=== PATIENT | male | born 1950 | race Caucasian/White ===

== ENCOUNTER 2021-02-04 14:27 | Outpatient (REF) | payer MEDICARE, SELFPAY | END 2021-02-04 14:28 | disposition home or self-care (01) | LOC: HO.HMGCLDS 14:27 | PROVIDERS: PCP Internal Medicine; Visit Provider Internal Medicine | DX: Z20.822 Contact with and (suspected) exposure to COVID-19 (principal) | CPT/HCPCS: C9803; U0003; U0005 ==

== ENCOUNTER 2021-10-26 13:53 | Outpatient (REF) | payer MEDICARE, SELFPAY ==
[2021-10-26 16:53] LABS: MANUAL DIFF FLAG NO
[2021-10-26 16:56] LABS: Basophils Percent Auto 0.5 % (0-2); Eosinophils Absolute Auto 0.1 X10*3/uL (0.0-0.4); Eosinophils Percent Auto 1.5 % (0-4); Hematocrit 37.5 % (42.0-52.0); Hemoglobin 12.7 g/dl (14.0-18.0); Imm Gran Abs Auto 0.02 X10*3/uL (0.00-0.03); Imm Gran Pct Auto 0.5 % (0.0-0.4); Lymphocytes Absolute Auto 0.8 X10*3/uL (1.2-4.9); Lymphocytes Percent Auto 19.7 % (20-40); Mean Corpuscular HGB Conc 33.9 g/dl (31.0-36.0); Mean Corpuscular Hemoglobin 30.7 pg (27.0-33.0); Mean Corpuscular Volume 90.6 fL (80.0-98.0); Mean Platelet Volume 9.8 fL (9.4-12.4); Monocytes Absolute Auto 0.3 X10*3/uL (0.1-1.2); Monocytes Percent Auto 6.1 % (2-11); Neutrophils Absolute Auto 2.9 x10*3/uL (2.0-8.3); Neutrophils Percent Auto 71.7 % (45-73); Platelet Count 159 X10*3/uL (160-400); Red Blood Count 4.14 X10*6/uL (4.60-5.80); Red Cell Distribution Width 14.7 % (11.0-16.0); White Blood Count 4.1 X10*3/uL (4.8-10.8)
[2021-10-26 17:21] LABS: Estimated Average Glucose 154 mg/dL
[2021-10-26 17:31] LABS: Alanine Aminotransferase 38 U/L (0-40); Albumin Level 4.9 g/dL (3.5-5.0); Alkaline Phosphatase 107 U/L (39-117); Anion Gap 14 (12-20); Aspartate Amino Transferase 49 U/L (5-37); Bilirubin Total 0.5 mg/dL (0.0-1.0); Blood Urea Nitrogen 22 mg/dL (9-16); Calcium 9.8 mg/dL (8.4-10.2); Carbon Dioxide 29 mmol/L (22-29); Chloride 103 mmol/L (96-108); Cholesterol 194 mg/dL; Estimated Glomerular Filt Rate 50; Glucose Fasting 129 mg/dL (60-99); HDL Cholesterol 30 mg/dL; LDL Cholesterol Calculated 98 mg/dl; Microalbum/Creatinine Ratio Ur 8.5 ug/mg cr; Potassium 4.4 mmol/L (3.3-5.1); Sodium 142 mmol/L (135-145); Total Protein 7.6 g/dL (6.5-8.0); Triglycerides 330 mg/dL
[2021-10-26 17:51] LABS: TSH reflex Free T4 4.54 uIU/mL (0.32-4.0)
[2021-10-26 17:56] LABS: Vitamin B12 458 pg/mL (200-900)
[2021-10-26 18:27] LABS: Free T4 (Free Thyroxine) 0.85 ng/dL (0.71-1.85)
[2021-11-01 15:42] LABS: Vitamin D 25-OH, D2 <4 ng/mL; Vitamin D 25-OH, D3 60 ng/mL; Vitamin D 25-OH, Total 60 ng/mL (30-100)
== END 2021-10-26 13:54 | disposition home or self-care (01) ==
LOC: HO.HMGCLDS 13:53
PROVIDERS: PCP Internal Medicine; Visit Provider Internal Medicine
DX: E11.9 Type 2 diabetes mellitus without complications (principal); E78.9 Disorder of lipoprotein metabolism, unspecified; M54.2 Cervicalgia; R53.83 Other fatigue; T14.8XXA Other injury of unspecified body region, initial encounter; Z76.89 Persons encountering health services in other specified circumstances; Z79.4 Long term (current) use of insulin
CPT/HCPCS: 36415; 80053; 80061; 82043; 82306; 82607; 83036; 84439; 84443; 85025

== ENCOUNTER 2022-01-13 12:36 | Outpatient (REF) | payer MEDICARE, SELFPAY ==
--- NOTE | ~2022-01-13 | XR_ITS ---
EXAMINATION: XR HIP, RIGHT CLINICAL INFORMATION: Right hip pain COMPARISON: CT 10/18/2016 TECHNIQUE: Two views of the right hip. AP pelvis. FINDINGS: Mild bilateral hip osteoarthritis which appears symmetric. Normal alignment. No fracture. No suspicious bone lesion. XR/XR hip RT w PEL1V IMPRESSION: Mild bilateral hip osteoarthritis.
== END 2022-01-13 12:37 | disposition home or self-care (01) ==
LOC: HO.HOSX 12:36
PROVIDERS: Visit Provider Physician Assistant
DX: M70.61 Trochanteric bursitis, right hip (principal)
CPT/HCPCS: 73502; 99202

== ENCOUNTER 2022-04-01 14:20 | Outpatient (REF) | payer MEDICARE, SELFPAY ==
[2022-04-01 16:25] LABS: MANUAL DIFF FLAG NO
[2022-04-01 16:30] LABS: Basophils Percent Auto 0.5 % (0-2); Eosinophils Absolute Auto 0.1 X10*3/uL (0.0-0.4); Eosinophils Percent Auto 2.3 % (0-4); Hematocrit 37.1 % (42.0-52.0); Hemoglobin 12.8 g/dl (14.0-18.0); Imm Gran Abs Auto 0.04 X10*3/uL (0.00-0.03); Imm Gran Pct Auto 0.7 % (0.0-0.4); Lymphocytes Absolute Auto 0.9 X10*3/uL (1.2-4.9); Lymphocytes Percent Auto 15.7 % (20-40); Mean Corpuscular HGB Conc 34.5 g/dl (31.0-36.0); Mean Corpuscular Hemoglobin 30.9 pg (27.0-33.0); Mean Corpuscular Volume 89.6 fL (80.0-98.0); Mean Platelet Volume 9.9 fL (9.4-12.4); Monocytes Absolute Auto 0.4 X10*3/uL (0.1-1.2); Monocytes Percent Auto 6.7 % (2-11); Neutrophils Absolute Auto 4.5 x10*3/uL (2.0-8.3); Neutrophils Percent Auto 74.1 % (45-73); Platelet Count 179 X10*3/uL (160-400); Red Blood Count 4.14 X10*6/uL (4.60-5.80); Red Cell Distribution Width 13.7 % (11.0-16.0)
[2022-04-01 16:47] LABS: Estimated Average Glucose 131 mg/dL; Hemoglobin A1c % 6.2 %
[2022-04-01 17:15] LABS: Alanine Aminotransferase 35 U/L (0-40); Albumin Level 4.7 g/dL (3.5-5.0); Alkaline Phosphatase 70 U/L (39-117); Anion Gap 12 (12-20); Aspartate Amino Transferase 37 U/L (5-37); Blood Urea Nitrogen 27 mg/dL (9-16); Calcium 9.6 mg/dL (8.4-10.2); Carbon Dioxide 31 mmol/L (22-29); Chloride 99 mmol/L (96-108); Estimated Glomerular Filt Rate 41; Ferritin 33 ng/mL (20-250); Glucose Random 209 mg/dL (60-115); Potassium 4.6 mmol/L (3.3-5.1); Sodium 137 mmol/L (135-145); TSH reflex Free T4 3.62 uIU/mL (0.32-4.0); Total Protein 7.1 g/dL (6.5-8.0)
[2022-04-01 17:23] LABS: Vitamin B12 921 pg/mL (200-900)
[2022-04-01 17:25] LABS: Microalbum/Creatinine Ratio Ur 5.3 ug/mg cr
[2022-04-07 14:04] LABS: Vitamin D 25-OH, D2 <4 ng/mL; Vitamin D 25-OH, D3 30 ng/mL; Vitamin D 25-OH, Total 30 ng/mL (30-100)
== END 2022-04-01 14:21 | disposition home or self-care (01) ==
LOC: HO.HMGCLDS 14:20
PROVIDERS: PCP Internal Medicine; Visit Provider Internal Medicine
DX: D64.9 Anemia, unspecified (principal); E11.9 Type 2 diabetes mellitus without complications; E78.9 Disorder of lipoprotein metabolism, unspecified; I10 Essential (primary) hypertension; M70.61 Trochanteric bursitis, right hip; M54.2 Cervicalgia; Z79.4 Long term (current) use of insulin
CPT/HCPCS: 36415; 80053; 82043; 82306; 82607; 82728; 83036; 84443; 85025

== ENCOUNTER → 2022-05-11 14:07 | Outpatient (BNVA) | payer MEDICARE, SELFPAY | PROVIDERS: PCP Internal Medicine; Visit Provider Psychiatry & Neurology Neurology | DX: G43.119 Migraine with aura, intractable, without status migrainosus (principal); G44.229 Chronic tension-type headache, not intractable; G24.3 Spasmodic torticollis; M54.2 Cervicalgia | CPT/HCPCS: 99202 ==

== ENCOUNTER → 2022-07-11 15:18 | Outpatient (BNVA) | payer MEDICARE, SELFPAY | PROVIDERS: PCP Internal Medicine; Visit Provider Internal Medicine | DX: M47.812 Spondylosis without myelopathy or radiculopathy, cervical region (principal); M47.816 Spondylosis without myelopathy or radiculopathy, lumbar region | CPT/HCPCS: 99202 ==

== ENCOUNTER → 2022-07-14 15:49 | Outpatient (BNVA) | payer MEDICARE, SELFPAY | PROVIDERS: PCP Internal Medicine; Visit Provider Psychiatry & Neurology Neurology | DX: M54.2 Cervicalgia (principal); G24.3 Spasmodic torticollis; G43.119 Migraine with aura, intractable, without status migrainosus; G44.229 Chronic tension-type headache, not intractable | CPT/HCPCS: 64616; 99211; J0585 ==

== ENCOUNTER → 2022-10-20 15:24 | Outpatient (BNVA) | payer MEDICARE, SELFPAY | PROVIDERS: PCP Internal Medicine; Visit Provider Psychiatry & Neurology Neurology | DX: M54.2 Cervicalgia (principal); G25.81 Restless legs syndrome; G44.229 Chronic tension-type headache, not intractable; G47.30 Sleep apnea, unspecified | CPT/HCPCS: 99212 ==

== ENCOUNTER 2022-12-14 14:21 | Outpatient (REF) | payer MEDICARE, SELFPAY ==
[2022-12-14 16:16] LABS: Estimated Average Glucose 143 mg/dL; Hemoglobin A1c % 6.6 %
[2022-12-14 16:23] LABS: Alanine Aminotransferase 20 U/L (0-40); Albumin Level 4.4 g/dL (3.5-5.0); Alkaline Phosphatase 68 U/L (39-117); Anion Gap 12 (12-20); Aspartate Amino Transferase 24 U/L (5-37); Bilirubin Total 0.4 mg/dL (0.0-1.0); Blood Urea Nitrogen 27 mg/dL (9-16); Calcium 9.4 mg/dL (8.4-10.2); Carbon Dioxide 26 mmol/L (22-29); Chloride 106 mmol/L (96-108); Cholesterol 181 mg/dL; Estimated Glomerular Filt Rate 45; Glucose Fasting 109 mg/dL (60-99); HDL Cholesterol 26 mg/dL; LDL Cholesterol Calculated 109 mg/dl; Potassium 4.1 mmol/L (3.3-5.1); Sodium 140 mmol/L (135-145); Total Protein 7.4 g/dL (6.5-8.0); Triglycerides 230 mg/dL
[2022-12-14 16:40] LABS: TSH reflex Free T4 2.64 uIU/mL (0.32-4.0)
[2022-12-14 16:48] LABS: Vitamin B12 453 pg/mL (200-900)
== END 2022-12-14 14:22 | disposition home or self-care (01) ==
LOC: HO.HMGCLDS 14:21
PROVIDERS: PCP Internal Medicine; Visit Provider Internal Medicine
DX: E11.40 Type 2 diabetes mellitus with diabetic neuropathy, unspecified (principal); E11.21 Type 2 diabetes mellitus with diabetic nephropathy; E78.9 Disorder of lipoprotein metabolism, unspecified; I10 Essential (primary) hypertension; D64.9 Anemia, unspecified; F99 Mental disorder, not otherwise specified; Z79.4 Long term (current) use of insulin
CPT/HCPCS: 36415; 80053; 80061; 82607; 83036; 84443

== ENCOUNTER 2022-12-23 13:21 | Outpatient (AMB) | payer MEDICARE, SELFPAY ==
[2022-12-23 13:27] VITALS: BP 112/72; PULSE 94; O2SAT 97; BMI 23.8
--- NOTE | 2022-12-23 13:27 | A.OFFPC_ITS ---
Vital Signs 12/23/22 13:27 Height 5 ft 10 in Weight 166 lb 2 oz BMI 23.8 BP 112/72 Blood Pressure Location Rt brachial Position Sitting Pulse 94 Pulse Source Pulse Oximeter Pulse Oximetry (%) 97 Oxygen Delivery Method Room Air Intake Visit Reasons: 4 Month follow up Allergies hydrochlorothiazide Allergy (Intermediate, Verified 12/23/22 13:28) Unknown lamotrigine [From LAMICTAL] Allergy (Intermediate, Verified 12/23/22 13:28) RASH Penicillins [PENICILLINS] Allergy (Intermediate, Verified 12/23/22 13:28) ITCHY Tetracyclines [TETRACYCLINES] Allergy (Intermediate, Verified 12/23/22 13:28) ITCHY tramadol Allergy (Unknown, Verified 12/23/22 13:28) Unknown onabotulinumtoxinA [From Botox] Allergy (Verified 12/23/22 13:28) swallowing gabapentin [From NEURONTIN] Adverse Reaction (Intermediate, Verified 12/23/22 13:28) ACID REFLUX amitriptyline [From ELAVIL] Adverse Reaction (Mild, Verified 12/23/22 13:28) THIRST Medication List - Last Reconciled 12/23/22 by Gt Akins MD albuterol sulfate 90 mcg/actuation (ProAir HFA) 1 inh inhalation QID PRN 30 days alprazolam 0.5 mg PO DAILY PRN atorvastatin 20 mg PO DAILY dulaglutide (Trulicity) mg subcut fenofibrate nanocrystallized 145 mg PO DAILY glipizide ER 10 mg PO DAILY insulin aspart U-100 (Novolog FlexPen U-100 Insulin aspart) subcut insulin degludec (Tresiba FlexTouch U-100 insulin) units subcut levothyroxine 50 mcg PO DAILY lisinopril 2.5 mg PO DAILY pantoprazole 40 mg PO DAILY pen needle, diabetic (Easy Touch) As directed quetiapine 200 mg PO BEDTIME ropinirole 0.25 mg PO TID sertraline 100 mg PO BID suvorexant (Belsomra) 20 mg PO BEDTIME PRN trazodone 200 mg PO BEDTIME PRN Tobacco use date assessed: 12/23/22 Fall risk assessment: No Falls in past year Last assessed Fall Risk: 12/23/22 Dental Screening Dental Screen Date: 12/23/22 Did you have a dental visit in the last 12 months?: Yes Did you have a dental problem in the last 6 months where you did not have access to dental care?: No Was dental information given to patient?: No HPI 4 Month follow up HPI Details Patient is 72-year-old male came in today for his follow-up appointment. 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 Labs done recently reviewed with the patient his creatinine has slightly improved at 1.53 with GFR of 45 LDL is 109 Liver functions normal and TSH is normal Diabetes: Hemoglobin A1c is well controlled, patient is to continue diabetic medications , he is on Trulicity, glipizide 10 mg and 80 units of Tresiba. Patient have stage III diabetic nephropathy patient is seen Nephrology for that Lipid disorder: patient is on gemfibrozil 600 mg b.i.d. Thyroid medication is levothyroxine 50 mcg Chronic GERD: Continue pantoprazole 40 mg and diet-controlled cervicalgia and headache. Management through neurology Psychiatric illness is managed by psych med prescriber patient is taking number of medications including alprazolam, Seroquel, and trazodone through them Follow-up 4 months labs are needed before the visit next time [facility] Medical History (Updated 12/23/22 @ 14:08 by Gt Akins MD) Gallbladder abscess Restless legs syndrome (RLS) Sleep apnea Surgical History Hx of cholecystectomy Family History Brother Substance use disorder Sister Mental health disorder Diabetes Sister Mental health disorder Sister Mental health disorder Sister Mental health disorder Mother Mental health disorder Social History Housing: Condominium Alcohol intake: current Patient Tobacco Use Status: Never used Tobacco e-Cigarette/Vaping Use: Never Used Second Hand Smoke Exposure: No service: No Current occupational status: employed and disabled Current occupation: disabled - [employer] Cognitive needs: No Hearing needs: No Vision needs: Yes Questionnaire PHQ-9 Over the last 2 weeks, how often have you been bothered by any of the following problems? 1. Little interest or pleasure in doing things: several days 2. Feeling down, depressed, or hopeless: several days 3. Trouble falling or staying asleep, or sleeping too much: not at all 4. Feeling tired or having little energy: nearly every day 5. Poor appetite or overeating: several days 6. Feeling bad about yourself - or that you are a failure or have let yourself or your family down: not at all 7. Trouble concentrating on things, such as reading the newspaper or watching television: not at all 8. Moving or speaking so slowly that other people could have noticed. Or the opposite - being so fidgety or restless that you have been moving around a lot more than usual: nearly every day 9. Thoughts that you would be better off or of hurting yourself in some way: not at all Total score: 9 Depression Screening Interpretation: Negative [id number] - PHQ-9 Billing: Yes Source: Developed by Drs. Bakari Cnaales, Petty Quiroz, Anjel Queen and colleagues, with an educational melina from [employer]. Thrive Questionnaire Date Thrive assessed: 12/23/22 I am a: Patient What is your living situation today?: I have a steady place to live Within the past 12 months, did the food you bought not last and you didn't have the money to get more?: Never true Within the past 12 months, did you worry whether your food would run out before you got money to buy more?: Never true Do you have trouble paying for medicines?: No Do you have trouble getting transportation to medical appointments?: No Do you have trouble paying your heating and electricity bill?: No Do you have trouble taking care of your child, family member or friend?: No Do you have trouble with day-to-day activities such as bathing, preparing meals, shopping, managing finances, etc.?: No Are you currently unemployed and looking for a job?: No Are you interested in more education?: No AUDIT C Alcohol Use Questionnaire (AUDIT-C) 1. How often do you have a drink containing alcohol?: Never 3. How often do you have six or more drinks on one occasion?: Never Total Score: 0 Score Reviewed/Action Taken: Yes EVY-7 AMB Questionnaire EVY-7 Date EVY - 7 assessed: 12/23/22 Feeling nervous, anxious, or on edge: 2 = More than half the days Not being able to stop or control worryin = Not at all Worrying too much about different things: 0 = Not at all Trouble relaxin = Nearly every day Being so restless that it is hard to sit still: 1 = Several days Becoming easily annoyed or irritable: 1 = Several days Feeling afraid as if something awful might happen: 0 = Not at all Total EVY-7 score (0-4 normal; 5-9 mild; 10-14 moderate; 15-21 severe): 7 Source: Developed by Drs. Bakari Canales, Petty Quiroz, Anjel Queen and colleagues, with an educational melina from [employer]. EVY-7 Assessment Billing EVY-7 Assessment Tool: EVY-7 Assessment 77480 Review of Systems Const Denies chills and Denies fever(s) ENT Denies epistaxis and Denies nasal discharge Card Denies chest pain Resp Denies hemoptysis GI Denies diarrhea and Denies nausea Skin/Breast Denies rash Neuro Reports no additional complaints Psych Reports no additional complaints Endo Reports no additional complaints Physical exam (Primary Care) Vital Signs: Last Vital Signs Pulse 94 12/23/22 13:27 BP 112/72 12/23/22 13:27 Pulse Ox 97 12/23/22 13:27 Oxygen Delivery Method Room Air 12/23/22 13:27 BMI result Body Mass Index 23.8 Tobacco/Smoking Status: Tobacco use Status Tobacco use date assessed 12/23/22 12/23/22 13:28 Patient Tobacco Use Status Never used Tobacco 12/23/22 13:28 e-Cigarette/Vaping Use Never Used 12/23/22 13:28 PHQ-9: PHQ-9 Score PHQ-9: Total score 9 12/23/22 14:02 Depression Screening Interpretation: Negative Thrive Assessment: Date of Thrive Assessment Date Thrive assessed 12/23/22 12/23/22 14:02 Const General: cooperative, comfortable and no acute distress Orientation/consciousness: patient oriented x3 HENMT Head: Yes normocephalic Mouth/tongue images: 1. Small raised growth left side of tongue size of 1 cm by half a cm Eyes General: appearance normal, both eyes and all related structures Neck Neck: Yes supple Resp Effort & Inspection: normal respiratory effort, no cough and no stridor Cardio Rhythm: regular rhythm Heart sounds: S1 normal heart sound present and S2 normal heart sound present Skin General skin exam: turgor normal Neuro General: patient oriented x3, tone normal and moves all extremities Extrem Right lower extremity: no edema Left lower extremity: no edema Assessment and Plan Assessment & Plan (1) Respiratory tract congestion with cough: Code(s): R05.8 - Other specified cough (2) Tongue disorder: Code(s): K14.9 - Disease of tongue, unspecified (3) Diabetes mellitus type 2, insulin dependent: Code(s): E11.9 - Type 2 diabetes mellitus without complications; Z79.4 - terminal superintendent (current) use of insulin (4) Other specified hypothyroidism: Code(s): E03.8 - Other specified hypothyroidism (5) Lipid disorder: Code(s): E78.9 - Disorder of lipoprotein metabolism, unspecified (6) Shortness of breath: Code(s): R06.02 - Shortness of breath (7) Exposure to chemical inhalation: Code(s): Z77.098 - Contact with and (suspected) exposure to other hazardous, chiefly nonmedicinal, chemicals (8) Diabetic kidney disease: Code(s): E11.21 - Type 2 diabetes mellitus with diabetic nephropathy (9) Psychiatric illness: Comment: Patient have psych med prescriber Code(s): F99 - Mental disorder, not otherwise specified (10) Diabetic neuropathy: Code(s): E11.40 - Type 2 diabetes mellitus with diabetic neuropathy, unspecified (11) Anemia: Comment: Patient is taking iron through Nephrology Code(s): D64.9 - Anemia, unspecified (12) Hypertension, essential: Code(s): I10 - Essential (primary) hypertension Plan Patient is 72-year-old male came in today for his follow-up appointment. 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 Labs done recently reviewed with the patient his creatinine has slightly improved at 1.53 with GFR of 45 LDL is 109 Liver functions normal and TSH is normal Diabetes: Hemoglobin A1c is well controlled, patient is to continue diabetic medications , he is on Trulicity, glipizide 10 mg and 80 units of Tresiba. Patient have stage III diabetic nephropathy patient is seen Nephrology for that Lipid disorder: patient is on gemfibrozil 600 mg b.i.d. Thyroid medication is levothyroxine 50 mcg Chronic GERD: Continue pantoprazole 40 mg and diet-controlled cervicalgia and headache. Management through neurology Psychiatric illness is managed by psych med prescriber patient is taking number of medications including alprazolam, Seroquel, and trazodone through them Follow-up 4 months labs are needed before the visit next time Orders: Orders XR chest 2V Today R05.8 - Other specified cough PFT pulmonary function test Today R05.8 - Other specified cough, R06.02 - Shortness of breath, Z77.098 - Contact with and (suspected) exposure to other hazardous, chiefly nonmedicinal, chemicals Referrals Oral Surgery Referal K14.9 - Disease of tongue, unspecified Medications: New 2 albuterol sulfate 90 mcg/actuation (ProAir HFA) 1 inh inhalation QID 30 days PRN 18 grams 0RF shortness of breath or wheezing Coding Level of Care Code Est Pt Level 4 (34770) Diagnoses Respiratory tract congestion with cough R05.8 Tongue disorder K14.9 Diabetes mellitus type 2, insulin dependent E11.9; Z79.4 Other specified hypothyroidism E03.8 Lipid disorder E78.9 Shortness of breath R06.02 Exposure to chemical inhalation Z77.098 Diabetic kidney disease E11.21 Psychiatric illness F99 Diabetic neuropathy E11.40 Anemia D64.9 Hypertension, essential I10 Additional Codes EVY-7 Assessment Billing - EVY-7 Assessment Tool: EVY-7 Assessment 73308 ([id number])
== END 2022-12-23 14:03 | disposition home or self-care (01) ==
PROVIDERS: Visit Provider Internal Medicine
DX: R05.8 Other specified cough (principal); K14.9 Disease of tongue, unspecified; Z79.4 Long term (current) use of insulin; E03.8 Other specified hypothyroidism; E78.9 Disorder of lipoprotein metabolism, unspecified; R06.02 Shortness of breath; Z77.098 Contact with and (suspected) exposure to other hazardous, chiefly nonmedicinal, chemicals; E11.21 Type 2 diabetes mellitus with diabetic nephropathy; F99 Mental disorder, not otherwise specified; E11.40 Type 2 diabetes mellitus with diabetic neuropathy, unspecified; D64.9 Anemia, unspecified; I10 Essential (primary) hypertension
CPT/HCPCS: 99214

== ENCOUNTER 2022-12-23 14:04 | Outpatient (REF) | payer MEDICARE, SELFPAY ==
--- NOTE | ~2022-12-23 | XR_ITS ---
EXAMINATION: XR CHEST CLINICAL INFORMATION: Cough COMPARISON: None available. TECHNIQUE: 2 views of the chest were obtained. FINDINGS: No significant abnormality is noted involving the heart, lungs, mediastinum, bony thorax or soft tissues. XR/XR chest 2V IMPRESSION: Unremarkable examination.
== END 2022-12-23 14:05 | disposition home or self-care (01) ==
LOC: HO.HMGCX 14:04
PROVIDERS: PCP Internal Medicine; Visit Provider Internal Medicine
DX: R05.8 Other specified cough (principal)
CPT/HCPCS: 71046

== ENCOUNTER 2022-12-29 09:17 | Outpatient (REF) | payer MEDICARE, SELFPAY ==
--- NOTE | 2022-12-29 10:03 | PFT_ITS ---
FLOWS: 1. FEV1 89% of predicted at 2.81 L. 2. FVC 77% of predicted at 3.33 L. 3. FEV1 to FVC ratio of 0.84. 4. No bronchodilator response. LUNG VOLUMES: 1. Total lung capacity 66% of predicted at 4.69 L. 2. Residual volume 48% of predicted at 1.22 L. 3. Slow vital capacity 76% of predicted at 3.47 L. 4. Expiratory reserve volume 42% of predicted at 0.54 L. 5. Diffusion capacity is moderately decreased, diffusion capacity corrects to be mildly decreased after adjustment for alveolar ventilation. IMPRESSION: Mild restrictive ventilatory defect with no bronchodilator response. Combination of restrictive ventilatory defect with decreased diffusion capacity suggests underlying pulmonary parenchymal disease. Clinical correlation is advised. Hemal Turcios MD AP/MODL / [id number]
== END 2022-12-29 09:18 | disposition home or self-care (01) ==
LOC: HO.RESP 09:17
PROVIDERS: PCP Internal Medicine; Visit Provider Internal Medicine
DX: R05.8 Other specified cough (principal); R06.02 Shortness of breath; Z77.098 Contact with and (suspected) exposure to other hazardous, chiefly nonmedicinal, chemicals
CPT/HCPCS: 94010; 94727; 94729

== ENCOUNTER → 2022-12-29 10:03 | Outpatient (BNV) | payer MEDICARE, SELFPAY | PROVIDERS: PCP Internal Medicine; Visit Provider Internal Medicine Pulmonary Disease | DX: R06.02 Shortness of breath (principal) | CPT/HCPCS: 94060; 94727; 94729 ==

== ENCOUNTER 2023-02-13 14:37 | Outpatient (AMB) | payer MEDICARE, SELFPAY ==
[2023-02-13 14:43] VITALS: BP 106/72; PULSE 94; O2SAT 100; BMI 23.4
--- NOTE | 2023-02-13 14:43 | A.OFFVIS_ITS ---
Intake Vital Signs 02/13/23 14:43 Height 5 ft 10 in Weight 163 lb 2.273 oz BMI 23.4 BP 106/72 Blood Pressure Location Lt brachial Position Sitting Pulse 94 Pulse Source Doppler Pulse Oximetry (%) 100 Oxygen Delivery Method Room Air Intake Visit Reasons: COPD Intake Note: Patient is here for a new consult on COPD Allergies hydrochlorothiazide Allergy (Intermediate, Verified 02/13/23 15:22) Unknown lamotrigine [From LAMICTAL] Allergy (Intermediate, Verified 02/13/23 15:22) RASH Penicillins [PENICILLINS] Allergy (Intermediate, Verified 02/13/23 15:22) ITCHY Tetracyclines [TETRACYCLINES] Allergy (Intermediate, Verified 02/13/23 15:22) ITCHY tramadol Allergy (Unknown, Verified 02/13/23 15:22) Unknown onabotulinumtoxinA [From Botox] Allergy (Verified 02/13/23 15:22) swallowing gabapentin [From NEURONTIN] Adverse Reaction (Intermediate, Verified 02/13/23 15:22) ACID REFLUX amitriptyline [From ELAVIL] Adverse Reaction (Mild, Verified 02/13/23 15:22) THIRST Medication List - Last Reconciled 02/13/23 by Nikia Mills MD albuterol sulfate 90 mcg/actuation (ProAir HFA) 1 inh inhalation QID PRN 30 days alprazolam 0.5 mg PO DAILY PRN atorvastatin 20 mg PO DAILY dulaglutide (Trulicity) mg subcut fenofibrate nanocrystallized 145 mg PO DAILY glipizide ER 10 mg PO DAILY insulin aspart U-100 (Novolog FlexPen U-100 Insulin aspart) subcut insulin degludec (Tresiba FlexTouch U-100 insulin) units subcut levothyroxine 50 mcg PO DAILY lisinopril 2.5 mg PO DAILY pantoprazole 40 mg PO DAILY pen needle, diabetic (Easy Touch) As directed quetiapine 200 mg PO BEDTIME ropinirole 0.25 mg PO TID sertraline 100 mg PO BID suvorexant (Belsomra) 20 mg PO BEDTIME PRN trazodone 200 mg PO BEDTIME PRN Do you need a note to return to daycare/school/sports/work: No HPI COPD HPI Details THIS 72 YEARS OLD GENTLEMAN IS BEING SEEN FOR THE 1ST TIME FOR PULMONARY EVALUATION. HE COMPLAINS OF GETTING SHORT OF BREATH ON WALKING AROUND AND ALSO HAS INTERMITTENT COUGH FOR THE LAST FEW MONTHS. HE DENIES HAVING HAD ANY ACUTE RESPIRATORY INFECTION. 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 PRIOR TO RETIRING ON DISABILITY IN 1998, HE WAS EXPOSED TO LOT OF PLASTIC, FORMALDEHIDE AND OTHER KINDS OF CHEMICALS, WHILE HE WORKED IN A COMPANY BY NAME [employer] , BUT 10 YEARS AND THEN [employer] FOR ABOUT 80 YEARS. WHEN I QUESTIONED HIM ABOUT HIS BREATHING PROBLEMS, THAT STARTED ONLY A FEW MONTHS AGO. HE SAY IS HE GETS SHORT OF BREATH ON WALKING ON THE LEVEL GROUND AND ESPECIALLY IF HE HAS TO WALK UP HILL. OR CLIMBING STAIRS HE HAS ONLY MILD INTERMITTENT COUGH WITHOUT EXPECTORATION. HE DENIES ANY WHEEZING ATTACKS. HIS OTHER MEDICAL PROBLEMS INCLUDE DIABETES MELLITUS , DIABETIC KIDNEY DISEASE, CHRONIC ANEMIA , LIPID DISORDER, CHRONIC BACK PAIN AND ALSO CHRONIC MENTAL DISORDER. [facility] Medical History (Updated 02/13/23 @ 15:42 by Nikia Mills MD) Restrictive lung disease Dyspnea on exertion Restless legs syndrome (RLS) Sleep apnea Gallbladder abscess Surgical History Hx of cholecystectomy Family History Brother Substance use disorder Sister Mental health disorder Diabetes Sister Mental health disorder Sister Mental health disorder Sister Mental health disorder Mother Mental health disorder Social History Housing: Condominium Alcohol intake: current Patient Tobacco Use Status: Never used Tobacco e-Cigarette/Vaping Use: Never Used Second Hand Smoke Exposure: No service: No Current occupational status: employed and disabled Current occupation: disabled - [employer] hand Cognitive needs: No Hearing needs: No Vision needs: Yes Review of Systems Const All systems reviewed & are unremarkable except as noted in HPI and below Eyes Reports no additional complaints ENT Reports no additional complaints Card Denies chest pain, Denies irregular heart rhythm and Denies leg edema Resp Reports as per HPI GI Reports no additional complaints Reports no additional complaints Musc Reports back pain Skin/Breast Reports system reviewed and no additional complaints, except as documented Neuro Reports restless legs Psych Reports depression and Reports mood swings Endo Reports other (DIABETES MELLITUS) Yaron/Lymph Reports no additional complaints Aller/Immun Reports no additional complaints Physical Exam Vital Signs: Last Vital Signs Pulse 94 02/13/23 14:43 BP 106/72 02/13/23 14:43 Pulse Ox 100 02/13/23 14:43 Oxygen Delivery Method Room Air 02/13/23 14:43 BMI result Body Mass Index 23.4 Const General: comfortable, no acute distress, alert and awake Orientation/consciousness: patient oriented x3 HEENT Head: Yes normal to inspection General nose exam: No nasal polyps present and No nasal discharge present Face and sinus: Yes sinuses nontender Mouth: oropharynx normal Throat: Yes posterior oropharynx normal Eyes General: appearance normal, both eyes and all related structures Neck Neck: Yes normal visual inspection, Yes no lymphadenopathy, Yes trachea midline and Yes no JVD Thyroid: Thyroid normal Chest Chest palpation & inspection: normal inspection of the chest, normal palpation of entire chest wall and no tenderness Resp Other: PERCUSSION. NOTE IS RESONANT HE HAS GOOD BREATH SOUNDS ON BOTH SIDES. NO WHEEZES ARE HEARD. THE BREATH SOUNDS ARE SOMEWHAT HARSH OVER THE LEFT MID CHEST Cardio Palpation: normal PMI Rate: regular rate Rhythm: regular rhythm Heart sounds: no gallops and no murmurs GI Palpation (GI): not soft, nontender, No hepatosplenomegaly present, no masses and Other GI palpation findings present (THE ABDOMEN IS THE SOMEWHAT BULGING IN THE EPIGASTRIC AREA.) Auscultation: normal bowel sounds Back/Spine/Pelvis Thoracic/Lumbar Spine: thoracic and lumbar spine normal to inspection and thoraco-lumbar ROM limited Skin General skin exam: no rashes or lesions noted Neuro General: patient oriented x3 and no focal motor deficits Cranial nerves: Yes CN's II-XII intact bilaterally Extrem General: Yes normal to inspection, Yes no clubbing, cyanosis or edema and Yes no calf tenderness Psych Appearance: grossly normal and well kempt Speech and movement: Normal speech and movement present Results Reviewed Results Reviewed: CHEST X-RAY ON 12/23/2022 WAS UNREMARKABLE PULMONARY FUNCTION TEST ON 12/29/2022 FLOW VOLUMES ARE ALL NORMAL AND THERE IS NO EVIDENCE OF OBSTRUCTIVE AIRWAY DISORDER. THERE WAS MINIMAL NEGATIVE RESPONSE TO BRONCHODILATORS. TLC 66, RESIDUAL VOLUME 48, DLCO 54 THESE RESULTS ARE CONSISTENT WITH MODERATE RESTRICTIVE PULMONARY DISORDER Assessment & Plan Assessment & Plan (1) Dyspnea on exertion: Code(s): R06.09 - Other forms of dyspnea (2) Restrictive lung disease: Code(s): J98.4 - Other disorders of lung Plan: THIS GENTLEMAN'S MAIN RESPIRATORY SYMPTOM IS DYSPNEA ON EXERTION AND SOME COUGH. 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 CHEST X-RAY DOES NOT SHOW ANY SIGNIFICANT ABNORMALITY. PULMONARY FUNCTION TEST DOES SHOW RESTRICTIVE PATTERN MODERATELY SEVERE, BUT THERE IS NO OBSTRUCTIVE AIRWAY DISORDER. SO DOES HE HAVE A POSSIBLE INTO SPECIAL LUNG DISEASE WHICH IS NOT EVIDENT ON THE CHEST X-RAY, IT NEEDS TO BE RULED OUT. HE DOES HAVE SOME PROTUBERANCE OF THE ABDOMEN, MAY HAVE A VENTRAL HERNIA. THAT CAN CONTRIBUTE TO RESTRICTIVE PULMONARY DISORDER. HIS GENERAL DECONDITIONING MAY ALSO BE CONTRIBUTING TO DYSPNEA ON EXERTION. PLAN : AT THIS POINT I WILL ORDER A CT SCAN OF THE CHEST JUST TO MAKE SURE THAT HE DOES NOT HAVE INTERSTITIAL LUNG DISEASE. THERE IS NO NEED TO TREAT HIM WITH ANY BRONCHODILATOR INHALERS. HE IS ADVISED TO DO DEEP BREATHING EXERCISES. I WILL CHECK HIM AFTER THE CT SCAN IS PERFORMED. Orders: Orders CT chest wo IV con Today J98.4 - Other disorders of lung Coding Level of Care Code New Pt Level 4 (33936) Diagnoses Dyspnea on exertion R06.09 Restrictive lung disease J98.4
== END 2023-02-13 15:22 | disposition home or self-care (01) ==
PROVIDERS: PCP Internal Medicine; Referring Provider Internal Medicine; Visit Provider Internal Medicine
DX: R06.09 Other forms of dyspnea (principal); J98.4 Other disorders of lung
CPT/HCPCS: 99204

== ENCOUNTER → 2023-02-13 14:37 | Outpatient (BNVA) | payer MEDICARE, SELFPAY | PROVIDERS: PCP Internal Medicine; Visit Provider Internal Medicine ==

== ENCOUNTER 2023-02-22 06:49 | Outpatient (REF) | payer MEDICARE, SELFPAY ==
--- NOTE | ~2023-02-22 | CT_ITS ---
EXAMINATION: CT CHEST WITHOUT CONTRAST CLINICAL INFORMATION: Restrictive lung disease COMPARISON: Previous chest x-ray TECHNIQUE: Multidetector volumetric CT imaging of the chest was done. Axial MIP volume rendering provided. Sagittal and coronal reformatted images were obtained. This CT examination was performed using dose optimization techniques as appropriate, variously including the following: *Automated exposure control *Adjustment of mA and/or kV according to patient size (this includes techniques or standardized protocols for targeted exams where dose is matched to indication/reason for exam; i.e. 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 The lungs are otherwise clear. No evidence of interstitial lung disease. No evidence of emphysema or bronchiectasis. No endobronchial or endotracheal lesion. MEDIASTINUM: The mediastinum is normal. CORONARY ARTERY CALCIFICATION: Mild PLEURA: There is no pleural effusion. No pleural mass or thickening. AXILLA: No enlarged axillary lymph nodes. No chest wall mass. UPPER ABDOMEN: The gallbladder has been removed. The spleen is not completely imaged but appears prominent. OSSEOUS STRUCTURES: Degenerative changes of the spine. CT/CT chest wo IV con IMPRESSION: No evidence of interstitial lung disease. Small calcified granuloma in the right middle lobe measuring 3 mm. No imaging follow-up recommended. Spleen not completely imaged but appears prominent. Fleischner guidelines were followed.
== END 2023-02-22 06:50 | disposition home or self-care (01) ==
LOC: HO.CT 06:49
PROVIDERS: PCP Internal Medicine; Visit Provider Internal Medicine
DX: J98.4 Other disorders of lung (principal)
CPT/HCPCS: 71250

== ENCOUNTER 2023-03-29 14:28 | Outpatient (AMB) | payer MEDICARE, SELFPAY ==
--- NOTE | 2023-03-29 14:39 | A.OFFVIS_ITS ---
Intake Vital Signs 03/29/23 14:40 Height 5 ft 10 in Weight 165 lb BMI 23.7 BP 120/62 Blood Pressure Location Lt brachial Position Sitting Pulse 90 Pulse Source Pulse Oximeter Pulse Oximetry (%) 100 Oxygen Delivery Method Room Air Intake Visit Reasons: copd Intake Note: pt is here for follow up and states he is feeling alright. Balance Staff Inspector Required: No Allergies hydrochlorothiazide Allergy (Intermediate, Verified 03/29/23 15:09) Unknown lamotrigine [From LAMICTAL] Allergy (Intermediate, Verified 03/29/23 15:09) RASH Penicillins [PENICILLINS] Allergy (Intermediate, Verified 03/29/23 15:09) ITCHY Tetracyclines [TETRACYCLINES] Allergy (Intermediate, Verified 03/29/23 15:09) ITCHY tramadol Allergy (Unknown, Verified 03/29/23 15:09) Unknown onabotulinumtoxinA [From Botox] Allergy (Verified 03/29/23 15:09) swallowing gabapentin [From NEURONTIN] Adverse Reaction (Intermediate, Verified 03/29/23 15:09) ACID REFLUX amitriptyline [From ELAVIL] Adverse Reaction (Mild, Verified 03/29/23 15:09) THIRST Medication List - Last Reconciled 03/29/23 by Nikia Mills MD albuterol sulfate 90 mcg/actuation (ProAir HFA) 1 inh inhalation QID PRN 30 days alprazolam 0.5 mg PO DAILY PRN atorvastatin 20 mg PO DAILY dulaglutide (Trulicity) mg subcut fenofibrate nanocrystallized 145 mg PO DAILY glipizide ER 10 mg PO DAILY insulin aspart U-100 (Novolog FlexPen U-100 Insulin aspart) subcut insulin degludec (Tresiba FlexTouch U-100 insulin) units subcut levothyroxine 50 mcg PO DAILY levothyroxine 50 mcg PO DAILY lisinopril 2.5 mg PO DAILY pantoprazole 40 mg PO DAILY pen needle, diabetic (Easy Touch) As directed quetiapine 200 mg PO BEDTIME ropinirole 0.25 mg PO TID sertraline 100 mg PO BID suvorexant (Belsomra) 20 mg PO BEDTIME PRN trazodone 200 mg PO BEDTIME PRN Do you need a note to return to daycare/school/sports/work: No HPI copd HPI Details THIS SEVENTY THREE YEARS GENTLEMAN IS HERE FOR FOLLOW-UP. HIS MAIN COMPLAINT IS INTERMITTENT BOUTS OF COUGH. AND ALSO GETTING SHORT OF BREATH ON EXERTION LIKE WALKING UP HILL OR CLIMBING STAIRS. 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 HE HAS UNDERGONE PULMONARY FUNCTION TEST AND CT SCAN OF THE LUNGS. HE TELLS ME THAT RECENTLY FOUND TO HAVE SOME ANEMIA DUE TO IRON DEFICIENCY WHICH IS BEING TREATED AND HE FEELS BETTER. HE HAS NEVER SMOKED. [facility] Medical History Restrictive lung disease Dyspnea on exertion Restless legs syndrome (RLS) Sleep apnea Gallbladder abscess Surgical History Hx of cholecystectomy Family History Brother Substance use disorder Sister Mental health disorder Diabetes Sister Mental health disorder Sister Mental health disorder Sister Mental health disorder Mother Mental health disorder Social History Housing: Condominium Alcohol intake: current Patient Tobacco Use Status: Never used Tobacco e-Cigarette/Vaping Use: Never Used Second Hand Smoke Exposure: No service: No Current occupational status: employed and disabled Current occupation: disabled - [employer] Cognitive needs: No Hearing needs: No Vision needs: Yes Review of Systems Const All systems reviewed & are unremarkable except as noted in HPI and below Eyes Reports no additional complaints ENT Reports no additional complaints Card Denies chest pain, Denies irregular heart rhythm and Denies leg edema Resp Reports as per HPI GI Reports no additional complaints Reports no additional complaints Musc Reports back pain Skin/Breast Reports system reviewed and no additional complaints, except as documented Neuro Reports restless legs Psych Reports depression and Reports mood swings Endo Reports other (DIABETES MELLITUS) Yaron/Lymph Reports no additional complaints Aller/Immun Reports no additional complaints Physical Exam Vital Signs: Last Vital Signs Pulse 90 03/29/23 14:40 BP 120/62 03/29/23 14:40 Pulse Ox 100 03/29/23 14:40 Oxygen Delivery Method Room Air 03/29/23 14:40 BMI result Body Mass Index 23.7 Const General: comfortable, no acute distress, alert and awake Orientation/consciousness: patient oriented x3 HEENT Head: Yes normal to inspection General nose exam: No nasal polyps present and No nasal discharge present Face and sinus: Yes sinuses nontender Mouth: oropharynx normal Throat: Yes posterior oropharynx normal Eyes General: appearance normal, both eyes and all related structures Neck Neck: Yes normal visual inspection, Yes no lymphadenopathy, Yes trachea midline and Yes no JVD Thyroid: Thyroid normal Chest Chest palpation & inspection: normal inspection of the chest, normal palpation of entire chest wall and no tenderness Resp Other: PERCUSSION. NOTE IS RESONANT HE HAS GOOD BREATH SOUNDS ON BOTH SIDES. NO WHEEZES ARE HEARD. THE BREATH SOUNDS ARE SOMEWHAT HARSH OVER THE LEFT MID CHEST Cardio Palpation: normal PMI Rate: regular rate Rhythm: regular rhythm Heart sounds: no gallops and no murmurs GI Palpation (GI): not soft, nontender, No hepatosplenomegaly present, no masses and Other GI palpation findings present (THE ABDOMEN IS THE SOMEWHAT BULGING IN THE EPIGASTRIC AREA.) Auscultation: normal bowel sounds Back/Spine/Pelvis Thoracic/Lumbar Spine: thoracic and lumbar spine normal to inspection and thoraco-lumbar ROM limited Skin General skin exam: no rashes or lesions noted Neuro General: patient oriented x3 and no focal motor deficits Cranial nerves: Yes CN's II-XII intact bilaterally Extrem General: Yes normal to inspection, Yes no clubbing, cyanosis or edema and Yes no calf tenderness Psych Appearance: grossly normal and well kempt Speech and movement: Normal speech and movement present Results Reviewed Results Reviewed: CT SCAN OF THE CHEST. NO PARENCHYMAL LUNG DISEASE NOTED. 3 MM CALCIFIED GRANULOMA IN RIGHT MID LUNG, DOES NOT NEED ANY FURTHER. FOLLOW- UP PULMONARY FUNCTION TEST SHOWS NO OBSTRUCTIVE AIRWAY DISORDER AND NO POSITIVE RESPONSE TO BDs. THERE IS MILD TO MODERATE RESTRICTIVE PULMONARY DISORDER, AND MOST LIKELY THIS IS DUE TO HIS ABDOMINAL OBESITY/ VENTRAL HERNIA. Assessment & Plan Assessment & Plan (1) Dyspnea on exertion: Comment: DYSPNEA ON EXERTION IS NOT DUE TO ANY SIGNIFICANT LUNG DISEASE. HOWEVER HE DOES HAVE MILD TO MODERATE DEGREE OF RESTRICTIVE LUNG DISEASE, HE STATES THAT DYSPNEA ON EXERTION IS MUCH IMPROVED HIS ANEMIA IS CORRECTED. Code(s): R06.09 - Other forms of dyspnea Plan: ABOVE (2) Restrictive lung disease: Comment: MILD TO MODERATE RESTRICTIVE LUNG DISEASE PROBABLY DUE TO ABDOMINAL OBESITY/VENTRAL HERNIATION. ADVISED TO KEEP ON DOING DEEP BREATHING EXERCISES . 2 OR 3 TIMES A DAY Code(s): J98.4 - Other disorders of lung Plan: ABOVE Coding Level of Care Code Est Pt Level 3 (87933) Diagnoses Dyspnea on exertion R06.09 Restrictive lung disease J98.4
[2023-03-29 14:40] VITALS: BP 120/62; PULSE 90; O2SAT 100; BMI 23.7
== END 2023-03-29 15:21 | disposition home or self-care (01) ==
PROVIDERS: PCP Internal Medicine; Visit Provider Internal Medicine
DX: R06.09 Other forms of dyspnea (principal); J98.4 Other disorders of lung
CPT/HCPCS: 99213

== ENCOUNTER → 2023-03-29 14:28 | Outpatient (BNVA) | payer MEDICARE, SELFPAY | PROVIDERS: PCP Internal Medicine; Visit Provider Internal Medicine | DX: J98.4 Other disorders of lung (principal); R06.09 Other forms of dyspnea | CPT/HCPCS: 99212 ==

== ENCOUNTER 2023-03-31 14:01 | Outpatient (AMB) | payer MEDICARE, SELFPAY ==
[2023-03-31 14:02] VITALS: BP 130/66; PULSE 108; O2SAT 96; BMI 23.6
--- NOTE | 2023-03-31 14:02 | A.OFFPC_ITS ---
Vital Signs 03/31/23 14:02 Height 5 ft 10 in Weight 164 lb 6 oz BMI 23.6 BP 130/66 Blood Pressure Location Lt brachial Position Sitting Pulse 108 H Pulse Source Pulse Oximeter Pulse Oximetry (%) 96 Oxygen Delivery Method Room Air Intake Visit Reasons: 3 Month follow up Allergies hydrochlorothiazide Allergy (Intermediate, Verified 03/31/23 14:03) Unknown lamotrigine [From LAMICTAL] Allergy (Intermediate, Verified 03/31/23 14:03) RASH Penicillins [PENICILLINS] Allergy (Intermediate, Verified 03/31/23 14:03) ITCHY Tetracyclines [TETRACYCLINES] Allergy (Intermediate, Verified 03/31/23 14:03) ITCHY tramadol Allergy (Unknown, Verified 03/31/23 14:03) Unknown onabotulinumtoxinA [From Botox] Allergy (Verified 03/31/23 14:03) swallowing gabapentin [From NEURONTIN] Adverse Reaction (Intermediate, Verified 03/31/23 14:03) ACID REFLUX amitriptyline [From ELAVIL] Adverse Reaction (Mild, Verified 03/31/23 14:03) THIRST Medication List - Last Reconciled 03/31/23 by Gt Akins MD albuterol sulfate 90 mcg/actuation (ProAir HFA) 1 inh inhalation QID PRN 30 days alprazolam 0.5 mg PO DAILY PRN atorvastatin 20 mg PO DAILY dulaglutide (Trulicity) mg subcut fenofibrate nanocrystallized 145 mg PO DAILY glipizide ER 10 mg PO DAILY insulin aspart U-100 (Novolog FlexPen U-100 Insulin aspart) subcut insulin degludec (Tresiba FlexTouch U-100 insulin) units subcut levothyroxine 50 mcg PO DAILY levothyroxine 50 mcg PO DAILY lisinopril 2.5 mg PO DAILY pantoprazole 40 mg PO DAILY pen needle, diabetic (Easy Touch) As directed quetiapine 200 mg PO BEDTIME ropinirole 0.25 mg PO TID sertraline 100 mg PO BID suvorexant (Belsomra) 20 mg PO BEDTIME PRN trazodone 200 mg PO BEDTIME PRN Tobacco use date assessed: 03/31/23 Fall risk assessment: No Falls in past year Last assessed Fall Risk: 03/31/23 Dental Screening Dental Screen Date: 03/31/23 Did you have a dental visit in the last 12 months?: No Did you have a dental problem in the last 6 months where you did not have access to dental care?: No Was dental information given to patient?: Patient has dentist HPI 3 Month follow up HPI Details Patient is 72-year-old male came in today for his follow-up appointmen laine. 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 Mills his last visit was this month Diabetes: Hemoglobin A1c is well controlled, patient is to continue diabetic medications , he is on Trulicity, glipizide 10 mg and 80 units of Tresiba. Patient have stage III diabetic nephropathy patient is seen Nephrology for that Lipid disorder: patient is on gemfibrozil 600 mg b.i.d. Thyroid medication is levothyroxine 50 mcg Chronic GERD: Continue pantoprazole 40 mg and diet-controlled cervicalgia and headache. Management through neurology Major depression managed by psych med prescriber patient is taking number of medications including alprazolam, Seroquel, and trazodone through them Follow-up 4 months labs are due today Patient would like to have handicap placard filled he has difficulty walking because of herniated disc in his lumbar spine Paperwork filled [facility] Medical History Restrictive lung disease Dyspnea on exertion Restless legs syndrome (RLS) Sleep apnea Gallbladder abscess Surgical History Hx of cholecystectomy Family History Brother Substance use disorder Sister Mental health disorder Diabetes Sister Mental health disorder Sister Mental health disorder Sister Mental health disorder Mother Mental health disorder Social History [facility]: [facility] Alcohol intake: current Patient Tobacco Use Status: Never used Tobacco e-Cigarette/Vaping Use: Never Used Second Hand Smoke Exposure: No service: No Current occupational status: employed and disabled Current occupation: disabled - [employer] Cognitive needs: No Hearing needs: No Vision needs: Yes Questionnaire PHQ-9 Over the last 2 weeks, how often have you been bothered by any of the following problems? 1. Little interest or pleasure in doing things: several days 2. Feeling down, depressed, or hopeless: not at all 3. Trouble falling or staying asleep, or sleeping too much: not at all 4. Feeling tired or having little energy: more than half the days 5. Poor appetite or overeating: not at all 6. Feeling bad about yourself - or that you are a failure or have let yourself or your family down: not at all 7. Trouble concentrating on things, such as reading the newspaper or watching television: not at all 8. Moving or speaking so slowly that other people could have noticed. Or the opposite - being so fidgety or restless that you have been moving around a lot more than usual: nearly every day 9. Thoughts that you would be better off or of hurting yourself in some way: not at all Total score: 6 Depression Screening Interpretation: Negative Depression Screening Done: Yes [id number] - PHQ-9 Billing: Yes Source: Developed by Drs. Bakari Canales, Anjel Juarez and colleagues, with an educational melina from [employer]. Thrive Questionnaire Date Thrive assessed: 12/23/22 EVY-7 AMB Questionnaire EVY-7 Date EVY - 7 assessed: 12/23/22 Source: Developed by Drs. Bakari Canales, Anjel Juarez and colleagues, with an educational melina from [employer]. Review of Systems Const Denies chills and Denies fever(s) ENT Denies epistaxis and Denies nasal discharge Card Denies chest pain Resp Denies hemoptysis GI Denies diarrhea and Denies nausea Skin/Breast Denies rash Neuro Reports no additional complaints Psych Reports no additional complaints Endo Reports no additional complaints Physical exam (Primary Care) Vital Signs: Last Vital Signs Pulse 108 H 03/31/23 14:02 BP 130/66 03/31/23 14:02 Pulse Ox 96 03/31/23 14:02 Oxygen Delivery Method Room Air 03/31/23 14:02 BMI result Body Mass Index 23.6 Tobacco/Smoking Status: Tobacco use Status Tobacco use date assessed 03/31/23 03/31/23 14:05 Patient Tobacco Use Status Never used Tobacco 03/31/23 14:05 e-Cigarette/Vaping Use Never Used 03/31/23 14:05 PHQ-9: PHQ-9 Score PHQ-9: Total score 6 03/31/23 15:18 Depression Screening Interpretation: Negative Thrive Assessment: Date of Thrive Assessment Date Thrive assessed 12/23/22 03/31/23 14:05 Const General: cooperative, comfortable and no acute distress Orientation/consciousness: patient oriented x3 HENMT Head: Yes normocephalic Eyes General: appearance normal, both eyes and all related structures Neck Neck: Yes supple Resp Effort & Inspection: normal respiratory effort, no cough and no stridor Cardio Rhythm: regular rhythm Heart sounds: S1 normal heart sound present and S2 normal heart sound present Skin General skin exam: turgor normal Neuro General: patient oriented x3, tone normal and moves all extremities Extrem Right lower extremity: no edema Left lower extremity: no edema Assessment and Plan Assessment & Plan (1) Diabetes mellitus type 2, insulin dependent: Code(s): E11.9 - Type 2 diabetes mellitus without complications; Z79.4 - intermodal customer service (current) use of insulin (2) Other specified hypothyroidism: Code(s): E03.8 - Other specified hypothyroidism (3) Major depression, recurrent: Code(s): F33.9 - Major depressive disorder, recurrent, unspecified Qualifiers: Active/Remission status: in partial remission Qualified Code(s): F33.41 - Major depressive disorder, recurrent, in partial remission (4) Lipid disorder: Code(s): E78.9 - Disorder of lipoprotein metabolism, unspecified (5) Hypertension, essential: Code(s): I10 - Essential (primary) hypertension (6) Generalized headaches: Code(s): R51.9 - Headache, unspecified (7) Anemia: Comment: Patient is taking iron through Nephrology Code(s): D64.9 - Anemia, unspecified Qualifiers: Anemia type: iron deficiency Iron deficiency anemia type: chronic blood loss Qualified Code(s): D50.0 - Iron deficiency anemia secondary to blood loss (chronic) (8) Diabetic kidney disease: Code(s): E11.21 - Type 2 diabetes mellitus with diabetic nephropathy Qualifiers: Diabetes mellitus type: type 2 Qualified Code(s): E11.21 - Type 2 diabetes mellitus with diabetic nephropathy (9) Diabetic neuropathy: Code(s): E11.40 - Type 2 diabetes mellitus with diabetic neuropathy, unspecified Qualifiers: Diabetes mellitus complication detail: diabetic autonomic neuropathy Diabetes mellitus type: type 1 Qualified Code(s): E10.43 - Type 1 diabetes mellitus with diabetic autonomic (poly)neuropathy (10) Cervical spondylosis: Code(s): M47.812 - Spondylosis without myelopathy or radiculopathy, cervical region (11) COPD (chronic obstructive pulmonary disease): Code(s): J44.9 - Chronic obstructive pulmonary disease, unspecified Qualifiers: COPD type: emphysema Emphysema type: panlobular Qualified Code(s): J43.1 - Panlobular emphysema (12) Cervicalgia: Code(s): M54.2 - Cervicalgia Plan atient is 72-year-old male came in today for his follow-up appointment. 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 Mills his last visit was this month Diabetes: Hemoglobin A1c is well controlled, patient is to continue diabetic medications , he is on Trulicity, glipizide 10 mg and 80 units of Tresiba. Patient have stage III diabetic nephropathy patient is seen Nephrology for that Lipid disorder: patient is on gemfibrozil 600 mg b.i.d. Thyroid medication is levothyroxine 50 mcg Chronic GERD: Continue pantoprazole 40 mg and diet-controlled cervicalgia and headache. Management through neurology Major depression managed by psych med prescriber patient is taking number of medications including alprazolam, Seroquel, and trazodone through them Follow-up 4 months labs are due today Patient would like to have handicap placard filled he has difficulty walking because of herniated disc in his lumbar spine Paperwork filled Orders: Orders Hemoglobin A1c Today D64.9 - Anemia, unspecified, E11.21 - Type 2 diabetes mellitus with diabetic nephropathy, E11.40 - Type 2 diabetes mellitus with diabetic neuropathy, unspecified, E78.9 - Disorder of lipoprotein metabolism, unspecified, I10 - Essential (primary) hypertension, J44.9 - Chronic obstructive pulmonary disease, unspecified, M47.812 - Spondylosis without myelopathy or radiculopathy, cervical region, M54.2 - Cervicalgia, R51.9 - Headache, unspecified Complete Blood Count Auto Diff Today D64.9 - Anemia, unspecified, E11.21 - Type 2 diabetes mellitus with diabetic nephropathy, E11.40 - Type 2 diabetes mellitus with diabetic neuropathy, unspecified, E78.9 - Disorder of lipoprotein metabolism, unspecified, I10 - Essential (primary) hypertension, J44.9 - Chronic obstructive pulmonary disease, unspecified, M47.812 - Spondylosis without myelopathy or radiculopathy, cervical region, M54.2 - Cervicalgia, R51.9 - Headache, unspecified TSH reflex Free T4 Today D64.9 - Anemia, unspecified, E11.21 - Type 2 diabetes mellitus with diabetic nephropathy, E11.40 - Type 2 diabetes mellitus with diabetic neuropathy, unspecified, E78.9 - Disorder of lipoprotein metabolism, unspecified, I10 - Essential (primary) hypertension, J44.9 - Chronic obstructive pulmonary disease, unspecified, M47.812 - Spondylosis without myelopathy or radiculopathy, cervical region, M54.2 - Cervicalgia, R51.9 - Headache, unspecified Comprehensive Met. Panel Today D64.9 - Anemia, unspecified, E11.21 - Type 2 diabetes mellitus with diabetic nephropathy, E11.40 - Type 2 diabetes mellitus with diabetic neuropathy, unspecified, E78.9 - Disorder of lipoprotein metabolis m, unspecified, I10 - Essential (primary) hypertension, J44.9 - Chronic obstructive pulmonary disease, unspecified, M47.812 - Spondylosis without myelopathy or radiculopathy, cervical region, M54.2 - Cervicalgia, R51.9 - Headache, unspecified LDL Cholesterol Direct Today D64.9 - Anemia, unspecified, E11.21 - Type 2 diabetes mellitus with diabetic nephropathy, E11.40 - Type 2 diabetes mellitus with diabetic neuropathy, unspecified, E78.9 - Disorder of lipoprotein metabolism, unspecified, I10 - Essential (primary) hypertension, J44.9 - Chronic obstructive pulmonary disease, unspecified, M47.812 - Spondylosis without myelopathy or radiculopathy, cervical region, M54.2 - Cervicalgia, R51.9 - Headache, unspecified Coding Level of Care Code Est Pt Level 4 (12016) Diagnoses Diabetes mellitus type 2, insulin dependent E11.9; Z79.4 Other specified hypothyroidism E03.8 Recurrent major depressive disorder, in partial remission F33.41 Active/Remission status: in partial remission Lipid disorder E78.9 Hypertension, essential I10 Generalized headaches R51.9 Iron deficiency anemia due to chronic blood loss D50.0 Anemia type: iron deficiency Iron deficiency anemia type: chronic blood loss Diabetic nephropathy associated with type 2 diabetes mellitus E11.21 Diabetes mellitus type: type 2 Diabetic autonomic neuropathy associated with type 1 diabetes mellitus E10.43 Diabetes mellitus complication detail: diabetic autonomic neuropathy Diabetes mellitus type: type 1 Cervical spondylosis M47.812 Panlobular emphysema J43.1 COPD type: emphysema Emphysema type: panlobular Cervicalgia M54.2
== END 2023-03-31 14:27 | disposition home or self-care (01) ==
PROVIDERS: PCP Internal Medicine; Visit Provider Internal Medicine
DX: E11.21 Type 2 diabetes mellitus with diabetic nephropathy (principal); Z79.4 Long term (current) use of insulin; F33.41 Major depressive disorder, recurrent, in partial remission; J43.1 Panlobular emphysema; E03.8 Other specified hypothyroidism; E78.9 Disorder of lipoprotein metabolism, unspecified; I10 Essential (primary) hypertension; R51.9 Headache, unspecified; D50.0 Iron deficiency anemia secondary to blood loss (chronic); M47.812 Spondylosis without myelopathy or radiculopathy, cervical region; M54.2 Cervicalgia
CPT/HCPCS: 99214

== ENCOUNTER 2023-04-06 14:43 | Outpatient (REF) | payer MEDICARE, SELFPAY ==
[2023-04-06 16:16] LABS: MANUAL DIFF FLAG NO
[2023-04-06 16:24] LABS: Basophils Percent Auto 0.5 % (0-2); Eosinophils Absolute Auto 0.2 X10*3/uL (0.0-0.4); Eosinophils Percent Auto 3.4 % (0-4); Hematocrit 34.8 % (42.0-52.0); Hemoglobin 11.7 g/dl (14.0-18.0); Imm Gran Abs Auto 0.03 X10*3/uL (0.00-0.03); Imm Gran Pct Auto 0.7 % (0.0-0.4); Lymphocytes Absolute Auto 0.8 X10*3/uL (1.2-4.9); Mean Corpuscular HGB Conc 33.6 g/dl (31.0-36.0); Mean Corpuscular Volume 92.3 fL (80.0-98.0); Mean Platelet Volume 10.1 fL (9.4-12.4); Monocytes Absolute Auto 0.3 X10*3/uL (0.1-1.2); Monocytes Percent Auto 5.7 % (2-11); Neutrophils Absolute Auto 3.2 x10*3/uL (2.0-8.3); Neutrophils Percent Auto 72.7 % (45-73); Platelet Count 151 X10*3/uL (160-400); Red Blood Count 3.77 X10*6/uL (4.60-5.80); Red Cell Distribution Width 14.4 % (11.0-16.0); White Blood Count 4.4 X10*3/uL (4.8-10.8)
[2023-04-06 16:31] LABS: Estimated Average Glucose 146 mg/dL; Hemoglobin A1C 158.7235 umol/L; Hemoglobin A1c % 6.7 % (<6.0)
[2023-04-06 16:52] LABS: Alanine Aminotransferase 22 U/L (0-40); Albumin Level 4.6 g/dL (3.5-5.0); Alkaline Phosphatase 89 U/L (39-117); Anion Gap 12 (12-20); Aspartate Amino Transferase 22 U/L (5-37); Bilirubin Total 0.5 mg/dL (0.0-1.0); Blood Urea Nitrogen 28 mg/dL (9-16); Calcium 9.7 mg/dL (8.4-10.2); Carbon Dioxide 30 mmol/L (22-29); Chloride 103 mmol/L (96-108); Estimated Glomerular Filt Rate 47; Glucose Random 249 mg/dL (60-115); Potassium 4.2 mmol/L (3.3-5.1); Sodium 141 mmol/L (135-145); Total Protein 7.4 g/dL (6.5-8.0)
[2023-04-06 17:07] LABS: TSH reflex Free T4 1.33 uIU/mL (0.32-4.0)
[2023-04-08 13:04] LABS: LDL Cholesterol Direct 141 mg/dL (<100)
== END 2023-04-06 14:44 | disposition home or self-care (01) ==
LOC: HO.HMGCLDS 14:43
PROVIDERS: PCP Internal Medicine; Visit Provider Internal Medicine
DX: E78.9 Disorder of lipoprotein metabolism, unspecified (principal); I10 Essential (primary) hypertension; R51.9 Headache, unspecified; D64.9 Anemia, unspecified; E11.21 Type 2 diabetes mellitus with diabetic nephropathy; E11.40 Type 2 diabetes mellitus with diabetic neuropathy, unspecified; M47.812 Spondylosis without myelopathy or radiculopathy, cervical region; J44.9 Chronic obstructive pulmonary disease, unspecified; M54.2 Cervicalgia
CPT/HCPCS: 36415; 80053; 83036; 83721; 84443; 85025

== ENCOUNTER 2023-05-12 13:17 | Outpatient (AMB) | payer MEDICARE, SELFPAY ==
[2023-05-12 14:37] VITALS: BP 128/70; PULSE 97; TEMP 36.1; O2SAT 97; BMI 24.1
--- NOTE | 2023-05-12 14:37 | MHC.OFFWIV ---
Intake Vital Signs 05/12/23 14:37 Height 5 ft 10 in Weight 168 lb BMI 24.1 BP 128/70 Blood Pressure Location Lt brachial Position Sitting Pulse 97 Pulse Source Pulse Oximeter Temp 97.0 F Temp Source Temporal Artery Scan Pulse Oximetry (%) 97 Oxygen Delivery Method Room Air Intake Visit Reasons: EP Lower back pain in lobby Intake Note: pt is today for lower back pain started yesterday Patient Tobacco Use Status: Never used Tobacco Allergies hydrochlorothiazide Allergy (Intermediate, Verified 05/12/23 14:38) Unknown lamotrigine [From LAMICTAL] Allergy (Intermediate, Verified 05/12/23 14:38) RASH Penicillins [PENICILLINS] Allergy (Intermediate, Verified 05/12/23 14:38) ITCHY Tetracyclines [TETRACYCLINES] Allergy (Intermediate, Verified 05/12/23 14:38) ITCHY tramadol Allergy (Unknown, Verified 05/12/23 14:38) Unknown onabotulinumtoxinA [From Botox] Allergy (Verified 05/12/23 14:38) swallowing gabapentin [From NEURONTIN] Adverse Reaction (Intermediate, Verified 05/12/23 14:38) ACID REFLUX amitriptyline [From ELAVIL] Adverse Reaction (Mild, Verified 05/12/23 14:38) THIRST Do you need a note to return to daycare/school/sports/work: No HPI HPI Comments History of Present Illness Details This is a 72-year-old male who presents to the office complaining of right-sided low back/buttock pain. Patient states he was picking up the recycling bin last night but it got stuck in the snow so he had to pull up hard and he twisted his back and developed low back and buttock pain. He denies any numbness/weakness/paresthesias of his extremities. He denies any saddle anesthesias. He denies any fever/chills. He denies any bowel/bladder incontinence/retention. [facility] Medical History Restrictive lung disease Dyspnea on exertion Restless legs syndrome (RLS) Sleep apnea Gallbladder abscess Surgical History Hx of cholecystectomy Family History Brother Substance use disorder Sister Mental health disorder Diabetes Sister Mental health disorder Sister Mental health disorder Sister Mental health disorder Mother Mental health disorder Social History Housing: Condominium Alcohol intake: current Patient Tobacco Use Status: Never used Tobacco e-Cigarette/Vaping Use: Never Used Second Hand Smoke Exposure: No service: No Current occupational status: employed and disabled Current occupation: disabled - [employer] Cognitive needs: No Hearing needs: No Vision needs: Yes Review of Systems Const All systems reviewed & are unremarkable except as noted in HPI and below Reports no additional complaints Eyes Reports no additional complaints ENT Reports no additional complaints Card Reports no additional complaints Resp Reports no additional complaints GI Reports no additional complaints Reports no additional complaints Musc Reports no additional complaints Skin/Breast Reports system reviewed and no additional complaints, except as documented Neuro Reports no additional complaints Psych Reports no additional complaints Endo Reports no additional complaints Yaron/Lymph Reports no additional complaints Aller/Immun Reports no additional complaints Physical Exam Vital Signs: Last Vital Signs Temp 97.0 F 05/12/23 14:37 Pulse 97 05/12/23 14:37 BP 128/70 05/12/23 14:37 Pulse Ox 97 05/12/23 14:37 Oxygen Delivery Method Room Air 05/12/23 14:37 BMI result Body Mass Index 24.1 Const Other: Vital signs reviewed. Constitutional: Non-toxic appearing. No acute distress. Well-developed and well-nourished. HEENT: Normocephalic and atraumatic. Skin: Warm and dry. No rashes or lesions noted. Neck: Full and painless range of motion. No cervical lymphadenopathy. Cardio: Regular rate. No lower extremity edema. No JVD. Pulmonary: No respiratory distress. No accessory muscle usage. Gastrointestinal: Soft, nontender, and nondistended in all 4 quadrants. Musculoskeletal: Mild tenderness to palpation of the right low back and right buttock. Negative straight leg raise. Patient is able to ambulate without difficulty. Neuro: Alert and oriented x4. Cranial nerves 2-12 grossly intact. No focal deficits appreciated. Psych: Normal mood and affect. Assessment & Plan Assessment & Plan (1) Strain of muscle, fascia and tendon of lower back, initial encounter: Code(s): S39.012A - Strain of muscle, fascia and tendon of lower back, initial encounter Plan: This is a 72-year-old male presenting to the office complaining of right-sided low back and buttock pain following a twisting injury. On physical examination, there is mild tenderness to palpation of the right lumbar paraspinal musculature and the right buttock. There is no spinous process or midline tenderness to palpation. The patient denies any red flag symptoms. History and physical most consistent with muscle sprain/strain of the right low back/buttock. Recommended symptomatic management including rest/activity modification, heat/ice to the area, acetaminophen/ibuprofen as needed for pain as long as the patient has no medical contraindications, and PO methocarbamol 500 mg 3 times daily as needed for muscle spasms. Patient was advised to proceed directly to the emergency room if he were to develop any of the red flag symptoms as detailed above. Patient verbalizes his understanding and he is in agreement with the plan. Medications: New methocarbamol 500 mg PO TID PRN 14 tabs 0RF muscle spasm Coding Level of Care Code Est Pt Level 3 (65108) Diagnoses Strain of muscle, fascia and tendon of lower back, initial encounter S39.012A
== END 2023-05-12 15:08 | disposition home or self-care (01) ==
PROVIDERS: PCP Internal Medicine; Visit Provider Physician Assistant Medical
DX: S39.012A Strain of muscle, fascia and tendon of lower back, initial encounter (principal)
CPT/HCPCS: 99213

== ENCOUNTER 2023-08-08 14:50 | Outpatient (AMB) | payer MEDICARE, SELFPAY ==
[2023-08-08 14:52] VITALS: BP 120/76; PULSE 72; O2SAT 99; BMI 23.3
--- NOTE | 2023-08-08 14:52 | A.OFFPC_ITS ---
Vital Signs 08/08/23 14:52 Height 5 ft 10 in Weight 162 lb 2 oz BMI 23.3 BP 120/76 Blood Pressure Location Lt brachial Position Sitting Pulse 72 Pulse Source Pulse Oximeter Pulse Oximetry (%) 99 Oxygen Delivery Method Room Air Intake Visit Reasons: 4 month fu Allergies hydrochlorothiazide Allergy (Intermediate, Verified 08/08/23 14:53) Unknown lamotrigine [From LAMICTAL] Allergy (Intermediate, Verified 08/08/23 14:53) RASH Penicillins [PENICILLINS] Allergy (Intermediate, Verified 08/08/23 14:53) ITCHY Tetracyclines [TETRACYCLINES] Allergy (Intermediate, Verified 08/08/23 14:53) ITCHY penicillamine Allergy (Unknown, Verified 08/08/23 14:53) Unknown tetracycline Allergy (Unknown, Verified 08/08/23 14:53) Unknown tramadol Allergy (Unknown, Verified 08/08/23 14:53) Unknown onabotulinumtoxinA [From Botox] Allergy (Verified 08/08/23 14:53) swallowing gabapentin [From NEURONTIN] Adverse Reaction (Intermediate, Verified 08/08/23 14:53) ACID REFLUX amitriptyline [From ELAVIL] Adverse Reaction (Mild, Verified 08/08/23 14:53) THIRST Elavil Allergy (Unknown, Uncoded 08/08/23 14:53) Unknown Medication List - Last Reconciled 08/08/23 by Gt Akins MD albuterol sulfate 90 mcg/actuation (ProAir HFA) 1 inh inhalation QID PRN 30 days alprazolam 0.5 mg PO DAILY PRN atorvastatin 20 mg PO DAILY dulaglutide (Trulicity) mg subcut fenofibrate nanocrystallized 145 mg PO DAILY ferrous sulfate 325 mg PO DAILY glipizide ER 10 mg PO DAILY insulin aspart U-100 (Novolog FlexPen U-100 Insulin aspart) subcut insulin degludec (Tresiba FlexTouch U-100 insulin) units subcut levothyroxine 50 mcg PO DAILY lisinopril 2.5 mg PO DAILY methocarbamol 500 mg PO TID PRN pantoprazole 40 mg PO DAILY pen needle, diabetic (Easy Touch) As directed quetiapine 200 mg PO BEDTIME ropinirole 0.25 mg PO TID sertraline 100 mg PO BID suvorexant (Belsomra) 20 mg PO BEDTIME PRN trazodone 200 mg PO BEDTIME PRN Tobacco use date assessed: 08/08/23 Fall risk assessment: No Falls in past year Last assessed Fall Risk: 08/08/23 Dental Screening Dental Screen Date: 08/08/23 Did you have a dental visit in the last 12 months?: Yes Did you have a dental problem in the last 6 months where you did not have access to dental care?: No Was dental information given to patient?: Patient has dentist HPI 4 month fu HPI Details Patient is a 72-year-old gentleman had 6 in of colectomy done June secondary to adrenal carcinoma at [facility] He would like to be established with gastroenterology at [facility]. Referral placed Diabetes: Patient is currently on long-acting insulin, NovoLog as per insulin sliding scale and Trulicity 1.5 mg Patient says that the pharmacy can not get Trulicity 1.5 mg I have increased the dose to 3 mg, patient will hold NovoLog if need be His hemoglobin A1c 6.3 today. Patient have stage III diabetic nephropathy patient is seen Nephrology for that cervicalgia and headache. Management through neurology Major depression managed by psych med prescriber patient is taking number of medications including alprazolam, Seroquel, and trazodone through them Patient has been evaluated by Dr. Mills for COPD Continue levothyroxine 50 mcg for hypothyroidism Patient is also on pantoprazole 40 mg for chronic GERD Taking atorvastatin 20 mg and fenofibrate for lipid control Labs are needed before next visit in 4 months [facility] Medical History Restrictive lung disease Dyspnea on exertion Restless legs syndrome (RLS) Sleep apnea Gallbladder abscess Surgical History Hx of cholecystectomy Family History Brother Substance use disorder Sister Mental health disorder Diabetes Sister Mental health disorder Sister Mental health disorder Sister Mental health disorder Mother Mental health disorder Social History Housing: Condominium Alcohol intake: current Patient Tobacco Use Status: Never used Tobacco e-Cigarette/Vaping Use: Never Used Second Hand Smoke Exposure: No service: No Current occupational status: employed and disabled Current occupation: disabled - [employer] Cognitive needs: No Hearing needs: No Vision needs: Yes Questionnaire Thrive Questionnaire Date Thrive assessed: 12/23/22 AUDIT C Alcohol Use Questionnaire (AUDIT-C) 1. How often do you have a drink containing alcohol?: Never 3. How often do you have six or more drinks on one occasion?: Never Total Score: 0 Score Reviewed/Action Taken: Yes EVY-7 AMB Questionnaire EVY-7 Date EVY - 7 assessed: 12/23/22 Source: Developed by Drs. Bakari Canales, Petty Quiroz, Anjel Queen and colleagues, with an educational melina from [employer]. Review of Systems Const Denies chills and Denies fever(s) ENT Denies epistaxis and Denies nasal discharge Card Denies chest pain Resp Denies chest congestion, Denies cough and Denies hemoptysis GI Denies diarrhea and Denies nausea Skin/Breast Denies rash Neuro Reports no additional complaints Psych Reports no additional complaints Endo Reports no additional complaints Physical exam (Primary Care) Vital Signs: Last Vital Signs Pulse 72 08/08/23 14:52 BP 120/76 08/08/23 14:52 Pulse Ox 99 08/08/23 14:52 Oxygen Delivery Method Room Air 08/08/23 14:52 BMI result Body Mass Index 23.3 Tobacco/Smoking Status: Tobacco use Status Tobacco use date assessed 08/08/23 08/08/23 14:56 Patient Tobacco Use Status Never used Tobacco 08/08/23 14:56 e-Cigarette/Vaping Use Never Used 08/08/23 14:56 Thrive Assessment: Date of Thrive Assessment Date Thrive assessed 12/23/22 08/08/23 14:56 Const General: cooperative, comfortable and no acute distress Orientation/consciousness: patient oriented x3 HENMT Head: Yes normocephalic Eyes General: appearance normal, both eyes and all related structures Neck Neck: Yes supple Resp Effort & Inspection: normal respiratory effort, no cough and no stridor Cardio Rhythm: regular rhythm Heart sounds: S1 normal heart sound present and S2 normal heart sound present Skin General skin exam: turgor normal Neuro General: patient oriented x3, tone normal and moves all extremities Extrem Right lower extremity: no edema Left lower extremity: no edema Results AMB Hemoglobin A1c AMB Hemoglobin A1c 6.3 % Last Edit by Paula Valles MA on 08/08/23 15:24 Results Reviewed Results Reviewed: Laboratory Last Values Hgb A1c (Clinic) 6.3 % (4.0-6.0) H 08/08/23 15:22 Assessment and Plan Assessment & Plan (1) Diabetes mellitus type 2, insulin dependent: Code(s): E11.9 - Type 2 diabetes mellitus without complications; Z79.4 - [facility] (current) use of insulin (2) Other specified hypothyroidism: Code(s): E03.8 - Other specified hypothyroidism (3) Major depression, recurrent: Code(s): F33.9 - Major depressive disorder, recurrent, unspecified Qualifiers: Active/Remission status: in partial remission Qualified Code(s): F33.41 - Major depressive disorder, recurrent, in partial remission (4) Lipid disorder: Code(s): E78.9 - Disorder of lipoprotein metabolism, unspecified (5) History of colon cancer: Code(s): Z85.038 - Personal history of other malignant neoplasm of large intestine (6) Hypertension, essential: Code(s): I10 - Essential (primary) hypertension (7) Generalized headaches: Code(s): R51.9 - Headache, unspecified (8) Anemia: Comment: Patient is taking iron through Nephrology Code(s): D64.9 - Anemia, unspecified Qualifiers: Anemia type: iron deficiency Iron deficiency anemia type: chronic blood loss Qualified Code(s): D50.0 - Iron deficiency anemia secondary to blood loss (chronic) (9) Diabetic kidney disease: Code(s): E11.21 - Type 2 diabetes mellitus with diabetic nephropathy Qualifiers: Diabetes mellitus type: type 2 Qualified Code(s): E11.21 - Type 2 diabetes mellitus with diabetic nephropathy (10) Diabetic neuropathy: Code(s): E11.40 - Type 2 diabetes mellitus with diabetic neuropathy, unspecified Qualifiers: Diabetes mellitus type: type 1 Diabetes mellitus complication detail: diabetic autonomic neuropathy Qualified Code(s): E10.43 - Type 1 diabetes mellitus with diabetic autonomic (poly)neuropathy (11) Cervical spondylosis: Code(s): M47.812 - Spondylosis without myelopathy or radiculopathy, cervical region (12) COPD (chronic obstructive pulmonary disease): Code(s): J44.9 - Chronic obstructive pulmonary disease, unspecified Qualifiers: COPD type: emphysema Emphysema type: panlobular Qualified Code(s): J43.1 - Panlobular emphysema (13) Cervicalgia: Code(s): M54.2 - Cervicalgia Plan Patient is a 72-year-old gentleman had 6 in of colectomy done June secondary to adrenal carcinoma at [facility] He would like to be established with gastroenterology at [facility]. Referral placed Diabetes: Patient is currently on long-acting insulin, NovoLog as per insulin sliding scale and Trulicity 1.5 mg Patient says that the pharmacy can not get Trulicity 1.5 mg I have increased the dose to 3 mg, patient will hold NovoLog if need be His hemoglobin A1c 6.3 today. Patient have stage III diabetic nephropathy patient is seen Nephrology for that cervicalgia and headache. Management through neurology Major depression managed by psych med prescriber patient is taking number of medications including alprazolam, Seroquel, and trazodone through them Patient has been evaluated by Dr. Mills for COPD Continue levothyroxine 50 mcg for hypothyroidism Patient is also on pantoprazole 40 mg for chronic GERD Taking atorvastatin 20 mg and fenofibrate for lipid control Labs are needed before next visit in 4 months Orders: Referrals Gastroenterology Referral Z85.038 - Personal history of other malignant neoplasm of large intestine Medications: Changed From dulaglutide (Trulicity) subcut To dulaglutide 3 mg (0.5 mL) subcut ONCE 30 days 15 mL 0RF Refilled dulaglutide 3 mg (0.5 mL) subcut ONCE 30 days 15 mL 0RF Coding Level of Care Code Est Pt Level 4 (20093) Diagnoses Diabetes mellitus type 2, insulin dependent E11.9; Z79.4 Other specified hypothyroidism E03.8 Recurrent major depressive disorder, in partial remission F33.41 Active/Remission status: in partial remission Lipid disorder E78.9 History of colon cancer Z85.038 Hypertension, essential I10 Generalized headaches R51.9 Iron deficiency anemia due to chronic blood loss D50.0 Anemia type: iron deficiency Iron deficiency anemia type: chronic blood loss Diabetic nephropathy associated with type 2 diabetes mellitus E11.21 Diabetes mellitus type: type 2 Diabetic autonomic neuropathy associated with type 1 diabetes mellitus E10.43 Diabetes mellitus type: type 1 Diabetes mellitus complication detail: diabetic autonomic neuropathy Cervical spondylosis M47.812 Panlobular emphysema J43.1 COPD type: emphysema Emphysema type: panlobular Cervicalgia M54.2
== END 2023-08-08 15:25 | disposition home or self-care (01) ==
PROVIDERS: PCP Internal Medicine; Visit Provider Internal Medicine
DX: E11.21 Type 2 diabetes mellitus with diabetic nephropathy (principal); Z79.4 Long term (current) use of insulin; F33.41 Major depressive disorder, recurrent, in partial remission; J43.1 Panlobular emphysema; E03.8 Other specified hypothyroidism; E78.9 Disorder of lipoprotein metabolism, unspecified; Z85.038 Personal history of other malignant neoplasm of large intestine; I10 Essential (primary) hypertension; R51.9 Headache, unspecified; D50.0 Iron deficiency anemia secondary to blood loss (chronic); M47.812 Spondylosis without myelopathy or radiculopathy, cervical region; M54.2 Cervicalgia
CPT/HCPCS: 99214

== ENCOUNTER 2023-11-17 13:15 | Outpatient (AMB) | payer MEDICARE, SELFPAY ==
[2023-11-17 13:16] VITALS: BMI 22.0
--- NOTE | 2023-11-17 13:16 | MHC.OFFVIS ---
Vital Signs 11/17/23 13:16 Height 5 ft 10 in Weight 153 lb 0.013 oz BMI 22.0 Intake Visit Reasons: Colonoscopy Screening Intake Note: New patient in office today for colonoscopy screening. CC: Patient states that his last colonoscopy was done on at [facility] either 04/22 or 05/24. He states that they took part of his colon d/t cancer. He reports that he usually gets pain on his RLQ. Patient reports diarrhea on and off or soft stools. 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 Accompanied by: Self / Same As Patient Allergies hydrochlorothiazide Allergy (Intermediate, Verified 12/22/23 13:51) Unknown lamotrigine [From LAMICTAL] Allergy (Intermediate, Verified 12/22/23 13:51) RASH Penicillins [PENICILLINS] Allergy (Intermediate, Verified 12/22/23 13:51) ITCHY Tetracyclines [TETRACYCLINES] Allergy (Intermediate, Verified 12/22/23 13:51) ITCHY penicillamine Allergy (Unknown, Verified 12/22/23 13:51) Unknown tetracycline Allergy (Unknown, Verified 12/22/23 13:51) Unknown tramadol Allergy (Unknown, Verified 12/22/23 13:51) Unknown onabotulinumtoxinA [From Botox] Allergy (Verified 12/22/23 13:51) swallowing gabapentin [From NEURONTIN] Adverse Reaction (Intermediate, Verified 12/22/23 13:51) ACID REFLUX amitriptyline [From ELAVIL] Adverse Reaction (Mild, Verified 12/22/23 13:51) THIRST Elavil Allergy (Unknown, Uncoded 08/08/23 14:53) Unknown HPI HPI Colonoscopy Screening: Details: 72-year-old male here for preprocedural meeting to discuss a screening colonoscopy. He is referred by [facility] primary care PMX MAIN Diabetes Hypertension - t denies High cholesterol Chronic kidney disease stage 3 Migraines - only in childhood Lumbar spondylosis Restless legs syndrome Cervical DJD Ankolosing spodylosis * SURGICAL HISTORY Cholecystectomy Right partial colectomy Deviated septum repair * ALLERGIES Hydrochlorothiazide Lamictal Penicillin Tetracycline Tramadol Botulism toxin Gabapentin amitriptyline * Epigami LABS: labs not since 03/2023 TODAY'S VISIT [facility] Land and is due for rescope in spring per the note. He has diarrhea and wt loss. He has tried imodium w/o relief. I think will try him on Carafate and then progress to affect her side effect. His COPD is well controlled and he denies any cardiac problems. There are no prior problems with anesthesia or sedation. There are no infectious disease problems. Again he has a personal history of colorectal cancer. Return office visit in 8 weeks to evaluate his response to the Carafate. [facility] Medical History (Updated 01/05/24 @ 17:06 by NÉSTOR Alvarado) COPD (chronic obstructive pulmonary disease) Establishing care with new doctor, encounter for Respiratory tract congestion with cough Medicare annual wellness visit, subsequent Restrictive lung disease Dyspnea on exertion Restless legs syndrome (RLS) Sleep apnea Gallbladder abscess Surgical History H/O colectomy H/O colonoscopy Hx of cholecystectomy Family History Brother Substance use disorder Sister Mental health disorder Diabetes Breast cancer Sister Mental health disorder Sister Mental health disorder Sister Mental health disorder Mother Mental health disorder Social History Housing: Condominium Alcohol intake: current Patient Tobacco Use Status: Never used Tobacco e-Cigarette/Vaping Use: Never Used Second Hand Smoke Exposure: No service: No Current occupational status: employed and disabled Current occupation: disabled - [employer] Cognitive needs: No Hearing needs: No Vision needs: Yes Review of Systems Const Denies fatigue, Denies fever(s), Denies night sweats, Denies poor appetite and Reports weight loss ENT Reports Normal hearing present, Denies dysphagia, Denies odynophagia, Denies throat swelling and Denies tongue swelling Card Reports no additional complaints Resp Reports no additional complaints GI Details: Denies abdominal pain, Denies melena, Denies bloating, Denies hematochezia, Denies constipation, Denies GI cramping, Denies dysphagia, Denies excessive flatus, Denies early satiety, Denies heartburn, Reports diarrhea, Denies nausea, Denies odynophagia, Denies vomiting and Denies hematemesis Skin/Breast Denies pruritus, Denies lesions, Denies rash and Denies jaundice Neuro Reports Normal hearing present and Denies Abnormal speech present Endo Denies fatigue Aller/Immun Denies throat swelling and Denies tongue swelling Physical Exam Vital Signs: BMI result Body Mass Index 22.0 Const General: cooperative, no acute distress, well developed and well groomed Nutritional Appearance: average body habitus and well nourished Orientation/consciousness: oriented to person, oriented to place and oriented to time Limitations: No language barrier HEENT Head: Yes normocephalic and Yes atraumatic Eyes General: appearance normal, both eyes and all related structures Pupils: Equal, round and reactive pupils present Neck Neck: Yes normal visual inspection and Yes no lymphadenopathy Thyroid: Thyroid normal Resp Effort & Inspection: normal respiratory effort and able to speak in complete sentences Auscultation: clear to auscultation bilaterally Cardio Rate: regular rate Rhythm: regular rhythm Heart sounds: Normal, physiologic split S2 sound present Peripheral pulses: radial pulses present and posterior tibial pulses present GI Inspection: Yes distended and No Abdominal panniculus present Palpation (GI): Soft to palpation, nontender, no guarding, not rigid and No hepatosplenomegaly present Percussion: Yes normal to percussion Auscultation: Hyperactive bowel sounds present Rectal Exam - Male: Yes deferred Abdomen image: 1. surgcial scar Skin General skin exam: no rashes or lesions noted, turgor normal, skin not dry, no jaundice, No spider nevi and no striae Rashes: no rashes Nails: normal Neuro General: oriented to person, oriented to place and oriented to time Cranial nerves: Yes Equal, round and reactive pupils present and Yes Normal hearing present Speech: No Abnormal speech present Extrem General: Yes normal to inspection, No clubbing, No cyanosis and No edema Psych Appearance: grossly normal and well kempt Mental Status: mental status grossly normal Speech and movement: Normal speech and movement present Affect: normal affect Attitude: cooperative Thought process: Normal thought process present and not confabulating Thought content: Normal thought content present Insight: Limited insight present (Psych) Judgement: Limited judgement present (Psych) Assessment & Plan Assessment & Plan (1) Pre-op examination: Code(s): Z01.818 - Encounter for other preprocedural examination Category: Medical (2) Short bowel syndrome: Code(s): K90.829 - Short bowel syndrome, unspecified Category: Medical (3) History of colon cancer: Code(s): Z85.038 - Personal history of other malignant neoplasm of large intestine Category: Medical (4) Sleep apnea: Comment: diagnosed with CSA but does not use CPAP Code(s): G47.30 - Sleep apnea, unspecified Category: Medical (5) COPD (chronic obstructive pulmonary disease): Code(s): J44.9 - Chronic obstructive pulmonary disease, unspecified Category: Medical Qualifiers: COPD type: emphysema Emphysema type: panlobular Qualified Code(s): J43.1 - Panlobular emphysema Plan He had CRC of the right colon at [facility]/Dr. Land and is due for rescope in spring per the note. He has diarrhea and wt loss. He has tried imodium w/o relief. I think will try him on Carafate and then progress to affect her side effect. His COPD is well controlled and he denies any cardiac problems. There are no prior problems with anesthesia or sedation. There are no infectious disease problems. Again he has a personal history of colorectal cancer. Return office visit in 8 weeks to evaluate his response to the Carafate. Orders: Orders Complete Blood Count Auto Diff 11/17/23 Z.818 - Encounter for other preprocedural examination Colonoscopy - GI Use Only 11/17/23 Z818 - Encounter for other preprocedural examination Comprehensive Met. Panel 11/17/23 Z.818 - Encounter for other preprocedural examination Medications: New peg 3350-electrolytes 236-22.74-6.74 -5.86 gram (Golytely) until fecal effluent is clear; do not exceed a total volume of 2,000 mL 240 mL PO Q10M 4,000 mL 0RF 1 day Z12.11 - Encounter for screening for malignant neoplasm of colon sucralfate (Carafate) 2 grams (2 x 1 gram) PO QNOON 60 tabs 3RF K90.829 - Short bowel syndrome, unspecified bisacodyl (Dulcolax (bisacodyl)) 10 mg (2 x 5 mg) PO BEDTIME 4 tabs 0RF 2 days Coding Level of Care Code New Pt Level 3 (40885) Diagnoses Pre-op examination Z01.818 Short bowel syndrome K90.829 History of colon cancer Z85.038 Sleep apnea G47.30 Panlobular emphysema J43.1 COPD type: emphysema Emphysema type: panlobular
== END 2023-11-17 14:14 | disposition home or self-care (01) ==
PROVIDERS: PCP Internal Medicine; Visit Provider Nurse Practitioner
DX: K90.829 Short bowel syndrome, unspecified (principal); Z85.038 Personal history of other malignant neoplasm of large intestine; G47.30 Sleep apnea, unspecified
CPT/HCPCS: 99203

== ENCOUNTER → 2023-11-17 13:15 | Outpatient (BNVA) | payer MEDICARE, SELFPAY | PROVIDERS: PCP Internal Medicine; Visit Provider Nurse Practitioner | DX: Z01.818 Encounter for other preprocedural examination (principal); K90.829 Short bowel syndrome, unspecified; G47.30 Sleep apnea, unspecified; J34.1 Cyst and mucocele of nose and nasal sinus; Z85.038 Personal history of other malignant neoplasm of large intestine | CPT/HCPCS: 99202 ==

== ENCOUNTER 2023-12-06 11:59 | Outpatient (REF) | payer MEDICARE, SELFPAY ==
[2023-12-06 13:16] LABS: MANUAL DIFF FLAG NO
[2023-12-06 13:32] LABS: Basophils Percent Auto 0.5 % (0-2); Eosinophils Absolute Auto 0.2 X10*3/uL (0.0-0.4); Eosinophils Percent Auto 4.2 % (0-4); Hemoglobin 12.6 g/dl (14.0-18.0); Imm Gran Abs Auto 0.01 X10*3/uL (0.00-0.03); Imm Gran Pct Auto 0.3 % (0.0-0.4); Lymphocytes Absolute Auto 0.6 X10*3/uL (1.2-4.9); Lymphocytes Percent Auto 16.1 % (20-40); Mean Corpuscular Hemoglobin 32.8 pg (27.0-33.0); Mean Corpuscular Volume 93.8 fL (80.0-98.0); Mean Platelet Volume 10.5 fL (9.4-12.4); Monocytes Absolute Auto 0.3 X10*3/uL (0.1-1.2); Monocytes Percent Auto 7.4 % (2-11); Neutrophils Absolute Auto 2.7 x10*3/uL (2.0-8.3); Neutrophils Percent Auto 71.5 % (45-73); Platelet Count 124 X10*3/uL (160-400); Red Blood Count 3.84 X10*6/uL (4.60-5.80); Red Cell Distribution Width 12.5 % (11.0-16.0); White Blood Count 3.8 X10*3/uL (4.8-10.8)
[2023-12-06 14:03] LABS: Alanine Aminotransferase 16 U/L (0-40); Albumin Level 4.5 g/dL (3.5-5.0); Alkaline Phosphatase 133 U/L (39-117); Anion Gap 15 (12-20); Aspartate Amino Transferase 19 U/L (5-37); Bilirubin Total 0.6 mg/dL (0.0-1.0); Blood Urea Nitrogen 21 mg/dL (9-16); Calcium 9.4 mg/dL (8.4-10.2); Carbon Dioxide 24 mmol/L (22-29); Chloride 102 mmol/L (96-108); Estimated Glomerular Filt Rate 45; Potassium 4.3 mmol/L (3.3-5.1); Sodium 137 mmol/L (135-145); Total Protein 7.1 g/dL (6.5-8.0)
[2023-12-06 14:05] LABS: Glucose Random 426 mg/dL (60-115)
== END 2023-12-06 12:00 | disposition home or self-care (01) ==
LOC: HO.HMGCLDS 11:59
PROVIDERS: PCP Internal Medicine; Visit Provider Nurse Practitioner
DX: Z01.818 Encounter for other preprocedural examination (principal)
CPT/HCPCS: 36415; 80053; 85025

== ENCOUNTER 2023-12-12 14:23 | Outpatient (AMB) | payer MEDICARE, SELFPAY ==
[2023-12-12 14:24] VITALS: BP 130/80; PULSE 95; O2SAT 98; BMI 21.9
--- NOTE | 2023-12-12 14:24 | A.OFFPC_ITS ---
Vital Signs 12/12/23 14:24 Height 5 ft 10 in Intake Visit Reasons: SWV G0439 Allergies hydrochlorothiazide Allergy (Intermediate, Verified 12/12/23 14:25) Unknown lamotrigine [From LAMICTAL] Allergy (Intermediate, Verified 12/12/23 14:25) RASH Penicillins [PENICILLINS] Allergy (Intermediate, Verified 12/12/23 14:25) ITCHY Tetracyclines [TETRACYCLINES] Allergy (Intermediate, Verified 12/12/23 14:25) ITCHY penicillamine Allergy (Unknown, Verified 12/12/23 14:25) Unknown tetracycline Allergy (Unknown, Verified 12/12/23 14:25) Unknown tramadol Allergy (Unknown, Verified 12/12/23 14:25) Unknown onabotulinumtoxinA [From Botox] Allergy (Verified 12/12/23 14:25) swallowing gabapentin [From NEURONTIN] Adverse Reaction (Intermediate, Verified 12/12/23 14:25) ACID REFLUX amitriptyline [From ELAVIL] Adverse Reaction (Mild, Verified 12/12/23 14:25) THIRST Elavil Allergy (Unknown, Uncoded 08/08/23 14:53) Unknown Tobacco use date assessed: 08/08/23 Dental Screening Dental Screen Date: 08/08/23 [facility] Medical History (Updated 11/17/23 @ 14:07 by NÉSTOR Alvarado) Restrictive lung disease Dyspnea on exertion Restless legs syndrome (RLS) Sleep apnea Gallbladder abscess Surgical History (Updated 11/17/23 @ 13:43 by VINCENZO Lynn) H/O colectomy H/O colonoscopy Hx of cholecystectomy Family History (Updated 11/17/23 @ 13:44 by VINCENZO Lynn) Brother Substance use disorder Sister Mental health disorder Diabetes Breast cancer Sister Mental health disorder Sister Mental health disorder Sister Mental health disorder Mother Mental health disorder Social History Housing: Condominium Alcohol intake: current Patient Tobacco Use Status: Never used Tobacco e-Cigarette/Vaping Use: Never Used Second Hand Smoke Exposure: No service: No Current occupational status: employed and disabled Current occupation: disabled - [employer] Cognitive needs: No Hearing needs: No Vision needs: Yes Questionnaire PHQ-9 Over the last 2 weeks, how often have you been bothered by any of the following problems? 1. Little interest or pleasure in doing things: more than half the days 2. Feeling down, depressed, or hopeless: more than half the days 3. Trouble falling or staying asleep, or sleeping too much: more than half the days 4. Feeling tired or having little energy: more than half the days 5. Poor appetite or overeating: not at all 6. Feeling bad about yourself - or that you are a failure or have let yourself or your family down: not at all 7. Trouble concentrating on things, such as reading the newspaper or watching television: not at all 8. Moving or speaking so slowly that other people could have noticed. Or the opposite - being so fidgety or restless that you have been moving around a lot more than usual: not at all 9. Thoughts that you would be better off or of hurting yourself in some way: not at all Total score: 8 Source: Developed by Drs. Bakari Canales, Petty Quiroz, Anjel Queen and colleagues, with an educational melina from [employer]. Thrive Questionnaire Date Thrive assessed: 12/23/22 I am a: Patient What is your living situation today?: I have a steady place to live Within the past 12 months, did the food you bought not last and you didn't have the money to get more?: Never true Within the past 12 months, did you worry whether your food would run out before you got money to buy more?: Never true Do you have trouble paying for medicines?: No Do you have trouble getting transportation to medical appointments?: No Do you have trouble paying your heating and electricity bill?: No Do you have trouble taking care of your child, family member or friend?: No Do you have trouble with day-to-day activities such as bathing, preparing meals, shopping, managing finances, etc.?: No Are you currently unemployed and looking for a job?: No Are you interested in more education?: No Please select the resources that you would like help with: Paying for medicine and Utilities Currently or been in a relationship where the following occur: No concerns reported THRIVE Score: 0 AUDIT C Alcohol Use Questionnaire (AUDIT-C) 1. How often do you have a drink containing alcohol?: Monthly or less 2. How many drinks containing alcohol do you have on a typical day when you are drinking?: 1 or 2 3. How often do you have six or more drinks on one occasion?: Never Total Score: 1 EVY-7 AMB Questionnaire EVY-7 Date EVY - 7 assessed: 12/23/22 Feeling nervous, anxious, or on edge: 0 = Not at all Not being able to stop or control worryin = Not at all Worrying too much about different things: 0 = Not at all Trouble relaxin = Not at all Being so restless that it is hard to sit still: 0 = Not at all Becoming easily annoyed or irritable: 0 = Not at all Feeling afraid as if something awful might happen: 0 = Not at all Total EVY-7 score (0-4 normal; 5-9 mild; 10-14 moderate; 15-21 severe): 0 Source: Developed by Drs. Bakari Canales, Petty Quiroz, Anjel Queen and colleagues, with an educational melina from [employer]. Physical exam (Primary Care) Tobacco/Smoking Status: Tobacco use Status Tobacco use date assessed 08/08/23 08/08/23 14:56 Patient Tobacco Use Status Never used Tobacco 08/08/23 14:56 e-Cigarette/Vaping Use Never Used 08/08/23 14:56 Thrive Assessment: Date of Thrive Assessment Date Thrive assessed 12/23/22 08/08/23 14:56 Currently or been in a relationship where the following occur: No concerns reported Coding
--- NOTE | 2023-12-12 14:28 | AM.OFFVISMDC ---
Intake Vital Signs 12/12/23 14:24 Height 5 ft 10 in Weight 152 lb 8 oz BMI 21.9 BP 130/80 Blood Pressure Location Rt brachial Position Sitting Pulse 95 Pulse Source Pulse Oximeter Pulse Oximetry (%) 98 Oxygen Delivery Method Room Air Intake Visit Reasons: SWV [id number] Allergies hydrochlorothiazide Allergy (Intermediate, Verified 12/12/23 14:25) Unknown lamotrigine [From LAMICTAL] Allergy (Intermediate, Verified 12/12/23 14:25) RASH Penicillins [PENICILLINS] Allergy (Intermediate, Verified 12/12/23 14:25) ITCHY Tetracyclines [TETRACYCLINES] Allergy (Intermediate, Verified 12/12/23 14:25) ITCHY penicillamine Allergy (Unknown, Verified 12/12/23 14:25) Unknown tetracycline Allergy (Unknown, Verified 12/12/23 14:25) Unknown tramadol Allergy (Unknown, Verified 12/12/23 14:25) Unknown onabotulinumtoxinA [From Botox] Allergy (Verified 12/12/23 14:25) swallowing gabapentin [From NEURONTIN] Adverse Reaction (Intermediate, Verified 12/12/23 14:25) ACID REFLUX amitriptyline [From ELAVIL] Adverse Reaction (Mild, Verified 12/12/23 14:25) THIRST Elavil Allergy (Unknown, Uncoded 08/08/23 14:53) Unknown Medication List - Last Reconciled 12/12/23 by Gt Akins MD alprazolam 0.5 mg PO DAILY PRN atorvastatin 20 mg PO DAILY bisacodyl (Dulcolax (bisacodyl)) 10 mg (2 x 5 mg) PO BEDTIME 2 days fenofibrate 160 mg PO DAILY ferrous sulfate 325 mg PO DAILY glipizide ER 10 mg PO DAILY insulin aspart U-100 (Novolog FlexPen U-100 Insulin aspart) 14 units subcut insulin degludec (Tresiba FlexTouch U-100 insulin) 80 units subcut ONCE levothyroxine 50 mcg PO DAILY lisinopril 2.5 mg PO DAILY omeprazole 40 mg PO DAILY peg 3350-electrolytes 236-22.74-6.74 -5.86 gram (Golytely) 240 mL PO Q10M 1 day pen needle, diabetic (Easy Touch) As directed quetiapine 200 mg PO BEDTIME sertraline 100 mg PO BID sucralfate (Carafate) 2 grams (2 x 1 gram) PO QNOON trazodone 200 mg PO BEDTIME PRN Do you need a note to return to daycare/school/sports/work: No HPI SWV G0439 HPI Details Patient is 72-year-old male came in today for his follow-up appointment. Labs done recently reviewed Diabetes: Hemoglobin A1c is gotten worse in 8 range it used to be less than 7, I would recommend to control his diet which he has not been doing, patient is to continue diabetic medications , he is on insulin aspart 14 units t.i.d., glipizide 10 mg once a day and 80 units of Tresiba. Patient have stage III diabetic nephropathy patient is seen Nephrology for that, however I do not have any recent notes Patient was encouraged to call and book appointment [facility] Pir Huang He is also anemic due to that Lipid disorder: patient is on gemfibrozil 600 mg b.i.d. Thyroid medication is levothyroxine 50 mcg Chronic GERD: Continue PPI cervicalgia and headache. Management through neurology Follow-up 3 months HPI Comments History of Present Illness Details AWV Medical/social history reviewed Past medical history reviewed [place] of care / care team list updated Surgical/ hospitalization history reviewed Current medications including OTC and supplements reviewed Family history reviewed Tobacco controlled form updated Alcohol use form updated Illicit drug use in social history reviewed Current diagnosis of depression ?screening updated Appropriate PHQ 2/PHQ-9 completed . Vital signs reviewed Alcohol tobacco drug use reviewed and discussed . MMSE completed . ? Fall risk: ?Assessed Fall history: ?None Have you had any falls with injury in the past year?? No Have you had 2 or more falls in the past year?? No Fall risk assessment completed Home safety discussed with the patient Functional ability assessed and discussed and documented Activities of daily living reviewed and appropriate actions taken . HRA filled out by the patient and reviewed by provider and scanned . Appropriate written screening schedule established . Any health advise needed provided . Advance care planning discussed with the patient , necessary paperwork filled Examination IPPE/AWE: Balance failed Romberg failed Tandem walk failed walk-in turn failed rise from sit to stand filled . ?Hearing ?whisper test failed . Medication list reviewed, patient is stable on medications All other providers patient is seeing discussed and noted . [facility] Medical History Restrictive lung disease Dyspnea on exertion Restless legs syndrome (RLS) Sleep apnea Gallbladder abscess Surgical History H/O colectomy H/O colonoscopy Hx of cholecystectomy Family History Brother Substance use disorder Sister Mental health disorder Diabetes Breast cancer Sister Mental health disorder Sister Mental health disorder Sister Mental health disorder Mother Mental health disorder Social History Housing: Condominium Alcohol intake: current Patient Tobacco Use Status: Never used Tobacco e-Cigarette/Vaping Use: Never Used Second Hand Smoke Exposure: No service: No Current occupational status: employed and disabled Current occupation: disabled - [employer] Cognitive needs: No Hearing needs: No Vision needs: Yes Questionnaire Medicare Wellness Checkup [age] What gender do you identify with?: male During the past 4 weeks, how much have you been bothered by emotional problems such as feeling anxious, depressed, irritable, sad or downhearted, and blue?: moderately During the past 4 weeks, has your physical & emotional health limited your social activities with family, friends, neighbors, or groups?: moderately During the past 4 weeks, how much bodily pain have you generally had?: severe pain During the past 4 weeks, was someone available to help you if you needed & wanted help?: yes, as much as I wanted During the past 4 weeks, what was the hardest physical activity you could do for at least 2 minutes?: light Can you get to places out of walking distance without help? (For eg., can you travel alone on buses, taxis or drive your car?): Yes Can you go shopping for groceries or clothes without someone's help?: Yes Can you prepare your own meals?: Yes Can you do your housework without help?: Yes Because of any health problems, do you need the help of another person with your personal care needs such as eating, bathing, dressing or getting around the house?: No Can you handle your own money without help?: Yes During the past 4 weeks, how would you rate your health in general?: good During the past 4 weeks how have things been going for you?: good & bad parts about equal Are you having difficulties driving your car?: no Do you always fasten your seat belt when you are in a car?: yes, usually During past 4 weeks, have you been bothered by the following: never: Trouble eating well? and Problems using the telephone?, sometimes: Falling or dizzy when standing up and Teeth or denture problems? and always: Sexual problems? and Tiredness or fatigue? Have you fallen 2 or more times in the past year?: No Are you afraid of falling?: No Are you a smoker?: no During the past 4 weeks, how many drinks of wine, beer, or other alcoholic beverages did you have?: no alcohol at all Do you exercise for about 20 minutes 3 or more times a week?: no, I usually do not exercise this much Have you been given information to help with the following?: yes: Hazards in your house that might hurt you? and yes: Keeping track of your medications? How often do you have trouble taking medicines the way you have been told to take them?: I always take medicine as prescribed How confident are you that you can control & manage most of your health problems?: somewhat confident What is your race?: White Mini Mental State Exam (MMSE) Orientation What is the (year) (season) (date) (day) (month)?: year, season, date, day and month Where are we (state) (county) (town or city) (hospital) (floor)?: state, county, town or city, hospital/clinic and floor Score Score: 10 Activity of Daily Living Bathing - sponge bath, tub bath or shower: receives no assistance (gets in/out by self, if usual bathing means Dressing - getting clothes from closets & drawers, including inner/outer garments & fasteners.: gets clothes & gets completely dressed without help Toileting - going to the 'toilet room' for urine/bowel elimination & cleaning self/arranging clothes: goes to toilet room, cleans self, arranges clothes without help Transfer: moves in & out of bed and chair without help (may use support object) Continence: controls urination/bowel movements completely by self Feeding: feeds self without help Total Score: 0 Information obtained from: patient Using telephone: independent Traveling: independent Shopping: independent Preparing meals: dependent Housework: needs assistance Taking medicine: independent Managing money: independent PHQ-9 Over the last 2 weeks, how often have you been bothered by any of the following problems? 1. Little interest or pleasure in doing things: more than half the days 2. Feeling down, depressed, or hopeless: more than half the days 3. Trouble falling or staying asleep, or sleeping too much: more than half the days 4. Feeling tired or having little energy: more than half the days 5. Poor appetite or overeating: not at all 6. Feeling bad about yourself - or that you are a failure or have let yourself or your family down: not at all 7. Trouble concentrating on things, such as reading the newspaper or watching television: not at all 8. Moving or speaking so slowly that other people could have noticed. Or the opposite - being so fidgety or restless that you have been moving around a lot more than usual: not at all 9. Thoughts that you would be better off or of hurting yourself in some way: not at all Total score: 8 Depression Screening Interpretation: Negative Depression Screening Done: Yes 78329 - PHQ-9 Billing: Yes Source: Developed by Drs. Bakari Canales, Petty Quiroz, Anjel Queen and colleagues, with an educational melina from [employer]. Review of Systems Const Denies chills and Denies fever(s) ENT Denies epistaxis and Denies nasal discharge Card Denies chest pain Resp Denies chest congestion, Denies cough and Denies hemoptysis GI Denies diarrhea and Denies nausea Skin/Breast Denies rash Neuro Reports no additional complaints Psych Reports no additional complaints Endo Reports no additional complaints Physical Exam Vital Signs: Last Vital Signs Pulse 95 12/12/23 14:24 BP 130/80 12/12/23 14:24 Pulse Ox 98 12/12/23 14:24 Oxygen Delivery Method Room Air 12/12/23 14:24 BMI result Body Mass Index 21.9 Const General: cooperative, comfortable and no acute distress Orientation/consciousness: patient oriented x3 HEENT Head: Yes normocephalic Eyes General: appearance normal, both eyes and all related structures Neck Other: Supple Neck: Yes supple Resp Effort & Inspection: normal respiratory effort, no cough and no stridor Cardio Rhythm: regular rhythm Heart sounds: S1 normal heart sound present and S2 normal heart sound present Skin General skin exam: turgor normal Neuro General: patient oriented x3 and moves all extremities Extrem Other: No lower extremity swelling. Right lower extremity: no edema Left lower extremity: no edema Psych Other: Normal effect, speech clear Results AMB Hemoglobin A1c AMB Hemoglobin A1c 8.4 % Last Edit by Shyam Osei CMA on 12/12/23 15:40 Results Reviewed Results Reviewed: Laboratory Last Values Hgb A1c (Clinic) 8.4 % (4.0-6.0) H 12/12/23 15:40 Assessment & Plan Assessment & Plan (1) Medicare annual wellness visit, subsequent: Code(s): Z00.00 - Encounter for general adult medical examination without abnormal findings (2) Diabetes mellitus type 2, insulin dependent: Code(s): E11.9 - Type 2 diabetes mellitus without complications; 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 (3) Major depression, recurrent: Code(s): F33.9 - Major depressive disorder, recurrent, unspecified Qualifiers: Active/Remission status: in partial remission Qualified Code(s): F33.41 - Major depressive disorder, recurrent, in partial remission (4) Other specified hypothyroidism: Code(s): E03.8 - Other specified hypothyroidism (5) Diabetic neuropathy: Code(s): E11.40 - Type 2 diabetes mellitus with diabetic neuropathy, unspecified Qualifiers: Diabetes mellitus complication detail: diabetic autonomic neuropathy Diabetes mellitus type: type 1 Qualified Code(s): E10.43 - Type 1 diabetes mellitus with diabetic autonomic (poly)neuropathy (6) Cervical spondylosis: Code(s): M47.812 - Spondylosis without myelopathy or radiculopathy, cervical region (7) Cervicalgia: Code(s): M54.2 - Cervicalgia (8) Migraine with aura, intractable, without status migrainosus: Code(s): G43.119 - Migraine with aura, intractable, without status migrainosus (9) Diabetic kidney disease: Code(s): E11.21 - Type 2 diabetes mellitus with diabetic nephropathy Qualifiers: Diabetes mellitus type: type 2 Qualified Code(s): E11.21 - Type 2 diabetes mellitus with diabetic nephropathy (10) Hypertension, essential: Code(s): I10 - Essential (primary) hypertension (11) Lipid disorder: Code(s): E78.9 - Disorder of lipoprotein metabolism, unspecified Plan Patient is 72-year-old male came in today for his follow-up appointment. Labs done recently reviewed Diabetes: Hemoglobin A1c is gotten worse in 8 range it used to be less than 7, I would recommend to control his diet which he has not been doing, patient is to continue diabetic medications , he is on insulin aspart 14 units t.i.d., glipizide 10 mg once a day and 80 units of Tresiba. Patient have stage III diabetic nephropathy patient is seen Nephrology for that, however I do not have any recent notes Patient was encouraged to call and book appointment [facility] Pir Huang He is also anemic due to that Lipid disorder: patient is on gemfibrozil 600 mg b.i.d. Thyroid medication is levothyroxine 50 mcg Chronic GERD: Continue PPI cervicalgia and headache. 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 E10.43 Diabetes mellitus complication detail: diabetic autonomic neuropathy Diabetes mellitus type: type 1 Cervical spondylosis M47.812 Cervicalgia M54.2 Migraine with aura, intractable, without status migrainosus G43.119 Diabetic nephropathy associated with type 2 diabetes mellitus E11.21 Diabetes mellitus type: type 2 Hypertension, essential I10 Lipid disorder E78.9 CPT Codes Advance Care Planning - Time spent: 1-15 minutes, not on file ([id number]) Advance Care Planning Advance Care Planning discussion: Completed/Scanned Forms completed: MOLST Time spent: 1-15 minutes, not on file Actual minutes spent: 13
== END 2023-12-12 14:59 | disposition home or self-care (01) ==
PROVIDERS: PCP Internal Medicine; Visit Provider Internal Medicine
DX: Z00.00 Encounter for general adult medical examination without abnormal findings (principal); E11.21 Type 2 diabetes mellitus with diabetic nephropathy; Z79.4 Long term (current) use of insulin; F33.41 Major depressive disorder, recurrent, in partial remission; E03.8 Other specified hypothyroidism; M47.812 Spondylosis without myelopathy or radiculopathy, cervical region; M54.2 Cervicalgia; G43.119 Migraine with aura, intractable, without status migrainosus; I10 Essential (primary) hypertension; E78.9 Disorder of lipoprotein metabolism, unspecified
CPT/HCPCS: 1124F; 83036; 99214; G0439

== ENCOUNTER 2023-12-22 13:43 | Outpatient (AMB) | payer MEDICARE, SELFPAY ==
[2023-12-22 13:46] VITALS: BP 148/71; PULSE 99; BMI 22.3
--- NOTE | 2023-12-22 13:46 | A.OFFVIS_ITS ---
Vital Signs 12/22/23 13:46 Height 5 ft 10 in Weight 155 lb 3.287 oz BMI 22.3 BP 148/71 H Blood Pressure Location Rt brachial Position Sitting Pulse 99 Intake Visit Reasons: 8 week f/u Intake Note: Low presents in 8 weeks follow up of labs. CC: Patient reports that he is having some pain from surgical side and states that the area also looks swollen. He reports diarrhea 75% of the time and stringy stools. Senior Marketing Coordinator Required: No Accompanied by: Self / Same As Patient Allergies hydrochlorothiazide Allergy (Intermediate, Verified 12/22/23 13:51) Unknown lamotrigine [From LAMICTAL] Allergy (Intermediate, Verified 12/22/23 13:51) RASH Penicillins [PENICILLINS] Allergy (Intermediate, Verified 12/22/23 13:51) ITCHY Tetracyclines [TETRACYCLINES] Allergy (Intermediate, Verified 12/22/23 13:51) ITCHY penicillamine Allergy (Unknown, Verified 12/22/23 13:51) Unknown tetracycline Allergy (Unknown, Verified 12/22/23 13:51) Unknown tramadol Allergy (Unknown, Verified 12/22/23 13:51) Unknown onabotulinumtoxinA [From Botox] Allergy (Verified 12/22/23 13:51) swallowing gabapentin [From NEURONTIN] Adverse Reaction (Intermediate, Verified 12/22/23 13:51) ACID REFLUX amitriptyline [From ELAVIL] Adverse Reaction (Mild, Verified 12/22/23 13:51) THIRST Elavil Allergy (Unknown, Uncoded 08/08/23 14:53) Unknown Medication List - Last Reconciled 12/22/23 by NÉSTOR Alvarado alprazolam 0.5 mg PO DAILY PRN apremilast (Otezla) 30 mg PO BID atorvastatin 20 mg PO DAILY bisacodyl (Dulcolax (bisacodyl)) 10 mg (2 x 5 mg) PO BEDTIME 2 days fenofibrate 160 mg PO DAILY ferrous sulfate 325 mg PO DAILY glipizide ER 10 mg PO DAILY insulin aspart U-100 (Novolog FlexPen U-100 Insulin aspart) 14 units subcut insulin degludec (Tresiba FlexTouch U-100 insulin) 80 units subcut ONCE levothyroxine 50 mcg PO DAILY lisinopril 2.5 mg PO DAILY omeprazole 40 mg PO DAILY peg 3350-electrolytes 236-22.74-6.74 -5.86 gram (Golytely) 240 mL PO Q10M 1 day pen needle, diabetic (Easy Touch) As directed quetiapine 200 mg PO BEDTIME sertraline 100 mg PO BID sucralfate (Carafate) 2 grams (2 x 1 gram) PO QNOON trazodone 200 mg PO BEDTIME PRN HPI HPI 8 week f/u: Details: 72-year-old male here for preprocedural meeting to discuss a screening colonoscopy. He is referred by [facility] primary care PMX MAIN Diabetes Hypertension High cholesterol Chronic kidney disease Migraines Lumbar spondylosis Restless legs syndrome * SURGICAL HISTORY Cholecystectomy * ALLERGIES Hydrochlorothiazide Lamictal Penicillin Tetracycline Tramadol Botulism toxin Gabapentin amitriptyline * [facility] LABS: Laboratory Tests 12/06/23 12:05 WBC 3.8 L Hgb 12.6 L Hct 36.0 L MCV 93.8 MCH 32.8 Plt Count 124 L Estimated GFR 45 Total Bilirubin 0.6 AST 19 ALT 16 Alkaline Phosphatase 133 H Laboratory Tests 12/12/23 15:40 Hgb A1c (Clinic) 8.4 H TODAY'S VISIT HE TELLS ME TODAY he feels he is here for treatment of ongoing diarrhea since he was treated for colon cancer [facility] by Dr. Luna.I ACCESS [place] DATABASE AND PRINT LAST COLONOSCOPY, DR SNIDER LAST NOTE AND SURGICAL NOTE TO BE SCANNED TO HIS FILE. 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 In the past he was treated by Dr. Luna. I will attempt to get his records from the [facility] database. It turns out we had the wrong pharmacy he uses [place] [facility] so I have redirected the prescriptions and hopefully things will go more easily. He does use Imodium but it does not always work very well for his diarrhea and it does run the risk of obstructing his bowels so will see if we can find something he can take more consistently. He feels that his restrictive lung disease/COPD is well controlled and he has sleep apnea he denies any cardiac problems. There are no prior problems with anesthesia or sedation. There are no infectious disease problems. Again he had colorectal cancer and a partial colectomy treated in the past at [facility]. Return office visit in 8 weeks to evaluate his response to the Carafate [facility] Medical History (Updated 01/05/24 @ 17:06 by NÉSTOR Alvarado) COPD (chronic obstructive pulmonary disease) Establishing care with new doctor, encounter for Respiratory tract congestion with cough Medicare annual wellness visit, subsequent Restrictive lung disease Dyspnea on exertion Restless legs syndrome (RLS) Sleep apnea Gallbladder abscess Surgical History H/O colectomy H/O colonoscopy Hx of cholecystectomy Family History Brother Substance use disorder Sister Mental health disorder Diabetes Breast cancer Sister Mental health disorder Sister Mental health disorder Sister Mental health disorder Mother Mental health disorder Social History Housing: Condominium Alcohol intake: current Patient Tobacco Use Status: Never used Tobacco e-Cigarette/Vaping Use: Never Used Second Hand Smoke Exposure: No service: No Current occupational status: employed and disabled Current occupation: disabled - [employer] Cognitive needs: No Hearing needs: No Vision needs: Yes Review of Systems Const Denies fatigue, Denies fever(s), Denies night sweats, Denies poor appetite and Denies weight loss ENT Reports Normal hearing present, Denies dental pain, Denies dysphagia, Denies hearing loss, Denies mouth pain, Denies odynophagia, Denies throat swelling, Denies tongue swelling and Reports other (Dentition adequate) Card Reports no additional complaints Resp Reports no additional complaints GI Details: Denies abdominal pain, Denies melena, Denies bloating, Denies hematochezia, Denies constipation, Denies GI cramping, Denies dysphagia, Denies excessive flatus, Denies early satiety, Denies heartburn, Reports diarrhea, Denies nausea, Denies odynophagia, Denies vomiting and Denies hematemesis Skin/Breast Denies pruritus, Denies lesions, Denies rash and Denies jaundice Neuro Reports Normal hearing present and Denies Abnormal speech present Endo Denies fatigue Aller/Immun Denies throat swelling and Denies tongue swelling Physical Exam Vital Signs: Last Vital Signs Pulse 99 12/22/23 13:46 BP 148/71 H 12/22/23 13:46 BMI result Body Mass Index 22.3 Const General: cooperative, no acute distress, well developed and well groomed Nutritional Appearance: average body habitus and well nourished Orientation/consciousness: oriented to person, oriented to place and oriented to time Limitations: No language barrier HEENT Head: Yes normocephalic and Yes atraumatic Eyes General: appearance normal, both eyes and all related structures Pupils: Equal, round and reactive pupils present Neck Neck: Yes normal visual inspection and Yes no lymphadenopathy Thyroid: Thyroid normal Resp Effort & Inspection: normal respiratory effort and able to speak in complete sentences Auscultation: clear to auscultation bilaterally Cardio Rate: regular rate Rhythm: regular rhythm Heart sounds: Normal, physiologic split S2 sound present Peripheral pulses: radial pulses present and posterior tibial pulses present GI Inspection: No distended and No Abdominal panniculus present Palpation (GI): Soft to palpation, nontender, no guarding, not rigid and No hepatosplenomegaly present Percussion: Yes normal to percussion Auscultation: normal bowel sounds Rectal Exam - Male: Yes deferred Skin General skin exam: no rashes or lesions noted, turgor normal, skin not dry, no jaundice, No spider nevi and no striae Rashes: no rashes Nails: normal Neuro General: oriented to person, oriented to place and oriented to time Cranial nerves: Yes Equal, round and reactive pupils present and Yes Normal hearing present Speech: No Abnormal speech present Extrem General: Yes normal to inspection, No clubbing, No cyanosis and No edema Psych Appearance: grossly normal and well kempt Mental Status: mental status grossly normal Speech and movement: Normal speech and movement present Affect: normal affect Attitude: cooperative Thought process: Normal thought process present and not confabulating Thought content: Normal thought content present Insight: Limited insight present (Psych) Judgement: Limited judgement present (Psych) Results Reviewed Results Reviewed: Laboratory Tests 12/06/23 12:05 WBC 3.8 L Hgb 12.6 L Hct 36.0 L MCV 93.8 MCH 32.8 Plt Count 124 L Estimated GFR 45 Total Bilirubin 0.6 AST 19 ALT 16 Alkaline Phosphatase 133 H Laboratory Tests 12/12/23 15:40 Hgb A1c (Clinic) 8.4 H I also found and reviewed his notes from his past coordinator of health services at [facility] Assessment & Plan Assessment & Plan (1) Short bowel syndrome: Code(s): K90.829 - Short bowel syndrome, unspecified Category: Medical (2) Restrictive lung disease: Comment: MILD TO MODERATE RESTRICTIVE LUNG DISEASE PROBABLY DUE TO ABDOMINAL OBESITY/VENTRAL HERNIATION. ADVISED TO KEEP ON DOING DEEP BREATHING EXERCISES . 2 OR 3 TIMES A DAY Code(s): J98.4 - Other disorders of lung Category: Medical (3) Pre-op examination: Code(s): Z01.818 - Encounter for other preprocedural examination Category: Medical (4) Sleep apnea: Comment: diagnosed with CSA but does not use CPAP Code(s): G47.30 - Sleep apnea, unspecified Category: Medical Plan HE TELLS ME TODAY he feels he is here for treatment of ongoing diarrhea since he was treated for colon cancer [facility] by Dr. Luna.I ACCESS [facility] DATABASE AND PRINT LAST COLONOSCOPY, DR REIDS LAST NOTE AND SURGICAL NOTE TO BE SCANNED TO HIS FILE. 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 In the past he was treated by Dr. Luna. I will attempt to get his records from the [facility] database. It turns out we had the wrong pharmacy he uses [place] [facility] so I have redirected the prescriptions and hopefully things will go more easily. He does use Imodium but it does not always work very well for his diarrhea and it does run the risk of obstructing his bowels so will see if we can find something he can take more consistently. He feels that his restrictive lung disease/COPD is well controlled and he has sleep apnea he denies any cardiac problems. There are no prior problems with anesthesia or sedation. There are no infectious disease problems. Again he had colorectal cancer and a partial colectomy treated in the past at [facility]. Return office visit in 8 weeks to evaluate his response to the Carafate Orders: Orders Colonoscopy - GI Use Only 12/22/23 K90.829 - Short bowel syndrome, unspecified Medications: New peg 3350-electrolytes 236-22.74-6.74 -5.86 gram (Golytely) until fecal effluent is clear; do not exceed a total volume of 2,000 mL 240 mL PO Q10M 4,000 mL 0RF 1 day Z12.11 - Encounter for screening for malignant neoplasm of colon peg 3350-electrolytes 236-22.74-6.74 -5.86 gram (Golytely) until fecal effluent is clear; do not exceed a total volume of 2,000 mL 240 mL PO Q10M 4,000 mL 0RF 1 day Z12.11 - Encounter for screening for malignant neoplasm of colon Changed From sucralfate 2 grams (2 x 1 gram) PO QNOON 60 tabs 3RF K90.829 - Short bowel syndrome, unspecified To sucralfate (Carafate) 2 grams (2 x 1 gram) PO QNOON 60 tabs 3RF K90.829 - Short bowel syndrome, unspecified Discontinued peg 3350-electrolytes 236-22.74-6.74 -5.86 gram until fecal effluent is clear; do not exceed a total volume of 2,000 mL Discontinued Reason: Doctor's Order 240 mL PO Q10M 1 day 4,000 mL 0RF Z12.11 - Encounter for screening for malignant neoplasm of colon Coding Level of Care Code New Pt Level 3 (05234) Diagnoses Short bowel syndrome K90.829 Restrictive lung disease J98.4 Pre-op examination Z01.818 Sleep apnea G47.30
== END 2023-12-22 15:43 | disposition home or self-care (01) ==
PROVIDERS: PCP Internal Medicine; Visit Provider Nurse Practitioner
DX: K90.829 Short bowel syndrome, unspecified (principal); Z85.038 Personal history of other malignant neoplasm of large intestine; Z01.818 Encounter for other preprocedural examination; G47.30 Sleep apnea, unspecified
CPT/HCPCS: 99213

== ENCOUNTER → 2023-12-22 13:43 | Outpatient (BNVA) | payer MEDICARE, SELFPAY | PROVIDERS: PCP Internal Medicine; Visit Provider Nurse Practitioner | DX: Z01.818 Encounter for other preprocedural examination (principal); R19.7 Diarrhea, unspecified; K90.829 Short bowel syndrome, unspecified; J98.4 Other disorders of lung; G47.30 Sleep apnea, unspecified | CPT/HCPCS: 99212 ==

== ENCOUNTER 2024-02-16 13:47 | Outpatient (AMB) | payer MEDICARE, SELFPAY ==
[2024-02-16 14:01] VITALS: BP 135/69; PULSE 89; BMI 23.0
--- NOTE | 2024-02-16 14:01 | MHC.OFFVIS ---
Vital Signs 02/16/24 14:01 Height 5 ft 10 in Weight 160 lb 0.889 oz BMI 23.0 BP 135/69 Blood Pressure Location Rt brachial Position Sitting Pulse 89 Intake Visit Reasons: 8 week follow up Intake Note: Maurilio returns in 8 weeks follow up of short bowel syndrome. CC: Patient reports every once in a while BLQ abdominal pain and swelling. Denies other GI symptoms today. 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 Required: No Accompanied by: Self / Same As Patient Allergies hydrochlorothiazide Allergy (Intermediate, Verified 02/16/24 14:09) Unknown lamotrigine [From LAMICTAL] Allergy (Intermediate, Verified 02/16/24 14:09) RASH Penicillins [PENICILLINS] Allergy (Intermediate, Verified 02/16/24 14:09) ITCHY Tetracyclines [TETRACYCLINES] Allergy (Intermediate, Verified 02/16/24 14:09) ITCHY penicillamine Allergy (Unknown, Verified 02/16/24 14:09) Unknown tetracycline Allergy (Unknown, Verified 02/16/24 14:09) Unknown tramadol Allergy (Unknown, Verified 02/16/24 14:09) Unknown onabotulinumtoxinA [From Botox] Allergy (Verified 02/16/24 14:09) swallowing gabapentin [From NEURONTIN] Adverse Reaction (Intermediate, Verified 02/16/24 14:09) ACID REFLUX amitriptyline [From ELAVIL] Adverse Reaction (Mild, Verified 02/16/24 14:09) THIRST Elavil Allergy (Unknown, Uncoded 08/08/23 14:53) Unknown HPI HPI 8 week follow up: Details: Assessment & Plan (1) Short bowel syndrome: Code(s): K90.829 - Short bowel syndrome, unspecified Category: Medical (2) Restrictive lung disease: Comment: MILD TO MODERATE RESTRICTIVE LUNG DISEASE PROBABLY DUE TO ABDOMINAL OBESITY/VENTRAL HERNIATION. ADVISED TO KEEP ON DOING DEEP BREATHING EXERCISES . 2 OR 3 TIMES A DAY Code(s): J98.4 - Other disorders of lung Category: Medical (3) Pre-op examination: Code(s): Z01.818 - Encounter for other preprocedural examination Category: Medical (4) Sleep apnea: Comment: diagnosed with CSA but does not use CPAP Code(s): G47.30 - Sleep apnea, unspecified Category: Medical Plan HE TELLS ME TODAY he feels he is here for treatment of ongoing diarrhea since he was treated for colon cancer [facility] by Dr. Luna.I ACCESS [place] DATABASE AND PRINT LAST COLONOSCOPY, DR SNIDER LAST NOTE AND SURGICAL NOTE TO BE SCANNED TO HIS FILE. 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 In the past he was treated by Dr. Luna. I will attempt to get his records from the [facility] database. It turns out we had the wrong pharmacy he uses [place] [facility] so I have redirected the prescriptions and hopefully things will go more easily. He does use Imodium but it does not always work very well for his diarrhea and it does run the risk of obstructing his bowels so will see if we can find something he can take more consistently. He feels that his restrictive lung disease/COPD is well controlled and he has sleep apnea he denies any cardiac problems. There are no prior problems with anesthesia or sedation. There are no infectious disease problems. Again he had colorectal cancer and a partial colectomy treated in the past at [facility]. Return office visit in 8 weeks to evaluate his response to the Carafate Orders: Orders Colonoscopy - GI Use Only 12/22/23 K90.829 - Short bowel syndrome, unspecified Medications: New peg 3350-electrolytes 236-22.74-6.74 -5.86 gram (Golytely) until fecal effluent is clear; do not exceed a total volume of 2,000 mL 240 mL PO Q10M 4,000 mL 0RF 1 day Z12.11 - Encounter for screening for malignant neoplasm of colon peg 3350-electrolytes 236-22.74-6.74 -5.86 gram (Golytely) until fecal effluent is clear; do not exceed a total volume of 2,000 mL 240 mL PO Q10M 4,000 mL 0RF 1 day Z12.11 - Encounter for screening for malignant neoplasm of colon Changed From sucralfate 2 grams (2 x 1 gram) PO QNOON 60 tabs 3RF K90.829 - Short bowel syndrome, unspecified To sucralfate (Carafate) 2 grams (2 x 1 gram) PO QNOON 60 tabs 3RF K90.829 - Short bowel syndrome, unspecified Discontinued peg 3350-electrolytes 236-22.74-6.74 -5.86 gram until fecal effluent is clear; do not exceed a total volume of 2,000 mL Discontinued Reason: Doctor's Order 240 mL PO Q10M 1 day 4,000 mL 0RF Z12.11 - Encounter for screening for malignant neoplasm of colon COLONOSCOPY 09/03/2024 BIOPSY TODAY'S VISIT He had a lot of trouble with Carafate because he says ?it is nasty stuff!? He had a lot of trouble swallowing it cause it does mouth admitted it touches her mouth and we discussed dissolving it in some juice its or crushing it and he says he can try this. If this does not work of course will move on to something else but we need to do better to give him a better quality of life. Return office visit in 6 weeks [facility] Medical History COPD (chronic obstructive pulmonary disease) Establishing care with new doctor, encounter for Respiratory tract congestion with cough Medicare annual wellness visit, subsequent Restrictive lung disease Dyspnea on exertion Restless legs syndrome (RLS) Sleep apnea Gallbladder abscess Surgical History H/O colectomy H/O colonoscopy Hx of cholecystectomy Family History Brother Substance use disorder Sister Mental health disorder Diabetes Breast cancer Sister Mental health disorder Sister Mental health disorder Sister Mental health disorder Mother Mental health disorder Social History Housing: Condominium Alcohol intake: current Patient Tobacco Use Status: Never used Tobacco e-Cigarette/Vaping Use: Never Used Second Hand Smoke Exposure: No service: No Current occupational status: employed and disabled Current occupation: disabled - [employer] Cognitive needs: No Hearing needs: No Vision needs: Yes Review of Systems Const Denies fatigue, Denies fever(s), Denies night sweats, Denies poor appetite and Denies weight loss ENT Reports Normal hearing present, Denies dental pain, Denies dysphagia, Denies hearing loss, Denies mouth pain, Denies odynophagia, Denies throat swelling, Denies tongue swelling and Reports other (Dentition adequate) Card Reports no additional complaints Resp Reports no additional complaints GI Details: Denies abdominal pain, Denies melena, Denies bloating, Denies hematochezia, Denies constipation, Reports GI cramping, Denies dysphagia, Denies excessive flatus, Denies early satiety, Denies heartburn, Reports diarrhea, Denies nausea, Denies odynophagia, Denies vomiting and Denies hematemesis Skin/Breast Denies pruritus, Denies lesions, Denies rash and Denies jaundice Neuro Reports Normal hearing present and Denies Abnormal speech present Endo Denies fatigue Aller/Immun Denies throat swelling and Denies tongue swelling Physical Exam Vital Signs: Last Vital Signs Pulse 89 02/16/24 14:01 BP 135/69 02/16/24 14:01 BMI result Body Mass Index 23.0 Const General: cooperative, no acute distress and well developed Nutritional Appearance: well nourished Orientation/consciousness: oriented to person, oriented to place and oriented to time Limitations: No language barrier HEENT Head: Yes normocephalic and Yes atraumatic Eyes General: appearance normal, both eyes and all related structures Pupils: Equal, round and reactive pupils present Neck Neck: Yes normal visual inspection and Yes no lymphadenopathy Thyroid: Thyroid normal Resp Effort & Inspection: normal respiratory effort and able to speak in complete sentences Auscultation: clear to auscultation bilaterally Cardio Rate: regular rate Rhythm: regular rhythm Heart sounds: Normal, physiologic split S2 sound present Peripheral pulses: radial pulses present and posterior tibial pulses present GI Inspection: No distended and No Abdominal panniculus present Palpation (GI): Soft to palpation, nontender, no guarding, not rigid and No hepatosplenomegaly present Percussion: Yes normal to percussion Auscultation: normal bowel sounds Rectal Exam - Male: Yes deferred Skin General skin exam: no rashes or lesions noted, turgor normal, skin not dry, no jaundice, No spider nevi and no striae Rashes: no rashes Nails: normal Neuro General: oriented to person, oriented to place and oriented to time Cranial nerves: Yes Equal, round and reactive pupils present and Yes Normal hearing present Speech: No Abnormal speech present Extrem General: Yes normal to inspection, No clubbing, No cyanosis and No edema Psych Appearance: grossly normal and well kempt Mental Status: mental status grossly normal Speech and movement: Normal speech and movement present Affect: normal affect Attitude: cooperative Thought process: Normal thought process present and not confabulating Thought content: Normal thought content present Insight: Limited insight present (Psych) Judgement: Limited judgement present (Psych) Assessment & Plan Assessment & Plan (1) Short bowel syndrome: Code(s): K90.829 - Short bowel syndrome, unspecified Category: Medical (2) History of colon cancer: Code(s): Z85.038 - Personal history of other malignant neoplasm of large intestine Category: Medical Plan He had a lot of trouble with Carafate because he says ?it is nasty stuff!? He had a lot of trouble swallowing it cause it does mouth admitted it touches her mouth and we discussed dissolving it in some juice its or crushing it and he says he can try this. If this does not work of course will move on to something else but we need to do better to give him a better quality of life. Return office visit in 6 weeks COLONOSCOPY 09/03/2024 BIOPSY Coding Level of Care Code Est Pt Level 3 (09407) Diagnoses Short bowel syndrome K90.829 History of colon cancer Z85.038
== END 2024-02-16 14:35 | disposition home or self-care (01) ==
PROVIDERS: PCP Internal Medicine; Visit Provider Nurse Practitioner
DX: K90.829 Short bowel syndrome, unspecified (principal); Z85.038 Personal history of other malignant neoplasm of large intestine
CPT/HCPCS: 99213

== ENCOUNTER → 2024-02-16 13:47 | Outpatient (BNVA) | payer MEDICARE, SELFPAY | PROVIDERS: PCP Internal Medicine; Visit Provider Nurse Practitioner | DX: K90.829 Short bowel syndrome, unspecified (principal); Z85.038 Personal history of other malignant neoplasm of large intestine | CPT/HCPCS: 99212 ==

== ENCOUNTER 2024-02-29 15:56 | Outpatient (AMB) | payer MEDICARE, SELFPAY ==
--- NOTE | 2024-02-29 16:06 | MHC.OFFWIV ---
Intake Vital Signs 02/29/24 16:09 Weight 160 lb BP 118/72 Blood Pressure Location Lt brachial Position Sitting Pulse 62 Pulse Source Pulse Oximeter Pulse Oximetry (%) 97 Oxygen Delivery Method Room Air Intake Visit Reasons: EP-lt achilles tendon pain Intake Note: Patient here for left achilles pain that he pulled a few days ago. Patient Tobacco Use Status: Never used Tobacco Allergies hydrochlorothiazide Allergy (Intermediate, Verified 02/29/24 16:09) Unknown lamotrigine [From LAMICTAL] Allergy (Intermediate, Verified 02/29/24 16:09) RASH Penicillins [PENICILLINS] Allergy (Intermediate, Verified 02/29/24 16:09) ITCHY Tetracyclines [TETRACYCLINES] Allergy (Intermediate, Verified 02/29/24 16:09) ITCHY penicillamine Allergy (Unknown, Verified 02/29/24 16:09) Unknown tetracycline Allergy (Unknown, Verified 02/29/24 16:09) Unknown tramadol Allergy (Unknown, Verified 02/29/24 16:09) Unknown onabotulinumtoxinA [From Botox] Allergy (Verified 02/29/24 16:09) swallowing gabapentin [From NEURONTIN] Adverse Reaction (Intermediate, Verified 02/29/24 16:09) ACID REFLUX amitriptyline [From ELAVIL] Adverse Reaction (Mild, Verified 02/29/24 16:09) THIRST Elavil Allergy (Unknown, Uncoded 02/29/24 16:09) Unknown Do you need a note to return to daycare/school/sports/work: No HPI HPI Comments History of Present Illness Details This is a 73-year-old male with past medical history of insomnia, insulin-dependent diabetes and colon cancer now in remission, presenting for evaluation of pain in his left Achilles tendon. Patient states approximately 1 week ago he had a sudden cramp in his left calf and he was stretching his left ankle and left foot immediately thereafter when he felt a sharp pain in his left Achilles tendon. He states that the pain radiates into his left posterior heel. Patient bought a soft brace that he has been wearing on his left foot without relief. Patient has not taken any medication for his discomfort. Patient states that he has very minimal pain at rest which is exacerbated significantly with ambulation. [facility] Medical History COPD (chronic obstructive pulmonary disease) Establishing care with new doctor, encounter for Respiratory tract congestion with cough Medicare annual wellness visit, subsequent Restrictive lung disease Dyspnea on exertion Restless legs syndrome (RLS) Sleep apnea Gallbladder abscess Surgical History H/O colectomy H/O colonoscopy Hx of cholecystectomy Family History Brother Substance use disorder Sister Mental health disorder Diabetes Breast cancer Sister Mental health disorder Sister Mental health disorder Sister Mental health disorder Mother Mental health disorder Social History Housing: Condominium Alcohol intake: current Patient Tobacco Use Status: Never used Tobacco e-Cigarette/Vaping Use: Never Used Second Hand Smoke Exposure: No service: No Current occupational status: employed and disabled Current occupation: disabled - [employer] Cognitive needs: No Hearing needs: No Vision needs: Yes Review of Systems Const All systems reviewed & are unremarkable except as noted in HPI and below Reports no additional complaints Eyes Reports no additional complaints ENT Reports no additional complaints Card Reports no additional complaints Resp Reports no additional complaints GI Reports no additional complaints Reports no additional complaints Musc Reports other (pain left Achilles) Skin/Breast Reports system reviewed and no additional complaints, except as documented Neuro Reports no additional complaints Psych Reports no additional complaints Endo Reports no additional complaints Physical Exam Const General: cooperative, healthy appearing, comfortable and no acute distress Nutritional Appearance: thin Orientation/consciousness: patient oriented x3 Limitations: no limitations Skin General skin exam: other (surface abrasion overlying left Achilles tendon (pt states from soft brace)) Neuro General: patient oriented x3 Extrem Left lower extremity: lower leg Details: no tenderness (no left calf pain; passive ROM left knee intact), ankle (tenderness to palpation Achilles tendon and posterior calcaneus) Details: other (negative Gomes test) and foot Details: normal capillary refill, normal to inspection and toes with normal ROM; no tenderness Psych Appearance: grossly normal Mental Status: mental status grossly normal Insight: Good insight present (Psych) Judgement: Good judgement present (Psych) Assessment & Plan Assessment & Plan (1) Achilles tendinitis, left leg: Comment: Negative Gomes test, no overt trauma, no left calf pain. Patient will be discharged home with Jolantayn and use ice at 20 minute intervals following activity. Code(s): M76.62 - Achilles tendinitis, left leg Plan: Naprosyn 500mg every 12 hours for 7-10 days. Patient to follow-up with his PCP as an outpatient for ongoing management if his symptoms are not improving in 7-10 days. Medications: New naproxen (Naprosyn) 500 mg PO BID 20 tabs 0RF Coding Level of Care Code Est Pt Level 3 (86438) Diagnoses Achilles tendinitis, left leg M76.62 Time Spent (min) 20
[2024-02-29 16:09] VITALS: BP 118/72; PULSE 62; O2SAT 97
== END 2024-02-29 16:31 | disposition home or self-care (01) ==
PROVIDERS: PCP Internal Medicine; Visit Provider Physician Assistant
DX: M76.62 Achilles tendinitis, left leg (principal)

== ENCOUNTER → 2024-02-29 15:56 | Outpatient (BNVA) | payer MEDICARE, SELFPAY | PROVIDERS: PCP Internal Medicine; Visit Provider Physician Assistant | DX: M76.62 Achilles tendinitis, left leg (principal) | CPT/HCPCS: 99212 ==

== ENCOUNTER 2024-03-13 13:29 | Outpatient (AMB) | payer MEDICARE, SELFPAY ==
--- NOTE | 2024-03-13 13:33 | MHC.PC.OV ---
Vital Signs 03/13/24 13:35 Height 5 ft 10 in Weight 160 lb BMI 23.0 BP 118/76 Blood Pressure Location Rt brachial Position Sitting Pulse 91 Pulse Source Pulse Oximeter Pulse Oximetry (%) 99 Oxygen Delivery Method Room Air Intake Visit Reasons: 3 month Allergies hydrochlorothiazide Allergy (Intermediate, Verified 03/13/24 13:35) Unknown lamotrigine [From LAMICTAL] Allergy (Intermediate, Verified 03/13/24 13:35) RASH Penicillins [PENICILLINS] Allergy (Intermediate, Verified 03/13/24 13:35) ITCHY Tetracyclines [TETRACYCLINES] Allergy (Intermediate, Verified 03/13/24 13:35) ITCHY penicillamine Allergy (Unknown, Verified 03/13/24 13:35) Unknown tetracycline Allergy (Unknown, Verified 03/13/24 13:35) Unknown tramadol Allergy (Unknown, Verified 03/13/24 13:35) Unknown onabotulinumtoxinA [From Botox] Allergy (Verified 03/13/24 13:35) swallowing gabapentin [From NEURONTIN] Adverse Reaction (Intermediate, Verified 03/13/24 13:35) ACID REFLUX amitriptyline [From ELAVIL] Adverse Reaction (Mild, Verified 03/13/24 13:35) THIRST Elavil Allergy (Unknown, Uncoded 03/13/24 13:35) Unknown Medication List - Last Reconciled 03/13/24 by Gt kAins MD alprazolam 0.5 mg PO DAILY PRN apremilast (Otezla) 30 mg PO BID atorvastatin 20 mg PO DAILY bisacodyl (Dulcolax (bisacodyl)) 10 mg (2 x 5 mg) PO BEDTIME 2 days fenofibrate 160 mg PO DAILY ferrous sulfate 325 mg PO DAILY glipizide ER 10 mg PO DAILY insulin aspart U-100 (Novolog FlexPen U-100 Insulin aspart) 14 units subcut insulin degludec (Tresiba FlexTouch U-100 insulin) 80 units subcut ONCE levothyroxine 50 mcg PO DAILY lisinopril 2.5 mg PO DAILY naproxen (Naprosyn) 500 mg PO BID omeprazole 40 mg PO DAILY pen needle, diabetic (Easy Touch) As directed quetiapine 200 mg PO BEDTIME sertraline 100 mg PO BID sucralfate (Carafate) 2 grams (2 x 1 gram) PO QNOON trazodone 200 mg PO BEDTIME PRN Tobacco use date assessed: 03/13/24 Dental Screening Dental Screen Date: 08/08/23 HPI 3 month HPI Details Patient is 73-year-old male came in today for his follow-up appointment. Patient has diabetic neuropathy, he has developed a sore over his left Achilles tendon Patient says that he was wearing ankle brace and that might have caused it On examination sore is healing there is no sign of infection He will return in 2 weeks to follow-up on that Diabetes: he is on insulin aspart 14 units t.i.d., glipizide 10 mg once a day and 80 units of Tresiba. Lab order placed to be done before next visit in 2 weeks Patient have stage III diabetic nephropathy patient is seen Nephrology for that renal and transplant associates Dr. Pir Huang Patient has a anemia of chronic disease and thrombocytopenia, last platelet count was 124 in November of this year Lipid disorder: patient is on gemfibrozil 600 mg b.i.d. Thyroid medication is levothyroxine 50 mcg Chronic GERD: Continue PPI cervicalgia and headache. Management through neurology Follow-up 3 months and 2 weeks PFS Medical History COPD (chronic obstructive pulmonary disease) Establishing care with new doctor, encounter for Respiratory tract congestion with cough Medicare annual wellness visit, subsequent Restrictive lung disease Dyspnea on exertion Restless legs syndrome (RLS) Sleep apnea Gallbladder abscess Surgical History H/O colectomy H/O colonoscopy Hx of cholecystectomy Family History Brother Substance use disorder Sister Mental health disorder Diabetes Breast cancer Sister Mental health disorder Sister Mental health disorder Sister Mental health disorder Mother Mental health disorder Social History Housing: Condominium Alcohol intake: current Patient Tobacco Use Status: Never used Tobacco e-Cigarette/Vaping Use: Never Used Second Hand Smoke Exposure: No service: No Current occupational status: employed and disabled Current occupation: disabled - [employer] Cognitive needs: No Hearing needs: No Vision needs: Yes Questionnaire Thrive Questionnaire Date Thrive assessed: 12/12/23 I am a: Patient What is your living situation today?: I have a steady place to live Within the past 12 months, did the food you bought not last and you didn't have the money to get more?: Never true Within the past 12 months, did you worry whether your food would run out before you got money to buy more?: Never true Do you have trouble paying for medicines?: No Do you have trouble getting transportation to medical appointments?: No Do you have trouble paying your heating and electricity bill?: No Do you have trouble taking care of your child, family member or friend?: No Do you have trouble with day-to-day activities such as bathing, preparing meals, shopping, managing finances, etc.?: No Are you currently unemployed and looking for a job?: No Are you interested in more education?: No Currently or been in a relationship where the following occur: No concerns reported THRIVE Score: 0 EVY-7 AMB Questionnaire EVY-7 Date EVY - 7 assessed: 12/23/22 Source: Developed by Drs. Bakari Canales, Petty Quiroz, Anjel Queen and colleagues, with an educational melina from [employer]. Review of Systems Const Denies chills and Denies fever(s) ENT Denies epistaxis and Denies nasal discharge Card Denies chest pain Resp Denies chest congestion, Denies cough and Denies hemoptysis GI Denies nausea Skin/Breast Denies rash Neuro Reports no additional complaints Psych Reports no additional complaints Endo Reports no additional complaints Physical exam (Primary Care) Vital Signs: Last Vital Signs Pulse 91 03/13/24 13:35 BP 118/76 03/13/24 13:35 Pulse Ox 99 03/13/24 13:35 Oxygen Delivery Method Room Air 03/13/24 13:35 BMI result Body Mass Index 23.0 Tobacco/Smoking Status: Tobacco use Status Tobacco use date assessed 03/13/24 03/13/24 13:37 Patient Tobacco Use Status Never used Tobacco 03/13/24 13:37 e-Cigarette/Vaping Use Never Used 03/13/24 13:37 Thrive Assessment: Date of Thrive Assessment Date Thrive assessed 12/12/23 03/13/24 13:37 Currently or been in a relationship where the following occur: No concerns reported Const General: cooperative, comfortable and no acute distress Orientation/consciousness: patient oriented x3 HENMT Head: Yes normocephalic Eyes General: appearance normal, both eyes and all related structures Neck Neck: Yes supple Resp Effort & Inspection: normal respiratory effort, no cough and no stridor Cardio Rhythm: regular rhythm Heart sounds: S1 normal heart sound present and S2 normal heart sound present Skin General skin exam: turgor normal Neuro General: patient oriented x3, tone normal and moves all extremities Extrem Upper/lower leg/hip images: 1. 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 E10.43 Diabetes mellitus type: type 1 Diabetes mellitus complication detail: diabetic autonomic neuropathy Panlobular emphysema J43.1 COPD type: emphysema Emphysema type: panlobular Assessment & Plan Assessment & Plan (1) Achilles tendon pain: Code(s): M76.60 - Achilles tendinitis, unspecified leg Category: Medical (2) Skin sore: Code(s): L98.9 - Disorder of the skin and subcutaneous tissue, unspecified Category: Medical (3) Diabetes mellitus type 2, insulin dependent: Code(s): E11.9 - Type 2 diabetes mellitus without complications; Z79.4 - assisted (current) use of insulin Category: Medical (4) Lipid disorder: Code(s): E78.9 - Disorder of lipoprotein metabolism, unspecified Category: Medical (5) Psychiatric illness: Comment: Patient have psych med prescriber Code(s): F99 - Mental disorder, not otherwise specified Category: Medical (6) Hypertension, essential: Code(s): I10 - Essential (primary) hypertension Category: Medical (7) Anemia: Comment: Patient is taking iron through Nephrology Code(s): D64.9 - Anemia, unspecified Category: Medical Qualifiers: Anemia type: iron deficiency Iron deficiency anemia type: chronic blood loss Qualified Code(s): D50.0 - Iron deficiency anemia secondary to blood loss (chronic) (8) Diabetic neuropathy: Code(s): E11.40 - Type 2 diabetes mellitus with diabetic neuropathy, unspecified Category: Medical Qualifiers: Diabetes mellitus type: type 1 Diabetes mellitus complication detail: diabetic autonomic neuropathy Qualified Code(s): E10.43 - Type 1 diabetes mellitus with diabetic autonomic (poly)neuropathy (9) COPD (chronic obstructive pulmonary disease): Code(s): J44.9 - Chronic obstructive pulmonary disease, unspecified Category: Medical Qualifiers: COPD type: emphysema Emphysema type: panlobular Qualified Code(s): J43.1 - Panlobular emphysema Plan Patient is 73-year-old male came in today for his follow-up appointment. Patient has diabetic neuropathy, he has developed a sore over his left Achilles tendon Patient says that he was wearing ankle brace and that might have caused it On examination sore is healing there is no sign of infection He will return in 2 weeks to follow-up on that Diabetes: he is on insulin aspart 14 units t.i.d., glipizide 10 mg once a day and 80 units of Tresiba. Lab order placed to be done before next visit in 2 weeks Patient have stage III diabetic nephropathy patient is seen Nephrology for that renal and transplant associates Dr. Pir Huang Patient has a anemia of chronic disease and thrombocytopenia, last platelet count was 124 in November of this year Lipid disorder: patient is on gemfibrozil 600 mg b.i.d. Thyroid medication is levothyroxine 50 mcg Chronic GERD: Continue PPI cervicalgia and headache. 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 Hemoglobin A1c Today D50.0 - Iron deficiency anemia secondary to blood loss (chronic), E10.43 - Type 1 diabetes mellitus with diabetic autonomic (poly)neuropathy, E11.9 - Type 2 diabetes mellitus without complications, E78.9 - Disorder of lipoprotein metabolism, unspecified, F99 - Mental disorder, not otherwise specified, I10 - Essential (primary) hypertension, J43.1 - Panlobular emphysema, L98.9 - Disorder of the skin and subcutaneous tissue, unspecified, M76.60 - Achilles tendinitis, unspecified leg, 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 Complete Blood Count Auto Diff Today D50.0 - Iron deficiency anemia secondary to blood loss (chronic), E10.43 - Type 1 diabetes mellitus with diabetic autonomic (poly)neuropathy, E11.9 - Type 2 diabetes mellitus without complications, E78.9 - Disorder of lipoprotein metabolism, unspecified, F99 - Mental disorder, not otherwise specified, I10 - Essential (primary) hypertension, J43.1 - Panlobular emphysema, L98.9 - Disorder of the skin and subcutaneous tissue, unspecified, M76.60 - Achilles tendinitis, unspecified leg, 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
[2024-03-13 13:35] VITALS: BP 118/76; PULSE 91; O2SAT 99; BMI 23.0
== END 2024-03-13 15:48 | disposition home or self-care (01) ==
PROVIDERS: PCP Internal Medicine; Visit Provider Internal Medicine
DX: E11.9 Type 2 diabetes mellitus without complications (principal); Z79.4 Long term (current) use of insulin; J43.1 Panlobular emphysema; M76.60 Achilles tendinitis, unspecified leg; L98.9 Disorder of the skin and subcutaneous tissue, unspecified; E78.9 Disorder of lipoprotein metabolism, unspecified; F99 Mental disorder, not otherwise specified; I10 Essential (primary) hypertension; D50.0 Iron deficiency anemia secondary to blood loss (chronic)

== ENCOUNTER → 2024-03-13 13:29 | Outpatient (BNVA) | payer MEDICARE, SELFPAY | PROVIDERS: PCP Internal Medicine; Visit Provider Internal Medicine | DX: M76.60 Achilles tendinitis, unspecified leg (principal); L98.9 Disorder of the skin and subcutaneous tissue, unspecified; Z79.4 Long term (current) use of insulin; E78.9 Disorder of lipoprotein metabolism, unspecified; F99 Mental disorder, not otherwise specified; I10 Essential (primary) hypertension; D50.0 Iron deficiency anemia secondary to blood loss (chronic); E10.43 Type 1 diabetes mellitus with diabetic autonomic (poly)neuropathy; J43.1 Panlobular emphysema | CPT/HCPCS: 99212 ==

== ENCOUNTER 2024-03-22 13:55 | Outpatient (REF) | payer MEDICARE, SELFPAY ==
[2024-03-22 16:10] LABS: MANUAL DIFF FLAG NO
[2024-03-22 16:17] LABS: Basophils Percent Auto 0.4 % (0-2); Eosinophils Absolute Auto 0.2 X10*3/uL (0.0-0.4); Eosinophils Percent Auto 3.4 % (0-4); Hematocrit 35.8 % (42.0-52.0); Hemoglobin 12.7 g/dl (14.0-18.0); Imm Gran Abs Auto 0.02 X10*3/uL (0.00-0.03); Imm Gran Pct Auto 0.4 % (0.0-0.4); Lymphocytes Absolute Auto 0.6 X10*3/uL (1.2-4.9); Lymphocytes Percent Auto 11.8 % (20-40); Mean Corpuscular HGB Conc 35.5 g/dl (31.0-36.0); Mean Corpuscular Hemoglobin 31.2 pg (27.0-33.0); Mean Platelet Volume 9.9 fL (9.4-12.4); Monocytes Absolute Auto 0.4 X10*3/uL (0.1-1.2); Monocytes Percent Auto 7.8 % (2-11); Neutrophils Absolute Auto 3.6 x10*3/uL (2.0-8.3); Neutrophils Percent Auto 76.2 % (45-73); Platelet Count 147 X10*3/uL (160-400); Red Blood Count 4.07 X10*6/uL (4.60-5.80); Red Cell Distribution Width 13.2 % (11.0-16.0); White Blood Count 4.7 X10*3/uL (4.8-10.8)
[2024-03-22 16:44] LABS: Estimated Average Glucose 192 mg/dL; Hemoglobin A1C 222.7994 umol/L; Hemoglobin A1c % 8.3 % (<6.0); Total Hemoglobin (HGBA1C) 3295.3352 umol/L
[2024-03-22 16:53] LABS: Ferritin 244 ng/mL (20-250)
[2024-03-22 16:58] LABS: Alanine Aminotransferase 33 U/L (0-40); Albumin Level 4.6 g/dL (3.5-5.0); Alkaline Phosphatase 154 U/L (39-117); Anion Gap 15 (12-20); Aspartate Amino Transferase 23 U/L (5-37); Bilirubin Total 0.9 mg/dL (0.0-1.0); Blood Urea Nitrogen 21 mg/dL (9-16); Calcium 10.1 mg/dL (8.4-10.2); Carbon Dioxide 29 mmol/L (22-29); Chloride 93 mmol/L (96-108); Estimated Glomerular Filt Rate 41; Glucose Random 474 mg/dL (60-115); Potassium 4.3 mmol/L (3.3-5.1); Sodium 133 mmol/L (135-145); Total Protein 7.5 g/dL (6.5-8.0)
== END 2024-03-22 13:56 | disposition home or self-care (01) ==
LOC: HO.HMGCLDS 13:55
PROVIDERS: PCP Internal Medicine; Visit Provider Internal Medicine
DX: E11.9 Type 2 diabetes mellitus without complications (principal); Z79.4 Long term (current) use of insulin; E78.9 Disorder of lipoprotein metabolism, unspecified; F99 Mental disorder, not otherwise specified; I10 Essential (primary) hypertension; D50.0 Iron deficiency anemia secondary to blood loss (chronic); E10.43 Type 1 diabetes mellitus with diabetic autonomic (poly)neuropathy; J43.1 Panlobular emphysema; M76.60 Achilles tendinitis, unspecified leg; L98.9 Disorder of the skin and subcutaneous tissue, unspecified
CPT/HCPCS: 36415; 80053; 82728; 83036; 85025

== ENCOUNTER 2024-03-29 15:35 | Emergency (ER) | payer MEDICARE, SELFPAY ==
--- NOTE | ~2024-03-29 | XR_ITS ---
EXAMINATION: XR ANKLE, LEFT CLINICAL INFORMATION: ankle pain, achilles tendon wound COMPARISON: None available. TECHNIQUE: AP, lateral, and mortise views of the left ankle. FINDINGS: Question superficial ulceration/defect along the posterior aspect of the distal Achilles region measuring 9 mm craniocaudal. There is a focal subchondral lucency along the medial dome of the talus measuring 6 mm transverse. This is not conspicuous on the lateral projection. There is some ossification within the proximal plantar fascia region compatible with old partial tear. There is vascular calcification noted. The bones joints and soft tissues are otherwise unremarkable. XR/XR ankle LT min 3V IMPRESSION: Possible superficial defect/ulceration posterior to the distal Achilles. 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 Probable old partial tear of the proximal plantar fascia with ossification resulting Electronically signed by: Adryan Acosta MD 03/29/2024 04:47 PM [facility]
--- NOTE | ~2024-03-29 | US_ITS ---
EXAMINATION: US TRIPLEX LOWER EXTREMITY, LEFT CLINICAL INFORMATION: Calf pain COMPARISON: None available. TECHNIQUE: Color-flow triplex imaging with spectral analysis and compression Doppler were performed on the left lower extremity. FINDINGS: Respiratory variation, normal compression and augmented flow are noted throughout the left lower extremity. The visualized common femoral vein, superficial femoral vein, profunda femoral vein, popliteal vein and midcalf peroneal and posterior tibial venous segments show no evidence of deep venous thrombosis. There is no Roper's cyst. US/US venous duplex LE LT IMPRESSION: No evidence of deep venous thrombosis involving the left lower extremity. Electronically signed by: Sara Forbes MD 03/29/2024 04:42 PM EST RP
--- NOTE | 2024-03-29 15:51 | ED_ITS ---
HPI - General Adult General Chief complaint: Extremity Injury, Lower Stated complaint: over extended achilles tendon Time Seen by Provider: 03/29/24 20:55 Source: patient, RN notes reviewed and old records reviewed Mode of arrival: ambulatory Limitations: no limitations History of Present Illness ED Provider: Colin HPI narrative: 73-year-old male past medical history significant for COPD, diabetes, depression, tendinitis, anemia presents for evaluation of left leg pain. Patient reports that he has had calf pain into his left ankle and foot for the last few weeks. He believes that he pulls his Achilles tendon He was seen at urgent care and was given naproxen with good relief of his pain but he has run out of his naproxen. His pain is worse with ambulating. The patient reports that he walks on the outside of his foot due to pain to the bottom of the foot He denies any recent falls. He has a wound to the back of his left heel that he is unsure if it is infected or not He denies any drainage from the area, denies any fevers or chills Related Data Home Medications ?Medication ?Instructions ?Recorded ?Confirmed pen needle, diabetic 31 gauge x #50 ea 10/11/21 03/13/2407/14 (Easy Touch) sertraline 100 mg tablet 100 mg PO BID 10/11/21 03/13/24 trazodone 100 mg tablet 200 mg PO BEDTIME PRN 10/11/21 03/13/24 alprazolam 0.5 mg tablet 0.5 mg PO DAILY PRN 04/01/22 03/13/24 atorvastatin 20 mg tablet 20 mg PO DAILY 04/01/22 03/13/24 glipizide 5 mg tablet, extended 10 mg PO DAILY 04/01/22 03/13/24 release 24 hr lisinopril 2.5 mg tablet 2.5 mg PO DAILY 07/14/22 03/13/24 fenofibrate 160 mg tablet 160 mg PO DAILY 11/17/23 03/13/24 insulin aspart U-100 100 unit/mL 14 unit subcut 11/17/23 03/13/24 (3 mL) subcutaneous pen (Novolog FlexPen U-100 Insulin aspart) insulin degludec 100 unit/mL (3 80 unit subcut ONCE 11/17/23 03/13/24 mL) subcutaneous pen (Tresiba FlexTouch U-100 insulin) levothyroxine 50 mcg tablet 50 mcg PO DAILY 11/17/23 03/13/24 omeprazole 40 mg capsule,delayed 40 mg PO DAILY 11/17/23 03/13/24 release quetiapine 200 mg tablet 200 mg PO BEDTIME 11/17/23 03/13/24 apremilast 30 mg tablet (Otezla) 30 mg PO BID 12/22/23 03/13/24 Previous Rx's ?Medication ?Instructions ?Recorded bisacodyl 5 mg tablet,delayed 10 mg (2 x 5 mg) PO BEDTIME 2 days 11/17/23 release (Dulcolax (bisacodyl)) #4 tabs sucralfate 1 gram tablet (Carafate) 2 g (2 x 1 gram) PO QNOON #60 tabs 12/22/23 ferrous sulfate 325 mg (65 mg 325 mg PO DAILY #90 tabs 01/10/24 iron) tablet naproxen 500 mg tablet (Naprosyn) 500 mg PO BID #20 tabs 02/29/24 oxycodone 5 mg tablet 5 mg PO Q8H PRN severe pain (scale 03/29/24 score 7-10) #15 tabs Allergies Allergy/AdvReac Type Severity Reaction Status Date / Time hydrochlorothiazide Allergy Intermediate Unknown Verified 03/29/24 15:53 lamotrigine [From LAMICTAL] Allergy Intermediate RASH Verified 03/29/24 15:53 Penicillins [PENICILLINS] Allergy Intermediate ITCHY Verified 03/29/24 15:53 Tetracyclines [TETRACYCLINES] Allergy Intermediate ITCHY Verified 03/29/24 15:53 penicillamine Allergy Unknown Unknown Verified 03/29/24 15:53 tetracycline Allergy Unknown Unknown Verified 03/29/24 15:53 tramadol Allergy Unknown Unknown Verified 03/29/24 15:53 onabotulinumtoxinA Allergy swallowing Verified 03/29/24 15:53 [From Botox] gabapentin [From NEURONTIN] AdvReac Intermediate ACID REFLUX Verified 03/29/24 15:53 amitriptyline [From ELAVIL] AdvReac Mild THIRST Verified 03/29/24 15:53 Elavil Allergy Unknown Unknown Uncoded 03/13/24 13:35 Review of Systems 2 Constitutional: Constitutional: Denies body ache(s), Denies chills, Denies fever(s) and Denies frequent falls Eyes: Eyes: Denies blind spots ENT: Denies dysphagia and Denies vertigo Cardiovascular: Cardiovascular: Denies chest pain and Denies dyspnea Respiratory: Respiratory: Denies cough and Denies dyspnea Gastrointestinal: Gastrointestinal: Denies abdominal pain, Denies dysphagia and Denies vomiting Musculoskeletal: Musculoskeletal: Denies back pain, Reports arthralgias and Denies joint swelling Integumentary/Breasts: Skin/Breast: Denies erythema and Reports wounds Neurologic: Denies vertigo and Denies frequent falls FOR[facility]LY [facility] Past Medical History Medical History COPD (chronic obstructive pulmonary disease) Establishing care with new doctor, encounter for Respiratory tract congestion with cough Medicare annual wellness visit, subsequent Restrictive lung disease Dyspnea on exertion Restless legs syndrome (RLS) Sleep apnea Gallbladder abscess Surgical History H/O colectomy H/O colonoscopy Hx of cholecystectomy Family History Family History Brother Substance use disorder Sister Mental health disorder Diabetes Breast cancer Sister Mental health disorder Sister Mental health disorder Sister Mental health disorder Mother Mental health disorder Social History Social History Housing: Condominium Alcohol intake: current Patient Tobacco Use Status: Never used Tobacco e-Cigarette/Vaping Use: Never Used Second Hand Smoke Exposure: No Advance Directives: No Advance Directives Information Provided: No Do you have a plan to hurt others: No Plan service: No Current occupational status: employed and disabled Current occupation: disabled - [employer] Cognitive needs: No Hearing needs: No Vision needs: Yes Physical Exam ED Vital Signs: Vital Signs - 24 hr 03/29/24 15:52 03/29/24 21:32 03/29/24 22:07 Temperature 98.9 F 98.7 F 98.7 F Pulse Rate 91 92 92 Respiratory Rate 16 20 20 Blood Pressure 143/77 H 135/75 135/75 Pulse Oximetry 99 97 97 Oxygen Delivery Method Room Air Room Air Room Air BMI result Body Mass Index 23.0 Const General: healthy appearing, comfortable, no acute distress, alert and awake Nutritional Appearance: thin and underweight Orientation/consciousness: patient oriented x3 HENMT Head: Yes normocephalic and Yes atraumatic Eyes Eyelids: Yes eyelids normal Conjunctivae: conjunctivae normal Sclerae: sclerae normal Corneas: corneas normal Pupils: Equal, round and reactive pupils present EOM: EOMs intact bilaterally Neck Neck: Yes full ROM Resp Effort & Inspection: normal respiratory effort, able to speak in complete sentences and not labored GI Inspection: No distended Palpation (GI): Soft to palpation, not firm, nontender, no guarding and not rigid Skin General skin exam: elasticity normal Neuro General: patient oriented x3 Cranial nerves: Yes Equal, round and reactive pupils present and Yes Bilaterally intact EOM present Cognition (Neuro): normal cognition Extrem Other: There is a 1 cm eschar to the left posterior heel. There is healthy granulomatous tissue surrounding the area, no beefy red erythema, no purulent drainage, no open areas. Course Course Course Narrative: This is an RME: Additional HPI, ROS, PE not included below will be deferred to primary provider. RME assessment and note performed by: Enedelia Jasmine PA-C This is a 86-vlyi-mof-male who presents to the ER with complaints of left achilles pain. Patient in January developed a sudden cramp in his LEs when he was stretching his left ankle. He states that he felt a sharp pain in his left Achilles tendon. Pain radiates into his left heel. He was seen at an urgent care where he was given naproxen which he was taken provided him with some relief. He followed up with his primary care physician, with continued Achilles tendon pain. He has been wearing a brace, however developed a wound overlying this region. Has an appt with Dr. Akins on Apr 12. Patient continues to have Achilles pain. He also has pain to the left calf. No swelling. 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 Plan: Labs, Ultrasound, x-ray Reevaluation(s) Reevaluation #1: Discussed treating the patient's hyperglycemia with fluids and insulin. The patient declined and states he would prefer to go home and take his home insulin. Given that there is no evidence of DKA, I feel that this is appropriate. Time: 22:40 Medical Decision Making Medical Decision Making MDM Narrative: 73-year-old male presents for evaluation of left lower extremity pain. He had a workup that included an x-ray showing chronic arthritic changes, his ultrasound was negative for DVT. He does have a chronic eschar but there was no evidence of acute infection to the left lower extremity. The patient be treated with symptomatic care only. Given his chronic kidney disease we will withhold further NSAIDs and will treat with oxycodone as he has an allergy to tramadol. Will also continue with Tylenol. Differential Diagnosis Differential Diagnoses: The differential diagnosis associated with the presentation includes Tenderness Plantar fasciitis Cellulitis Diabetic wound Lab Data MDM Lab Attestation statement: I reviewed the patient's lab results. Patient has a mild thrombocytopenia that is consistent with his baseline. No acute changes. Chemistries significant for hyperglycemia, no evidence of DKA. He does have chronic kidney disease. 03/29/24 16:06 03/29/24 16:06 Labs: Lab Results 03/29/24 Range/Units 16:06 WBC 4.4 L (4.8-10.8) X10*3/uL RBC 3.88 L (4.60-5.80) X10*6/uL Hgb 12.5 L (14.0-18.0) g/dl Hct 34.3 L (42.0-52.0) % MCV 88.4 (80.0-98.0) fL MCH 32.2 (27.0-33.0) pg MCHC 36.4 H (31.0-36.0) g/dl RDW 13.1 (11.0-16.0) % Plt Count 129 L (160-400) X10*3/uL MPV 9.6 (9.4-12.4) fL Immature Gran % (Auto) 0.5 H (0.0-0.4) % Neut % (Auto) 81.3 H (45-73) % Lymph % (Auto) 9.0 L (20-40) % [place] % (Auto) 7.2 (2-11) % Eos % (Auto) 1.8 (0-4) % Baso % (Auto) 0.2 (0-2) % Lymph # (Auto) 0.4 L (1.2-4.9) X10*3/uL [place] # (Auto) 0.3 (0.1-1.2) X10*3/uL Eos # (Auto) 0.1 (0.0-0.4) X10*3/uL Baso # (Auto) 0.0 (0.0-0.2) X10*3/uL Abs Immat Gran (auto) 0.02 (0.00-0.03) X10*3/uL Absolute Neuts (auto) 3.6 (2.0-8.3) x10*3/uL Absolute Nucleated RBC 0.000 (0.0-0.012) X10*3/uL Nucleated RBC % (auto) 0.0 (0.0-0.2) /100WBC Sodium 137 (135-145) mmol/L Potassium 4.5 (3.3-5.1) mmol/L Chloride 99 (96-108) mmol/L Carbon Dioxide 26 (22-29) mmol/L Anion Gap 17 (12-20) BUN 23 H (9-16) mg/dL Creatinine 1.78 H (0.5-1.4) mg/dL Estim Creat Clear Calc 37.3 Estimated GFR 38 Random Glucose 411 H* (60-115) mg/dL Calcium 9.8 (8.4-10.2) mg/dL Total Bilirubin 1.0 (0.0-1.0) mg/dL AST 20 (5-37) U/L ALT 20 (0-40) U/L Alkaline Phosphatase 102 (39-117) U/L Total Protein 7.2 (6.5-8.0) g/dL Albumin 4.5 (3.5-5.0) g/dL Radiology Impression Discussion of test interpretation with radiology: I have reviewed the radiologist's reading. Radiologist Impression: FINDINGS: Respiratory variation, normal compression and augmented flow are noted throughout the left lower extremity. The visualized common femoral vein, superficial femoral vein, profunda femoral vein, popliteal vein and midcalf peroneal and posterior tibial venous segments show no evidence of deep venous thrombosis. There is no Roper's cyst. US/US venous duplex LE LT IMPRESSION: No evidence of deep venous thrombosis involving the left lower extremity. Electronically signed by: Sara Forbes MD 03/29/2024 04:42 PM [facility] [place]PRESSION: Possible superficial defect/ulceration posterior to the distal Achilles. 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 Probable old partial tear of the proximal plantar fascia with ossification resulting Electronically signed by: Adryan Acosta MD 03/29/2024 04:47 PM [facility] [place]charge Plan Discharge Clinical Impression: Left leg pain, Acute hyperglycemia Patient Disposition: Home, Self-Care Instructions: Diabetic Hyperglycemia (ED), Leg Pain (ED) Additional Instructions: Your x-ray showed some chronic changes but no broken bones or dislocations. Your ultrasound was negative for DVT. Your blood sugar was quite elevated today. Follow this up with your primary doctor You may take Tylenol for pain. Use tramadol for more severe breakthrough pain. This may make you drowsy, do not drink alcohol or drive after taking it Prescriptions: New oxycodone 5 mg tablet 5 mg PO Q8H PRN (Reason: severe pain (scale score 7-10)) Qty: 15 0RF Rx Instructions: Partial Fill upon patient request. No Action ferrous sulfate 325 mg (65 mg iron) tablet 325 mg PO DAILY Qty: 90 0RF alprazolam 0.5 mg tablet 0.5 mg PO DAILY PRN atorvastatin 20 mg tablet 20 mg PO DAILY trazodone 100 mg tablet 200 mg PO BEDTIME PRN sertraline 100 mg tablet 100 mg PO BID (DME) pen needle, diabetic [Easy Touch] 31 gauge x 3/16 needle See Rx Instructions .ROUTE .MEDSUPPLY Qty: 50 Rx Instructions: As directed glipizide 5 mg tablet extended release 24hr 10 mg PO DAILY insulin aspart U-100 [Novolog FlexPen U-100 Insulin] 100 unit/mL (3 mL) insulin pen 14 unit subcut Tresiba FlexTouch U-100 100 unit/mL (3 mL) insulin pen 80 unit subcut ONCE lisinopril 2.5 mg tablet 2.5 mg PO DAILY omeprazole 40 mg capsule,delayed release(DR/EC) 40 mg PO DAILY quetiapine 200 mg tablet 200 mg PO BEDTIME fenofibrate 160 mg tablet 160 mg PO DAILY levothyroxine 50 mcg tablet 50 mcg PO DAILY bisacodyl [Dulcolax (bisacodyl)] 5 mg tablet,delayed release (DR/EC) 10 mg PO BEDTIME 2 Days Qty: 4 0RF sucralfate [Carafate] 1 gram tablet 2 g PO QNOON Qty: 60 3RF Otezla 30 mg tablet 30 mg PO BID naproxen [Naprosyn] 500 mg tablet 500 mg PO BID Qty: 20 0RF Interventions: ED Discharge Assessment Last Done: 03/29/24 22:07 Discharge Date/Time: 03/29/24 22:10 Print Language: Burmese
[2024-03-29 15:52] VITALS: BP 143/77; PULSE 91; RESP 16; TEMP 37.2; O2SAT 99; BMI 23.0
[2024-03-29 16:12] LABS: MANUAL DIFF FLAG NO
[2024-03-29 16:19] LABS: Basophils Percent Auto 0.2 % (0-2); Eosinophils Absolute Auto 0.1 X10*3/uL (0.0-0.4); Eosinophils Percent Auto 1.8 % (0-4); Hematocrit 34.3 % (42.0-52.0); Hemoglobin 12.5 g/dl (14.0-18.0); Imm Gran Abs Auto 0.02 X10*3/uL (0.00-0.03); Imm Gran Pct Auto 0.5 % (0.0-0.4); Lymphocytes Absolute Auto 0.4 X10*3/uL (1.2-4.9); Mean Corpuscular HGB Conc 36.4 g/dl (31.0-36.0); Mean Corpuscular Hemoglobin 32.2 pg (27.0-33.0); Mean Corpuscular Volume 88.4 fL (80.0-98.0); Mean Platelet Volume 9.6 fL (9.4-12.4); Monocytes Absolute Auto 0.3 X10*3/uL (0.1-1.2); Monocytes Percent Auto 7.2 % (2-11); Neutrophils Absolute Auto 3.6 x10*3/uL (2.0-8.3); Neutrophils Percent Auto 81.3 % (45-73); Platelet Count 129 X10*3/uL (160-400); Red Blood Count 3.88 X10*6/uL (4.60-5.80); Red Cell Distribution Width 13.1 % (11.0-16.0); White Blood Count 4.4 X10*3/uL (4.8-10.8)
[2024-03-29 16:34] LABS: Alanine Aminotransferase 20 U/L (0-40); Albumin Level 4.5 g/dL (3.5-5.0); Alkaline Phosphatase 102 U/L (39-117); Anion Gap 17 (12-20); Aspartate Amino Transferase 20 U/L (5-37); Blood Urea Nitrogen 23 mg/dL (9-16); Calcium 9.8 mg/dL (8.4-10.2); Carbon Dioxide 26 mmol/L (22-29); Chloride 99 mmol/L (96-108); Creatinine Clr Calc Pharmacy 37.3; Estimated Glomerular Filt Rate 38; Glucose Random 411 mg/dL (60-115); Potassium 4.5 mmol/L (3.3-5.1); Sodium 137 mmol/L (135-145); Total Protein 7.2 g/dL (6.5-8.0)
[2024-03-29 21:32] VITALS: BP 135/75; PULSE 92; RESP 20; TEMP 37.1; O2SAT 97
[2024-03-29 22:07] VITALS: BP 135/75; PULSE 92; RESP 20; TEMP 37.1; O2SAT 97
== END 2024-03-29 22:10 | disposition home or self-care (01) ==
PROVIDERS: Physician Assistant Medical; Emergency Provider Emergency Medicine; PCP Internal Medicine
DX: M79.605 Pain in left leg (principal); R60.0 Localized edema; J44.9 Chronic obstructive pulmonary disease, unspecified; M25.572 Pain in left ankle and joints of left foot; E11.65 Type 2 diabetes mellitus with hyperglycemia; Z79.4 Long term (current) use of insulin; Z79.899 Other long term (current) drug therapy
CPT/HCPCS: 36415; 73610; 80053; 85025; 93971; 99284

== ENCOUNTER 2024-06-10 14:52 | Outpatient (REF) | payer MEDICARE, SELFPAY ==
--- OUTSIDE RECORDS SUMMARY | 2024-06-10 16:38 | XMS_ITS | Clinical Summary ---
Author Organization [facility] Address [address] [facility] [address] [place] [address] Phone Care Team Providers Care Shipping Supervisor Name Role Phone Gt Akins MD Primary Care Provider [phone] Allergies Active Allergy Reactions Criticality Noted Date Comments Buprenorphine 04/09/2018 Itching Calcipotriene 11/06/2014 Gabapentin 09/28/2011 Hydralazine Palpitations Low 11/22/2018 Hydrochlorothiazide Palpitations Low 11/22/2018 Hydrocodone-Acetaminophen High 06/19/2008 Lamotrigine Other (see comments) 06/13/2022 Latex 10/05/2015 Penicillin V 06/13/2022 Tetracycline 06/13/2022 Tramadol 06/13/2022 Medications ALPRAZolam (XANAX) 0.5 MG tablet Take 0.5 mg by mouth at night if needed for anxiety Active fenofibrate (TRIGLIDE) 160 MG tablet Take 160 mg by mouth 1 (one) time each day Active atorvastatin (LIPITOR) 20 MG tablet Take 20 mg by mouth 1 (one) time each day Active glipiZIDE (GLUCOTROL) 5 MG tablet Take 5 mg by mouth in the morning and 5 mg in the evening. Take before meals. Active traZODone (DESYREL) 100 MG tablet Take 200 mg by mouth every night Active levothyroxine (SYNTHROID, LEVOTHROID) 25 MCG tablet Take 25 mcg by mouth 1 (one) time each day Active sertraline (ZOLOFT) 100 MG tablet Take 100 mg by mouth 1 (one) time each day Active omeprazole (PriLOSEC) [address] capsule Take 40 mg by mouth 1 (one) time each day Do not crush or chew. Active QUEtiapine (SEROquel) 200 MG tablet Take 200 mg by mouth every night Active lisinopril 2.5 MG tabletIndicatio ns:Stage 3a chronic kidney disease (HCC),Hypertens ion Take 1 tablet (2.5 mg total) by mouth 1 (one) time each day 90 tablet 3 02/27/2024 Active Otezla 30 MG tablet 02/12/2024 Active ferrous sulfate 325 (65 Fe) MG tablet Take 1 tablet by mouth 1 (one) time each day Active Active Problems Problem Noted Date Diagnosed Date Vitamin D deficiency, not otherwise specified Assessment & Plan (02/27/2024 10:28 PM EDT): Taking OTC Vitamin D 3 supp, unclear on dosage Checking Vitamin D 25 level Renal disorder due to type 2 diabetes mellitus 0 06/13/2022 Anemia 01/17/2022 Stage 3a chronic kidney disease 01/17/2022 Overview (02/27/2024): Related to diabetic nephropathy Avoid Nephrotoxins Optimize DM and BP control On low dose OLLIE Was taken off Jardiance sometime in 2022 due to elevated creatinine according to patient Assessment & Plan (02/27/2024 10:26 PM EDT): Stable Creatinine as of 07/2023 Normal Lytes Rechecking Renal panel and associated labs Assessment & Plan (08/29/2023 9:22 PM EDT): Most recent Creat a week ago improved to 1.2 compared to 1.7 in 05/2022 Normal Lytes Will check urine alb/creat ratio with next set of lab work Hypertension 01/17/2022 Overview (08/29/2023): Follow low NA diet Avoid NSAIDs/OTC Decongestant Medications Target BP 120/80 Assessment & Plan (02/27/2024 10:30 PM EDT): Blood pressure remains optimally controlled On single therapy low dose Lisinopril 2.5 mg QD - Rx renewed for patient today No Edema No med change made Assessment & Plan (08/29/2023 3:26 PM EDT): Blood pressure well controlled On low dose Lisinopril 2.5 mg QD No changes made today Gastroesophageal reflux disease 01/17/2022 H/O: gout 01/17/2022 Hypothyroidism 01/17/2022 Type 2 diabetes mellitus 01/17/2022 Central sleep apnea syndrome 11/22/2018 Overview (06/13/2022): Non complaint with CPAP Iron deficiency anemia 11/22/2018 Overview (08/29/2023): On oral iron supplementation Monitor iron levels and CBC Hyperlipidemia 11/27/2017 Overview (06/13/2022): Last Assessment & Plan: Elevated triglycerides likely related to poorly controlled diabetes. These have improved with statin and gemfibrozil therapy. While he is at risk of developing coronary artery disease he has not had clinical evidence of prior myocardial infarction or coronary insufficiency at present. His risk factors are being appropriately managed by his other physicians. I do not believe he needs routine clinical follow-up with cardiology although I am happy to see him on as-needed basis. Chronic insomnia 10/20/2016 Cobalamin deficiency 01/14/2016 Chronic fatigue syndrome 11/13/2015 Resolved Problems Problem Noted Date Diagnosed Date Resolved Date Dyslipidemia 06/13/2022 06/13/2022 Fibromyalgia 01/17/2022 06/13/2022 Insomnia 01/17/2022 06/13/2022 Osteoarthritis 01/17/2022 06/13/2022 Erectile dysfunction 11/22/2018 023 Panic disorder (episodic paroxysmal anxiety) 6 06/13/2022 Psoriasis 01/14/2016 06/13/2022 Degeneration of lumbar intervertebral disc 11/20/2015 06/13/2022 Overview (06/13/2022): Cervical and thoracic as well Immunizations Name Administration Dates Next Due Influenza Split High Dose Preservative Free IM 1 ,01/30/2016 Pneumococcal Conjugate 13-Valent 10/20/2016,01/30 Pneumococcal Polysaccharide 06/27/2013 Tdap 08/15/2012 Family History Medical History Relation Comments Diabetes Father type 2 Heart disease Father pacemaker Hypertension Father Diabetes Mother type 2 Hypertension Mother Diabetes Sibling sister - type 1 Relation Status Comments Father Mother Sibling Social History Tobacco Use Types Packs/Day Years Used Date Smoking Tobacco: Never Smokeless Tobacco: Never Tobacco Cessation:Counseling Given: Not Answered Alcohol Use Standard Drinks/Week Comments Yes 0 (1 standard drink = 0.6 oz pur e alcohol) Sex and Gender Information Value Date Recorded Sex Assigned at Not on file Legal Sex Male 5:21 PM EST Gender Identity Not on file Sexual Orientation Not on file Last Filed Vital Signs Vital Sign Reading Time Taken Comments Blood Pressure 115/70 02/27/2024 2:34 PM EDT Pulse 79 02/27/2024 2:34 PM EDT Temperature - - Respiratory Rate - - Oxygen Saturation 98% 02/27/2024 2:34 PM EDT Inhaled Oxygen Concentration - - Weight 72 kg (158 lb 12.8 oz) 02/27/2024 2:34 PM EDT Height 177.8 cm (5' 10 ) 02/27/2023 3:14 PM EDT Body Mass Index 22.79 02/27/2023 3:14 PM EDT Plan of Treatment Upcoming Encounters Date Type Department Care Team (Late st Contact Info) Description 08/27/2024 2:00 PM EDT Office Visit [facility] [address] [phone] Yadira Dowell ARNP [address] [phone] Health Maintenance Due Date Last Done Comments Colorectal Cancer Screening: Annual FOBT 1998 Colorectal Cancer Screening: Colonoscopy 1998 Colorectal Cancer Screening: Sigmoidoscopy 1998 Pneumococcal Vaccine: 65+ Years (3 of 3 - PPSV23 or PCV20) 06/27/2018 10/20/2016, 02/24/2015, 06/27/2013 Diabetes: Ophthalmology Exam 05/31/2020 Diabetes: Pedal Pulse Checked 05/31/2020 Diabetes: Sensory Foot Exam 05/31/2020 Diabetes: Visual Foot Exam 05/31/2020 Diabetes: Hemoglobin A1C 08/29/2023 024, 08/29/2022 Influenza Vaccine (#1) 2023 8, 01/30/2016 Hepatitis B Vaccine Aged Out No longe r eligible based on patient's age to complete this topic Procedures Procedure Name Priority Date/Time Associated Diagnosis Comments HEMOGLOBIN A1C Routine 08/29/2022 2:16 PM EDT from Last 3 Months or Most Recently Relevant to Health Maintenance Results * (ABNORMAL) Hemoglobin A1c (08/29/2022 2:16 PM EDT) Hemoglobin A1C 6.8(H) (4.0-5.6) % [facility] Comment: MONITORING: In known diabetic patients, hemoglobin A1c targets should be discussed with health care provider. DIAGNOSTIC USE: ??The [place] Diabetes Association (ADA) and the World Health Organization (WHO) recommend the use of HbA1c to diagnose diabetes using a threshold of 6.5%. Patients who have an HbA1c between 5.7% and 6.4% are considered at increased risk for developing diabetes in the future. CAUTION: Falsely low HbA1c results may be observed in patients with hemolytic anemia, homozygous forms of abnormal hemoglobin (e.g. SS, CC, SC), , recent blood loss or hemoglobin F greater than 7%. Fructosamine may be used as an alternate test in these cases. REFERENCE: ADA: Standards of Medical Care in Diabetes 2020, The Journal of Clinical and Applied Research and Education Volume 43, Supplement 1 Testing performed or reported by [facility], a Service of [facility], [address] [place] [address] Danae Holliday MD, Account Support Rep [facility]# [id number] 08/29/2022 2:16 PM EDT 08/29/2022 2:24 PM EDT us Fernanda Escalante MD LAB BLOOD ORDERABLES Final Resu lt [facility] from Last 3 Months or Most Recently Relevant to Health Maintenance Insurance MEDICARE [facility] MEDICARE [facility] Care Teams Shipping Supervisor Relationship Specialty Start Date End Date Gt Akins MD [address] [place] [address] PCP - General Internal Medicine 04/06/22
--- OUTSIDE RECORDS SUMMARY | 2024-06-10 16:38 | XMS_ITS | Clinical Summary ---
Author Organization [facility] ity Address [address] [place] [address] Care Team Providers Care Nut Process Helper Name Role Phone Gt Akins MD Primary Care Provider [phone] Allergies Active Allergy Reactions Criticality Noted Date Comments Buprenorphine Hcl 04/09/2018 Itching Calcipotriene 11/06/2014 Gabapentin 09/28/2011 Hydralazine Palpitations 11/22/2018 Hydrochlorothiazide Palpitations 11/22/2018 Hydrocodone-Acetaminophen 06/19/2008 Lamotrigine 09/28/2011 Latex 10/05/2015 Penicillins 06/19/2008 Tetracyclines 06/19/2008 Medications ALPRAZolam (XANAX) 0.5 mg tablet Take 0.5 mg by mouth at bedtime. 11/27/2017 Active lancets 30 gauge misc 05/11/2018 Active atorvastatin (LIPITOR) 20 mg tablet Take 1 tablet by mouth daily. 04/02/2021 Active suvorexant (Belsomra) 20 mg tablet 05/10/2023 Active blood sugar diagnostic (Contour Next Test Strips) test strip 05/11/2018 Active dicyclomine (BENTYL) 20 mg tablet Take 20 mg by mouth every 6 hours. Active pen needle, diabetic (Easy Touch) 32 gauge x 3/16 needle 01/31/2018 Acti ve fenofibrate (LOFIBRA) 160 mg tablet 05/30/2023 Active ferrous sulfate 325 mg (65 mg elemental iron) tablet Take 1 Tablet by mouth daily. Active gemfibroziL (LOPID) 600 mg tablet TAKE 1 TABLET BY MOUTH TWICE DAILY BEFORE MEALS 04/15/2021 Active glipiZIDE (GLUCOTROL XL) 5 mg 24 hr tablet 05/12/2023 Active insulin degludec (TRESIBA) 100 unit/mL injection Inject into the skin. Active levothyroxine (SYNTHROID, LEVOTHROID) 25 mcg tablet Take 1 tablet by mouth daily. 2020 Active metoprolol succinate (TOPROL-XL) 100 mg 24 hr tablet Take 1 tablet by mouth daily. 04/02/2021 Active neomycin (MYCIFRADIN) 500 mg tablet Take 1 Tablet by mouth See Admin Instructions . Take 1 tab by mouth at 2pm, 3pm, and 8pm the day before surgery 05/31/2023 Active omeprazole (PriLOSEC) [address] capsule Take 1 capsule by mouth at bedtime. 04/02/2021 Active pantoprazole (PROTONIX) 40 mg EC tablet 05/22/2023 Active QUEtiapine (SEROquel) 100 mg tablet Take 1 Tab by mouth at bedtime. 11/22/2018 Active rOPINIRole (REQUIP) 0.25 mg tablet 03/16/2023 Active sertraline (ZOLOFT) 100 mg tablet Take 100 mg by mouth daily. Active traZODone (DESYREL) 100 mg tablet Take 200 mg by mouth daily. 07/24/2013 Active insulin degludec (Tresiba FlexTouch U-100) 100 unit/mL (3 mL) injection pen Inject 50 Units into the skin at bedtime AND 10 Units every morning (before breakfast). 03/23/2020 Active dulaglutide (Trulicity) 1.5 mg/0.5 mL pen injector injection 04/14/2023 Active cyanocobalamin (VITAMIN B-12) 250 mcg tablet Take 1 Tab by mouth daily. 11/27/2015 Active Active Problems Problem Noted Date Diagnosed Date Chronic pain syndrome 05/31/2023 Malignant neoplasm of ascending colon 05/31/2023 Central sleep apnea 11/22/2018 Overview (04/08/2024): Non complaint with CPAP ED (erectile dysfunction) 11/22/2018 Iron deficiency anemia 11/22/2018 Overview (04/08/2024): Unclear etiology, new pt to practice 10/2018 on iron supplement since 2017 Type 2 diabetes mellitus with peripheral artery disease 11/22/2018 Type 2 diabetes mellitus with cataract 8 Type 2 diabetes mellitus with renal manifestatio ns 02/14/2018 Hyperlipidemia 11/27/2017 Overview (04/08/2024): Last Assessment & Plan: Elevated triglycerides likely [...] happy to see him on as-needed basis. Hypertension 11/27/2017 Overview (04/08/2024): Last Assessment & Plan: Blood pressure is controlled on current regimen. Major depression in partial remission 11/27/2017 Fibromyalgia 10/27/2016 Type 2 diabetes mellitus with neurological manif estations 10/27/2016 Chronic insomnia 10/20/2016 GERD (gastroesophageal reflux disease) 7 Hypothyroidism 10/20/2016 Cataract 03/02/2016 CKD (chronic kidney disease) stage 3, GFR 30-59 ml/min 01/14/2016 Insomnia 01/14/2016 Panic disorder 01/14/2016 Psoriasis 01/14/2016 Vitamin B 12 deficiency 01/14/2016 DDD (degenerative disc disease), lumbar 11/20/19 16 Overview (04/08/2024): Cervical and thoracic as well Chronic fatigue syndrome 11/13/2015 Migraine headache 07/02/2013 Immunizations Name Administration Dates Next Due Influenza, Unspecified 12/13/2019 Pneumococcal conjugate 13 va lent (Prevnar 13, PCV13) 2mo and older 10/20/2016 Pneumococcal polysaccharide 23 valent (Pneumovax 23) 2yo and older 06/27/2013 Tdap Tetanus diptheria acell ular pertussis (Boostrix; Adacel) 7yo and older 08/15/2012 Surgical History Surgery Date Site/Laterality Comments EYE SURGERY PROCEDURE: HISTORICAL EYE SURGERY; COMMENT: retinal detachment repair CHOLECYSTECTOMY PROCEDURE: HISTORICAL CHOLECYSTECTOMY Medical History Medical History Date Comments Type 2 diabetes mellitus wit h cataract (CMS/HCC) 02/14/2018 DX:Type 2 diabetes mellitus with cataract (HCC) Type 2 diabetes mellitus wit h renal manifestations (CMS/[facility]) 02/14/2018 DX:Type 2 diabetes mellitus with renal manifestations (HCC) Cataract 03/02/2016 DX:Cataract Chronic insomnia 10/20/2016 DX:Chronic inso mnia CKD (chronic kidney disease) stage 3, GFR 30-59 ml/min ([facility]) 01/14/2016 DX:CKD (chronic kidney dise ase) stage 3, GFR 30-59 ml/min ([facility]) DDD (degenerative disc disea se), lumbar 11/20/2015 DX:DDD (degenerative disc di sease), lumbar; COMMENT: Cervical and thoracic as well Fibromyalgia 10/27/2016 DX:Fibromyalgia GERD (gastroesophageal reflu x disease) 10/20/2016 DX:GERD (gastroesophageal re flux disease) Hyperlipidemia 11/27/2017 DX:Hyperlipidemi a Hypertension 11/27/2017 DX:Hypertension Hypothyroidism 10/20/2016 DX:Hypothyroidis m Insomnia 01/14/2016 DX:Insomnia Major depression in partial remission ([facility]) 11/27/2017 DX:Major depression in parti al remission ([facility]) Migraine headache 07/02/2013 DX:Migraine he adache Panic disorder 01/14/2016 DX:Panic disorde r Psoriasis 01/14/2016 DX:Psoriasis Type 2 diabetes mellitus wit h neurological manifestations ([facility]) 10/27/2016 DX:Type 2 diabet es mellitus with neurological manifestations ([facility]) Vitamin B 12 deficiency 01/14/2016 DX:Vitam in B 12 deficiency CAD (coronary artery disease) 02/14/2018 DX :CAD (coronary artery disease) Iron deficiency anemia 11/22/2018 DX:Iron d eficiency anemia; COMMENT: Unclear etiology, new pt to practice 10/2018 on iron supplement since 2017 ED (erectile dysfunction) 11/22/2018 DX:ED (erectile dysfunction) Type 2 diabetes mellitus wit h peripheral artery disease ([facility]) 11/22/2018 DX:Type 2 diabetes mellitus with peripheral artery disease ([facility]) Central sleep apnea 11/22/2018 DX:Central s leep apnea; COMMENT: Non complaint with CPAP Family History Medical History Relation Name Comments Diabetes Father Melanoma Diabetes Mother Diabetes Sister Relation Name Status Comments Father Mother Sister Social History Tobacco Use Types Packs/Day Years Used Date Smoking Tobacco: Never Smokeless Tobacco: Never Alcohol Use Standard Drinks/Week Comments Yes 0 (1 standard drink = 0.6 oz pur e alcohol) Sex and Gender Information Value Date Recorded Sex Assigned at Not on file Legal Sex Male 12:06 AM EST Gender Identity Not on file Sexual Orientation Not on file Obstetrics History Last Filed Vital Signs Vital Sign Reading Time Taken Comments Blood Pressure 126/76 10/06/2023 10:42 AM EDT Pulse 98 10/06/2023 10:42 AM EDT Temperature - - Respiratory Rate - - Oxygen Saturation - - Inhaled Oxygen Concentration - - Weight 72.6 kg (160 lb) 10/06/2023 10:42 AM EDT Height 177.8 cm (5' 10 ) 10/06/2023 10:42 AM EDT Body Mass Index 22.96 10/06/2023 10:42 AM EDT Plan of Treatment Upcoming Encounters Date Type Department Care Team (Late st Contact Info) Description 07/09/2024 10:45 AM EDT Office Visit General Surgery - [place] [address] [facility] [address] [place] [address] Iftikhar Grady MD [address] [facility] [address] [place] [address] Health Maintenance Due Date Last Done Comments COVID-19 Vaccine (#1) 1954 Diabetes: Annual Foot Exam 12/19/1959 Diabetes: Annual Retina Eye Exam 12/19/1959 Zoster Vaccines (1 of 2) 1968 RSV Immunization Patients 60 + Years Old (1 - Risk 60-74 years 1-dose series) 2009 Pneumococcal Vaccine: 50+ Years (3 of 3 - PPSV23 or PCV20) 06/27/2018 10/20/2016, 06/27/2013 Diabetes: Annual GFR (Glomerular Filtration Rate) 01/26/2021 01/27/2020 Depression Screening 04/03/2022 Falls Risk Assessment 04/03/2022 Social Influencers of Health Screening 04/03/2022 Diabetes: Annual Urine Albumin-Creatinine Ratio (uACR) 04/15/2022 01/27/2020 Hypertension/CHF/CAD Annual BMP Blood Test 04/15/2022 01/27/2020 DTaP,Tdap,and Td Vaccines (2 - Td or Tdap) 08/15/2022 08/15/2012 Diabetes: Blood Sugar Contro l Test (HGBA1C) 11/29/2023 05/31/2023 Influenza Vaccine (#1) 2023 1, 12/13/2019 Cholesterol Screening (Lipid Panel) 01/26/2025 01/27/2020 Colorectal Cancer Screening: Colonoscopy 05/18/2033 05/18/2023 Hepatitis C Screening Completed 08/31/2020 HIB Vaccines Aged Out No longer eligi ble based on patient's age to complete this topic HPV Vaccines Aged Out No longer eligi ble based on patient's age to complete this topic Hepatitis A Vaccines Aged Out No long er eligible based on patient's age to complete this topic Hepatitis B Vaccines Aged Out No long er eligible based on patient's age to complete this topic IPV Vaccines Aged Out No longer eligi ble based on patient's age to complete this topic MMR Vaccines Aged Out No longer eligi ble based on patient's age to complete this topic Meningococcal ACWY Vaccine Aged Out N o longer eligible based on patient's age to complete this topic RSV Immunization Patients Under 20 months Aged Out No longer eligible b ased on patient's age to complete this topic Varicella Vaccines Aged Out No longer eligible based on patient's age to complete this topic Procedures Procedure Name Priority Date/Time Associated Diagnosis Comments HEMOGLOBIN A1C Routine 05/31/2023 COLONOSCOPY Routine 05/18/2023 HEPATITIS C SCREENING Routine 08/31/2020 URINE ALBUMIN CREATININE RATIO Routine 01/27/2020 ANNUAL BMP BLOOD TEST Routine 01/27/2020 LIPID PANEL Routine 01/27/2020 from Last 3 Months or Most Recently Relevant to Health Maintenance Results * Hemoglobin A1c (05/31/2023) Pathologist [facility] Hemoglobin A1C 5.8 <=6.5 % Blood Venous blood specimen / Unknown us Historical Provider LAB BLOOD ORDERABLES Maria E l Result * Colonoscopy (05/18/2023) Pathologist [facility] HM Colonoscopy No interpretation , Abstracted Anatomical Region Laterality Modality Other [facility] Provider HEALTH MAINTENANCE Final Result * Hepatitis C Screening (08/31/2020) [facility] Hepatitis C Screening Abstracted [facility] Provider HEALTH MAINTENANCE Final Result * Urine Albumin Creatinine Ratio (01/27/2020) [facility] Urine Albumin Creatinine Ratio Abstracted [facility] Provider HEALTH MAINTENANCE Final Result * Annual BMP Blood Test (01/27/2020) [facility] Annual BMP Blood Test Abstracted [facility] Provider HEALTH MAINTENANCE Final Result * (ABNORMAL) Lipid panel (01/27/2020) [facility] LDL/HDL Ratio 8(A) 0 - 4 Triglycerides 561(A) 0 - 150 mg/dL Comment:Triglyceride value i s >= 500. ??Calculated LDL is not meaningful. ??Direct LDL has been added. Cholesterol 268(A) 0 - 200 mg/dL HDL 33(A) >=40 mg/dL LDL Cholesterol 153(A) 0 - 100 mg/dL Blood Venous blood specimen / Unknown Result [facility] Provider LAB BLOOD ORDERABLES Maria E l Result from Last 3 Months or Most Recently Relevant to Health Maintenance Care Teams Nut Process Helper Relationship Specialty Start Date End Date Gt Akins MD [address] [place] [address] PCP - General 05/18/23
--- OUTSIDE RECORDS SUMMARY | 2024-06-10 16:38 | XMS_ITS | Clinical Summary ---
Author Organization [facility] Address [address] [place] [address] Care Team Providers Care Processing Inspector Name Role Phone Kaye Barreto MD Primary Care Provide r Allergies Active Allergy Reactions Criticality Noted Date Comments Lamotrigine Rash High 11/24/2017 Penicillins Itching High 11/24/2017 Tetracycline Itching High 11/24/2017 Tramadol Medium 11/24/2017 Hydrocodone-Acetaminophen High 11/24/2017 Medications Medication Sig Dispensed Refills Start Date End Date Status ALPRAZolam (XANAX) 0.5 MG tablet Take 0.5 mg by mouth. 0 Active escitalopram (LEXAPRO) tablet 10 mg Take 10 mg by mouth daily. 0 Active Ferrous Sulfate ER 140 (45 Fe) MG TBCR Take 140 mg by mouth daily. 0 Active fluticasone (FLONASE) 50 MCG/ACT nasal spray spray/apply 1 spray in each nostril daily. 0 Active glipiZIDE (GLUCOTROL XL) ER 24 hr tablet 10 mg Take 10 mg by mouth daily. 0 Active levothyroxine (SYNTHROID, LEVOXYL) tablet 25 mcg Take 25 mcg by mouth every morning on an empty stomach. 0 Active metoprolol succinate (TOPROL-XL) 24 hr tablet 100 mg Take 100 mg by mouth daily. 0 Active omeprazole (PRILOSEC) 20 MG capsule Take 40 mg by mouth daily. 0 Active promethazine (PHENERGAN) tablet 25 mg Take 25 mg by mouth daily. 0 Active QUEtiapine (SEROQUEL) 100 MG tablet Take 100 mg by mouth every night at bedtime. 0 Active rosuvastatin (CRESTOR) tablet 5 mg Take 5 mg by mouth daily. 0 Active temazepam (RESTORIL) 30 MG capsule Take 30 mg by mouth daily. 0 Active traZODone (DESYREL) 100 MG tablet Take 200 mg by mouth daily. 0 Active sertraline (ZOLOFT) 100 MG tablet Take 200 mg by mouth daily. 0 Active Cyanocobalamin (VITAMIN B12) [address] under the tongue. 0 Active sulindac (CLINORIL) 200 MG tablet Take 200 mg by mouth 2 (two) times a day. 0 Active SITagliptin Phosphate (JANUVIA PO) Take 100 mg by mouth daily. 0 Active Cholecalciferol (VITAMIN D3) 5000 units CAPS Take by mouth. 0 Active Active Problems No known active problems Family History Medical History Relation Name Comments Hypertension Mother Millie Cancer Paternal Aunt Annie Diabetes Sister Kathleen Relation Name Status Comments Mother Millie Alive Paternal Aunt Annie Alive Sister Kathleen Alive Social History Tobacco Use Types Packs/Day Years Used Date Smoking Tobacco: Never Smokeless Tobacco: Never Alcohol Use Standard Drinks/Week Comments No 0 (1 standard drink = 0.6 oz pur e alcohol) Sex and Gender Information Value Date Recorded Sex Assigned at Not on file Gender Identity Not on file Sexual Orientation Not on file Job Start Date Occupation Industry Not on file Not on file Not on file Last Filed Vital Signs Vital Sign Reading Time Taken Comments Blood Pressure 174/89 11/24/2017 10:44 AM EDT Pulse 98 11/24/2017 10:44 AM EDT Temperature 36.9 ??C (98.5 ??F) 11/24/2017 10:44 AM E DT Respiratory Rate - - Oxygen Saturation - - Inhaled Oxygen Concentration - - Weight 73 kg (161 lb) 11/24/2017 10:44 AM EDT Height 177.8 cm (5' 10 ) 11/24/2017 10:44 AM EDT Body Mass Index 23.1 11/24/2017 10:44 AM EDT Plan of Treatment Health Maintenance Due Date Last Done Comments Hepatitis C Screening 1950 COVID-19 Vaccine (#1) 1954 Depression Screening 1961 Preventative Health Evaluation 12/19/1967 Shingrix-Zoster Vaccine (1 o f 2) 1968 Colon Cancer Screening (Colonoscopy) 1994 Fall Risk Assessment 2014 Pneumococcal Vaccine (3 of 3 - PPSV23 or PCV20) 06/27/2018 10/20/2016, 02/24/2015, 06/27/2013 DTap / Tdap / Td (2 - Td or Tdap) 08/15/2022 08/15/2012 Influenza Vaccine (#1) 2023 8, 01/30/2016 RSV Adult > 60+ Yrs or (1 - 1-dose 75+ series) 2024 Hepatitis B Vaccines Aged Out No long er eligible based on patient's age to complete this topic RSV Ped < 20 months Aged Out No longe r eligible based on patient's age to complete this topic Care Teams Processing Inspector Relationship Specialty Start Date End Date Kaye Barreto MD PCP - General Internal Medicine 11/15/17
[2024-06-11 11:02] LABS: Influenza A PCR NEGATIVE (Negative); Influenza B PCR NEGATIVE (Negative); Resp Syncy Virus RNA Qual PCR POSITIVE (Negative); SARS COV2 PCR INHOUSE NEGATIVE (Negative)
== END 2024-06-10 14:53 | disposition home or self-care (01) ==
LOC: HO.LAB 14:52
PROVIDERS: PCP Internal Medicine; Visit Provider Physician Assistant
DX: J06.9 Acute upper respiratory infection, unspecified (principal); R09.89 Other specified symptoms and signs involving the circulatory and respiratory systems
CPT/HCPCS: 0241U; 99212

== ENCOUNTER 2024-06-10 14:52 | Outpatient (AMB) | payer MEDICARE, SELFPAY ==
--- NOTE | 2024-06-10 15:48 | MHC.OFFWIV ---
Intake Vital Signs 06/10/24 15:49 Weight 151 lb BP 110/70 Blood Pressure Location Rt brachial Position Sitting Pulse 89 Pulse Source Pulse Oximeter Temp 98.1 F Temp Source Oral Pulse Oximetry (%) 98 Oxygen Delivery Method Room Air Intake Visit Reasons: EP ? Bronchitis Intake Note: Patient here for chest discomfort when coughing, cough, congestion that has been present for about 5 days. Patient Tobacco Use Status: Never used Tobacco Allergies hydrochlorothiazide Allergy (Intermediate, Verified 06/10/24 15:49) Unknown lamotrigine [From LAMICTAL] Allergy (Intermediate, Verified 06/10/24 15:49) RASH Penicillins [PENICILLINS] Allergy (Intermediate, Verified 06/10/24 15:49) ITCHY Tetracyclines [TETRACYCLINES] Allergy (Intermediate, Verified 06/10/24:49) ITCHY penicillamine Allergy (Unknown, Verified 06/10/24 15:49) Unknown tetracycline Allergy (Unknown, Verified 06/10/24 15:49) Unknown tramadol Allergy (Unknown, Verified 06/10/24 15:49) Unknown onabotulinumtoxinA [From Botox] Allergy (Verified 06/10/24 15:49) swallowing gabapentin [From NEURONTIN] Adverse Reaction (Intermediate, Verified 06/10/24 15:49) ACID REFLUX amitriptyline [From ELAVIL] Adverse Reaction (Mild, Verified 06/10/24:49) THIRST Elavil Allergy (Unknown, Uncoded 06/10/24:49) Unknown HPI HPI Comments History of Present Illness Details History - The patient is a 73-year-old male presenting with symptoms consistent with an upper respiratory infection, including a five-day history of wet cough, nasal congestion, sinus fullness, sore throat, fatigue, sinus pain, and headaches. - He does not have a history of asthma or COPD and is a non-smoker. - He has been taking NyQuil, which has not provided significant relief of symptoms. - The patient denies fever and has no sick contacts other than his healthy partner. - He received a flu vaccination this year. Physical Exam General: Cooperative, healthy appearing, comfortable and no acute distress Orientation/consciousness: Patient oriented x3 Limitations: No limitations Head: Normal to inspection Ears: Hearing grossly normal bilaterally, external ears normal and TM's normal bilaterally Nose: Normal external nose present, Normal nares present and Nasal discharge present Face and sinus: Normal facial exam and Sinuses tender Mouth: Normal oral and palatal mucosa present and moist mucous membranes Throat: Yes tonsils normal, Yes uvula midline. Posterior oropharynx erythema Eyes: Appearance normal, both eyes and all related structures Neck: Normal visual inspection Respiratory: Clear to auscultation bilaterally. Normal respiratory effort, able to speak in complete sentences, no respiratory distress, not tachypneic, no tripod positioning and no use of accessory muscles Cardiovascular: Regular rate and rhythm. Normal S1 and S2 Skin: No rashes or lesions noted Neuro: Patient oriented x3 Extremities: Normal to inspection and Yes no clubbing, cyanosis or edema PFSH Medical History COPD (chronic obstructive pulmonary disease) Establishing care with new doctor, encounter for Respiratory tract congestion with cough Medicare annual wellness visit, subsequent Restrictive lung disease Dyspnea on exertion Restless legs syndrome (RLS) Sleep apnea Gallbladder abscess Surgical History H/O colectomy H/O colonoscopy Hx of cholecystectomy Family History Brother Substance use disorder Sister Mental health disorder Diabetes Breast cancer Sister Mental health disorder Sister Mental health disorder Sister Mental health disorder Mother Mental health disorder Social History Housing: Condominium Alcohol intake: current Patient Tobacco Use Status: Never used Tobacco e-Cigarette/Vaping Use: Never Used Second Hand Smoke Exposure: No service: No Current occupational status: employed and disabled Current occupation: disabled - [employer] Cognitive needs: No Hearing needs: No Vision needs: Yes Review of Systems Const All systems reviewed & are unremarkable except as noted in HPI and below Physical Exam Vital Signs: Last Vital Signs Temp 98.1 F 06/10/24 15:49 Pulse 89 06/10/24 15:49 BP 110/70 06/10/24 15:49 Pulse Ox 98 06/10/24 15:49 Oxygen Delivery Method Room Air 06/10/24 15:49 Assessment & Plan Assessment & Plan (1) URI (upper respiratory infection): Code(s): J06.9 - Acute upper respiratory infection, unspecified Qualifiers: URI type: unspecified viral URI Qualified Code(s): J06.9 - Acute upper respiratory infection, unspecified Plan: The patient is managed for viral upper respiratory infection with a focus on supportive care. He is advised to take a decongestant and Tessalon Perles at night to relieve symptoms and improve sleep. Complementary measures such as warm, salt water gargles, hot tea with honey are recommended to support symptom relief. The patient's clear lung sounds and absence of fever suggest a viral rather than bacterial etiology, and no antibiotics are warranted. Rapid testing for influenza, COVID, and RSV has been sent, and the patient will be informed of results. No antiviral therapy is indicated as symptoms surpass the treatment window. The patient should remain hydrated and continue monitoring for any changes in symptoms. Patient was informed and verbally consented to the use of an ambient scribe for clinic note documentation during this visit Orders: Orders SARS-CoV2/FLU/RSV Today R09.89 - Other specified symptoms and signs involving the circulatory and respiratory systems Medications: New benzonatate 200 mg PO TID PRN 14 caps 0RF cough Coding Level of Care Code Est Pt Level 3 (09233) Diagnoses Viral upper respiratory tract infection J06.9 URI type: unspecified viral URI
[2024-06-10 15:49] VITALS: BP 110/70; PULSE 89; TEMP 36.7; O2SAT 98
== END 2024-06-10 16:24 | disposition home or self-care (01) ==
PROVIDERS: PCP Internal Medicine; Visit Provider Physician Assistant
DX: J06.9 Acute upper respiratory infection, unspecified (principal)

== ENCOUNTER 2024-07-30 13:18 | Outpatient (AMB) | payer MEDICARE, SELFPAY ==
[2024-07-30 13:28] VITALS: BP 110/72; PULSE 95; O2SAT 98; BMI 20.7
--- NOTE | 2024-07-30 13:28 | MHC.PC.OV ---
Vital Signs 07/30/24 13:28 Height 5 ft 10 in Weight 144 lb 8 oz BMI 20.7 BP 110/72 Blood Pressure Location Rt brachial Position Sitting Pulse 95 Pulse Oximetry (%) 98 Oxygen Delivery Method Room Air Intake Visit Reasons: Follow up Allergies hydrochlorothiazide Allergy (Intermediate, Verified 07/30/24 14:17) Unknown lamotrigine [From LAMICTAL] Allergy (Intermediate, Verified 07/30/24 14:17) RASH Penicillins [PENICILLINS] Allergy (Intermediate, Verified 07/30/24 14:17) ITCHY Tetracyclines [TETRACYCLINES] Allergy (Intermediate, Verified 07/30/24 14:17) ITCHY penicillamine Allergy (Unknown, Verified 07/30/24 14:17) Unknown tetracycline Allergy (Unknown, Verified 07/30/24 14:17) Unknown tramadol Allergy (Unknown, Verified 07/30/24 14:17) Unknown onabotulinumtoxinA [From Botox] Allergy (Verified 07/30/24 14:17) swallowing gabapentin [From NEURONTIN] Adverse Reaction (Intermediate, Verified 07/30/24 14:17) ACID REFLUX amitriptyline [From ELAVIL] Adverse Reaction (Mild, Verified 07/30/24 14:17) THIRST Elavil Allergy (Unknown, Uncoded 06/10/24 15:49) Unknown Medication List - Last Reconciled 07/30/24 by Gt Akins MD alprazolam 0.5 mg PO DAILY PRN apremilast (Otezla) 30 mg PO BID atorvastatin 20 mg PO DAILY benzonatate 200 mg PO TID PRN bisacodyl (Dulcolax (bisacodyl)) 10 mg (2 x 5 mg) PO BEDTIME 2 days fenofibrate 160 mg PO DAILY ferrous sulfate 325 mg PO DAILY glipizide ER 10 mg PO DAILY insulin aspart U-100 (Novolog FlexPen U-100 Insulin aspart) 14 units subcut insulin degludec (Tresiba FlexTouch U-100 insulin) 80 units subcut ONCE levothyroxine 50 mcg PO DAILY lisinopril 2.5 mg PO DAILY naproxen (Naprosyn) 500 mg PO BID omeprazole 40 mg PO DAILY pen needle, diabetic (Easy Touch) As directed quetiapine 200 mg PO BEDTIME sertraline 100 mg PO BID sucralfate (Carafate) 2 grams (2 x 1 gram) PO QNOON trazodone 200 mg PO BEDTIME PRN Tobacco use date assessed: 07/30/24 Fall risk assessment: No Falls in past year Last assessed Fall Risk: 07/30/24 Dental Screening Dental Screen Date: 07/30/24 Did you have a dental visit in the last 12 months?: No Did you have a dental problem in the last 6 months where you did not have access to dental care?: No Was dental information given to patient?: Patient declined HPI Follow up HPI Details Patient is 73-year-old male came in today for his follow-up appointment. Patient has diabetic neuropathy, Diabetes: he is on insulin aspart 14 units t.i.d., glipizide 10 mg once a day and 80 units of Tresiba. last time seen patient was instructed to come follow-up but he never came, today his hemoglobin A1c is 10.4 I have placed a referral for him to see branch or department chief librarian Patient have stage III diabetic nephropathy patient is seen Nephrology for that renal and transplant associates Dr. Pir Huang, patient would like to switch to [facility] Nephrology Referral placed Patient has a anemia of chronic disease and thrombocytopenia, last platelet count was 124 in November of this year Lipid disorder: patient is on gemfibrozil 600 mg b.i.d. Thyroid medication is levothyroxine 50 mcg Chronic GERD: Continue PPI cervicalgia and headache. Management through neurology he suffers from severe osteoarthritis, and is having severe pain right hip that he need to see product distribution specialist - GFR has decreased over the past few months: 45 in November, 41 in early March, and 38 by the end of March. - Reports concern regarding potential recurrence of Colon Cancer. - Demonstrates recent weight loss, currently weighing 145 lbs, and experiences narrow stools. - Colonoscopy scheduled for September 03. Medications - Alprazolam for anxiety management - Atorvastatin for cholesterol management - Fenofibrate for hyperlipidemia - Iron supplement for anemia - Glipizide 10 mg for diabetes management - Insulin 80 units long-acting, 14 units short-acting as per sliding scale for diabetes management - Levothyroxine 50 mcg for hypothyroidism - Lisinopril 2.5 mg likely for hypertension - Omeprazole 40 mg for gastric acid related concerns - Quetiapine (Seroquel) through psychiatric care - Sertraline through psychiatric care - Trazodone through psychiatric care Problem List - Chronic Kidney Disease, Stage III - Colon Cancer history - Hip Pain, likely due to Severe Arthritis - Recent Weight Loss - Narrow Stools - Mental Health Management - Diabetes Mellitus uncontrolled Diagnostic results - Labs: - GFR: 45 (November), 41 (early March), 38 (end march) - Scheduled Diagnostic Tests: - Colonoscopy on September 03 Patient Instructions - Follow up with orthopedic consultation for hip pain. - Attend colonoscopy on September 03 as scheduled. - Continue current medication regimen as prescribed. - seeing branch or department chief librarian for the management of uncontrolled diabete - referral placed to [facility] Nephrology for diabetic kidney disease - Monitor symptoms and report changes in health, including any increased discomfort or unusual symptoms. - handicap placard filled for the patient having difficulty walking long distances Review of Systems General: No fever no chills neurological: No headaches no dizziness ear nose throat: No sore throat no hearing difficulty no ear pain cardiovascular: No syncope, no chest pain, no palpitations gastrointestinal: No nausea vomiting or diarrhea endocrine: no polydipsia no heat intolerance genitourinary: No dysuria skin: No new complaints Physical Exam general: No acute distress HEENT: No acute findings neck: Supple respiratory system: Able to talk in full sentences, no audible wheeze, no stridor, cough present cardiovascular: S1-S2 gastrointestinal: Pain present, thin narrow stools, lump noted extremities: Severe arthritis in hip, pain in right side 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: Alert awake oriented x3 motor sensory intact skin: Normal turgor, itchy areas noted [facility] Medical History COPD (chronic obstructive pulmonary disease) Establishing care with new doctor, encounter for Respiratory tract congestion with cough Medicare annual wellness visit, subsequent Restrictive lung disease Dyspnea on exertion Restless legs syndrome (RLS) Sleep apnea Gallbladder abscess Surgical History H/O colectomy H/O colonoscopy Hx of cholecystectomy Family History Brother Substance use disorder Sister Mental health disorder Diabetes Breast cancer Sister Mental health disorder Sister Mental health disorder Sister Mental health disorder Mother Mental health disorder Social History Housing: Condominium Alcohol intake: current Patient Tobacco Use Status: Never used Tobacco e-Cigarette/Vaping Use: Never Used Second Hand Smoke Exposure: No service: No Current occupational status: employed and disabled Current occupation: disabled - [employer] hand Cognitive needs: No Hearing needs: No Vision needs: Yes Questionnaire PHQ-9 Over the last 2 weeks, how often have you been bothered by any of the following problems? 1. Little interest or pleasure in doing things: not at all 2. Feeling down, depressed, or hopeless: not at all 3. Trouble falling or staying asleep, or sleeping too much: nearly every day 4. Feeling tired or having little energy: nearly every day 5. Poor appetite or overeating: not at all 6. Feeling bad about yourself - or that you are a failure or have let yourself or your family down: not at all 7. Trouble concentrating on things, such as reading the newspaper or watching television: not at all 8. Moving or speaking so slowly that other people could have noticed. Or the opposite - being so fidgety or restless that you have been moving around a lot more than usual: nearly every day 9. Thoughts that you would be better off or of hurting yourself in some way: not at all Total score: 9 Depression Screening Interpretation: Positive Depression Screening Follow-up: Existing condition and In treatment Depression Screening Done: Yes 51431 - PHQ-9 Billing: Yes Source: Developed by Drs. Bakari Canales, Petty Quiroz, Anjel Queen and colleagues, with an educational melina from [employer]. Thrive Questionnaire Date Thrive assessed: 07/30/24 I am a: Patient What is your living situation today?: I have a steady place to live Within the past 12 months, did the food you bought not last and you didn't have the money to get more?: Never true Within the past 12 months, did you worry whether your food would run out before you got money to buy more?: Never true Do you have trouble paying for medicines?: No Do you have trouble getting transportation to medical appointments?: No Do you have trouble paying your heating and electricity bill?: Yes Do you have trouble taking care of your child, family member or friend?: No Do you have trouble with day-to-day activities such as bathing, preparing meals, shopping, managing finances, etc.?: Yes Are you currently unemployed and looking for a job?: No Are you interested in more education?: No Please select the resources that you would like help with: Food, Paying for medicine and Utilities Currently or been in a relationship where the following occur: No concerns reported THRIVE Score: 1 AUDIT C Alcohol Use Questionnaire (AUDIT-C) 1. How often do you have a drink containing alcohol?: Monthly or less 2. How many drinks containing alcohol do you have on a typical day when you are drinking?: 1 or 2 3. How often do you have six or more drinks on one occasion?: Never Total Score: 1 Score Reviewed/Action Taken: Yes EVY-7 AMB Questionnaire EVY-7 Date EVY - 7 assessed: 07/30/24 Feeling nervous, anxious, or on edge: 2 = More than half the days Not being able to stop or control worryin = Not at all Worrying too much about different things: 0 = Not at all Trouble relaxin = Nearly every day Being so restless that it is hard to sit still: 1 = Several days Becoming easily annoyed or irritable: 0 = Not at all Feeling afraid as if something awful might happen: 0 = Not at all Total EVY-7 score (0-4 normal; 5-9 mild; 10-14 moderate; 15-21 severe): 6 Source: Developed by Drs. Bakari Canales, Petty Quiroz, Anjel Queen and colleagues, with an educational melina from [employer]. EVY-7 Assessment Billing EVY-7 Assessment Tool: EVY-7 Assessment 47677 Physical exam (Primary Care) Vital Signs: Last Vital Signs Pulse 95 07/30/24 13:28 BP 110/72 07/30/24 13:28 Pulse Ox 98 07/30/24 13:28 Oxygen Delivery Method Room Air 07/30/24 13:28 BMI result Body Mass Index 20.7 Tobacco/Smoking Status: Tobacco use Status Tobacco use date assessed 07/30/24 07/30/24 14:17 Patient Tobacco Use Status Never used Tobacco 07/30/24 13:28 e-Cigarette/Vaping Use Never Used 07/30/24 13:28 PHQ-9: PHQ-9 Score PHQ-9: Total score 9 07/30/24 14:17 Depression Screening Interpretation: Positive Depression Screening Follow-up: Existing condition and In treatment Thrive Assessment: Date of Thrive Assessment Date Thrive assessed 07/30/24 07/30/24 14:17 Currently or been in a relationship where the following occur: No concerns reported Results AMB Hemoglobin A1c AMB Hemoglobin A1c 10.4 % Last Edit by Shyam Osei CMA on 07/30/24 14:18 Results Reviewed Results Reviewed: Laboratory Last Values Hgb A1c (Clinic) 10.4 % (4.0-6.0) H 07/30/24 14:17 Coding Level of Care Code Est Pt Level 4 (26577) Complex EM visit Add On G2211 Diagnoses Uncontrolled type 1 diabetes mellitus with hyperglycemia E10.65 Diabetes mellitus type: type 1 Glycemic state: with hyperglycemia Hip pain, right M25.551 Diabetes mellitus type 2 in obese E11.69; E66.9 Diabetic nephropathy associated with type 2 diabetes mellitus E11.21 Diabetes mellitus type: type 2 Lipid disorder E78.9 Psychiatric illness F99 Hypertension, essential I10 Iron deficiency anemia due to chronic blood loss D50.0 Anemia type: iron deficiency Iron deficiency anemia type: chronic blood loss Diabetic autonomic neuropathy associated with type 1 diabetes mellitus E10.43 Diabetes mellitus type: type 1 Diabetes mellitus complication detail: diabetic autonomic neuropathy Panlobular emphysema J43.1 COPD type: emphysema Emphysema type: panlobular Additional Codes EVY-7 Assessment Billing - EVY-7 Assessment Tool: EVY-7 Assessment [id number] ([id number]) PHQ-9 - 84748 - PHQ-9 Billing: Yes ([id number]) Assessment & Plan Assessment & Plan (1) Uncontrolled diabetes mellitus: Category: Medical Qualifiers: Diabetes mellitus type: type 1 Glycemic state: with hyperglycemia Qualified Code(s): E10.65 - Type 1 diabetes mellitus with hyperglycemia (2) Hip pain, right: Code(s): M25.551 - Pain in right hip Category: Medical (3) Diabetes mellitus type 2 in obese: Code(s): E11.69 - Type 2 diabetes mellitus with other specified complication; E66.9 - Obesity, unspecified Category: Medical (4) Diabetic kidney disease: Code(s): E11.21 - Type 2 diabetes mellitus with diabetic nephropathy Category: Medical Qualifiers: Diabetes mellitus type: type 2 Qualified Code(s): E11.21 - Type 2 diabetes mellitus with diabetic nephropathy (5) Lipid disorder: Code(s): E78.9 - Disorder of lipoprotein metabolism, unspecified Category: Medical (6) Psychiatric illness: Comment: Patient have psych med prescriber Code(s): F99 - Mental disorder, not otherwise specified Category: Medical (7) Hypertension, essential: Code(s): I10 - Essential (primary) hypertension Category: Medical (8) Anemia: Comment: Patient is taking iron through Nephrology Code(s): D64.9 - Anemia, unspecified Category: Medical Qualifiers: Anemia type: iron deficiency Iron deficiency anemia type: chronic blood loss Qualified Code(s): D50.0 - Iron deficiency anemia secondary to blood loss (chronic) (9) Diabetic neuropathy: Code(s): E11.40 - Type 2 diabetes mellitus with diabetic neuropathy, unspecified Category: Medical Qualifiers: Diabetes mellitus type: type 1 Diabetes mellitus complication detail: diabetic autonomic neuropathy Qualified Code(s): E10.43 - Type 1 diabetes mellitus with diabetic autonomic (poly)neuropathy (10) COPD (chronic obstructive pulmonary disease): Code(s): J44.9 - Chronic obstructive pulmonary disease, unspecified Category: Medical Qualifiers: COPD type: emphysema Emphysema type: panlobular Qualified Code(s): J43.1 - Panlobular emphysema Plan Patient is 73-year-old male came in today for his follow-up appointment. Patient has diabetic neuropathy, Diabetes: he is on insulin aspart 14 units t.i.d., glipizide 10 mg once a day and 80 units of Tresiba. last time seen patient was instructed to come follow-up but he never came, today his hemoglobin A1c is 10.4 I have placed a referral for him to see branch or department chief librarian Patient have stage III diabetic nephropathy patient is seen Nephrology for that renal and transplant associates Dr. Pir Huang, patient would like to switch to [facility] Nephrology Referral placed Patient has a anemia of chronic disease and thrombocytopenia, last platelet count was 124 in November of this year Lipid disorder: patient is on gemfibrozil 600 mg b.i.d. Thyroid medication is levothyroxine 50 mcg Chronic GERD: Continue PPI cervicalgia and headache. Management through neurology he suffers from severe osteoarthritis, and is having severe pain right hip that he need to see product distribution specialist - GFR has decreased over the past few months: 45 in November, 41 in early March, and 38 by the end of March. - Reports concern regarding potential recurrence of Colon Cancer. - Demonstrates recent weight loss, currently weighing 145 lbs, and experiences narrow stools. - Colonoscopy scheduled for September 03. Medications - Alprazolam for anxiety management - Atorvastatin for cholesterol management - Fenofibrate for hyperlipidemia - Iron supplement for anemia - Glipizide 10 mg for diabetes management - Insulin 80 units long-acting, 14 units short-acting as per sliding scale for diabetes management - Levothyroxine 50 mcg for hypothyroidism - Lisinopril 2.5 mg likely for hypertension - Omeprazole 40 mg for gastric acid related concerns - Quetiapine (Seroquel) through psychiatric care - Sertraline through psychiatric care - Trazodone through psychiatric care Problem List - Chronic Kidney Disease, Stage III - Colon Cancer history - Hip Pain, likely due to Severe Arthritis - Recent Weight Loss - Narrow Stools - Mental Health Management - Diabetes Mellitus uncontrolled Diagnostic results - Labs: - GFR: 45 (November), 41 (march), 38 (end march) - Scheduled Diagnostic Tests: - Colonoscopy on September 03 Patient Instructions - Follow up with orthopedic consultation for hip pain. - Attend colonoscopy on September 03 as scheduled. - Continue current medication regimen as prescribed. - seeing branch or department chief librarian for the management of uncontrolled diabete - referral placed to [facility] Nephrology for diabetic kidney disease - Monitor symptoms and report changes in health, including any increased discomfort or unusual symptoms. - handicap placard filled for the patient having difficulty walking long distances Orders: Orders AMB Hemoglobin A1c Today Z13.9 - Encounter for screening, unspecified Referrals Nephrology Referral E11.21 - Type 2 diabetes mellitus with diabetic nephropathy Orthopedics Referral M25.551 - Pain in right hip Endocrinology Referral E11.69 - Type 2 diabetes mellitus with other specified complication, E66.9 - Obesity, unspecified
--- OUTSIDE RECORDS SUMMARY | 2024-07-30 15:38 | XMS_ITS | Clinical Summary ---
Author Organization [facility] Address [address] [facility] [address] [place] [address] Phone Care Team Providers Care Spike Machine Feeder Name Role Phone Gt Akins MD Primary Care Provider [phone] Allergies Active Allergy Reactions Criticality Noted Date [...] Overview (06/13/2022): Cervical and thoracic as well Encounters Date Type Department Care Team Description 07/30/2024 Orders Only [facility] [address] [id number] Yadira Dowell ARNP Stage 3a chronic kidney disease (HCC); Hypertension; Iron deficiency anemia, not otherwise specified; Vitamin D deficiency, not otherwise specified from Last 3 Months Immunizations Name Administration Dates Next Due Influenza [...] Office Visit [facility] [address] [phone] Yadira Dowell ARNP [address] [address] Health Maintenance Due Date Last Done Comments [...] 08/29/2023 024, 08/29/2022 Influenza Vaccine (#1) 2023 0, 02/12/2018, 01/30/2016 Hepatitis B Vaccine Aged Out No longe r eligible based on patient's age to complete this topic Procedures Procedure Name Priority Date/Time Associated Diagnosis Comments HEMOGLOBIN A1C Routine 08/29/2022 2:16 PM EDT from Last 3 Months or Most Recently Relevant to Health Maintenance Results * (ABNORMAL) Hemoglobin A1c (08/29/2022 2:16 PM EDT) Hemoglobin A1C 6.8(H) (4.0-5.6) % [facility] Comment: MONITORING: In known diabetic patients, hemoglobin A1c targets should be discussed with health care provider. DIAGNOSTIC USE: ??The [place] Diabetes Association (ADA) and the World Health [...] Supplement 1 Testing performed or reported by [facility], a Service of [facility], [address] [place] [id number] Danae Holliday MD, Rn Palliative Care [facility]# [id number] 08/29/2022 2:16 PM EDT 08/29/2022 2:24 PM EDT Fernanda Escalante MD LAB BLOOD ORDERABLES Final Resu lt [facility] from Last 3 Months or Most Recently Relevant to Health Maintenance Insurance MEDICARE [facility] MEDICARE [facility] Care Teams Spike Machine Feeder Relationship Specialty Start Date End Date Gt Akins MD [address] [place] [address] PCP - General Internal Medicine 04/06/22
--- OUTSIDE RECORDS SUMMARY | 2024-07-30 15:38 | XMS_ITS | Clinical Summary ---
Author Organization [facility] Address [address] [place] [address] Care Team Providers Care Lining Machine Operator Name Role Phone Kaye Barreto MD Primary [...] Hepatitis C Screening 1950 COVID-19 Vaccine (#1) 06/20/1950 Depression Screening 1961 Preventative Health Evaluation 12/19/1967 Colon Cancer Screening (Colonoscopy) 1994 Shingrix-Zoster Vaccine (1 o f 2) 12/19/1999 Fall Risk Assessment 2014 Pneumococcal Vaccine (3 of 3 - PPSV23 or PCV20) 10/20/2021 10/20/2016, 02/24/2015, 06/27/2013 DTap / Tdap / [...] age to complete this topic Care Teams Lining Machine Operator Relationship Specialty Start Date End Date Kaye Barreto MD PCP - General Internal Medicine 11/15/17
--- OUTSIDE RECORDS SUMMARY | 2024-07-30 15:38 | XMS_ITS | Continuity of Care Document ---
Author Organization [facility] [address] [facility] [place] [address] Phone [phone] Care Team Providers Care Medical Professionals Name Role Phone Gt Akins Care Team Information Primary Clinician [phone] Iftikhar Grady MD Care Team Information Receiv er [phone] Problems Active Problems Provider Date Diabetes mellitus Gurvinder Morataya M.D. Onset: 0 01/17/2022 Essential hypertension Gurvinder Morataay M.D. Ons et: 01/17/2022 Fibromyalgia Gurvinder Morataya M.D. Onset: Osteoarthritis Gurvinder Morataya M.D. Onset: Anemia Gurvinder Morataya M.D. Onset: H/O: gout Gurvinder Morataya M.D. Onset: Chronic kidney disease Gurvinder Morataya M.D. Ons et: 01/17/2022 Carcinoma of colon Gurvinder Morataya M.D. Onset: 06/12/2023 Insulin treated type 2 diabetes mellitus Gurvinder ramirez M.D. Onset: 11/21/2022 Insomnia Gurvinder Morataya M.D. Onset: Gastroesophageal reflux disease Gurvinder Morataya M.D. Onset: 01/17/2022 Hypothyroidism Gurvinder Morataya M.D. Onset: Social History Type Date Description Comments Sex Unknown Tobacco Use Start: Unknown Never Smoked Cigarettes ETOH Use Rarely consumes alcohol Allergies and adverse reactions Active Allergies Criticality Reaction Severity Comments Date Lamictal Unable to assess criticality 01/17/2022 Penicillin Unable to assess criticality 01/17/2022 Tetracycline Unable to assess criticality 01/17/2022 Vicodin Unable to assess criticality 01/17/2022 Tramadol Unable to assess criticality 01/17/2022 Medications Active Medications SIG Qnty Indications Order ing Provider Date True Metrix MeterW/Device Kit use to check glucose 3 times a say. DX E11.9 1units E11Debbie Garcia M.D. 07/19/2024 True Metrix Self Monitoring Blood Glucose StripsStrips Use To Check Glucose 3 Times A Day 300units Le Garcia M.D. 07/19/2024 Freestyle Andrade 2/[place]/Flash Glucose Monitoring Ucfjgz0Gywabu Device use as directed with sensors 1unlopez Garcia M.D. 03/13/2024 Freestyle LancetsMisc Use one lancets 4 time a day for glucose check. Dx- E11.9 300unlopez Garcia M.D. 01/23/2024 Ferrous Nsujjqkpj859(38Fe) mg Tablets 1 by mouth once a day 90tajoshua Morataya M.D. 09/28/2023 Trulicity0.75mg/0.5M L Solution Pen-Inject One Subcutaneous Injection Every Week Dx: E11.9 2ml E11Debbie Garcia M.D. 08/04/2023 Sure Comfort Pen NDL 31GX3/ 31G X31G X 5 mm Use as Directed 4 Times A Day 400units Gurvinder Morataya M.D. 03/13/2023 Levothyroxine Tcdfmh91mha Tablets Take 1 Tablet By Mouth Daily 90tajoshua Morataya M.D. 11/08/2022 Ngrabwevdhl406mw Tablets Take 1 Tablet By Mouth Daily as Directed 90tajoshua Morataya M.D. 04/19/2022 Xanax0.5mg Tablets one qd Gurvinder Morataya M.D. 04/19/2022 Easy Touch Pen NDL 31GX3/16 31G X31G X 5 mm Use as Directed 4 Times A Day 100unlopez Garcia M.D. 02/24/2022 Atorvastatin Snvztsv89sk Tablets 1 by mouth every day Gurvinder Morataya M.D. 01/17/2022 Glipizide ER5mg Tablets ER 24HR Take 1 Tablet By Mouth Every Morning 90tabs Gurvinder Morataya M.D. Novolog Qtsssms891Bume/ML Solution Pen-Inject 6 To 12 Units Subcutaneous Injection Before Meals 15units Gurvinder Morataya M.D. Tresiba Cshdpmdhk065Zjeg/ML Solution Pen-Inject 80 Unit Subcutaneous Injection Daily AT Bedtime 15units Le Garcia M.D. Trazodone IMG872hq Tablets take two tablets by mouth at bedtime Unknown Sertraline JNX471rs Tablets 2 by mouth every day 45tabs Unknown Coxcdhbdnu17rm Capsules DR 1 by mouth every day 90caps Unknown History Medications Blood Glucose Monitoring System PremiumW/Device Kit use to check glucose 3 times a say. DX E11.9 1units E11.9 Le Garcia M.D. 07/19/2024 - 07/19/2024 Vital Signs Date Vital Result Comment 03/07/2024 3:24pm BP Systolic 106 mmHg BP Diastolic 70 mmHg Heart Rate 99 /min Height 70 inches 5'10 Weight 158.50 lb BMI (Body Mass Index) 22.7 kg/m2 Results Test Acquired Date Facility Test Result H/L Range Note Glucose Fingerstick 03/07/2024 Inhouse Glucose Fingerstick 108 TSH+Free T4 01/22/2024 [facility] TSH 3.620 uIU/mL 0.450-4.5 00 T4,Free(Direct) 1.00 ng/dL 0.82- 1.77 Glucose Fingerstick 01/22/2024 Inhouse Glucose Fingerstick 101 Hemoglobin A1c 01/22/2024 Inhouse Hemoglobin A1c 7.7% Glucose Fingerstick 09/28/2023 Inhouse Glucose Fingerstick 200 Hemoglobin A1c 09/28/2023 Inhouse Hemoglobin A1c 7.0% BMP8+Egfr 08/22/2023 [facility] Glucose 322 mg/dL High 70-99 BUN 25 mg/dL 8-27 Creatinine 1.17 mg/dL 0.76-1.27 eGFR 66 mL/min/1.7 3 >59 BUN/Creatinine Ratio 21 10-24 Sodium 139 mmol/L 134-144 Potassium 4.4 mmol/L 3.5-5.2 Chloride 99 mmol/L 96-106 Carbon Dioxide, Total 21 mmol/L 20-29 Anion Gap 19.0 mmol/L High 10.0-18.0 Calcium 9.3 mg/dL 8.6-10.2 Glucose Fingerstick 06/12/2023 Inhouse Glucose Fingerstick 217 Hemoglobin A1c 06/12/2023 Inhouse Hemoglobin A1c 6.5% Basic Metabolic Panel 05/04/2023 [facility] Glucose 157 mg/dL High (70-99) BUN 32 mg/dL High (8-23) Creatinine 1.7 mg/dL High (0.7-1.2) Sodium 142 mmol/L (133-145) Potassium 4.6 mmol/L (3.6-5.2) Chloride 103 mmol/L (98-107) Bicarbonate 27 mmol/L (22-29) Anion Gap 12 (4-17) Calcium 9.9 mg/dL (8.6-10.5 ) Estimated GFR Creatinine 43 ML/MIN/1.7 3M2 1 Glucose Fingerstick 02/07/2023 Inhouse Glucose Fingerstick 203 Hemoglobin A1c 02/07/2023 Inhouse Hemoglobin A1c 7.3% Basic Metabolic Panel 12/07/2022 [facility] Glucose 93 mg/dL (70-99) BUN 29 mg/dL High (8-23) Creatinine 1.6 mg/dL High (0.7-1.2) Sodium 141 mmol/L (133-145) Potassium 4.7 mmol/L (3.6-5.2) Chloride 102 mmol/L (98-107) Bicarbonate 26 mmol/L (22-29) Anion Gap 13 (4-17) Calcium 9.6 mg/dL (8.6-10.5 ) Estimated GFR Creatinine 47 ML/MIN/1.7 3M2 2 Glucose Fingerstick 11/21/2022 Inhouse Glucose Fingerstick 245 Hemoglobin A1c 11/21/2022 Inhouse Hemoglobin A1c 8.5% TSH With Reflex To FT4 07/19/2022 [facility] TSH With Reflex To FT4 3.18 uIU/mL (0.4-4.2) Glucose Fingerstick 07/19/2022 Inhouse Glucose Fingerstick 144 Hemoglobin A1c 07/19/2022 Inhouse Hemoglobin A1c 6.8% Glucose Fingerstick 04/19/2022 Inhouse Glucose Fingerstick 223 Glucose Fingerstick 01/17/2022 Inhouse Glucose Fingerstick 256 1 Creatinine based est imated glomerular filtration (eGFR) in adults is calculated using the National [employer] recommended 2020 CKD-EPI equation. Estimates GFR from serum creatinine, age and sex. 2 Creatinine based est imated glomerular filtration (eGFR) in adults is calculated using the National [employer] recommended 2020 CKD-EPI equation. Estimates GFR from serum creatinine, age and sex. Medical Devices Description No Information Available Encounters Type Date Location Provider Dx Diagnosis Office Visit 03/07/2024 3:00p Main Office WENDI Silver E03.9 Hypothyroidis m, unspecified Z79.4 alf (current) use of insulin E11.9 Type 2 diabetes leela itus without complications Assessments Date Code Description Provider 03/07/2024 E03.9 Hypothyroidism, unspecified WENDI Silver 03/07/2024 Z79.4 alf (current) use of i nsulin WENDI Silver 03/07/2024 E11.9 Type 2 diabetes mellitus wit hout complications WENDI Silver Plan of Treatment Future Appointment(s):* 08/15/2024 3:00 pm - WENDI Silver at Main Office 03/07/2024 - WENDI Silver* E03.9 Hypothyroidism, unspecified * Z79.4 alf (current) use of insulin * E11.9 Type 2 diabetes mellitus without complications Functional Status Description No Information Available Mental Status Description No Information Available Referrals Description No Information Available
--- OUTSIDE RECORDS SUMMARY | 2024-07-30 15:38 | XMS_ITS | Encounter Summary ---
Author Organization [facility] Address [address] [address] Phone Care Team Providers Care Women'S Soccer Coach Name Role Phone Gt Akins MD Primary Care Provider [phone] Encounter Details Date Type Department Care Team (Late Contact Info) Description 07/30/2024 Orders Only [facility] [address] [address] Yadira Dowell ARNP [address] [address] Stage 3a chronic kidney disease (HCC); Hypertension; Iron deficiency anemia, not otherwise specified; Vitamin D deficiency, not otherwise specified Social History Tobacco Use Types Packs/Day Years Used Date Smoking Tobacco: Never Smokeless Tobacco: Never Alcohol Use Standard Drinks/Week Comments Yes 0 (1 standard drink = 0.6 oz pur e alcohol) Sex and Gender Information Value Date Recorded Sex Assigned at Not on file Legal Sex Male 5:21 PM EST Gender Identity Not on file Sexual Orientation Not on file documented as of this encounter Plan of Treatment Upcoming Encounters Date Type Department Care Team (Late st Contact Info) Description 08/27/2024 2:00 PM EDT Office Visit [facility] [address] [address] Yadira Dowell ARNP [address] [address] documented as of this encounter Visit Diagnoses Diagnosis Stage 3a chronic kidney disease (HCC) Hypertension Iron deficiency anemia, not otherwise specified Vitamin D deficiency, not otherwise specified documented in this encounter Care Teams Women'S Soccer Coach Relationship Specialty Start Date End Date Gt Akins MD [address] [place] [address] PCP - General Internal Medicine 04/06/22 documented as of this encounter
--- OUTSIDE RECORDS SUMMARY | 2024-07-30 15:38 | XMS_ITS | Clinical Summary ---
Author Organization [facility] Address [address] [place] [address] Phone Care Team Providers Care Food Service Name Role Phone Gt Akins MD Primary Care Provider [phone] Allergies Active Allergy Reactions Criticality Noted Date [...] to practice 10/2018 on iron supplement since 2018 Type 2 diabetes mellitus with peripheral artery [...] Chronic fatigue syndrome 11/13/2015 Migraine headache 07/02/2013 Encounters Date Type Department Care Team Description 07/16/2024 Telephone Gastroenterology - [address] [place] [address] Darcy Land MD from Last 3 Months Immunizations Name Administration Dates Next Due Influenza, [...] Type 2 diabetes mellitus wit h cataract 02/14/2018 DX:Type 2 diabetes mellitus with cataract (HCC) Type 2 diabetes mellitus wit h renal manifestations (CMS/HCC) 02/14/2018 DX:Type 2 diabetes mellitus with renal manifestations (HCC) Cataract 03/02/2016 DX:Cataract Chronic insomnia 10/20/2016 DX:Chronic inso mnia CKD (chronic kidney disease) stage 3, GFR 30-59 ml/min (CMS/HCC) 01/14/2016 DX:CKD (chronic kidney dise ase) stage 3, GFR 30-59 ml/min ([facility]) DDD (degenerative disc disea se), lumbar 11/20/2015 DX:DDD (degenerative disc di sease), lumbar; COMMENT: Cervical and thoracic as well Fibromyalgia 10/27/2016 DX:Fibromyalgia GERD (gastroesophageal reflu x disease) 10/20/2016 DX:GERD (gastroesophageal re flux disease) Hyperlipidemia 11/27/2017 DX:Hyperlipidemi a Hypertension 11/27/2017 DX:Hypertension Hypothyroidism 10/20/2016 DX:Hypothyroidis m Insomnia 01/14/2016 DX:Insomnia Major depression in partial remission ([facility]) 11/27/2017 DX:Major depression in parti al remission ([facility]) Migraine headache 07/02/2013 DX:Migraine he adache Panic disorder 01/14/2016 DX:Panic disorde r Psoriasis 01/14/2016 DX:Psoriasis Type 2 diabetes mellitus wit h neurological manifestations ([facility]) 10/27/2016 DX:Type 2 diabet es mellitus with neurological manifestations (HCC) Vitamin B 12 deficiency 01/14/2016 DX:Vitam in B 12 deficiency CAD (coronary artery disease) 02/14/2018 DX :CAD (coronary artery disease) Iron deficiency anemia 11/22/2018 DX:Iron d eficiency anemia; COMMENT: Unclear etiology, new pt to practice 10/2018 on iron supplement since 2017 ED (erectile dysfunction) 11/22/2018 DX:ED (erectile dysfunction) Type 2 diabetes mellitus wit h peripheral artery disease ([facility]/HCC) 11/22/2018 DX:Type 2 diabetes mellitus with peripheral artery disease (HCC) Central sleep apnea 11/22/2018 DX:Central s leep [...] Information Value Date Recorded Sex Assigned at Male 07/18/2024 2:57 PM EDT Legal Sex Male 12:06 AM EST Gender Identity Male 07/18/2024 2:57 PM EDT Sexual Orientation Straight 07/18/2024 2: 57 PM EDT Obstetrics History Last Filed Vital Signs Vital [...] Care Team (Late st Contact Info) Description 08/12/2024 2:00 PM EDT Appointment [facility] Scan [address] [place] [address] Health Maintenance Due Date Last Done Comments COVID-19 Vaccine (#1) 1954 Diabetes: Annual Foot Exam 12/19/1959 Diabetes: Annual Retina Eye Exam 12/19/1959 Zoster Vaccines (1 of 2) 1968 RSV Immunization Patients 60+ Years Old (1 - Risk 60-74 years 1-dose series) 2009 Pneumococcal Vaccine: 50+ Years (3 of 3 - PPSV23, PCV20 or PCV21) 06/27/2018 10/20/2016, 02/24/2015, 06/27/2013 Diabetes: Annual GFR (Glomerular Filtration Rate) 01/26/2021 01/27/2020 Depression Screening 04/03/2022 Falls Risk Assessment 04/03/2022 Medicare Annual Wellness Visit 04/03/2022 Social Influencers of Health Screening 04/03/2022 Diabetes: Annual Urine Albumin-Creatinine Ratio (uACR) 04/15/2022 01/27/2020 Hypertension/CHF/CAD Annual BMP Blood Test 04/15/2022 01/27/2020 DTaP,Tdap,and Td Vaccines (2 - Td or Tdap) 08/15/2022 08/15/2012 Diabetes: Blood Sugar Control Test (HGBA1C) 11/29/2023 05/31/2023, 08/29/2022 Influenza Vaccine (#1) 2023 , 12/13/2019, 02/12/2018, Additional history exists Cholesterol Screening (Lipid Panel) 01/26/2025 01/27/2020 Colorectal [...] patient's age to complete this topic Meningococcal B Vacine Aged Out No lo nger eligible based on patient's age to complete this topic RSV Immunization Patients Under 20 months Aged Out No longer eligible based on [...] Health Maintenance Results * Hemoglobin A1c (05/31/2023) [facility] Hemoglobin A1C 5.8 <=6.5 % Blood Venous blood specimen / Unknown Result [facility] Provider LAB BLOOD ORDERABLES Maria E l Result * Colonoscopy (05/18/2023) [facility] Colonoscopy No interpretation , Abstracted Anatomical Region Laterality Modality Other Result [facility] HEALTH MAINTENANCE Final Result * Hepatitis C Screening (08/31/2020) [facility] Hepatitis C Screening Abstracted Result [facility] HEALTH MAINTENANCE Final Result * Urine Albumin Creatinine Ratio (01/27/2020) [facility] Urine Albumin Creatinine Ratio Abstracted Result [facility] HEALTH MAINTENANCE Final Result * Annual BMP Blood Test (01/27/2020) [facility] Annual BMP Blood Test Abstracted Result [facility] HEALTH MAINTENANCE Final Result * (ABNORMAL) Lipid panel (01/27/2020) [facility] LDL/HDL Ratio 8(A) 0 - 4 Triglycerides 561(A) 0 - 150 mg/dL Comment:Triglyceride value i s >= 500. ??Calculated LDL is not meaningful. ??Direct LDL has been added. Cholesterol 268(A) 0 - 200 mg/dL HDL 33(A) >=40 mg/dL LDL Cholesterol 153(A) 0 - 100 mg/dL Blood Venous blood specimen / Unknown Result [facility] Provider LAB BLOOD ORDERABLES Maria E l Result from Last 3 Months or Most Recently Relevant to Health Maintenance Insurance MEDICARE [facility] Care Teams Food Service Relationship Specialty Start Date End Date Gt Akins MD [address] [facility] [place] [address] PCP - General 05/18/23
--- OUTSIDE RECORDS SUMMARY | 2024-07-30 15:38 | XMS_ITS | Encounter Summary ---
Author Organization Address [address] [place] [address] Care Team Providers Care Gas Worker Name Role Phone Gt Akins MD Primary Care Provider [phone] Encounter Details Date Type Department Care Team (Late st Contact Info) Description 07/16/2024 Telephone Gastroenterology - [address] [phone] Darcy Land MD [address] [address] Social History Tobacco Use Types Packs/Day Years [...] Orientation Straight 07/18/2024 2: 57 PM EDT documented as of this encounter Plan of Treatment Upcoming Encounters Date Type Department Care Team (Late st Contact Info) Description 08/12/2024 2:00 PM EDT Appointment [facility] Scan [address] [place] [address] documented as of this encounter Visit Diagnoses Not on filedocumented in this encounter Care Teams Gas Worker Relationship Specialty Start Date End Date Gt Akins MD [address] [facility] [place] [address] PCP - General 05/18/23 documented as of this encounter
== END 2024-07-30 13:59 | disposition home or self-care (01) ==
LOC: HO.HMCC 13:19
PROVIDERS: PCP Internal Medicine; Visit Provider Internal Medicine
DX: E11.69 Type 2 diabetes mellitus with other specified complication (principal); E66.9 Obesity, unspecified; E11.21 Type 2 diabetes mellitus with diabetic nephropathy; Z68.20 Body mass index [BMI] 20.0-20.9, adult; J43.1 Panlobular emphysema; M25.551 Pain in right hip; E78.9 Disorder of lipoprotein metabolism, unspecified; F99 Mental disorder, not otherwise specified; I10 Essential (primary) hypertension; D50.0 Iron deficiency anemia secondary to blood loss (chronic)

== ENCOUNTER → 2024-07-30 13:18 | Outpatient (BNVA) | payer MEDICARE, SELFPAY | PROVIDERS: PCP Internal Medicine; Visit Provider Internal Medicine | DX: E10.65 Type 1 diabetes mellitus with hyperglycemia (principal); M25.551 Pain in right hip; E10.69 Type 1 diabetes mellitus with other specified complication; E66.9 Obesity, unspecified; E10.21 Type 1 diabetes mellitus with diabetic nephropathy; E78.9 Disorder of lipoprotein metabolism, unspecified; F99 Mental disorder, not otherwise specified; I10 Essential (primary) hypertension; D50.0 Iron deficiency anemia secondary to blood loss (chronic); E10.43 Type 1 diabetes mellitus with diabetic autonomic (poly)neuropathy; J43.1 Panlobular emphysema | CPT/HCPCS: 83036; 96127; 99212 ==

== ENCOUNTER 2024-08-06 15:06 | Outpatient (AMB) | payer MEDICARE, SELFPAY ==
--- NOTE | 2024-08-06 15:37 | HO.NEPHOV_ITS ---
Vital Signs 08/06/24 15:41 Height 5 ft 10 in Weight 147 lb 2 oz BMI 21.1 BP 104/70 Blood Pressure Location Lt brachial Position Sitting Pulse 90 Pulse Source Pulse Oximeter Pulse Oximetry (%) 98 Oxygen Delivery Method Room Air Intake Visit Reasons: INP: Type 2 DM with diabetic nephropathy In Flight Technician Required: No Accompanied by: Self / Same As Patient Allergies hydrochlorothiazide Allergy (Intermediate, Verified 08/06/24 15:40) Unknown lamotrigine [From LAMICTAL] Allergy (Intermediate, Verified 08/06/24 15:40) RASH Penicillins [PENICILLINS] Allergy (Intermediate, Verified 08/06/24 15:40) ITCHY Tetracyclines [TETRACYCLINES] Allergy (Intermediate, Verified 08/06/24 15:40) ITCHY penicillamine Allergy (Unknown, Verified 08/06/24 15:40) Unknown tetracycline Allergy (Unknown, Verified 08/06/24 15:40) Unknown tramadol Allergy (Unknown, Verified 08/06/24 15:40) Unknown onabotulinumtoxinA [From Botox] Allergy (Verified 08/06/24 15:40) swallowing gabapentin [From NEURONTIN] Adverse Reaction (Intermediate, Verified 08/06/24 15:40) ACID REFLUX amitriptyline [From ELAVIL] Adverse Reaction (Mild, Verified 08/06/24 15:40) THIRST Elavil Allergy (Unknown, Uncoded 06/10/24 15:49) Unknown HPI Comments Details: I had the privilege of seeing Maurilio in consultation for worsening renal function on a backdrop of CKD. He is 73 years of age who has long standing diabetes. His diabetes is poorly controlled with his recent Hb A1c being 10.4. He has diabetic neuropathy. He is going to see an road supervisor of engines soon. He has CKD from diabetic nephropathy which has been getting worse. He has dyslipidemia as well as anemia of chronic disease. He has GERD and is on PPI. He has OA but denies taking excess NSAID's but is on it. He is on ACEI. He reported concern regarding potential recurrence of Colon Cancer given recent weight loss. His recent serum creatinine has been 1.78 [facility] Medical History COPD (chronic obstructive pulmonary disease) Establishing care with new doctor, encounter for Respiratory tract congestion with cough Medicare annual wellness visit, subsequent Restrictive lung disease Dyspnea on exertion Restless legs syndrome (RLS) Sleep apnea Gallbladder abscess Surgical History H/O colectomy H/O colonoscopy Hx of cholecystectomy Family History Brother Substance use disorder Sister Mental health disorder Diabetes Breast cancer Sister Mental health disorder Sister Mental health disorder Sister Mental health disorder Mother Mental health disorder Social History Housing: Condominium Alcohol intake: current Patient Tobacco Use Status: Never used Tobacco e-Cigarette/Vaping Use: Never Used Second Hand Smoke Exposure: No service: No Current occupational status: employed and disabled Current occupation: disabled - [employer] hand Cognitive needs: No Hearing needs: No Vision needs: Yes Review of Systems Const All systems reviewed & are unremarkable except as noted in HPI and below Physical Exam Vital Signs: Last Vital Signs Pulse 90 08/06/24 15:41 BP 104/70 08/06/24 15:41 Pulse Ox 98 08/06/24 15:41 Oxygen Delivery Method Room Air 08/06/24 15:41 BMI result Body Mass Index 21.1 Const General: comfortable and no acute distress Orientation/consciousness: patient oriented x3 HEENT Head: Yes normocephalic Mouth: Normal oral and palatal mucosa present Eyes EOM: EOMs intact bilaterally Neck Neck: Yes supple Resp Auscultation: clear to auscultation bilaterally Cardio Jugular venous distension: no JVD Rate: regular rate GI Palpation (GI): Soft to palpation Auscultation: normal bowel sounds General: Yes no CVA tenderness Back/Spine/Pelvis Back: no CVA tenderness Skin General skin exam: no rashes or lesions noted Neuro General: patient oriented x3 and moves all extremities Extrem General: Yes no pedal edema Results Reviewed Nephrology Results: Hgb 12.5 g/dl (14.0-18.0) L 03/29/24 WBC 4.4 X10*3/uL (4.8-10.8) L 03/29/24 Plt Count 129 X10*3/uL (160-400) L 03/29/24 Sodium 137 mmol/L (135-145) 03/29/24 Potassium 4.5 mmol/L (3.3-5.1) 03/29/24 Chloride 99 mmol/L (96-108) 03/29/24 Carbon Dioxide 26 mmol/L (22-29) 03/29/24 BUN 23 mg/dL (9-16) H 03/29/24 Creatinine 1.78 mg/dL (0.5-1.4) H 03/29/24 Calcium 9.8 mg/dL (8.4-10.2) 03/29/24 Assessment & Plan Assessment & Plan (1) Diabetic kidney disease: Code(s): E11.21 - Type 2 diabetes mellitus with diabetic nephropathy Category: Medical Qualifiers: Diabetes mellitus type: type 2 Qualified Code(s): E11.21 - Type 2 diabetes mellitus with diabetic nephropathy Plan Maurilio has diabetic nephropathy with resultant CKD which lately has been getting worse. He is on ACEI. He tries to maintain good hydration and was asked to avoid NSAID's. I have ordered CKD work up including imaging studies. He is a great candidate for SGLT2 i. I shall consider doing a renal biopsy if his serum creatinine continues to rise. All these were explained in detail. Answered all questions. F/U appointment given. Orders: Orders Complete Blood Count Auto Diff 1 Month E11.21 - Type 2 diabetes mellitus with diabetic nephropathy Calcium 1 Month E11.21 - Type 2 diabetes mellitus with diabetic nephropathy Electrolytes 1 Month E11.21 - Type 2 diabetes mellitus with diabetic nep hropathy Creatinine 1 Month E11.21 - Type 2 diabetes mellitus with diabetic nephropathy Phosphorus 1 Month E11.21 - Type 2 diabetes mellitus with diabetic nephropathy Parathyroid Hormone Intact 1 Month E11.21 - Type 2 diabetes mellitus with diabetic nephropathy Vitamin D 25-OH Total 1 Month E11.21 - Type 2 diabetes mellitus with diabetic nephropathy Albumin Level 1 Month E11.21 - Type 2 diabetes mellitus with diabetic nephropathy Blood Urea Nitrogen 1 Month E11.21 - Type 2 diabetes mellitus with diabetic nephropathy Protein Creatinine Ratio, Ur 1 Month E11.21 - Type 2 diabetes mellitus with diabetic nephropathy Immunofixation Pnl, Serum 1 Month E11.21 - Type 2 diabetes mellitus with diabetic nephropathy US renal BI 3 Weeks E11.21 - Type 2 diabetes mellitus with diabetic nephropathy Medications: Discontinued naproxen (Naprosyn) Discontinued Reason: Doctor's Order 500 mg PO BID 20 tabs 0RF Coding Level of Care Code New Pt Level 4 (24122) Diagnoses Diabetic nephropathy associated with type 2 diabetes mellitus E11.21 Diabetes mellitus type: type 2
[2024-08-06 15:41] VITALS: BP 104/70; PULSE 90; O2SAT 98; BMI 21.1
--- OUTSIDE RECORDS SUMMARY | 2024-08-06 18:10 | XMS_ITS | Encounter Summary ---
Author Organization [facility] Address [address] [address] Phone Care Team Providers Care Slate Cutter Operator Name Role Phone Gt Akins MD Primary Care Provider [phone] Encounter Details Date Type Department Care Team (Late Contact Info) Description 07/30/2024 Orders Only [facility] [address] [address] Yadira Dowell ARNP [address] [address] Stage 3a chronic kidney disease [...] Office Visit [facility] [address] [address] Yadiar Dowell ARNP [address] [address] documented as of this encounter Visit Diagnoses Diagnosis Stage 3a chronic kidney disease (HCC) Hypertension Iron deficiency anemia, not otherwise specified Vitamin D deficiency, not otherwise specified documented in this encounter Care Teams Slate Cutter Operator Relationship Specialty Start Date End Date Gt Akins MD [address] [place] [address] PCP - General Internal Medicine 04/06/22 documented as of this encounter
--- OUTSIDE RECORDS SUMMARY | 2024-08-06 18:11 | XMS_ITS | Clinical Summary ---
Author Organization [facility] Address [address] [place] [address] Care Team Providers Care Sodium Chlorite Operator Name Role Phone Kaye Barreto MD [...] Millie Cancer Paternal Aunt Annie Diabetes Sister Kathelen Relation Name Status Comments Mother Millie Alive [...] age to complete this topic Care Teams Sodium Chlorite Operator Relationship Specialty Start Date End Date Kaye Barreto MD PCP - General Internal Medicine 11/15/17
--- OUTSIDE RECORDS SUMMARY | 2024-08-06 18:11 | XMS_ITS | Continuity of Care Document ---
Author Organization [facility] [address] [facility] [address] [place] [address] Phone [phone] Care Team Providers Care In Flight Refueling Manager Name Role Phone Gt Akins Care Team Information Gatekeeper [phone] Iftikhar Grady MD Care Team Information Receiv er [phone] Problems Active Problems Provider Date Diabetes mellitus Gurvinder Morataya M.D. Onset: 0 01/17/2022 Essential hypertension Gurvinder Morataya M.D. Ons et: 01/17/2022 Fibromyalgia Gurvinder Morataya [...] 300units Le Garcia M.D. 07/19/2024 Freestyle Andrade 2/Jordan/Flash Glucose Monitoring [id number] Device use as directed with sensors 1unlopez Garcia M.D. 03/13/2024 Freestyle LancetsMisc Use one lancets 4 time a day for glucose check. Dx- E11.9 300unlopez Garcia M.D. 01/23/2024 Ferrous Tktklioug718(38Fe) mg Tablets 1 by mouth once a day 90tajoshua Morataya M.D. 09/28/2023 Trulicity0.75mg/0.5M L Solution Pen-Inject One Subcutaneous Injection Every Week Dx: E11.9 2ml E11Debbie Garcia M.D. 08/04/2023 Sure Comfort Pen NDL 31GX3/ 31G X31G X 5 mm Use as Directed 4 Times A Day 400units Gurvinder Morataya M.D. 03/13/2023 Levothyroxine Nxrvnm60qby Tablets Take 1 Tablet By Mouth Daily 90tajoshua Morataya M.D. 11/08/2022 Aspdxooxgmj583jk Tablets Take 1 Tablet By Mouth Daily as Directed 90tajoshua Morataya M.D. 04/19/2022 Xanax0.5mg Tablets one qd Gurvinder Morataya M.D. 04/19/2022 Easy Touch Pen NDL 31GX3/16 31G X31G X 5 mm Use as Directed 4 Times A Day 100unlopez Garcia M.D. 02/24/2022 Atorvastatin Uvdosho56np Tablets 1 by mouth every day Gurvinder Morataya M.D. 01/17/2022 Glipizide ER5mg Tablets ER 24HR Take 1 Tablet By Mouth Every Morning 90tabs Gurvinder Morataya M.D. Novolog Soouwru118Elvf/ML Solution Pen-Inject 6 To 12 Units Subcutaneous Injection Before Meals 15units Gurvinder Morataya M.D. Tresiba Acfunpdbi266Zoip/ML Solution Pen-Inject 80 Unit Subcutaneous Injection Daily AT Bedtime 15units Le Garcia M.D. Trazodone HPQ557fc Tablets take two tablets by mouth at bedtime Unknown Sertraline HAN516qr Tablets 2 by mouth every day 45tabs Unknown Ystdclgbbw65ny Capsules DR 1 by mouth every day [...] Hemoglobin A1c 6.5% Basic Metabolic Panel 05/04/2023 [facility] Glucose 157 mg/dL High (70-99) [...] Hemoglobin A1c 7.3% Basic Metabolic Panel 12/07/2022 [facility] Glucose 93 mg/dL (70-99) BUN [...] 8.5% TSH With Reflex To FT4 07/19/2022 [facility] TSH With Reflex To FT4 [...] WENDI Silver E03.9 Hypothyroidis m, unspecified Z79.4 USP (current) use of insulin E11.9 Type 2 diabetes leela itus without complications Assessments Date Code Description Provider 03/07/2024 E03.9 Hypothyroidism, unspecified WENDI Silver 03/07/2024 Z79.4 USP (current) use of i nsulin WENDI Silver 03/07/2024 E11.9 Type 2 diabetes mellitus wit hout complications WENDI Silver Plan of Treatment Future Appointment(s):* 08/15/2024 3:00 pm - WENDI Silver at Main Office 03/07/2024 - WENDI Silver* E03.9 Hypothyroidism, unspecified * Z79.4 USP (current) use of insulin * E11.9 Type 2 diabetes mellitus without complications Functional Status Description No Information Available Mental Status Description No Information Available Referrals Description No Information Available
--- OUTSIDE RECORDS SUMMARY | 2024-08-06 18:11 | XMS_ITS | Clinical Summary ---
Author Organization [facility] Address [address] [place] [address] Phone Care Team Providers Care Link Machine Operator Name Role Phone Gt Akins MD Primary Care Provider [phone] Allergies Active Allergy Reactions Criticality Noted Date [...] 07/16/2024 Telephone Gastroenterology - [address] [place] [address] Darcy Land MD from Last [...] dise ase) stage 3, GFR 30-59 ml/min ([facility]) DDD (degenerative disc disea se), lumbar 11/20/2015 DX:DDD (degenerative disc di sease), lumbar; COMMENT: Cervical and thoracic as well Fibromyalgia 10/27/2016 DX:Fibromyalgia GERD (gastroesophageal reflu x disease) 10/20/2016 DX:GERD (gastroesophageal re flux disease) Hyperlipidemia 11/27/2017 DX:Hyperlipidemi a Hypertension 11/27/2017 DX:Hypertension Hypothyroidism 10/20/2016 DX:Hypothyroidis m Insomnia 01/14/2016 DX:Insomnia Major depression in partial remission ([facility]) 11/27/2017 DX:Major depression in parti al remission ([facility]) Migraine headache 07/02/2013 DX:Migraine he adache Panic disorder 01/14/2016 DX:Panic disorde r Psoriasis 01/14/2016 DX:Psoriasis Type 2 diabetes mellitus wit h neurological manifestations ([facility]) 10/27/2016 DX:Type 2 diabet es [...] diabetes mellitus wit h peripheral artery disease ([facility]/HCC) 11/22/2018 DX:Type 2 diabetes mellitus with peripheral [...] Info) Description 08/12/2024 2:00 PM EDT Appointment [facility] CT Scan [address] [place] [address] Health Maintenance Due Date Last Done Comments COVID-19 Vaccine (#1) 1954 Diabetes: Annual Foot Exam 12/19/1959 Diabetes: Annual Retina Eye Exam 12/19/1959 Zoster Vaccines (1 of 2) 1968 RSV Immunization Adult Patients (1 - Risk 60-74 years 1-dose series) [...] age to complete this topic Meningococcal B Vaccine Aged Out No l onger eligible based on patient's age to complete [...] Health Maintenance Results * Hemoglobin A1c (05/31/2023) [facility] Hemoglobin A1C 5.8 <=6.5 % Blood Venous blood specimen / Unknown Result [facility] Provider LAB BLOOD ORDERABLES Maria E l Result * Colonoscopy (05/18/2023) [facility] Colonoscopy No interpretation , Abstracted Anatomical Region Laterality Modality Other Result [facility] HEALTH MAINTENANCE Final Result * Hepatitis C Screening (08/31/2020) [facility] Hepatitis C Screening Abstracted Result [facility] HEALTH MAINTENANCE Final Result * Urine Albumin Creatinine Ratio (01/27/2020) [facility] Urine Albumin Creatinine Ratio Abstracted Result [facility] HEALTH MAINTENANCE Final Result * Annual BMP Blood Test (01/27/2020) [facility] Annual BMP Blood Test Abstracted Result [facility] HEALTH MAINTENANCE Final Result * (ABNORMAL) Lipid panel (01/27/2020) [facility] LDL/HDL Ratio 8(A) 0 - 4 Triglycerides 561(A) 0 - 150 mg/dL Comment:Triglyceride value i s >= 500. ??Calculated LDL is not meaningful. ??Direct LDL has been added. Cholesterol 268(A) 0 - 200 mg/dL HDL 33(A) >=40 mg/dL LDL Cholesterol 153(A) 0 - 100 mg/dL Blood Venous blood specimen / Unknown Result [facility] Provider LAB BLOOD ORDERABLES Maria E l Result from Last 3 Months or Most Recently Relevant to Health [place] [id number] MEDICARE [facility] Care Teams Link Machine Operator Relationship Specialty Start Date End Date Gt Akins MD [address] [place] [address] PCP - General 05/18/23
--- OUTSIDE RECORDS SUMMARY | 2024-08-06 18:11 | XMS_ITS | Encounter Summary ---
Author Organization [facility] Address [address] [place] [address] Care Team Providers Care Fire Crew Specialist Name Role Phone Gt Akins MD Primary Care Provider [phone] Encounter Details Date Type Department Care Team (Late st Contact Info) Description 07/16/2024 Telephone Gastroenterology - [address] [phone] Darcy Land MD [address] [address] Social History Tobacco Use Types Packs/Day Years [...] Info) Description 08/12/2024 2:00 PM EDT Appointment [facility] CT Scan [address] [place] [address] documented as of this encounter Visit Diagnoses Not on filedocumented in this encounter Care Teams Fire Crew Specialist Relationship Specialty Start Date End Date Gt Akins MD [address] [place] [address] PCP - General 05/18/23 documented as of this encounter
--- OUTSIDE RECORDS SUMMARY | 2024-08-06 18:11 | XMS_ITS | Clinical Summary ---
Author Organization [facility] Address [address] [facility] [address] [place] [address] Phone Care Team Providers Care Cloth Desizing Range Operator Chief Name Role Phone Gt Akins MD Primary Care Provider [phone] Allergies Active Allergy Reactions Criticality Noted Date [...] Orders Only [facility] [address] [address] Yadira Dowell ARNP Stage 3a [...] Office Visit [facility] [address] [phone] Yadira Dowell ARNP [address] [address] Health Maintenance Due Date Last [...] Hemoglobin A1C 08/29/2023 024, 08/29/2022 Influenza Vaccine (Season Ended) 2024 12/13/2019, 02/12/2018, 01/30/2016 Hepatitis B Vaccine Aged Out No longe r eligible based on patient's age to complete this topic Procedures Procedure Name Priority Date/Time Associated Diagnosis Comments HEMOGLOBIN A1C Routine 08/29/2022 2:16 PM EDT from Last 3 Months or Most Recently Relevant to Health Maintenance Results * (ABNORMAL) Hemoglobin A1c (08/29/2022 2:16 PM EDT) Hemoglobin A1C 6.8(H) (4.0-5.6) % [facility] Comment: MONITORING: In known diabetic patients, hemoglobin A1c targets should be discussed with health care provider. DIAGNOSTIC USE: ??The [place] Diabetes Association (ADA) and the World Health [...] Supplement 1 Testing performed or reported by [facility] [employer], a Service of [facility], [address] [place] [address] Danae Holliday MD, Amusement Or Recreation Card Checker [facility]# [id number] 08/29/2022 2:16 PM EDT 08/29/2022 2:24 PM EDT Fernanda Escalante MD LAB BLOOD ORDERABLES Final Resu lt [facility] from Last 3 Months or Most Recently Relevant to Health Maintenance Insurance MEDICARE [facility] MEDICARE [facility] Care Teams Cloth Desizing Range Operator Chief Relationship Specialty Start Date End Date Gt Akins MD [address] [place] [address] PCP - General Internal Medicine 04/06/22
== END 2024-08-06 15:57 | disposition home or self-care (01) ==
LOC: HO.HKAS 15:07
PROVIDERS: PCP Internal Medicine; Referring Provider Internal Medicine; Visit Provider Internal Medicine Nephrology
DX: E11.21 Type 2 diabetes mellitus with diabetic nephropathy (principal)
CPT/HCPCS: 99204

== ENCOUNTER → 2024-08-06 15:06 | Outpatient (BNVA) | payer MEDICARE, SELFPAY | PROVIDERS: PCP Internal Medicine; Referring Provider Internal Medicine; Visit Provider Internal Medicine Nephrology | DX: E11.21 Type 2 diabetes mellitus with diabetic nephropathy (principal); E11.22 Type 2 diabetes mellitus with diabetic chronic kidney disease; N18.9 Chronic kidney disease, unspecified; D63.1 Anemia in chronic kidney disease; E11.65 Type 2 diabetes mellitus with hyperglycemia; E11.40 Type 2 diabetes mellitus with diabetic neuropathy, unspecified | CPT/HCPCS: 99202 ==

== ENCOUNTER 2024-09-03 05:47 | Day surgery (SDC) | payer MEDICARE, SELFPAY ==
[2024-08-29 11:54] VITALS: BMI 20.8
--- NOTE | 2024-09-02 08:55 | P.CONAN_ITS ---
Documented by User: Latasha Mosley NP 09/02/24 08:56 HPI - Anesthesia Eval Consult details Narrative: 73yo M for Colonoscopy Anesthesia Pre-Procedure Meds Is the patient on any of the following meds?: GLP1/DPP4 PMFSH Active Problems Active Problems: All Active Problems Uncontrolled diabetes mellitus (Acute) Hip pain, right (Acute) URI (upper respiratory infection) (Acute) Skin sore (Acute) Achilles tendon pain (Acute) Achilles tendinitis, left leg (Acute) Short bowel syndrome (Acute) Pre-op examination (Acute) History of colon cancer (Acute) Major depression, recurrent (Acute) Diabetes mellitus type 2 in obese (Acute) Other specified hypothyroidism (Acute) Exposure to chemical inhalation (Acute) Shortness of breath (Acute) Tongue disorder (Acute) Diabetic neuropathy (Acute) Lumbar spondylosis (Acute) Cervical spondylosis (Acute) Spasmodic torticollis (Acute) Cervicalgia (Acute) Chronic tension headaches (Acute) Migraine with aura, intractable, without status migrainosus (Acute) Rash (Acute) Diabetic kidney disease (Acute) Achilles tendinitis, right leg (Acute) Trochanteric bursitis, right hip (Acute) Anemia (Acute) Tachycardia (Acute) Hypertension, essential (Acute) Generalized headaches (Acute) Psychiatric illness (Acute) Muscle strain (Acute) Cervicalgia (Acute) Lipid disorder (Acute) Diabetes mellitus type 2, insulin dependent (Acute) COPD (chronic obstructive pulmonary disease) (Acute) Restrictive lung disease (Acute) Dyspnea on exertion (Acute) Restless legs syndrome (RLS) (Acute) Sleep apnea (Acute) Past Medical History Medical History Depression Chronic renal insufficiency Diabetes Restrictive lung disease Dyspnea on exertion COPD (chronic obstructive pulmonary disease) Restless legs syndrome (RLS) Sleep apnea Gallbladder abscess Family History Family History Brother Substance use disorder Sister Mental health disorder Diabetes Breast cancer Sister Mental health disorder Sister Mental health disorder Sister Mental health disorder Mother Mental health disorder Surgical History Surgical History H/O colectomy H/O colonoscopy Hx of cholecystectomy Social History Social History Housing: Condominium Alcohol intake: current Alcohol intake frequency: former alcohol drinker Patient Tobacco Use Status: Never used Tobacco e-Cigarette/Vaping Use: Never Used Second Hand Smoke Exposure: No Use of substances other than those prescribed or required for medical reasons: No Have you been hit, kicked, punched, or otherwise hurt by someone within the past year? If so, by whom?: No Are you DNR?: No Advance Directives: No Advance Directives Information Provided: Yes Advance Directives on File: No Poor oral hygiene: No service: No Current occupational status: employed and disabled Current occupation: disabled - [employer] Cognitive needs: No Hearing needs: No Vision needs: Yes Meds Allergies Allergy/AdvReac Type Severity Reaction Status Date / Time hydrochlorothiazide Allergy Intermediate Unknown Verified 08/06/24 15:40 lamotrigine [From LAMICTAL] Allergy Intermediate RASH Verified 08/06/24 15:40 Penicillins [PENICILLINS] Allergy Intermediate ITCHY Verified 08/06/24 15:40 Tetracyclines [TETRACYCLINES] Allergy Intermediate ITCHY Verified 08/06/24 15:40 tramadol Allergy Unknown Unknown Verified 08/06/24 15:40 onabotulinumtoxinA Allergy swallowing Verified 08/06/24 15:40 [From Botox] gabapentin [From NEURONTIN] AdvReac Intermediate ACID REFLUX Verified 08/06/24 15:40 amitriptyline [From ELAVIL] AdvReac Mild THIRST Verified 08/06/24 15:40 Home Medications ?Medication ?Instructions ?Recorded ?Confirmed ?Last Taken ?Type pen needle, diabetic 31 gauge x #50 ea 10/11/21 07/30/24 Unknown History 3/16 (Easy Touch) sertraline 100 mg tablet 100 mg PO BID 10/11/21 08/29/24 09/01/24 History trazodone 100 mg tablet 200 mg PO BEDTIME PRN Insomnia 10/11/21 08/29/24 09/01/24 History alprazolam 0.5 mg tablet 0.5 mg PO DAILY PRN Anxiety 04/01/22 08/29/24 Unknown History atorvastatin 20 mg tablet 20 mg PO DAILY 04/01/22 08/29/24 09/01/24 History glipizide 5 mg tablet, extended 10 mg PO DAILY 04/01/22 08/29/2425 History release 24 hr lisinopril 2.5 mg tablet 2.5 mg PO DAILY 07/14/22 08/29/24 09/01/24 History fenofibrate 160 mg tablet 160 mg PO DAILY 11/17/23 08/29/24 09/01/24 History insulin aspart U-100 100 unit/mL 14 unit subcut TID 11/17/23 08/29/24 09/01/24 History (3 mL) subcutaneous pen (Novolog FlexPen U-100 Insulin aspart) insulin degludec 100 unit/mL (3 80 unit subcut DAILY 11/17/23 08/29/24 09/01/24 History mL) subcutaneous pen (Tresiba FlexTouch U-100 insulin) levothyroxine 50 mcg tablet 50 mcg PO DAILY 11/17/23 08/29/24 09/01/24 History omeprazole 40 mg capsule,delayed 40 mg PO DAILY 11/17/23 08/29/24 09/01/24 History release quetiapine 200 mg tablet 200 mg PO BEDTIME 11/17/23 08/29/24 09/01/24 History apremilast 30 mg tablet (Otezla) 30 mg PO BID 12/22/23 08/29/24 09/01/24 History benzonatate 200 mg capsule 200 mg PO TID PRN cough 08/29/24 08/29/24 Unknown History Exam Height,Weight and Vital Signs: Height 5 ft 10 in Weight 65.771 kg Assessment and Plan Assessment Anesthesia Assessment: Chart Reviewed Documented by User: Gely Lizarraga MD 09/03/24 08:02 HPI - Anesthesia Eval Anesthesia Pre-Procedure Meds Is the patient on any of the following meds?: GLP1/DPP4 (No trulicity for 2 months ) PMFSH Past Medical History Medical History Depression Chronic renal insufficiency Diabetes Restrictive lung disease Dyspnea on exertion COPD (chronic obstructive pulmonary disease) Restless legs syndrome (RLS) Sleep apnea Gallbladder abscess Family History Family History Brother Substance use disorder Sister Mental health disorder Diabetes Breast cancer Sister Mental health disorder Sister Mental health disorder Sister Mental health disorder Mother Mental health disorder Family history of problems with anesthesia: No Surgical History Surgical History H/O colectomy H/O colonoscopy Hx of cholecystectomy History of Problems with Anesthesia: No Social History [facility] Alcohol intake: current Alcohol intake frequency: former alcohol drinker Patient Tobacco Use Status: Never used Tobacco e-Cigarette/Vaping Use: Never Used Second Hand Smoke Exposure: No Use of substances other than those prescribed or required for medical reasons: No Have you been hit, kicked, punched, or otherwise hurt by someone within the past year? If so, by whom?: No Are you DNR?: No Advance Directives: No Advance Directives Information Provided: Yes Advance Directives on File: No Poor oral hygiene: No service: No Current occupational status: employed and disabled Current occupation: disabled - [employer] Cognitive needs: No Hearing needs: No Vision needs: Yes Meds Allergies Allergy/AdvReac Type Severity Reaction Status Date / Time hydrochlorothiazide Allergy Intermediate Unknown Verified 08/06/24 15:40 lamotrigine [From LAMICTAL] Allergy Intermediate RASH Verified 08/06/24 15:40 Penicillins [PENICILLINS] Allergy Intermediate ITCHY Verified 08/06/24 15:40 Tetracyclines [TETRACYCLINES] Allergy Intermediate ITCHY Verified 08/06/24 15:40 tramadol Allergy Unknown Unknown Verified 08/06/24 15:40 onabotulinumtoxinA Allergy swallowing Verified 08/06/24 15:40 [From Botox] gabapentin [From NEURONTIN] AdvReac Intermediate ACID REFLUX Verified 08/06/24 15:40 amitriptyline [From ELAVIL] AdvReac Mild THIRST Verified 08/06/24 15:40 Home Medications ?Medication ?Instructions ?Recorded ?Confirmed ?Last Taken ?Type pen needle, diabetic 31 gauge x #50 ea 10/11/21 07/30/24 Unknown History 3/16 (Easy Touch) sertraline 100 mg tablet 100 mg PO BID 10/11/21 08/29/24 09/01/24 History trazodone 100 mg tablet 200 mg PO BEDTIME PRN Insomnia 10/11/21 08/29/24 09/01/24 History alprazolam 0.5 mg tablet 0.5 mg PO DAILY PRN Anxiety 04/01/22 08/29/24 Unknown History atorvastatin 20 mg tablet 20 mg PO DAILY 04/01/22 08/29/24 09/01/24 History glipizide 5 mg tablet, extended 10 mg PO DAILY 04/01/22 08/29/24 09/01/24 History release 24 hr lisinopril 2.5 mg tablet 2.5 mg PO DAILY 07/14/22 08/29/24 09/01/24 History fenofibrate 160 mg tablet 160 mg PO DAILY 11/17/23 08/29/24 09/01/24 History insulin aspart U-100 100 unit/mL 14 unit subcut TID 11/17/23 08/29/24 09/01/24 History (3 mL) subcutaneous pen (Novolog FlexPen U-100 Insulin aspart) insulin degludec 100 unit/mL (3 80 unit subcut DAILY 11/17/23 08/29/24 09/01/24 History mL) subcutaneous pen (Tresiba FlexTouch U-100 insulin) levothyroxine 50 mcg tablet 50 mcg PO DAILY 11/17/23 08/29/24 09/01/24 History omeprazole 40 mg capsule,delayed 40 mg PO DAILY 11/17/23 08/29/24 09/01/24 History release quetiapine 200 mg tablet 200 mg PO BEDTIME 11/17/23 08/29/24 09/01/24 History apremilast 30 mg tablet (Otezla) 30 mg PO BID 12/22/23 08/29/24 09/01/24 History benzonatate 200 mg capsule 200 mg PO TID PRN cough 08/29/24 08/29/24 Unknown History Exam Height,Weight and Vital Signs: Height 5 ft 10 in Weight 65.771 kg Vital Signs Temp Pulse Resp BP Pulse Ox O2 Del Method 09/03/24 06:38 98.8 F 100 16 179/87 H 96 Room Air Pertinent Lab Results Pertinent Lab Results: Lab Results 09/03/24 Range/Units 06:34 POC Glucose 125 H (60-115) mg/dL Airway Mallampati Class: II TM Dist: >3cm Neck ROM: Full Loose/Missing/Broken Teeth: Yes (Some broken and missing teeth. Denies loose teeth) Heart: RRR Lungs: CTAB Assessment and Plan Assessment Anesthesia Assessment: Anesthesia Plan Discussed and Chart Reviewed Final Anesthetic Review Family History of Problems with Anesthesia: No History of Problems with Anesthesia: No NPO: Yes ASA Class: III Final Preanesthetic Review: No Changes in Pt Med Stat, Meds/Allgs Chart Reviewed, Consent Obtained/Reviewed and Anes Risks/Benef Reviewed Patient Risk: Intermediate Procedure Risk: Low Assessment/Block/Sedation in SS: Assess/Block/Sedation-SS Anesthetic Plan Anesthetic Plan: TIVA Disposition: Standard PACU
--- NOTE | 2024-09-02 16:03 | MHC.SHP ---
Pre-Procedural Eval Section A - 24 Hr Update-Section A only Date of Service: 09/03/24 Section B - Complete if H&P > 30 days Chief Complaint: Hx of colon cancer Details of Present Illness: Hx of colon ca s/p R hemicolectomy 06/2023. Allergies: Allergies Allergy/AdvReac Type Severity Reaction Status Date / Time hydrochlorothiazide Allergy Intermediate Unknown Verified 08/06/24 15:40 lamotrigine [From LAMICTAL] Allergy Intermediate RASH Verified 08/06/24 15:40 Penicillins [PENICILLINS] Allergy Intermediate ITCHY Verified 08/06/24 15:40 Tetracyclines [TETRACYCLINES] Allergy Intermediate ITCHY Verified 08/06/24 15:40 tramadol Allergy Unknown Unknown Verified 08/06/24 15:40 onabotulinumtoxinA Allergy swallowing Verified 08/06/24 15:40 [From Botox] gabapentin [From NEURONTIN] AdvReac Intermediate ACID REFLUX Verified 08/06/24 15:40 amitriptyline [From ELAVIL] AdvReac Mild THIRST Verified 08/06/24 15:40 Review of Systems Review of Systems Comment: Ten point ROS negative Exam Exam Comment: Gen appear: No acute distress HEENT: no icterus Chest: No overt resp distress Abd: soft, nontender, nondistended Psych: Stable affect, answering questions appropriately Neuro: A/Ox3 noted to move all extremities spontaneously Ext: no peripheral edema Plan Diagnosis/Plan: Unchanged I have reviewed the history and physical and performed a pertinent physical examination on my patient. No changes have occurred unless specified. Time Spent With Patient Time: Total time managing care of this patient today ____ minutes.
[2024-09-03 06:21] VITALS: BMI 20.7
[2024-09-03 06:38] VITALS: BP 179/87; PULSE 100; RESP 16; TEMP 37.1; O2SAT 96
[2024-09-03 06:39] LABS: Glucose, Whole Blood 125 mg/dL (60-115)
[2024-09-03] MEDS: Lactated Ringers 1,000 ML 100 ML IVCONT (06:39)
[2024-09-03 08:25] VITALS: BP 112/45; PULSE 79; RESP 16; TEMP 36.5; O2SAT 97
--- NOTE | 2024-09-03 08:27 | P.OPN-COLO_ITS ---
Colonoscopy Operative Note Operative Note Date of Service: 09/03/24 Narrative: Procedure: Colonoscopy Indication: Personal hx of colon cancer Endoscopist: Maia Alexander MD Anesthesia Provider: Dr Gely Lizarraga Anesthesia type: MAC Instrument: Olympus [id number]-H190L Consent: Indication, risks vs benefits, and alternatives were discussed with the patient who gave written informed consent to proceed. EKG, pulse, pulse oximetry and blood pressure were monitored throughout the procedure. Please see anesthesia flowsheet. Procedure: The patient was brought to the procedure room and placed in the left lateral decubitus position. IV medications were administered by the anesthesia provider in attendance. A digital rectal exam was performed which was normal. A distal attachment cap was affixed to the tip of the colonoscope which was then inserted through the anus and advanced through the colon to the ileocecal anastomosis and kiesha-terminal ileum. Mucosa was carefully examined under high definition white light as the instrument was slowly withdrawn in a retrograde panoramic fashion. Retroflexion was performed in rectum. The procedure was not difficult. There were no immediate obvious complications. The quality of the prep was BBPS: N/A+2+2 = adequate Withdrawal time 14 minutes. Limitations: No limitations. Findings: Mucosa: Normal to IC anastomosis, stump and kiesha-terminal ileum. Protruding lesions: * 4 sessile polyp of size 2-6 mm in transverse colon. Cold snare polypectomy was performed. The polyps were completely removed and retrieved. * 1 sessile polyp of size 5 mm in sigmoid colon. Cold snare polypectomy was performed. The polyp was completely removed and retrieved. * Medium internal hemorrhoids without stigmata of recent bleeding. Impression: 1. Normal colon mucosa 2. Total of 5 polyps removed 3. Internal hemorrhoids Recommendations: - Follow path results. - Repeat colonoscopy in 3 years for colorectal cancer surveillance
[2024-09-03 08:30] VITALS: BP 113/73; PULSE 89; RESP 16; O2SAT 99
[2024-09-03 08:35] VITALS: BP 145/75; PULSE 84; RESP 17; O2SAT 99
[2024-09-03 08:40] VITALS: BP 142/77; PULSE 83; RESP 17; TEMP 36.5; O2SAT 99
== END 2024-09-03 10:06 | disposition home or self-care (01) ==
PROVIDERS: PCP Internal Medicine; Visit Provider Internal Medicine
PROC: 0DJD8ZZ Inspection of Lower Intestinal Tract, Via Natural or Artificial Opening Endoscopic (ICD-10-PCS; CPT 45378; principal; 2024-09-03 07:30)
DX: Z12.11 Encounter for screening for malignant neoplasm of colon (principal); Z85.038 Personal history of other malignant neoplasm of large intestine; K90.829 Short bowel syndrome, unspecified; D12.3 Benign neoplasm of transverse colon; D12.5 Benign neoplasm of sigmoid colon; K64.8 Other hemorrhoids; Z98.0 Intestinal bypass and anastomosis status; Z90.49 Acquired absence of other specified parts of digestive tract; J44.9 Chronic obstructive pulmonary disease, unspecified; J98.4 Other disorders of lung; R06.09 Other forms of dyspnea; I10 Essential (primary) hypertension; E11.40 Type 2 diabetes mellitus with diabetic neuropathy, unspecified; G47.33 Obstructive sleep apnea (adult) (pediatric); Z79.4 Long term (current) use of insulin; Z79.84 Long term (current) use of oral hypoglycemic drugs; Z79.899 Other long term (current) drug therapy; Z88.0 Allergy status to penicillin; Z88.1 Allergy status to other antibiotic agents; Z88.8 Allergy status to other drugs, medicaments and biological substances
CPT/HCPCS: 45385; 82947; 88305; J2003; J2704

== ENCOUNTER → 2024-09-03 05:47 | Outpatient (BNV) | payer MEDICARE, SELFPAY | PROVIDERS: PCP Internal Medicine; Visit Provider Internal Medicine | DX: Z12.11 Encounter for screening for malignant neoplasm of colon (principal); Z85.038 Personal history of other malignant neoplasm of large intestine; D12.5 Benign neoplasm of sigmoid colon; D12.3 Benign neoplasm of transverse colon | CPT/HCPCS: 45385 ==

== ENCOUNTER 2024-09-12 15:05 | Outpatient (REF) | payer MEDICARE, SELFPAY ==
--- OUTSIDE RECORDS SUMMARY | 2024-09-12 16:09 | XMS_ITS | Continuity of Care Document ---
Author Organization [facility] [address] [place] [address] Phone [phone] Care Team Providers Care Circulation Librarian Name Role Phone Gt Akins Care Team Information Lugger [phone] Iftikhar Grady MD Care Team Information Receiv er [phone] Problems Active Problems Provider Date Diabetes mellitus [...] 300units Le Garcia M.D. 07/19/2024 Freestyle Andrade 2/[place]/Flash Glucose Monitoring Cjlfyc4Xohten Device use as directed with sensors 1unlopez Garcia M.D. 03/13/2024 Freestyle LancetsMisc Use one lancets 4 time a day for glucose check. Dx- E11.9 300unlopez Garcia M.D. 01/23/2024 Ferrous Upzhuerqs331(38Fe) mg Tablets 1 by mouth once a day 90tajoshua Morataya M.D. 09/28/2023 Trulicity0.75mg/0.5M L Solution Pen-Inject One Subcutaneous Injection Every Week Dx: E11.9 2ml E11Debbie Garcia M.D. 08/04/2023 Sure Comfort Pen NDL 31GX3/ 31G X31G X 5 mm Use as Directed 4 Times A Day 400units Gurvinder Morataya M.D. 03/13/2023 Levothyroxine Hvnqsn17paj Tablets Take 1 Tablet By Mouth Daily 90tajoshua Morataya M.D. 11/08/2022 Xanax0.5mg Tablets one qd Gurvinder Morataya M.D. 04/19/2022 Umkzljdfslu805zw Tablets Take 1 Tablet By Mouth Daily as Directed 90tajoshua Morataya M.D. 04/19/2022 Easy Touch Pen NDL 31GX3/16 31G X31G X 5 mm Use as Directed 4 Times A Day 100units Le Garcia M.D. 02/24/2022 Atorvastatin Rwaaabr15ng Tablets 1 by mouth every day Gurvinder Morataya M.D. 01/17/2022 Glipizide ER5mg Tablets ER 24HR Take 2 Tablet By Mouth Every Morning 90tabs Gurvinder Morataya M.D. Novolog Uypbntr155Kasr/ML Solution Pen-Inject 6 To 12 Units Subcutaneous Injection Before Meals 15units Gurvinder Morataya M.D. Tresiba Fzxukjdxf297Vfny/ML Solution Pen-Inject 80 Unit Subcutaneous Injection Daily AT Bedtime 15units Le Garcia M.D. Trazodone UMO197xu Tablets take two tablets by mouth at bedtime Unknown Sertraline DLD755qb Tablets 2 by mouth every day 45tabs Unknown Vygtiwmmpi85te Capsules DR 1 by mouth every day 90caps Unknown Jbxtjuzcb42sy Tablets Take 1 Tablet By Mouth Every [...] Hemoglobin A1c 6.5% Basic Metabolic Panel 05/04/2023 [facility] Glucose 157 mg/dL High [...] Hemoglobin A1c 7.3% Basic Metabolic Panel 12/07/2022 [facility] Glucose 93 mg/dL (70-99) [...] 8.5% TSH With Reflex To FT4 07/19/2022 [facility] TSH With Reflex To [...] 2 diabet es mellitus without complications Z79.4 observer gravity prospecting (current) use of insulin Assessments Date Code Description Provider 08/15/2024 E11.9 Type 2 diabetes mellitus wit hout complications WENDI Silver 08/15/2024 Z79.4 FDC (current) use of i nsulin WENDI Silver Plan of Treatment Future Appointment(s):* 09/26/2024 2:15 pm - WENDI Silver at Main Office 08/15/2024 - WENDI Silver* E11.9 Type 2 diabetes mellitus without complications * Z79.4 observer gravity prospecting (current) use of insulin Functional Status Description No Information Available Mental Status Description No Information Available Referrals Description No Information Available
--- OUTSIDE RECORDS SUMMARY | 2024-09-12 16:09 | XMS_ITS | Clinical Summary ---
Author Organization [facility] Address [address] [place] [address] Care Team Providers Care Database Administration Associate Name Role Phone Kaye Barreto MD Primary [...] age to complete this topic Care Teams Database Administration Associate Relationship Specialty Start Date End Date Kaye Barreto MD PCP - General Internal Medicine 11/15/17
--- OUTSIDE RECORDS SUMMARY | 2024-09-12 16:09 | XMS_ITS | Clinical Summary ---
Author Organization [facility] Address [address] [place] [address] Phone Care Team Providers Care Rivet Tosser Name Role Phone Gt Akins MD Primary Care Provider [phone] Allergies Active Allergy Reactions Criticality Noted Date [...] diabetes mellitus wit h peripheral artery disease ([facility] V24, [facility] V28) 11/22/2018 Type 2 diabetes mellitus wit h cataract ([facility] V24, [facility] V28) 02/14/2018 Type 2 diabetes mellitus wit h renal manifestations ([facility] V24, [facility] V28) 02/14/2018 Hyperlipidemia 11/27/2017 Overview (04/08/2024): Last [...] current regimen. Major depression in partial remission ([facility] V 24) 11/27/2017 Fibromyalgia 10/27/2016 Type 2 diabetes mellitus wit h neurological manifestations ([facility] V24, [facility] V28) 10/27/2016 Chronic insomnia 10/20/2016 GERD (gastroesophageal reflux disease) 7 Hypothyroidism 10/20/2016 Cataract 03/02/2016 CKD (chronic kidney disease) stage 3, GFR 30-59 ml/min ([facility] V24, [facility] V28) 01/14/2016 Insomnia 01/14/2016 Panic disorder 01/14/2016 Psoriasis 01/14/2016 Vitamin B 12 deficiency 01/14/2016 DDD (degenerative disc disease), lumbar 11/20/19 16 Overview (04/08/2024): Cervical and thoracic as well Chronic fatigue syndrome 11/13/2015 Migraine headache 07/02/2013 Encounters Date Type Department Care Team Description 08/30/2024 1:48 PM EDT - 08/30/2024 11:59 PM EDT Hospital Encounter [facility] CT Scan [address] [place] [address] Malignant neoplasm of ascending colon ([facility] V24, [facility] V28) Discharge Disposition: Home or Self Care 07/16/2024 Telephone Gastroenterology - [address] [facility] [address] [place] [address] Darcy Land MD from Last [...] Type 2 diabetes mellitus wit h cataract ([facility] V24, [facility] V28) 02/14/2018 DX:Type 2 diabetes mellitus with cataract ([facility]) Type 2 diabetes mellitus wit h renal manifestations ([facility] V24, [facility] V28) 02/14/2018 DX:Type 2 diabetes mellitus with renal manifestations ([facility]) Cataract 03/02/2016 DX:Cataract Chronic insomnia 10/20/2016 DX:Chronic inso mnia CKD (chronic kidney disease) stage 3, GFR 30-59 ml/min ([facility] V24, [facility] V28) 01/14/2016 DX:CKD (chronic kidney disea se) stage 3, GFR 30-59 ml/min ([facility]) DDD (degenerative disc disea se), lumbar 11/20/2015 DX:DDD (degenerative disc di sease), lumbar; COMMENT: Cervical and thoracic as well Fibromyalgia 10/27/2016 DX:Fibromyalgia GERD (gastroesophageal reflu x disease) 10/20/2016 DX:GERD (gastroesophageal re flux disease) Hyperlipidemia 11/27/2017 DX:Hyperlipidemi a Hypertension 11/27/2017 DX:Hypertension Hypothyroidism 10/20/2016 DX:Hypothyroidis m Insomnia 01/14/2016 DX:Insomnia Major depression in partial remission ([facility] V24) 11/27/2017 DX:Major depression in parti al remission ([facility]) Migraine headache 07/02/2013 DX:Migraine he adache Panic disorder 01/14/2016 DX:Panic disorde r Psoriasis 01/14/2016 DX:Psoriasis Type 2 diabetes mellitus wit h neurological manifestations ([facility] V24, [facility] V28) 10/27/2016 DX:Type 2 diabetes mellitus with [...] diabetes mellitus wit h peripheral artery disease ([facility] V24, [facility] V28) 11/22/2018 DX:Type 2 diabetes mellitus with [...] Signed Date: 08/30/2024 16:38 ET Workstation ID: [id number] Transcribed By: Self Edit Transcribed Date: 08/30/2024 [...] Signed Date: 08/30/2024 16:38 ET Workstation ID: [id number] Transcribed By: Self Edit Transcribed Date: 08/30/2024 16:33 ET us Iftikhar Grady MD IMG CT PROCEDURES Final Res ult * (ABNORMAL) CBC auto differential (08/29/2024 12:05 PM EDT) WBC 5.9 4.8 - 10.8 K/mcL LAB HEMETOLOGY METHOD 08/29/2024 12:[address] [facility] RBC 4.30(L) 4.50 - 5.50 M/mcL LAB HEMETOLOGY METHOD [facility] Hemoglobin 13.5 13.5 - 17.5 g/dL LAB HEMETOLOGY METHOD 08/29/2024 12:[address] [facility] Hematocrit 40.1(L) 42.0 - 54.0 % LAB HEMETOLOGY METHOD 08/29/2024 12:[address] [facility] MCV 93.0 79.0 - 98.0 FL LAB HEMETOLOGY METHOD 08/29/2024 12:40 PM [facility] MCH 31.3 27.0 - 32.0 pcg LAB HEMETOLOGY METHOD 08/29/2024 12:40 PM EDT [facility] MCHC 33.7 32.0 - 37.0 g/dL LAB HEMETOLOGY METHOD 08/29/2024 12:[address] [facility] RDW 12.5 11.0 - 15.0 % LAB HEMETOLOGY METHOD 08/29/2024 12:40 PM [facility] Platelets 188 130 - 400 K/mcL LAB HEMETOLOGY METHOD 08/29/2024 12:[address] [facility] MPV 9.8 7.0 - 11.0 FL LAB HEMETOLOGY METHOD 08/29/2024 12:40 PM [facility] NRBC 0.0 <1.0 % LAB HEMETOLOGY METHOD 08/29/2024 12:40 PM [facility] NRBC Absolute 0.00 <0.10 K/mcL LAB HEMETOLOGY METHOD 08/29/2024 12:40 PM [facility] Neutrophils Relative 75.1 % LAB HEMETOLOGY METHOD 08/29/2024 12:40 PM [facility] Lymphocytes Relative 14.7 % LAB HEMETOLOGY METHOD 08/29/2024 12:40 PM [facility] Monocytes Relative 6.7 % LAB HEMETOLOGY METHOD 08/29/2024 12:40 PM [facility] Eosinophils Relative 2.4 % LAB HEMETOLOGY METHOD 08/29/2024 12:40 PM [facility] Basophils Relative 0.3 % LAB HEMETOLOGY METHOD 08/29/2024 12:40 PM [facility] Immature Granulocytes Relative 0.8 % LAB HEMETOLOGY METHOD 08/29/2024 12:40 PM [facility] Neutrophils Absolute 4.45 1.50 - 7.00 K/mcL LAB HEMETOLOGY METHOD 08/29/2024 12:40 PM [facility] Lymphocytes Absolute 0.87(L) 1.00 - 5.00 K/mcL LAB HEMETOLOGY METHOD 08/29/2024 12:[address] [facility] Monocytes Absolute 0.40 0.20 - 1.00 K/[facility] LAB HEMETOLOGY METHOD 08/29/2024 12:[address] [facility] Eosinophils Absolute 0.14 0.00 - 0.50 K/[facility] LAB HEMETOLOGY METHOD 08/29/2024 12:[address] [facility] Basophils Absolute 0.02 0.00 - 0.20 K/[facility] LAB HEMETOLOGY METHOD 08/29/2024 12:[address] [facility] Immature Granulocytes Absolute 0.05(H) 0.00 - 0.03 K/[facility] LAB HEMETOLOGY METHOD 08/29/2024 12:[address] [facility] Blood Venous blood specimen / Unknown Venipuncture / Unknown 08/29/2024 12:05 PM EDT 08/29/2024 12:27 PM EDT us Jim Larsen DO LAB BLOOD ORDERABLES Final Res ult [facility] [address] [place] [address], * CEA (08/29/2024 12:05 PM EDT) CEA <2.0 0.0 - 5.0 ng/mL LAB CHEMISTRY METHOD 08/29/2024 2:[address] [facility] Blood Venous blood specimen / Unknown Venipuncture / Unknown 08/29/2024 12:05 PM EDT 08/29/2024 12:[address] [facility] - 08/29/2024 2:57 PM EDT The Siemens Advia Centaur Chemiluminescent Immunoassay is used. Results obtained with different assay methods or kits cannot be used interchangeably. Results cannot be interpreted as absolute evidence of the presence or absence of malignant disease. us Jim Larsen DO LAB BLOOD ORDERABLES Final Res ult [facility] [address] [place] [address], [place] [phone] * (ABNORMAL) Comprehensive metabolic panel (08/29/2024 12:05 PM EDT) Sodium 140 133 - 145 mmol/L LAB CHEMISTRY METHOD 08/29/2024 1:[address] [facility] Potassium 3.5 3.5 - 5.5 mmol/L LAB CHEMISTRY METHOD 08/29/2024 1:44 PM [facility] Chloride 103 96 - 110 mmol/L LAB CHEMISTRY METHOD 08/29/2024 1:44 PM [facility] CO2 26 21 - 32 mmol/L LAB CHEMISTRY METHOD 08/29/2024 1:44 PM [facility] Anion Gap 11 3 - 11 LAB CHEMISTRY METHOD 08/29/2024 1:44 PM [facility] Glucose 130(H) 70 - 100 mg/dL LAB CHEMISTRY METHOD 08/29/2024 1:44 PM [facility] BUN 38(H) 5 - 25 mg/dL LAB CHEMISTRY METHOD 08/29/2024 1:44 PM [facility] Creatinine 1.62(H) 0.70 - 1.30 mg/dL LAB CHEMISTRY METHOD 08/29/2024 1:44 PM [facility] eGFR 44(L) >=60 mL/min/1. 73m2 LAB CHEMISTRY METHOD 08/29/2024 1:44 PM [facility] Comment:Calculation based on the??Chronic Kidney Disease Epidemiology Collaboration (CKD-EPI) equation refit??without adjustment for race. BUN/Creatinine Ratio 23.5 LAB CHEMISTRY METHOD 08/29/2024 1:[address] [facility] Calcium 9.7 8.5 - 10.5 mg/dL LAB CHEMISTRY METHOD 08/29/2024 1:[address] [facility] AST (SGOT) 21 10 - 42 unit/L LAB CHEMISTRY METHOD 08/29/2024 1:44 PM [facility] ALT (SGPT) 27 10 - 60 unit/L LAB CHEMISTRY METHOD 08/29/2024 1:[address] [facility] Alkaline Phosphatase 87 42 - 121 unit/L LAB CHEMISTRY METHOD 08/29/2024 1:[address] [facility] Total Protein 7.8 6.0 - 8.0 g/dL LAB CHEMISTRY METHOD 08/29/2024 1:44 PM [facility] Albumin 4.6 3.2 - 5.0 g/dL LAB CHEMISTRY METHOD 08/29/2024 1:[address] [facility] Total Bilirubin 0.5 0.0 - 1.4 mg/dL LAB CHEMISTRY METHOD 08/29/2024 1:[address] [facility] Blood Venous blood specimen / Unknown Venipuncture / Unknown 08/29/2024 12:05 PM EDT 08/29/2024 12:29 PM EDT us Jim Larsen DO LAB BLOOD ORDERABLES Final Res ult [facility] [address] [place] [address], * Hemoglobin A1c (05/31/2023) Hemoglobin A1C 5.8 <=6.5 % Blood Venous blood specimen / Unknown us Historical Provider LAB BLOOD ORDERABLES Maria E l Result * Hm Colonoscopy (05/18/2023) Pathologist [facility] Colonoscopy No interpretation , Abstracted Anatomical Region Laterality Modality Other [facility] Provider HEALTH MAINTENANCE Final Result * Hepatitis C Screening (08/31/2020) Pathologist [facility] Hepatitis C Screening Abstracted [facility] Provider HEALTH MAINTENANCE Final Result * Urine Albumin Creatinine Ratio (01/27/2020) Pathologist [facility] Urine Albumin Creatinine Ratio Abstracted [facility] Provider HEALTH MAINTENANCE Final Result * (ABNORMAL) Lipid panel (01/27/2020) [facility] LDL/HDL Ratio 8(A) 0 - 4 Triglycerides 561(A) 0 - 150 mg/dL Comment:Triglyceride value i s >= 500. ??Calculated LDL is not meaningful. ??Direct LDL has been added. Cholesterol 268(A) 0 - 200 mg/dL HDL 33(A) >=40 mg/dL LDL Cholesterol 153(A) 0 - 100 mg/dL Blood Venous blood specimen / Unknown Result [facility] Provider LAB BLOOD ORDERABLES Maria E l Result from Last 3 Months or Most Recently Relevant to Health Maintenance Insurance MEDICARE [facility] Care Teams Rivet Tosser Relationship Specialty Start Date End Date Gt Akins MD [address] [place] [address] PCP - General 05/18/23
--- OUTSIDE RECORDS SUMMARY | 2024-09-12 16:09 | XMS_ITS | Clinical Summary ---
Author Organization [facility] Address [address] [facility] [address] [place] [address] Phone Care Team Providers Care Reverser Name Role Phone Gt Akins MD Primary Care Provider [phone] Allergies Active Allergy Reactions Criticality Noted Date [...] Only [facility] [address] [address] Yadira Dowell ARNP Stage 3a [...] PM EDT) Hemoglobin A1C 6.8(H) (4.0-5.6) % [facility] Comment: MONITORING: In known diabetic patients, hemoglobin A1c targets should be discussed with health care provider. DIAGNOSTIC USE: ??The [place] Diabetes Association (ADA) and the World Health [...] Supplement 1 Testing performed or reported by [facility], a Service of [facility], [address] [place] [id number] Danae Holliday MD, Railway Equipment Operator [facility]# [id number] 08/29/2022 2:16 PM EDT 08/29/2022 2:24 PM EDT Fernanda Escalante MD LAB BLOOD ORDERABLES Final Resu lt [facility] from Last 3 Months or Most Recently Relevant to Health Maintenance Insurance Medicare [facility] Medicare [facility] Care Teams Reverser Relationship Specialty Start Date End Date Gt Akins MD [address] [place] [address] PCP - General Internal Medicine 04/06/22
[2024-09-12 17:38] LABS: MANUAL DIFF FLAG NO
[2024-09-12 17:57] LABS: Basophils Percent Auto 0.4 % (0-2); Eosinophils Absolute Auto 0.1 X10*3/uL (0.0-0.4); Eosinophils Percent Auto 2.6 % (0-4); Hematocrit 36.1 % (42.0-52.0); Hemoglobin 12.2 g/dl (14.0-18.0); Imm Gran Abs Auto 0.02 X10*3/uL (0.00-0.03); Imm Gran Pct Auto 0.4 % (0.0-0.4); Lymphocytes Absolute Auto 0.8 X10*3/uL (1.2-4.9); Lymphocytes Percent Auto 15.1 % (20-40); Mean Corpuscular HGB Conc 33.8 g/dl (31.0-36.0); Mean Corpuscular Hemoglobin 30.5 pg (27.0-33.0); Mean Corpuscular Volume 90.3 fL (80.0-98.0); Mean Platelet Volume 9.5 fL (9.4-12.4); Monocytes Absolute Auto 0.3 X10*3/uL (0.1-1.2); Monocytes Percent Auto 6.4 % (2-11); Neutrophils Absolute Auto 3.8 x10*3/uL (2.0-8.3); Neutrophils Percent Auto 75.1 % (45-73); Platelet Count 180 X10*3/uL (160-400); Red Cell Distribution Width 12.1 % (11.0-16.0)
[2024-09-12 18:16] LABS: Albumin Level 4.6 g/dL (3.5-5.0); Anion Gap 15 (12-20); Blood Urea Nitrogen 31 mg/dL (9-16); Calcium 10.1 mg/dL (8.4-10.2); Carbon Dioxide 26 mmol/L (22-29); Chloride 103 mmol/L (96-108); Estimated Glomerular Filt Rate 43; Parathyroid Hormone Intact 63.2 pg/mL (8.7-77.1); Phosphorus 3.6 mg/dL (2.7-4.5); Potassium 4.3 mmol/L (3.3-5.1); Sodium 140 mmol/L (135-145)
[2024-09-12 18:18] LABS: Total Protein Urine Random < 7 mg/dL (<12)
[2024-09-12 18:24] LABS: Vitamin D 25-OH Total 41.8 ng/mL (>30)
[2024-09-17 08:39] LABS: IgA 362 mg/dL (70-320); IgG 438 mg/dL (600-1540); IgM 86 mg/dL (50-300)
== END 2024-09-12 15:06 | disposition home or self-care (01) ==
LOC: HO.HKASLDS 15:05
PROVIDERS: PCP Internal Medicine; Visit Provider Internal Medicine Nephrology
DX: I10 Essential (primary) hypertension (principal); E11.21 Type 2 diabetes mellitus with diabetic nephropathy; N18.32 Chronic kidney disease, stage 3b
CPT/HCPCS: 36415; 80051; 82040; 82306; 82310; 82565; 82570; 82784; 83970; 84100; 84156; 84520; 85025; 86334; 99212

== ENCOUNTER 2024-09-12 15:05 | Outpatient (AMB) | payer MEDICARE, SELFPAY ==
--- OUTSIDE RECORDS SUMMARY | 2024-09-12 15:44 | XMS_ITS | Clinical Summary ---
Author Organization [facility] Address [address] [place] [address] Phone Care Team Providers Care Hospice Care Consultant Name Role Phone Gt Akins MD Primary Care Provider [phone] Allergies Active Allergy Reactions Criticality Noted Date [...] Chronic pain syndrome 05/31/2023 Malignant neoplasm of ascend ing colon (CMS/HCC V24, CMS/HCC V28) 05/31/2023 Central sleep apnea 11/22/2018 Overview (04/08/2024): Non complaint with CPAP ED (erectile dysfunction) 11/22/2018 Iron deficiency anemia 11/22/2018 Overview (04/08/2024): Unclear etiology, new pt to practice 10/2018 on iron supplement since 2018 Type 2 diabetes mellitus wit h peripheral artery disease ([facility] V24, [facility] V28) 11/22/2018 Type 2 diabetes mellitus wit h cataract ([facility] V24, [facility] V28) 02/14/2018 Type 2 diabetes mellitus wit h renal manifestations ([facility] V24, [facility] V28) 02/14/2018 Hyperlipidemia 11/27/2017 Overview (04/08/2024): Last Assessment [...] current regimen. Major depression in partial remission ([facility] V 24) 11/27/2017 Fibromyalgia 10/27/2016 Type 2 diabetes mellitus wit h neurological manifestations ([facility] V24, [facility] V28) 10/27/2016 Chronic insomnia 10/20/2016 GERD (gastroesophageal reflux disease) 7 Hypothyroidism 10/20/2016 Cataract 03/02/2016 CKD (chronic kidney disease) stage 3, GFR 30-59 ml/min ([facility] V24, [facility] V28) 01/14/2016 Insomnia 01/14/2016 Panic disorder 01/14/2016 Psoriasis 01/14/2016 Vitamin B 12 deficiency 01/14/2016 DDD (degenerative disc disease), lumbar 11/20/19 16 Overview (04/08/2024): Cervical and thoracic as well Chronic fatigue syndrome 11/13/2015 Migraine headache 07/02/2013 Encounters Date Type Department Care Team Description 08/30/2024 1:48 PM EDT - 08/30/2024 11:59 PM EDT Hospital Encounter [facility] CT Scan [address] [place] [address] Malignant neoplasm of ascending colon ([facility], [facility] V28) Discharge Disposition: Home or Self Care 07/16/2024 Telephone Gastroenterology - [address] [facility] [address] [place] [address] Darcy Land MD from Last [...] Type 2 diabetes mellitus wit h cataract ([facility] V24, [facility] V28) 02/14/2018 DX:Type 2 diabetes mellitus with cataract ([facility]) Type 2 diabetes mellitus wit h renal manifestations ([facility] V24, [facility] V28) 02/14/2018 DX:Type 2 diabetes mellitus with renal manifestations ([facility]) Cataract 03/02/2016 DX:Cataract Chronic insomnia 10/20/2016 DX:Chronic inso mnia CKD (chronic kidney disease) stage 3, GFR 30-59 ml/min ([facility] V24, [facility] V28) 01/14/2016 DX:CKD (chronic kidney disea se) stage 3, GFR 30-59 ml/min ([facility]) DDD (degenerative disc disea se), lumbar 11/20/2015 DX:DDD (degenerative disc di sease), lumbar; COMMENT: Cervical and thoracic as well Fibromyalgia 10/27/2016 DX:Fibromyalgia GERD (gastroesophageal reflu x disease) 10/20/2016 DX:GERD (gastroesophageal re flux disease) Hyperlipidemia 11/27/2017 DX:Hyperlipidemi a Hypertension 11/27/2017 DX:Hypertension Hypothyroidism 10/20/2016 DX:Hypothyroidis m Insomnia 01/14/2016 DX:Insomnia Major depression in partial remission ([facility] V24) 11/27/2017 DX:Major depression in parti al remission ([facility]) Migraine headache 07/02/2013 DX:Migraine he adache Panic disorder 01/14/2016 DX:Panic disorde r Psoriasis 01/14/2016 DX:Psoriasis Type 2 diabetes mellitus wit h neurological manifestations ([facility] V24, [facility] V28) 10/27/2016 DX:Type 2 diabetes mellitus with neurological manifestations (HCC) Vitamin B 12 deficiency 01/14/2016 DX:Vitam in B 12 deficiency CAD (coronary artery disease) 02/14/2018 DX :CAD (coronary artery disease) Iron deficiency anemia 11/22/2018 DX:Iron d eficiency anemia; COMMENT: Unclear etiology, new pt to practice 10/2018 on iron supplement since 2017 ED (erectile dysfunction) 11/22/2018 DX:ED (erectile dysfunction) Type 2 diabetes mellitus wit h peripheral artery disease ([facility] V24, [facility] V28) 11/22/2018 DX:Type 2 diabetes mellitus with peripheral [...] 10/06/2023 10:42 AM EDT Plan of Treatment Health Maintenance Due Date Last Done Comments Diabetes: Annual Foot Exam 12/19/1960 Diabetes: Annual Retina Eye Exam 12/19/1960 Depression Screening 04/03/2022 Falls Risk Assessment 04/03/2022 Medicare Annual Wellness Visit 04/03/2022 Social Influencers of Health Screening 04/03/2022 Diabetes: Annual Urine Albumin-Creatinine Ratio (uACR) 04/15/2022 01/27/2020 DTaP,Tdap,and Td Vaccines (2 - Td or Tdap) 08/15/2022 08/15/2012 Diabetes: Blood Sugar Control Test (HGBA1C) 11/29/2023 05/31/2023, 08/29/2022 COVID-19 Vaccine (8 - Pfizer risk season) 2024 01/12/2024, 02/06/2023, 02/04/2022, Additional history exists Cholesterol Screening (Lipid Panel) 01/26/2025 01/27/2020 Diabetes: Annual GFR (Glomerular Filtration Rate) 08/29/2025 08/29/2024, 01/27/2020 Hypertension/CHF/CAD Annual BMP Blood Test 08/29/2025 08/29/2024, 01/27/2020 Colorectal Cancer Screening: Colonoscopy 05/18/2033 05/18/2023 Hepatitis C Screening Completed 08/31/2020 Pneumococcal Vaccine: 50+ Years Completed 07/24/2022, 10/20/2016, 02/24/2015, Additional history exists Zoster Vaccines Completed 07/24/2022, 12/28/2018 RSV Immunization Adult Patients Completed 02/16/2023 Influenza Vaccine Completed 01/12/2024, , 02/15/2021, Additional history exists HIB Vaccines Aged Out No longer eligi [...] Procedure Name Priority Date/Time Associated Diagnosis Comments CT ABDOMEN PELVIS W CONTRAST Routine 08/30/2024 2:34 PM EDT Malignant neoplasm of ascending colon (CMS/HCC V24, CMS/HCC V28) CBC WITH AUTO DIFFERENTIAL Routine 08/29/2024 12:05 PM EDT Adenocarcinoma of colon (CMS/HCC V24, CMS/HCC V28) CARCINOEMBRYONIC ANTIGEN Routine 025 12:05 PM EDT Adenocarcinoma of colon (CMS/HCC V24, CMS/HCC V28) COMPREHENSIVE METABOLIC PANEL Routine 08/29/2024 12:05 PM EDT Adenocarcinoma of colon (CMS/HCC V24, CMS/HCC V28) CBC AND DIFFERENTIAL Routine 08/29/2024 12:05 PM EDT Adenocarcinoma of colon (CMS/HCC V24, CMS/HCC V28) HEMOGLOBIN A1C Routine 05/31/2023 HM COLONOSCOPY Routine 05/18/2023 HEPATITIS C SCREENING Routine 08/31/2020 URINE ALBUMIN CREATININE RATIO Routine 01/27/2020 LIPID PANEL Routine 01/27/2020 from Last 3 Months or Most Recently Relevant to Health Maintenance Results * CT Abdomen Pelvis w Contrast (08/30/2024 2:34 PM EDT) Anatomical Region Laterality Modality Body Computed Tomogra phy 08/30/2024 4:33 PM EDT Impressions 08/30/2024 4:38 PM EDT Interval right hemicolectomy without residual or metastatic disease. -------- FINAL REPORT -------- Dictated By: Radha Martinez Dictated Date: 08/30/2024 16:33 ET Assigned Physician: Radha Martinez Reviewed and Electronically Signed By: Radha Martinez Signed Date: 08/30/2024 16:38 ET Workstation ID: [id number] Transcribed By: Self Edit Transcribed Date: 08/30/2024 16:33 ET Narrative 08/30/2024 4:38 PM EDT PROCEDURE: CT ABDOMEN/PELVIS WITH CONTRAST INDICATION: hx T3 colon cancer, monitor TECHNIQUE: CT of the abdomen and pelvis following the intravenous administration of 90cc Isovue 370. Multiplanar reformats. The examination was performed utilizing dose reduction techniques. Total DLP 994 COMPARISON: ??05/25/2023 FINDINGS: ?? LOWER THORAX: Lung bases are clear. HEPATOBILIARY: No focal liver lesions. Status post cholecystectomy. SPLEEN: Splenomegaly. PANCREAS: No focal mass or ductal dilatation. ADRENALS: Small left myolipoma. KIDNEYS/URETERS: No hydronephrosis, stones, or solid mass. PELVIC ORGANS/BLADDER: Mild prostatomegaly and mild bladder distention. PERITONEUM / RETROPERITONEUM: No ascites or free air. No retroperitoneal lymphadenopathy. VESSELS: Scattered atherosclerotic plaque throughout the aorta and its major branches. No aneurysm. GI TRACT: Interval right hemicolectomy. ??No mass or obstruction. ??Prominent stool burden in the redundant sigmoid colon. BONES AND SOFT TISSUES: Scattered degenerative changes seen throughout the bones. Small containing right inguinal hernia. Procedure Note Radha Martinez MD - 08/30/2024 PROCEDURE: CT ABDOMEN/PELVIS WITH CONTRAST INDICATION: hx T3 colon cancer, monitor TECHNIQUE: CT of the abdomen and pelvis following the intravenousadministration of 90cc Isovue 370. Multiplanar reformats. The examinationwas performed utilizing dose reduction techniques. Total DLP 994 COMPARISON: 05/25/2023 FINDINGS: LOWER THORAX: Lung bases are clear. HEPATOBILIARY: No focal liver lesions. Status post cholecystectomy. SPLEEN: Splenomegaly. PANCREAS: No focal mass or ductal dilatation. ADRENALS: Small left myolipoma. KIDNEYS/URETERS: No hydronephrosis, stones, or solid mass. PELVIC ORGANS/BLADDER: Mild prostatomegaly and mild bladder distention. PERITONEUM / RETROPERITONEUM: No ascites or free air. No retroperitoneallymphadenopathy. VESSELS: Scattered atherosclerotic plaque throughout the aorta and itsmajor branches. No aneurysm. GI TRACT: Interval right hemicolectomy. No mass or obstruction.Prominent stool burden in the redundant sigmoid colon. BONES AND SOFT TISSUES: Scattered degenerative changes seen throughout thebones. Small containing right inguinal hernia. IMPRESSION: Interval right hemicolectomy without residual or metastatic disease. -------- FINAL REPORT -------- Dictated By: Radha Martinez Dictated Date: 08/30/2024 16:33 ET Assigned Physician: Radha Martinez Reviewed and Electronically Signed By: Radha Martinez Signed Date: 08/30/2024 16:38 ET Workstation ID: [id number] Transcribed By: Self Edit Transcribed Date: 08/30/2024 16:33 ET us Iftikhar Grady MD IMG CT PROCEDURES Final Res ult * (ABNORMAL) CBC auto differential (08/29/2024 12:05 PM EDT) WBC 5.9 4.8 - 10.8 K/mcL LAB HEMETOLOGY METHOD 08/29/2024 12:40 PM EDT [facility] RBC 4.30(L) 4.50 - 5.50 M/mcL LAB HEMETOLOGY METHOD [facility] Hemoglobin 13.5 13.5 - 17.5 g/dL LAB HEMETOLOGY METHOD 08/29/2024 12:40 PM EDT [facility] Hematocrit 40.1(L) 42.0 - 54.0 % LAB HEMETOLOGY METHOD 08/29/2024 12:40 PM EDT [facility] MCV 93.0 79.0 - 98.0 FL LAB HEMETOLOGY METHOD 08/29/2024 12:40 [facility] MCH 31.3 27.0 - 32.0 pcg LAB HEMETOLOGY METHOD 08/29/2024 12:40 PM EDT [facility] MCHC 33.7 32.0 - 37.0 g/dL LAB HEMETOLOGY METHOD 08/29/2024 12:40 PM EDT [facility] RDW 12.5 11.0 - 15.0 % LAB HEMETOLOGY METHOD 08/29/2024 12:40 [facility] Platelets 188 130 - 400 K/mcL LAB HEMETOLOGY METHOD 08/29/2024 12:40 PM EDT [facility] MPV 9.8 7.0 - 11.0 FL LAB HEMETOLOGY METHOD 08/29/2024 12:40 [facility] NRBC 0.0 <1.0 % LAB HEMETOLOGY METHOD 08/29/2024 12:40 PM [facility] NRBC Absolute 0.00 <0.10 K/mcL LAB HEMETOLOGY METHOD 08/29/2024 12:40 PM [facility] Neutrophils Relative 75.1 % LAB HEMETOLOGY METHOD 08/29/2024 12:40 PM [facility] Lymphocytes Relative 14.7 % LAB HEMETOLOGY METHOD 08/29/2024 12:40 PM [facility] Monocytes Relative 6.7 % LAB HEMETOLOGY METHOD 08/29/2024 12:40 PM [facility] Eosinophils Relative 2.4 % LAB HEMETOLOGY METHOD 08/29/2024 12:40 PM [facility] Basophils Relative 0.3 % LAB HEMETOLOGY METHOD 08/29/2024 12:40 [facility] Immature Granulocytes Relative 0.8 % LAB HEMETOLOGY METHOD 08/29/2024 12:40 PM [facility] Neutrophils Absolute 4.45 1.50 - 7.00 K/mcL LAB HEMETOLOGY METHOD 08/29/2024 12:40 [facility] Lymphocytes Absolute 0.87(L) 1.00 - 5.00 K/mcL LAB HEMETOLOGY METHOD 08/29/2024 12:40 PM EDT [facility] Monocytes Absolute 0.40 0.20 - 1.00 K/[facility] LAB HEMETOLOGY METHOD 08/29/2024 12:40 PM EDT [facility] Eosinophils Absolute 0.14 0.00 - 0.50 K/[facility] LAB HEMETOLOGY METHOD 08/29/2024 12:40 PM EDT [facility] Basophils Absolute 0.02 0.00 - 0.20 K/[facility] LAB HEMETOLOGY METHOD 08/29/2024 12:40 PM EDT [facility] Immature Granulocytes Absolute 0.05(H) 0.00 - 0.03 K/[facility] HEMETOLOGY METHOD 08/29/2024 12:40 PM EDT [facility] Blood Venous blood specimen / Unknown Venipuncture / Unknown 08/29/2024 12:05 PM EDT 08/29/2024 12:27 PM EDT us Jim Larsen DO LAB BLOOD ORDERABLES Final Res ult [facility] [address] [place] [address], * CEA (08/29/2024 12:05 PM EDT) CEA <2.0 0.0 - 5.0 ng/mL LAB CHEMISTRY METHOD 08/29/2024 2:57 PM EDT [facility] Blood Venous blood specimen / Unknown Venipuncture / Unknown 08/29/2024 12:05 PM EDT 08/29/2024 12:29 PM EDT Narrative [facility] - 08/29/2024 2:57 PM EDT The Siemens Advia Centaur Chemiluminescent Immunoassay is used. Results obtained with different assay methods or kits cannot be used interchangeably. Results cannot be interpreted as absolute evidence of the presence or absence of malignant disease. us Jim Larsen DO LAB BLOOD ORDERABLES Final Res ult [facility] [address] [place] [address], [place] [phone] * (ABNORMAL) Comprehensive metabolic panel (08/29/2024 12:05 PM EDT) Sodium 140 133 - 145 mmol/L LAB CHEMISTRY METHOD 08/29/2024 1:44 PM EDT [facility] Potassium 3.5 3.5 - 5.5 mmol/L LAB CHEMISTRY METHOD 08/29/2024 1:44 [facility] Chloride 103 96 - 110 mmol/L LAB CHEMISTRY METHOD 08/29/2024 1:44 PM [facility] CO2 26 21 - 32 mmol/L LAB CHEMISTRY METHOD 08/29/2024 1:44 PM [facility] Anion Gap 11 3 - 11 LAB CHEMISTRY METHOD 08/29/2024 1:44 [facility] Glucose 130(H) 70 - 100 mg/dL LAB CHEMISTRY METHOD 08/29/2024 1:44 PM [facility] BUN 38(H) 5 - 25 mg/dL LAB CHEMISTRY METHOD 08/29/2024 1:44 PM [facility] Creatinine 1.62(H) 0.70 - 1.30 mg/dL LAB CHEMISTRY METHOD 08/29/2024 1:44 PM [facility] eGFR 44(L) >=60 mL/min/1. 73m2 LAB CHEMISTRY METHOD 08/29/2024 1:44 PM [facility] Comment:Calculation based on the??Chronic Kidney Disease Epidemiology Collaboration (CKD-EPI) equation refit??without adjustment for race. BUN/Creatinine Ratio 23.5 LAB CHEMISTRY METHOD 08/29/2024 1:44 PM EDT [facility] Calcium 9.7 8.5 - 10.5 mg/dL LAB CHEMISTRY METHOD 08/29/2024 1:44 PM EDT [facility] AST (SGOT) 21 10 - 42 unit/L LAB CHEMISTRY METHOD 08/29/2024 1:44 PM [facility] ALT (SGPT) 27 10 - 60 unit/L LAB CHEMISTRY METHOD 08/29/2024 1:44 PM EDT [facility] Alkaline Phosphatase 87 42 - 121 unit/L LAB CHEMISTRY METHOD 08/29/2024 1:44 PM EDT [facility] Total Protein 7.8 6.0 - 8.0 g/dL LAB CHEMISTRY METHOD 08/29/2024 1:44 PM [facility] Albumin 4.6 3.2 - 5.0 g/dL LAB CHEMISTRY METHOD 08/29/2024 1:44 PM T [facility] Total Bilirubin 0.5 0.0 - 1.4 mg/dL LAB CHEMISTRY METHOD 08/29/2024 1:44 PM T [facility] Blood Venous blood specimen / Unknown Venipuncture / Unknown 08/29/2024 12:05 PM EDT 08/29/2024 12:29 PM EDT us Jim Larsen DO LAB BLOOD ORDERABLES Final Res ult [facility] [address] [place] [address], * Hemoglobin A1c (05/31/2023) Hemoglobin A1C 5.8 <=6.5 % Blood Venous blood specimen / Unknown us Historical Provider LAB BLOOD ORDERABLES Maria E l Result * Hm Colonoscopy (05/18/2023) Pathologist [facility] Colonoscopy No interpretation , Abstracted Anatomical Region Laterality Modality Other [facility] Provider HEALTH MAINTENANCE Final Result * Hepatitis C Screening (08/31/2020) Pathologist [facility] Hepatitis C Screening Abstracted [facility] Provider HEALTH MAINTENANCE Final Result * Urine Albumin Creatinine Ratio (01/27/2020) Pathologist [facility] Urine Albumin Creatinine Ratio Abstracted [facility] Provider HEALTH MAINTENANCE Final Result * (ABNORMAL) Lipid panel (01/27/2020) [facility] LDL/HDL Ratio 8(A) 0 - 4 Triglycerides 561(A) 0 - 150 mg/dL Comment:Triglyceride value i s >= 500. ??Calculated LDL is not meaningful. ??Direct LDL has been added. Cholesterol 268(A) 0 - 200 mg/dL HDL 33(A) >=40 mg/dL LDL Cholesterol 153(A) 0 - 100 mg/dL Blood Venous blood specimen / Unknown Result [facility] Provider LAB BLOOD ORDERABLES Maria E l Result from Last 3 Months or Most Recently Relevant to Health Maintenance Insurance MEDICARE [facility] Care Teams Hospice Care Consultant Relationship Specialty Start Date End Date Gt Akins MD [address] [place] [phone] PCP - General 05/18/23
--- OUTSIDE RECORDS SUMMARY | 2024-09-12 15:44 | XMS_ITS | Clinical Summary ---
Author Organization [facility] Address [address] [place] [address] Care Team Providers Care Residential Green Building Designer Name Role Phone Kaye Barreto MD Primary [...] age to complete this topic Care Teams Residential Green Building Designer Relationship Specialty Start Date End Date Kaye Barreot MD PCP - General Internal Medicine 11/15/17
--- OUTSIDE RECORDS SUMMARY | 2024-09-12 15:44 | XMS_ITS | Continuity of Care Document ---
Author Organization [facility] [address] [place] [address] Phone [phone] Care Team Providers Care Warehouse Packaging Supervisor Name Role Phone Gt Akins Care Team Information Ear Nose Throat Physician [phone] Iftikhar Grady MD Care Team Information Receiv er [phone] Problems Active Problems Provider Date Diabetes mellitus [...] 300units Le Garcia M.D. 07/19/2024 Freestyle Andrade 2/Zenda/Flash Glucose Monitoring Rhmynb9Ptkhky Device use as directed with sensors 1unlopez Garcia M.D. 03/13/2024 Freestyle LancetsMisc Use one lancets 4 time a day for glucose check. Dx- E11.9 300unlopez Garcia M.D. 01/23/2024 Ferrous Tlpwabvbw792(38Fe) mg Tablets 1 by mouth once a day 90tajoshua Morataya M.D. 09/28/2023 Trulicity0.75mg/0.5M L Solution Pen-Inject One Subcutaneous Injection Every Week Dx: E11.9 2ml E11Debbie Garcia M.D. 08/04/2023 Sure Comfort Pen NDL 31GX3/ 31G X31G X 5 mm Use as Directed 4 Times A Day 400units Gurvinder Morataya M.D. 03/13/2023 Levothyroxine Rkkhse71jua Tablets Take 1 Tablet By Mouth Daily 90tajoshua Morataya M.D. 11/08/2022 Xanax0.5mg Tablets one qd Gurvinder Morataya M.D. 04/19/2022 Xsnkdnajsml011lr Tablets Take 1 Tablet By Mouth Daily as Directed 90tajoshua Morataya M.D. 04/19/2022 Easy Touch Pen NDL 31GX3/16 31G X31G X 5 mm Use as Directed 4 Times A Day 100units Le Garcia M.D. 02/24/2022 Atorvastatin Sbguand03wl Tablets 1 by mouth every day Gurvinder Morataya M.D. 01/17/2022 Glipizide ER5mg Tablets ER 24HR Take 2 Tablet By Mouth Every Morning 90tabs Gurvinder Morataya M.D. Novolog Jgulkrp131Ocbo/ML Solution Pen-Inject 6 To 12 Units Subcutaneous Injection Before Meals 15units Gurvinder Morataya M.D. Tresiba Xytjhllxz742Cjzl/ML Solution Pen-Inject 80 Unit Subcutaneous Injection Daily AT Bedtime 15units Le Garcia M.D. Trazodone RHZ005ak Tablets take two tablets by mouth at bedtime Unknown Sertraline BDY752be Tablets 2 by mouth every day 45tabs Unknown Zityrgrezx40zy Capsules DR 1 by mouth every day 90caps Unknown Hohcycdjz19jt Tablets Take 1 Tablet By Mouth Every Day Iftikhar Jay MD History Medications Blood Glucose Monitoring System PremiumW/Device Kit use to check glucose 3 times a say. DX E11.9 1units E11.9 Le Garcia M.D. 07/19/2024 - 07/19/2024 Vital Signs Date Vital Result Comment 08/15/2024 2:47pm BP Systolic 100 mmHg BP Diastolic 60 mmHg Heart Rate 88 /min Height 70 inches 5'10 Weight 148.00 lb BMI (Body Mass Index) 21.2 kg/m2 Results Test Acquired Date Facility Test Result H/L Range Note Hemoglobin A1c 08/15/2024 Inhouse Hemoglobin A1c 9.4% Glucose Fingerstick 08/15/2024 Inhouse Glucose Fingerstick 142 Glucose Fingerstick 03/07/2024 Inhouse Glucose Fingerstick 108 [...] Hemoglobin A1c 6.5% Basic Metabolic Panel 05/04/2023 [facility] Glucose 157 mg/dL High (70-99) [...] Hemoglobin A1c 7.3% Basic Metabolic Panel 12/07/2022 [facility] Glucose 93 mg/dL (70-99) BUN [...] 8.5% TSH With Reflex To FT4 07/19/2022 [facility] TSH With Reflex To [...] Date Location Provider Dx Diagnosis Office Visit 08/15/2024 3:00p Main Office WENDI Silver E11.9 Type 2 diabet es mellitus without complications 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
--- OUTSIDE RECORDS SUMMARY | 2024-09-12 15:44 | XMS_ITS | Clinical Summary ---
Author Organization [facility] Address [address] [place] [address] Phone Care Team Providers Care Cat Driver Name Role Phone Gt Akins MD Primary Care Provider [phone] Allergies Active Allergy Reactions Criticality Noted Date [...] Orders Only [facility] [address] [address] Yadira Dowell ARNP Stage 3a chronic kidney disease (HCC); Hypertension; Iron deficiency anemia, not otherwise specified; Vitamin D deficiency, not otherwise specified from Last 3 Months Immunizations Immunization Administration Dates Next Due Influenza Split High [...] 02/27/2023 3:14 PM EDT Plan of Treatment Health Maintenance Due Date Last Done Comments Colorectal Cancer Screening: Annual FOBT 1998 Colorectal Cancer Screening: Colonoscopy 1998 Colorectal Cancer Screening: Sigmoidoscopy 1998 Pneumococcal Vaccine: 50+ Years (3 of 3 - PPSV23, PCV20 or PCV21) 06/27/2018 10/20/2016, 02/24/2015, 06/27/2013 Diabetes: Ophthalmology Exam 05/31/2020 Diabetes: Pedal Pulse Checked 05/31/2020 Diabetes: Sensory Foot Exam 05/31/2020 Diabetes: Visual Foot Exam 05/31/2020 Diabetes: Hemoglobin A1C 08/29/2023 024, 08/29/2022 Influenza Vaccine (Season Ended) 2024 12/13/2019, 02/12/2018, 01/30/2016 Pneumococcal Vaccine: Peds ( 0 to 5 Years) and At-Risk Patients (6 to 49 Years) Discontinued 10/20/2016, 02/24/2015, 06/27/2013 Hepatitis B Vaccine Aged Out No longe r eligible based on patient's age to complete this topic Procedures Procedure Name Priority Date/Time Associated Diagnosis Comments HEMOGLOBIN A1C Routine 08/29/2022 2:16 PM EDT from Last 3 Months or Most Recently Relevant to Health Maintenance Results * (ABNORMAL) Hemoglobin A1c (08/29/2022 2:16 PM EDT) Hemoglobin A1C 6.8(H) (4.0-5.6) % [facility] Comment: MONITORING: In known diabetic patients, hemoglobin A1c targets should be discussed with health care provider. DIAGNOSTIC USE: ??The [place] Diabetes Association (ADA) and the World Health [...] Supplement 1 Testing performed or reported by [facility], a Service of [facility], [address] [place] [id number] Danae Holliday MD, Hazardous Substances Scientist [facility]# [id number] 08/29/2022 2:16 PM EDT 08/29/2022 2:24 PM EDT Fernanda Escalante MD LAB BLOOD ORDERABLES Final Resu lt [facility] from Last 3 Months or Most Recently Relevant to Health Maintenance Insurance Medicare [facility] Medicare [facility] Care Teams Cat Driver Relationship Specialty Start Date End Date Gt Akins MD [address] [place] [address] PCP - General Internal Medicine 04/06/22
--- NOTE | 2024-09-12 15:49 | HO.NEPHOV ---
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 Mill Required: No Accompanied by: Self / Same As Patient Allergies hydrochlorothiazide Allergy (Intermediate, Verified 09/12/24 15:50) Unknown lamotrigine [From LAMICTAL] Allergy (Intermediate, Verified 09/12/24 15:50) RASH Penicillins [PENICILLINS] Allergy (Intermediate, Verified 09/12/24 15:50) ITCHY Tetracyclines [TETRACYCLINES] Allergy (Intermediate, Verified 09/12/24 15:50) ITCHY tramadol Allergy (Unknown, Verified 09/12/24 15:50) Unknown onabotulinumtoxinA [From Botox] Allergy (Verified 09/12/24 15:50) swallowing gabapentin [From NEURONTIN] Adverse Reaction (Intermediate, Verified 09/12/24 15:50) ACID REFLUX amitriptyline [From ELAVIL] Adverse Reaction (Mild, Verified 09/12/24 15:50) THIRST HPI Comments Details: I had the privilege of seeing Maurilio in follow up for worsening renal function on a backdrop of CKD. He is 73 years of age who has long standing diabetes. His diabetes is poorly controlled with his recent Hb A1c improved from 10.4 to 9.8. He has diabetic neuropathy. He has seen commission sales associate [place] [facility] [place] has CKD from diabetic nephropathy which has been getting worse. He has dyslipidemia as well as anemia of chronic disease. He has GERD and is on PPI. He has OA but denies taking excess NSAID's but is on it. He is on ACEI. His recent serum creatinine was 1.78 and is repeated today [facility] Medical History Depression Chronic renal insufficiency Diabetes Restrictive lung disease Dyspnea on exertion COPD (chronic obstructive pulmonary disease) Restless legs syndrome (RLS) Sleep apnea Gallbladder abscess Surgical History H/O colectomy H/O colonoscopy Hx of cholecystectomy Family History Brother Substance use disorder Sister Mental health disorder Diabetes Breast cancer Sister Mental health disorder Sister Mental health disorder Sister Mental health disorder Mother Mental health disorder Social History Housing: Condominium Alcohol intake: current Alcohol intake frequency: former alcohol drinker Patient Tobacco Use Status: Never used Tobacco e-Cigarette/Vaping Use: Never Used Second Hand Smoke Exposure: No service: No Current occupational status: employed and disabled Current occupation: disabled - [employer] Cognitive needs: No Hearing needs: No Vision needs: Yes Review of Systems Const All systems reviewed & are unremarkable except as noted in HPI and below Physical Exam Vital Signs: Last Vital Signs BP 120/72 09/12/24 15:50 BMI result Body Mass Index 22.0 Const General: comfortable and no acute distress Orientation/consciousness: patient oriented x3 HEENT Head: Yes normocephalic Mouth: Normal oral and palatal mucosa present Eyes EOM: EOMs intact bilaterally Neck Neck: Yes supple Resp Auscultation: clear to auscultation bilaterally Cardio Jugular venous distension: no JVD Rate: regular rate GI Palpation (GI): Soft to palpation Auscultation: normal bowel sounds General: Yes no CVA tenderness Back/Spine/Pelvis Back: no CVA tenderness Skin General skin exam: no rashes or lesions noted Neuro General: patient oriented x3 and moves all extremities Extrem General: Yes no pedal edema Results Reviewed Nephrology Results: Hgb 12.5 g/dl (14.0-18.0) L 03/29/24 WBC 4.4 X10*3/uL (4.8-10.8) L 03/29/24 Plt Count 129 X10*3/uL (160-400) L 03/29/24 Sodium 137 mmol/L (135-145) 03/29/24 Potassium 4.5 mmol/L (3.3-5.1) 03/29/24 Chloride 99 mmol/L (96-108) 03/29/24 Carbon Dioxide 26 mmol/L (22-29) 03/29/24 BUN 23 mg/dL (9-16) H 03/29/24 Creatinine 1.78 mg/dL (0.5-1.4) H 03/29/24 Calcium 9.8 mg/dL (8.4-10.2) 03/29/24 Assessment & Plan Assessment & Plan (1) Hypertension, essential: Code(s): I10 - Essential (primary) hypertension Category: Medical (2) CKD stage 3b, GFR 30-44 ml/min: Code(s): N18.32 - Chronic kidney disease, stage 3b Category: Medical Plan Maurilio has diabetic nephropathy with resultant CKD which lately has been getting worse. He is on ACEI. He tries to maintain good hydration and was asked to avoid NSAID's. I have ordered CKD work up including imaging studies. He has been started on SGLT2 i. I shall consider doing a renal biopsy if his serum creatinine continues to rise. All these were explained in detail. Answered all questions. F/U appointment given. Coding Level of Care Code Est Pt Level 4 (06281) Diagnoses Hypertension, essential I10 CKD stage 3b, GFR 30-44 ml/min N18.32
[2024-09-12 15:50] VITALS: BP 120/72; BMI 22.0
== END 2024-09-12 16:13 | disposition home or self-care (01) ==
LOC: HO.HKAS 15:05
PROVIDERS: PCP Internal Medicine; Visit Provider Internal Medicine Nephrology
DX: I10 Essential (primary) hypertension (principal); N18.32 Chronic kidney disease, stage 3b
CPT/HCPCS: 99214

== ENCOUNTER 2024-09-16 09:00 | Outpatient (REF) | payer MEDICARE, SELFPAY ==
--- NOTE | ~2024-09-16 | XR_ITS ---
EXAMINATION: XR HIP, RIGHT CLINICAL INFORMATION: M25.551 - Pain in right hip COMPARISON: January 13, 2022. TECHNIQUE: Two views of the right hip. AP pelvis. FINDINGS: Sclerosis along the articular surface of the right and left acetabulum. Asymmetric joint space narrowing. No acute cortical disruption or gross malalignment right hip. Mild sclerosis in the symphysis joints. Spina bifida occulta S1. No acute cortical disruption, bony pelvis. Probable sutures overlapping the right lower hemiabdomen. XR/XR hip RT min 2V IMPRESSION: Mild osteoarthrosis, both hips. Electronically signed by: Tian Rodriguez MD 09/16/2024 02:58 PM EDT
--- OUTSIDE RECORDS SUMMARY | 2024-09-18 10:16 | XMS_ITS | Clinical Summary ---
Author Organization [facility] Address [address] [place] [address] Phone Care Team Providers Care Principal Data Architect Name Role Phone Gt Akins MD Primary Care Provider [phone] Allergies Active Allergy Reactions Criticality Noted Date [...] diabetes mellitus wit h peripheral artery disease ([facility] V24, [facility] V28) 11/22/2018 Type 2 diabetes mellitus wit h cataract ([facility] V24, [facility] V28) 02/14/2018 Type 2 diabetes mellitus wit h renal manifestations ([facility] V24, [facility] V28) 02/14/2018 Hyperlipidemia 11/27/2017 Overview [...] current regimen. Major depression in partial remission ([facility] V 24) 11/27/2017 Fibromyalgia 10/27/2016 Type 2 diabetes mellitus wit h neurological manifestations ([facility] V24, [facility] V28) 10/27/2016 Chronic insomnia 10/20/2016 GERD (gastroesophageal reflux disease) 7 Hypothyroidism 10/20/2016 Cataract 03/02/2016 CKD (chronic kidney disease) stage 3, GFR 30-59 ml/min ([facility] V24, [facility] V28) 01/14/2016 Insomnia 01/14/2016 Panic disorder 01/14/2016 Psoriasis 01/14/2016 Vitamin B 12 deficiency 01/14/2016 DDD (degenerative disc disease), lumbar 11/20/19 16 Overview (04/08/2024): Cervical and thoracic as well Chronic fatigue syndrome 11/13/2015 Migraine headache 07/02/2013 Encounters Date Type Department Care Team Description 08/30/2024 1:48 PM EDT - 08/30/2024 11:59 PM EDT Hospital Encounter [facility] CT Scan [address] [place] [address] Malignant neoplasm of ascending colon ([facility] V24, [facility] V28) Discharge Disposition: Home or Self Care 07/16/2024 Telephone Gastroenterology - [address] [facility] [address] [place] [address] Darcy Land MD from Last [...] Type 2 diabetes mellitus wit h cataract ([facility] V24, [facility] V28) 02/14/2018 DX:Type 2 diabetes mellitus with cataract ([facility]) Type 2 diabetes mellitus wit h renal manifestations ([facility] V24, [facility] V28) 02/14/2018 DX:Type 2 diabetes mellitus with renal manifestations ([facility]) Cataract 03/02/2016 DX:Cataract Chronic insomnia 10/20/2016 DX:Chronic inso mnia CKD (chronic kidney disease) stage 3, GFR 30-59 ml/min ([facility] V24, [facility] V28) 01/14/2016 DX:CKD (chronic kidney disea se) stage 3, GFR 30-59 ml/min ([facility]) DDD (degenerative disc disea se), lumbar 11/20/2015 DX:DDD (degenerative disc di sease), lumbar; COMMENT: Cervical and thoracic as well Fibromyalgia 10/27/2016 DX:Fibromyalgia GERD (gastroesophageal reflu x disease) 10/20/2016 DX:GERD (gastroesophageal re flux disease) Hyperlipidemia 11/27/2017 DX:Hyperlipidemi a Hypertension 11/27/2017 DX:Hypertension Hypothyroidism 10/20/2016 DX:Hypothyroidis m Insomnia 01/14/2016 DX:Insomnia Major depression in partial remission ([facility] V24) 11/27/2017 DX:Major depression in parti al remission ([facility]) Migraine headache 07/02/2013 DX:Migraine he adache Panic disorder 01/14/2016 DX:Panic disorde r Psoriasis 01/14/2016 DX:Psoriasis Type 2 diabetes mellitus wit h neurological manifestations ([facility] V24, [facility] V28) 10/27/2016 DX:Type 2 diabetes [...] diabetes mellitus wit h peripheral artery disease ([facility] V24, [facility] V28) 11/22/2018 DX:Type 2 diabetes [...] Signed Date: 08/30/2024 16:38 ET Workstation ID: [id number] Transcribed By: Self Edit Transcribed Date: 08/30/2024 [...] containing right inguinal hernia. Procedure Note Radha Martienz MD - 08/30/2024 PROCEDURE: CT ABDOMEN/PELVIS WITH [...] Signed Date: 08/30/2024 16:38 ET Workstation ID: [id number] Transcribed By: Self Edit Transcribed Date: 08/30/2024 16:33 ET us Iftikhar Grady MD IMG CT PROCEDURES Final Res ult * (ABNORMAL) CBC auto differential (08/29/2024 12:05 PM EDT) WBC 5.9 4.8 - 10.8 K/mcL LAB HEMETOLOGY METHOD 08/29/2024 12:40 PM EDT [facility] RBC 4.30(L) 4.50 - 5.50 M/mcL LAB [facility] Hemoglobin 13.5 13.5 - 17.5 g/dL LAB HEMETOLOGY METHOD 08/29/2024 12:40 PM EDT [facility] Hematocrit 40.1(L) 42.0 - 54.0 % LAB HEMETOLOGY METHOD 08/29/2024 12:40 PM EDT [facility] MCV 93.0 79.0 - 98.0 FL LAB HEMETOLOGY METHOD 08/29[facility]2024 12[facility] MCH 31.3 27.0 - 32.0 pcg LAB HEMETOLOGY METHOD 08/29/2024 12:40 PM EDT [facility] MCHC 33.7 32.0 - 37.0 g/dL LAB HEMETOLOGY METHOD 08/29/2024 12:40 PM EDT [facility] RDW 12.5 11.0 - 15.0 % LAB HEMETOLOGY METHOD 08/29/2024 12[facility] Platelets 188 130 - 400 K/mcL LAB HEMETOLOGY METHOD 08/29/2024 12:40 PM EDT [facility] MPV 9.8 7.0 - 11.0 FL LAB HEMETOLOGY METHOD 08/29[facility]2024 12[facility] NRBC 0.0 <1.0 % LAB HEMETOLOGY METHOD 08/29/2024 12:40 PM [facility] NRBC Absolute 0.00 <0.10 K/mcL LAB HEMETOLOGY METHOD 08/29/2024 12:40 PM [facility] Neutrophils Relative 75.1 % LAB HEMETOLOGY METHOD 08/29/2024 12:40 PM [facility] Lymphocytes Relative 14.7 % LAB HEMETOLOGY METHOD 08/29/2024 12:40 PM [facility] Monocytes Relative 6.7 % LAB HEMETOLOGY METHOD 08/29/2024 12:40 PM [facility] Eosinophils Relative 2.4 % LAB HEMETOLOGY METHOD 08/29/2024 12:40 PM [facility] Basophils Relative 0.3 % LAB HEMETOLOGY METHOD 08/29[facility]2024 12:[facility] Immature Granulocytes Relative 0.8 % LAB HEMETOLOGY METHOD 08/29/2024 12:40 PM [facility] Neutrophils Absolute 4.45 1.50 - 7.00 K/mcL LAB HEMETOLOGY METHOD 08/29/2024 12[facility] Lymphocytes Absolute 0.87(L) 1.00 - 5.00 K/mcL LAB HEMETOLOGY METHOD 08/29/2024 12:40 PM EDT [facility] Monocytes Absolute 0.40 0.20 - 1.00 K/[facility] LAB HEMETOLOGY METHOD 08/29/2024 12:40 PM EDT [facility] Eosinophils Absolute 0.14 0.00 - 0.50 K/[facility] LAB HEMETOLOGY METHOD 08/29/2024 12:40 PM EDT [facility] Basophils Absolute 0.02 0.00 - 0.20 K/[facility] LAB HEMETOLOGY METHOD 08/29/2024 12:40 PM EDT [facility] Immature Granulocytes Absolute 0.05(H) 0.00 - 0.03 K/[facility] LAB HEMETOLOGY METHOD 08/29/2024 12:40 PM EDT [facility] Blood Venous blood specimen / Unknown Venipuncture / Unknown 08/29/2024 12:05 PM EDT 08/29/2024 12:27 PM EDT us Jim Larsen DO LAB BLOOD ORDERABLES Final Res ult [facility] [address] [place] [address], * CEA (08/29/2024 12:05 PM EDT) CEA <2.0 0.0 - 5.0 ng/mL LAB CHEMISTRY METHOD 08/29/2024 2:57 PM EDT [facility] Blood Venous blood specimen / Unknown Venipuncture / Unknown 08/29/2024 12:05 PM EDT 08/29/2024 12:29 PM EDT Narrative [facility] - 08/29/2024 2:57 PM EDT The Siemens Advia Centaur Chemiluminescent Immunoassay is used. Results obtained with different assay methods or kits cannot be used interchangeably. Results cannot be interpreted as absolute evidence of the presence or absence of malignant disease. us Jim Larsen DO LAB BLOOD ORDERABLES Final Res ult [facility] [address] [place] [address], [place] [phone] * (ABNORMAL) Comprehensive metabolic panel (08/29/2024 12:05 PM EDT) Sodium 140 133 - 145 mmol/L LAB CHEMISTRY METHOD 08/29/2024 1:44 PM EDT [facility] Potassium 3.5 3.5 - 5.5 mmol/L LAB CHEMISTRY METHOD 08/29/2024 1:[facility] Chloride 103 96 - 110 mmol/L LAB CHEMISTRY METHOD 08/29/2024 1:44 PM [facility] CO2 26 21 - 32 mmol/L LAB CHEMISTRY METHOD 08/29/2024 1:44 PM [facility] Anion Gap 11 3 - 11 LAB CHEMISTRY METHOD 08/29/2024 1:[facility] Glucose 130(H) 70 - 100 mg/dL LAB CHEMISTRY METHOD 08/29/2024 1:44 PM [facility] BUN 38(H) 5 - 25 mg/dL LAB CHEMISTRY METHOD 08/29/2024 1:44 PM [facility] Creatinine 1.62(H) 0.70 - 1.30 mg/dL LAB CHEMISTRY METHOD 08/29/2024 1:44 PM [facility] eGFR 44(L) >=60 mL/min/1. 73m2 LAB CHEMISTRY METHOD 08/29/2024 1:44 PM [facility] Comment:Calculation based on the??Chronic Kidney Disease Epidemiology Collaboration (CKD-EPI) equation refit??without adjustment for race. BUN/Creatinine Ratio 23.5 LAB CHEMISTRY METHOD 08/29/2024 1:44 PM EDT [facility] Calcium 9.7 8.5 - 10.5 mg/dL LAB CHEMISTRY METHOD 08/29/2024 1:44 PM EDT [facility] AST (SGOT) 21 10 - 42 unit/L LAB CHEMISTRY METHOD 08/29/2024 1:44 PM [facility] ALT (SGPT) 27 10 - 60 unit/L LAB CHEMISTRY METHOD 08/29/2024 1:44 PM EDT [facility] Alkaline Phosphatase 87 42 - 121 unit/L LAB CHEMISTRY METHOD 08/29/2024 1:44 PM EDT [facility] Total Protein 7.8 6.0 - 8.0 g/dL LAB CHEMISTRY METHOD 08/29/2024 1:44 PM [facility] Albumin 4.6 3.2 - 5.0 g/dL LAB CHEMISTRY METHOD 08/29/2024 1:44 PM T [facility] Total Bilirubin 0.5 0.0 - 1.4 mg/dL LAB CHEMISTRY METHOD 08/29/2024 1:44 PM T [facility] Blood Venous blood specimen / Unknown Venipuncture / Unknown 08/29/2024 12:05 PM EDT 08/29/2024 12:29 PM EDT us Jim Larsen DO LAB BLOOD ORDERABLES Final Res ult [facility] [address] [place] [address], * Hemoglobin A1c (05/31/2023) Hemoglobin A1C 5.8 <=6.5 % Blood Venous blood specimen / Unknown us Historical Provider LAB BLOOD ORDERABLES Maria E l Result * Hm Colonoscopy (05/18/2023) Pathologist [facility] Colonoscopy No interpretation , Abstracted Anatomical Region Laterality Modality Other [facility] Provider HEALTH MAINTENANCE Final Result * Hepatitis C Screening (08/31/2020) Pathologist [facility] Hepatitis C Screening Abstracted [facility] Provider HEALTH MAINTENANCE Final Result * Urine Albumin Creatinine Ratio (01/27/2020) Pathologist [facility] Urine Albumin Creatinine Ratio Abstracted [facility] Provider HEALTH MAINTENANCE Final Result * (ABNORMAL) Lipid panel (01/27/2020) [facility] LDL/HDL Ratio 8(A) 0 - 4 Triglycerides 561(A) 0 - 150 mg/dL Comment:Triglyceride value i s >= 500. ??Calculated LDL is not meaningful. ??Direct LDL has been added. Cholesterol 268(A) 0 - 200 mg/dL HDL 33(A) >=40 mg/dL LDL Cholesterol 153(A) 0 - 100 mg/dL Blood Venous blood specimen / Unknown Result [facility] Provider LAB BLOOD ORDERABLES Maria E l Result from Last 3 Months or Most Recently Relevant to Health Maintenance Insurance [facility]IC[facility] Care Teams Principal Data Architect Relationship Specialty Start Date End Date Gt Akins MD [address] [place] [address] PCP - General 05/18/23
--- OUTSIDE RECORDS SUMMARY | 2024-09-18 10:16 | XMS_ITS | Clinical Summary ---
Author Organization [facility] Address [address] [facility] [address] [place] [address] Phone Care Team Providers Care Cottage Parent Name Role Phone Gt Akins MD Primary Care Provider [phone] Allergies Active Allergy Reactions Criticality Noted Date [...] [facility] [address] [address] Yadira Dowell ARNP Stage 3a [...] PM EDT) Hemoglobin A1C 6.8(H) (4.0-5.6) % [facility] Comment: MONITORING: In known diabetic patients, hemoglobin A1c targets should be discussed with health care provider. DIAGNOSTIC USE: ??The [place] Diabetes Association (ADA) and the World Health [...] Supplement 1 Testing performed or reported by [facility], a Service of [facility], [address] [place] [id number] Danae Holliday MD, Food Counter Attendant [facility]# [id number] 08/29/2022 2:16 PM EDT 08/29/2022 2:24 PM EDT Fernanda Escalante MD LAB BLOOD ORDERABLES Final Resu lt [facility] from Last 3 Months or Most Recently Relevant to Health Maintenance Insurance Medicare [facility] Medicare [facility] Care Teams Cottage Parent Relationship Specialty Start Date End Date Gt Akins MD [address] [place] [address] [phone] PCP - General Internal Medicine 04/06/22
--- OUTSIDE RECORDS SUMMARY | 2024-09-18 10:16 | XMS_ITS | Clinical Summary ---
Author Organization [facility] Address [address] [place] [address] Care Team Providers Care Delivery Tech Name Role Phone Kaye Barreto MD Primary [...] age to complete this topic Care Teams Delivery Tech Relationship Specialty Start Date End Date Kaye Barreto MD PCP - General Internal Medicine 11/15/17
--- OUTSIDE RECORDS SUMMARY | 2024-09-18 10:16 | XMS_ITS | Continuity of Care Document ---
Author Organization [facility] [address] [facility] [address] [place] [address] Phone [phone] Care Team Providers Care Locomotive Firer/Fireman Name Role Phone Gt Akins Care Team Information Composer Teaching Artist [phone] Iftikhar Grady MD Care Team Information Receiv er [phone] Problems Active Problems Provider Date Diabetes mellitus [...] 300units Le Garcia M.D. 07/19/2024 Freestyle Andrade 2/[place]/Flash Glucose Monitoring Xvvndg3Sbltnu Device use as directed with sensors 1unlopez Garcia M.D. 03/13/2024 Freestyle LancetsMisc Use one lancets 4 time a day for glucose check. Dx- E11.9 300unlopez Garcia M.D. 01/23/2024 Ferrous Udpyqsnfl286(38Fe) mg Tablets 1 by mouth once a day 90tajoshua Morataya M.D. 09/28/2023 Trulicity0.75mg/0.5M L Solution Pen-Inject One Subcutaneous Injection Every Week Dx: E11.9 2ml E11Debbie Garcia M.D. 08/04/2023 Sure Comfort Pen NDL 31GX3/ 31G X31G X 5 mm Use as Directed 4 Times A Day 400units Gurvinder Morataya M.D. 03/13/2023 Levothyroxine Nslces32gfa Tablets Take 1 Tablet By Mouth Daily 90tajoshua Morataya M.D. 11/08/2022 Xanax0.5mg Tablets one qd Gurvinder Morataya M.D. 04/19/2022 Zjbrowoztcg356yl Tablets Take 1 Tablet By Mouth Daily as Directed 90tajoshua Morataya M.D. 04/19/2022 Easy Touch Pen NDL 31GX3/16 31G X31G X 5 mm Use as Directed 4 Times A Day 100units Le Garcia M.D. 02/24/2022 Atorvastatin Jjravcp35oy Tablets 1 by mouth every day Gurvinder Morataya M.D. 01/17/2022 Glipizide ER5mg Tablets ER 24HR Take 2 Tablet By Mouth Every Morning 90tabs Gurvinder Morataya M.D. Novolog Qhveyrg276Npip/ML Solution Pen-Inject 6 To 12 Units Subcutaneous Injection Before Meals 15units Gurvinder Morataya M.D. Tresiba Rydcihwgs276Eniz/ML Solution Pen-Inject 80 Unit Subcutaneous Injection Daily AT Bedtime 15units Le Garcia M.D. Trazodone RXF509hc Tablets take two tablets by mouth at bedtime Unknown Sertraline YRO513yx Tablets 2 by mouth every day 45tabs Unknown Dcmejvlkpd89sh Capsules DR 1 by mouth every day 90caps Unknown Djcqgansl71uw Tablets Take 1 Tablet By Mouth Every [...] Hemoglobin A1c 6.5% Basic Metabolic Panel 05/04/2023 [facility] Glucose 157 mg/dL High [...] Hemoglobin A1c 7.3% Basic Metabolic Panel 12/07/2022 [facility] Glucose 93 mg/dL (70-99) [...] 8.5% TSH With Reflex To FT4 07/19/2022 [facility] TSH With Reflex To [...] 2 diabet es mellitus without complications Z79.4 salvage determiner (current) use of insulin Assessments Date Code Description Provider 08/15/2024 E11.9 Type 2 diabetes mellitus wit hout complications WENDI Silver 08/15/2024 Z79.4 retirement (current) use of i nsulin WENDI Silver Plan of Treatment Future Appointment(s):* 09/26/2024 2:15 pm - WENDI Silver at Main Office 08/15/2024 - WENDI Silver* E11.9 Type 2 diabetes mellitus without complications * Z79.4 salvage determiner (current) use of insulin Functional Status Description No Information Available Mental Status Description No Information Available Referrals Description No Information Available
== END 2024-09-16 09:01 | disposition home or self-care (01) ==
LOC: HO.HOSX 09:00
PROVIDERS: Visit Provider Physician Assistant
DX: M25.551 Pain in right hip (principal)
CPT/HCPCS: 73502; 99212

== ENCOUNTER 2024-09-16 14:41 | Outpatient (AMB) | payer MEDICARE, SELFPAY ==
--- OUTSIDE RECORDS SUMMARY | 2024-09-16 14:44 | XMS_ITS | Clinical Summary ---
Author Organization [facility] Address [address] [facility] [address] [place] [address] Phone Care Team Providers Care Fuel Conversion Technician Name Role Phone Gt Akins MD Primary Care Provider [phone] Allergies Active Allergy Reactions Criticality Noted Date [...] Only [facility] [address] [address] Yadira Dowell ARNP Stage 3a [...] Vaccine: 50+ Years (3 of 3 - PCV20 or PCV21) 06/27/2018 10/20/2016, 02/24/2015, 06/27/2013 [...] PM EDT) Hemoglobin A1C 6.8(H) (4.0-5.6) % [facility] Comment: MONITORING: In known diabetic patients, hemoglobin A1c targets should be discussed with health care provider. DIAGNOSTIC USE: ??The [place] Diabetes Association (ADA) and the World Health [...] Supplement 1 Testing performed or reported by [facility], a Service of [facility], [address] [place] [id number] Danae Holliday MD, Soil Technician [facility]# [id number] 08/29/2022 2:16 PM EDT 08/29/2022 2:24 PM EDT Fernanda Escalante MD LAB BLOOD ORDERABLES Final Resu lt [facility] from Last 3 Months or Most Recently Relevant to Health Maintenance Insurance Medicare [facility] Medicare [facility] Care Teams Fuel Conversion Technician Relationship Specialty Start Date End Date Gt Akins MD [address] [place] [address] [id number] PCP - General Internal Medicine 04/06/22
--- OUTSIDE RECORDS SUMMARY | 2024-09-16 14:44 | XMS_ITS | Continuity of Care Document ---
Author Organization [facility] [address] [facility] [address] [place] [address] Phone [phone] Care Team Providers Care Coat Feller Name Role Phone Gt Akins Care Team Information Supervisor Microwave [phone] Iftikhar Grady MD Care Team Information Receiv er [phone] Problems Active Problems Provider Date Diabetes mellitus [...] 300units Le Garcia M.D. 07/19/2024 Freestyle Andrade 2/[place]/Flash Glucose Monitoring Dzvgsr3Rcbfxy Device use as directed with sensors 1unlopez Garcia M.D. 03/13/2024 Freestyle LancetsMisc Use one lancets 4 time a day for glucose check. Dx- E11.9 300unlopez Garcia M.D. 01/23/2024 Ferrous Bjgkpphny096(38Fe) mg Tablets 1 by mouth once a day 90tajoshua Morataya M.D. 09/28/2023 Trulicity0.75mg/0.5M L Solution Pen-Inject One Subcutaneous Injection Every Week Dx: E11.9 2ml E11Debbie Garcia M.D. 08/04/2023 Sure Comfort Pen NDL 31GX3/ 31G X31G X 5 mm Use as Directed 4 Times A Day 400units Gurvinder Morataya M.D. 03/13/2023 Levothyroxine Ddpeva36tcm Tablets Take 1 Tablet By Mouth Daily 90tajoshua Morataya M.D. 11/08/2022 Xanax0.5mg Tablets one qd Gurvinder Morataya M.D. 04/19/2022 Npoxqfhrjjx961mt Tablets Take 1 Tablet By Mouth Daily as Directed 90tajoshua oMrataya M.D. 04/19/2022 Easy Touch Pen NDL 31GX3/16 31G X31G X 5 mm Use as Directed 4 Times A Day 100units Le Garcia M.D. 02/24/2022 Atorvastatin Szryvmo46nv Tablets 1 by mouth every day Gurvinder Morataya M.D. 01/17/2022 Glipizide ER5mg Tablets ER 24HR Take 2 Tablet By Mouth Every Morning 90tabs Gurvinder Morataya M.D. Novolog Seagjqz102Phoy/ML Solution Pen-Inject 6 To 12 Units Subcutaneous Injection Before Meals 15units Gurvinder Morataya M.D. Tresiba Nxplvxape970Mffd/ML Solution Pen-Inject 80 Unit Subcutaneous Injection Daily AT Bedtime 15units Le Garcia M.D. Trazodone HAH566xs Tablets take two tablets by mouth at bedtime Unknown Sertraline QGV429ex Tablets 2 by mouth every day 45tabs Unknown Xbuuckqveg69nc Capsules DR 1 by mouth every day 90caps Unknown Rnykcvlez31zv Tablets Take 1 Tablet By Mouth Every [...] Hemoglobin A1c 6.5% Basic Metabolic Panel 05/04/2023 [facility] Glucose 157 [...] Hemoglobin A1c 7.3% Basic Metabolic Panel 12/07/2022 [facility] Glucose 93 [...] 8.5% TSH With Reflex To FT4 07/19/2022 [facility] TSH With [...] 2 diabet es mellitus without complications Z79.4 long term care social worker (current) use of insulin Assessments Date Code Description Provider 08/15/2024 E11.9 Type 2 diabetes mellitus wit hout complications WENDI Silver 08/15/2024 Z79.4 [facility] (current) use of i nsulin WENDI Silver Plan of Treatment Future Appointment(s):* 09/26/2024 2:15 pm - WENDI Silver at Main Office 08/15/2024 - WENDI Silver* E11.9 Type 2 diabetes mellitus without complications * Z79.4 long term care social worker (current) use of insulin Functional Status Description No Information Available Mental Status Description No Information Available Referrals Description No Information Available
--- OUTSIDE RECORDS SUMMARY | 2024-09-16 14:44 | XMS_ITS | Clinical Summary ---
Author Organization [facility] Address [address] [place] [address] Phone Care Team Providers Care Automatic Trimming Sewer Name Role Phone Gt Akins MD Primary Care Provider [phone] Allergies Active Allergy Reactions Criticality Noted Date [...] diabetes mellitus wit h peripheral artery disease ([facility] V24, [facility] V28) 11/22/2018 Type 2 diabetes mellitus wit h cataract ([facility] V24, [facility] V28) 02/14/2018 Type 2 diabetes mellitus wit h renal manifestations ([facility] V24, [facility] V28) 02/14/2018 Hyperlipidemia 11/27/2017 Overview (04/08/2024): Last [...] current regimen. Major depression in partial remission ([facility] V 24) 11/27/2017 Fibromyalgia 10/27/2016 Type 2 diabetes mellitus wit h neurological manifestations ([facility] V24, [facility] V28) 10/27/2016 Chronic insomnia 10/20/2016 GERD (gastroesophageal reflux disease) 7 Hypothyroidism 10/20/2016 Cataract 03/02/2016 CKD (chronic kidney disease) stage 3, GFR 30-59 ml/min ([facility] V24, [facility] V28) 01/14/2016 Insomnia 01/14/2016 Panic disorder 01/14/2016 Psoriasis 01/14/2016 Vitamin B 12 deficiency 01/14/2016 DDD (degenerative disc disease), lumbar 11/20/19 16 Overview (04/08/2024): Cervical and thoracic as well Chronic fatigue syndrome 11/13/2015 Migraine headache 07/02/2013 Encounters Date Type Department Care Team Description 08/30/2024 1:48 PM EDT - 08/30/2024 11:59 PM EDT Hospital Encounter [facility] CT Scan [address] [place] [address] Malignant neoplasm of ascending colon ([facility] V24, [facility] V28) Discharge Disposition: Home or Self Care 07/16/2024 Telephone Gastroenterology - [address] [facility] [address] [place] [address] Darcy Land MD from Last [...] Type 2 diabetes mellitus wit h cataract ([facility] V24, [facility] V28) 02/14/2018 DX:Type 2 diabetes mellitus with cataract ([facility]) Type 2 diabetes mellitus wit h renal manifestations ([facility] V24, [facility] V28) 02/14/2018 DX:Type 2 diabetes mellitus with renal manifestations ([facility]) Cataract 03/02/2016 DX:Cataract Chronic insomnia 10/20/2016 DX:Chronic inso mnia CKD (chronic kidney disease) stage 3, GFR 30-59 ml/min ([facility] V24, [facility] V28) 01/14/2016 DX:CKD (chronic kidney disea se) stage 3, GFR 30-59 ml/min ([facility]) DDD (degenerative disc disea se), lumbar 11/20/2015 DX:DDD (degenerative disc di sease), lumbar; COMMENT: Cervical and thoracic as well Fibromyalgia 10/27/2016 DX:Fibromyalgia GERD (gastroesophageal reflu x disease) 10/20/2016 DX:GERD (gastroesophageal re flux disease) Hyperlipidemia 11/27/2017 DX:Hyperlipidemi a Hypertension 11/27/2017 DX:Hypertension Hypothyroidism 10/20/2016 DX:Hypothyroidis m Insomnia 01/14/2016 DX:Insomnia Major depression in partial remission ([facility] V24) 11/27/2017 DX:Major depression in parti al remission ([facility]) Migraine headache 07/02/2013 DX:Migraine he adache Panic disorder 01/14/2016 DX:Panic disorde r Psoriasis 01/14/2016 DX:Psoriasis Type 2 diabetes mellitus wit h neurological manifestations ([facility] V24, [facility] V28) 10/27/2016 DX:Type 2 diabetes mellitus with [...] diabetes mellitus wit h peripheral artery disease ([facility] V24, [facility] V28) 11/22/2018 DX:Type 2 diabetes mellitus with [...] Signed Date: 08/30/2024 16:38 ET Workstation ID: [id number] Transcribed By: Self Edit Transcribed Date: 08/30/2024 [...] Signed Date: 08/30/2024 16:38 ET Workstation ID: [id number] Transcribed By: Self Edit Transcribed Date: 08/30/2024 16:33 ET us Iftikhar Grady MD IMG CT PROCEDURES Final Res ult * (ABNORMAL) CBC auto differential (08/29/2024 12:05 PM EDT) WBC 5.9 4.8 - 10.8 K/mcL LAB HEMETOLOGY METHOD 08/29/2024 12:40 PM EDT [facility] RBC 4.30(L) 4.50 - 5.50 M/mcL LAB HEM[facility]OLOGY [facility] Hemoglobin 13.5 13.5 - 17.5 g/dL LAB HEMETOLOGY METHOD 08/29/2024 12:40 PM EDT [facility] Hematocrit 40.1(L) 42.0 - 54.0 % LAB HEMETOLOGY METHOD 08/29/2024 12:40 PM EDT [facility] MCV 93.0 79.0 - 98.0 FL LAB HEMETOLOGY METHOD 08/29/2024 12[facility] MCH 31.3 27.0 - 32.0 pcg LAB HEMETOLOGY METHOD 08/29/2024 12:40 PM EDT [facility] MCHC 33.7 32.0 - 37.0 g/dL LAB HEMETOLOGY METHOD 08/29/2024 12:40 PM EDT [facility] RDW 12.5 11.0 - 15.0 % LAB HEMETOLOGY METHOD 08/29/2024 12:[facility] Platelets 188 130 - 400 K/mcL LAB HEMETOLOGY METHOD 08/29/2024 12:40 PM EDT [facility] MPV 9.8 7.0 - 11.0 FL LAB HEMETOLOGY METHOD 08/29/2024 12:[facility] NRBC 0.0 <1.0 % LAB HEMETOLOGY METHOD 08/29/2024 12:40 PM [facility] NRBC Absolute 0.00 <0.10 K/mcL LAB HEMETOLOGY METHOD 08/29/2024 12:40 PM [facility] Neutrophils Relative 75.1 % LAB HEMETOLOGY METHOD 08/29/2024 12:40 PM [facility] Lymphocytes Relative 14.7 % LAB HEMETOLOGY METHOD 08/29/2024 12:40 PM [facility] Monocytes Relative 6.7 % LAB HEMETOLOGY METHOD 08/29/2024 12:40 PM [facility] Eosinophils Relative 2.4 % LAB HEMETOLOGY METHOD 08/29/2024 12:40 PM [facility] Basophils Relative 0.3 % LAB HEMETOLOGY METHOD 08/29/2024 12:[facility] Immature Granulocytes Relative 0.8 % LAB HEMETOLOGY METHOD 08/29/2024 12:40 PM [facility] Neutrophils Absolute 4.45 1.50 - 7.00 K/mcL LAB HEMETOLOGY METHOD 08/29/2024 12:[facility] Lymphocytes Absolute 0.87(L) 1.00 - 5.00 K/mcL LAB HEMETOLOGY METHOD 08/29/2024 12:40 PM EDT [facility] Monocytes Absolute 0.40 0.20 - 1.00 K/[facility] LAB HEMETOLOGY METHOD 08/29/2024 12:40 PM EDT [facility] Eosinophils Absolute 0.14 0.00 - 0.50 K/[facility] LAB HEMETOLOGY METHOD 08/29/2024 12:40 PM EDT [facility] Basophils Absolute 0.02 0.00 - 0.20 K/[facility] LAB HEMETOLOGY METHOD 08/29/2024 12:40 PM EDT [facility] Immature Granulocytes Absolute 0.05(H) 0.00 - 0.03 K/[facility] LAB HEMETOLOGY METHOD 08/29/2024 12:40 PM EDT [facility] Blood Venous blood specimen / Unknown Venipuncture / Unknown 08/29/2024 12:05 PM EDT 08/29/2024 12:27 PM EDT us Jim Larsen DO LAB BLOOD ORDERABLES Final Res ult [facility] [address] [place] [address], * CEA (08/29/2024 12:05 PM EDT) CEA <2.0 0.0 - 5.0 ng/mL LAB CHEMISTRY METHOD 08/29/2024 2:57 PM EDT [facility] Blood Venous blood specimen / Unknown Venipuncture / Unknown 08/29/2024 12:05 PM EDT 08/29/2024 12:29 PM EDT Narrative [facility] - 08/29/2024 2:57 PM EDT The Siemens Advia Centaur Chemiluminescent Immunoassay is used. Results obtained with different assay methods or kits cannot be used interchangeably. Results cannot be interpreted as absolute evidence of the presence or absence of malignant disease. us Jim Larsen DO LAB BLOOD ORDERABLES Final Res ult [facility] [address] [place] [address], [place] [phone] * (ABNORMAL) Comprehensive metabolic panel (08/29/2024 12:05 PM EDT) Sodium 140 133 - 145 mmol/L LAB CHEMISTRY METHOD 08/29/2024 1:44 PM EDT [facility] Potassium 3.5 3.5 - 5.5 mmol/L LAB CHEMISTRY METHOD 08/29/2024 1:[facility] Chloride 103 96 - 110 mmol/L LAB CHEMISTRY METHOD 08/29/2024 1:44 PM [facility] CO2 26 21 - 32 mmol/L LAB CHEMISTRY METHOD 08/29/2024 1:44 PM [facility] Anion Gap 11 3 - 11 LAB CHEMISTRY METHOD 08/29/2024 1:[facility] Glucose 130(H) 70 - 100 mg/dL LAB CHEMISTRY METHOD 08/29/2024 1:44 PM [facility] BUN 38(H) 5 - 25 mg/dL LAB CHEMISTRY METHOD 08/29/2024 1:44 PM [facility] Creatinine 1.62(H) 0.70 - 1.30 mg/dL LAB CHEMISTRY METHOD 08/29/2024 1:44 PM [facility] eGFR 44(L) >=60 mL/min/1. 73m2 LAB CHEMISTRY METHOD 08/29/2024 1:44 PM [facility] Comment:Calculation based on the??Chronic Kidney Disease Epidemiology Collaboration (CKD-EPI) equation refit??without adjustment for race. BUN/Creatinine Ratio 23.5 LAB CHEMISTRY METHOD 08/29/2024 1:44 PM EDT [facility] Calcium 9.7 8.5 - 10.5 mg/dL LAB CHEMISTRY METHOD 08/29/2024 1:44 PM EDT [facility] AST (SGOT) 21 10 - 42 unit/L LAB CHEMISTRY METHOD 08/29/2024 1:44 PM [facility] ALT (SGPT) 27 10 - 60 unit/L LAB CHEMISTRY METHOD 08/29/2024 1:44 PM EDT [facility] Alkaline Phosphatase 87 42 - 121 unit/L LAB CHEMISTRY METHOD 08/29/2024 1:44 PM EDT [facility] Total Protein 7.8 6.0 - 8.0 g/dL LAB CHEMISTRY METHOD 08/29/2024 1:44 PM [facility] Albumin 4.6 3.2 - 5.0 g/dL LAB CHEMISTRY METHOD 08/29/2024 1:44 PM T [facility] Total Bilirubin 0.5 0.0 - 1.4 mg/dL LAB CHEMISTRY METHOD 08/29/2024 1:44 PM T [facility] Blood Venous blood specimen / Unknown Venipuncture / Unknown 08/29/2024 12:05 PM EDT 08/29/2024 12:29 PM EDT us Jim Larsen DO LAB BLOOD ORDERABLES Final Res ult [facility] [address] [place] [address], * Hemoglobin A1c (05/31/2023) Hemoglobin A1C 5.8 <=6.5 % Blood Venous blood specimen / Unknown us Historical Provider LAB BLOOD ORDERABLES Maria E l Result * Hm Colonoscopy (05/18/2023) Pathologist [facility] Colonoscopy No interpretation , Abstracted Anatomical Region Laterality Modality Other [facility] Provider HEALTH MAINTENANCE Final Result * Hepatitis C Screening (08/31/2020) Pathologist [facility] Hepatitis C Screening Abstracted [facility] Provider HEALTH MAINTENANCE Final Result * Urine Albumin Creatinine Ratio (01/27/2020) Pathologist [facility] Urine Albumin Creatinine Ratio Abstracted [facility] Provider HEALTH MAINTENANCE Final Result * (ABNORMAL) Lipid panel (01/27/2020) [facility] LDL/HDL Ratio 8(A) 0 - 4 Triglycerides 561(A) 0 - 150 mg/dL Comment:Triglyceride value i s >= 500. ??Calculated LDL is not meaningful. ??Direct LDL has been added. Cholesterol 268(A) 0 - 200 mg/dL HDL 33(A) >=40 mg/dL LDL Cholesterol 153(A) 0 - 100 mg/dL Blood Venous blood specimen / Unknown Result [facility] Provider LAB BLOOD ORDERABLES Maria E l Result from Last 3 Months or Most Recently Relevant to Health Maintenance Insurance MEDICARE [facility] Care Teams Automatic Trimming Sewer Relationship Specialty Start Date End Date Gt Akins MD [address] [place] [phone] PCP - General 05/18/23
--- OUTSIDE RECORDS SUMMARY | 2024-09-16 14:44 | XMS_ITS | Clinical Summary ---
Author Organization [facility] Address [address] [place] [address] Care Team Providers Care Staff Trainer Name Role Phone Kaye Barreto MD Primary [...] age to complete this topic Care Teams Staff Trainer Relationship Specialty Start Date End Date Kaye Barreto MD PCP - General Internal Medicine 11/15/17
--- NOTE | 2024-09-16 14:53 | A.OFFVIS_ITS ---
Vital Signs 09/16/24 14:54 Height 5 ft 10 in Weight 153 lb BMI 22.0 Intake Visit Reasons: OV-Pain in right hip Intake Note: Maurilio is a 73 year old male who presents today for a right hip pain follow up. At patient last visit, 01/13/22, patient was referred to physical therapy, declined injection. Patient reports today for the past year and a half his right hip pain has worsened. Describes pain as sharp, 6-9 on the pain scale. He reports he never went to PT. Patient interested on a cortisone injection today. Allergies hydrochlorothiazide Allergy (Intermediate, Verified 09/16/24 15:07) Unknown lamotrigine [From LAMICTAL] Allergy (Intermediate, Verified 09/16/24 15:07) RASH Penicillins [PENICILLINS] Allergy (Intermediate, Verified 09/16/24 15:07) ITCHY Tetracyclines [TETRACYCLINES] Allergy (Intermediate, Verified 09/16/24 15:07) ITCHY tramadol Allergy (Unknown, Verified 09/16/24 15:07) Unknown onabotulinumtoxinA [From Botox] Allergy (Verified 09/16/24 15:07) swallowing gabapentin [From NEURONTIN] Adverse Reaction (Intermediate, Verified 09/16/24 15:07) ACID REFLUX amitriptyline [From ELAVIL] Adverse Reaction (Mild, Verified 09/16/24 15:07) THIRST Medication List - Last Reconciled 09/16/24 by Joesph Saenz PA-C alprazolam 0.5 mg PO DAILY PRN apremilast (Otezla) 30 mg PO BID atorvastatin 20 mg PO DAILY benzonatate 200 mg PO TID PRN fenofibrate 160 mg PO DAILY ferrous sulfate 325 mg PO DAILY glipizide ER 10 mg PO DAILY insulin aspart U-100 (Novolog FlexPen U-100 Insulin aspart) 14 units subcut TID insulin degludec (Tresiba FlexTouch U-100 insulin) 80 units subcut DAILY levothyroxine 50 mcg PO DAILY lisinopril 2.5 mg PO DAILY omeprazole 40 mg PO DAILY pen needle, diabetic (Easy Touch) As directed quetiapine 200 mg PO BEDTIME sertraline 100 mg PO BID trazodone 200 mg PO BEDTIME PRN HPI HPI OV-Pain in right hip: Details: 73-year-old gentleman presents to the office today for right hip pain. He was previously seen by me and diagnosed with trochanteric bursitis along with arthritis. He declined injections at that time and did not attend physical therapy. He states the hip has been progressively getting worse he is unable to sleep on the right side. He does have diabetes and states his sugars are not well controlled. [facility] Medical History Depression Chronic renal insufficiency Diabetes Restrictive lung disease Dyspnea on exertion COPD (chronic obstructive pulmonary disease) Restless legs syndrome (RLS) Sleep apnea Gallbladder abscess Surgical History H/O colectomy H/O colonoscopy Hx of cholecystectomy Family History Brother Substance use disorder Sister Mental health disorder Diabetes Breast cancer Sister Mental health disorder Sister Mental health disorder Sister Mental health disorder Mother Mental health disorder Social History Housing: Condominium Alcohol intake: current Alcohol intake frequency: former alcohol drinker Patient Tobacco Use Status: Never used Tobacco e-Cigarette/Vaping Use: Never Used Second Hand Smoke Exposure: No service: No Current occupational status: employed and disabled Current occupation: disabled - [employer] Cognitive needs: No Hearing needs: No Vision needs: Yes Review of Systems Const All systems reviewed & are unremarkable except as noted in HPI and below Physical Exam Vital Signs: BMI result Body Mass Index 22.0 Const General: cooperative, healthy appearing, comfortable, no acute distress, well developed and alert Orientation/consciousness: patient oriented x3 HEENT Head: Yes normal to inspection, Yes normocephalic and Yes atraumatic Eyes General: appearance normal, both eyes and all related structures Resp Effort & Inspection: normal respiratory effort and able to speak in complete sentences Cardio Peripheral pulses: Peripheral pulses 2+ throughout Neuro General: patient oriented x3 Extrem Other: Right hip: Normal to inspection. No pain with ROM of the hip. Pain along the greater trochanter. No pain with hip flexion or abduction. No tenderness along the si joint, - SLR. NVI. Results Reviewed Results Reviewed: X-rays of the right hip obtained in the office today and reviewed by me do show degenerative changes throughout the hip joint Assessment & Plan Assessment & Plan (1) Uncontrolled diabetes mellitus: Category: Medical Qualifiers: Diabetes mellitus type: type 1 Glycemic state: with hyperglycemia Qualified Code(s): E10.65 - Type 1 diabetes mellitus with hyperglycemia (2) Trochanteric bursitis, right hip: Code(s): M70.61 - Trochanteric bursitis, right hip Category: Medical (3) Osteoarthritis of right hip: Code(s): M16.11 - Unilateral primary osteoarthritis, right hip Category: Medical Plan We discussed options today however because he is a an uncontrolled diabetic we will hold off on injections at this time. I did put in an order for physical therapy and stressed the importance of working with therapy to better strengthening and conditioning the lower extremities. I also encouraged modification of activities as tolerated. If symptoms persist or worsen he can contact our office otherwise he will follow up as needed. Orders: Orders XR hip RT min 2V Today M25.551 - Pain in right hip Coding Level of Care Code Est Pt Level 3 (34507) Complex EM visit Add On G2211 Diagnoses Uncontrolled type 1 diabetes mellitus with hyperglycemia E10.65 Diabetes mellitus type: type 1 Glycemic state: with hyperglycemia Trochanteric bursitis, right hip M70.61 Osteoarthritis of right hip M16.11
[2024-09-16 14:54] VITALS: BMI 22.0
== END 2024-09-16 15:25 | disposition home or self-care (01) ==
LOC: HO.HOS 14:42
PROVIDERS: PCP Internal Medicine; Visit Provider Physician Assistant
DX: E10.65 Type 1 diabetes mellitus with hyperglycemia (principal); M70.61 Trochanteric bursitis, right hip; M16.11 Unilateral primary osteoarthritis, right hip
CPT/HCPCS: 99213; G2211

== ENCOUNTER → 2024-09-16 14:44 | Outpatient (BNV) | payer MEDICARE, SELFPAY | PROVIDERS: Visit Provider Radiology Diagnostic Radiology | DX: M25.551 Pain in right hip (principal) | CPT/HCPCS: 73502 ==

== ENCOUNTER 2024-09-27 13:42 | Outpatient (REF) | payer MEDICARE, SELFPAY ==
--- NOTE | ~2024-09-27 | US_ITS ---
EXAMINATION: US KIDNEY BILATERAL HISTORY: E11.21 - Type 2 diabetes mellitus with diabetic nephropathy TECHNIQUE: Real-time grayscale ultrasound imaging of the kidneys was performed and images were reviewed. COMPARISON: Correlation is made with an unenhanced CT of the abdomen and pelvis dated 10/18/2016. FINDINGS: Right kidney: The right kidney measures 10.3 x 6.1 x 5.9 cm. Renal parenchymal echotexture and thickness are normal. There are no masses. There is no hydronephrosis or renal calculi. Left Kidney: The left kidney measures 11.7 x 6.0 x 5.5 cm. Renal parenchymal echotexture and thickness are normal. There is a prominent hypertrophied column of Srinivasa. There are no masses. There is no hydronephrosis or renal calculi. US/US renal BI IMPRESSION: Unremarkable renal ultrasound. Electronically signed by: Bakari Bassett MD 09/27/2024 03:24 PM EDT
--- OUTSIDE RECORDS SUMMARY | 2024-09-27 13:52 | XMS_ITS | Clinical Summary ---
Author Organization [facility] Address [address] [place] [address] Care Team Providers Care Services Advisor Name Role Phone Kaye Barreto MD Primary [...] age to complete this topic Care Teams Services Advisor Relationship Specialty Start Date End Date Kaye Barreto MD PCP - General Internal Medicine 11/15/17
== END 2024-09-27 13:43 | disposition home or self-care (01) ==
LOC: HO.HMGCX 13:42
PROVIDERS: PCP Internal Medicine; Visit Provider Internal Medicine Nephrology
DX: E11.21 Type 2 diabetes mellitus with diabetic nephropathy (principal)
CPT/HCPCS: 76775

== ENCOUNTER → 2024-09-27 14:17 | Outpatient (BNV) | payer MEDICARE, SELFPAY | PROVIDERS: PCP Internal Medicine; Visit Provider Radiology Diagnostic Radiology | DX: E11.21 Type 2 diabetes mellitus with diabetic nephropathy (principal) | CPT/HCPCS: 76775 ==

== ENCOUNTER 2024-12-18 14:12 | Outpatient (AMB) | payer MEDICARE, SELFPAY ==
[2024-12-18 14:19] VITALS: BP 124/72; PULSE 81; O2SAT 99; BMI 22.1
--- NOTE | 2024-12-18 14:19 | A.OFFVIS_ITS ---
Intake Vital Signs 12/18/24 14:19 Height 5 ft 10 in Weight 154 lb BMI 22.1 BP 124/72 Blood Pressure Location Lt brachial Position Sitting Pulse 81 Pulse Source Pulse Oximeter Pulse Oximetry (%) 99 Intake Visit Reasons: Annual Allergies hydrochlorothiazide Allergy (Intermediate, Verified 12/18/24 14:20) Unknown lamotrigine (From LAMICTAL) Allergy (Intermediate, Verified 12/18/24 14:20) RASH Penicillins (PENICILLINS) Allergy (Intermediate, Verified 12/18/24 14:20) ITCHY Tetracyclines (TETRACYCLINES) Allergy (Intermediate, Verified 12/18/24 14:20) ITCHY tramadol Allergy (Unknown, Verified 12/18/24 14:20) Unknown onabotulinumtoxinA (From Botox) Allergy (Verified 12/18/24 14:20) swallowing gabapentin (From NEURONTIN) Adverse Reaction (Intermediate, Verified 12/18/24 14:20) ACID REFLUX amitriptyline (From ELAVIL) Adverse Reaction (Mild, Verified 12/18/24 14:20) THIRST Medication List - Last Reconciled 12/18/24 by Gt Akins MD alprazolam 0.5 mg PO DAILY PRN apremilast (Otezla) 30 mg PO BID atorvastatin 20 mg PO DAILY empagliflozin (Jardiance) 10 mg PO DAILY fenofibrate 160 mg PO DAILY ferrous sulfate 325 mg PO DAILY glipizide ER 10 mg PO DAILY insulin aspart U-100 (Novolog FlexPen U-100 Insulin aspart) 14 units subcut TID insulin degludec (Tresiba FlexTouch U-100 insulin) 80 units subcut DAILY levothyroxine 50 mcg PO DAILY lisinopril 2.5 mg PO DAILY omeprazole 40 mg PO DAILY pen needle, diabetic (Easy Touch) As directed quetiapine 200 mg PO BEDTIME sertraline 100 mg PO BID trazodone 200 mg PO BEDTIME PRN Do you need a note to return to daycare/school/sports/work: No HPI Annual HPI Details Patient is a 74-year-old gentleman came in today for Medicare wellness visit and also for regular follow-up presenting with pain management concerns. Abdominal Pain: - Onset since surgery on June 21, 2023, for colon cancer at [facility] by Dr. Grady. - Pain is localized in the lower right h emiabdomen. - Possible overlapping of sutures causin g discomfort, seen on recent x-ray - Previous colonoscopy in August of this ye ar showed no abnormalities. Hip Pain: - X-ray revealed osteoarthrosis in both hips, leading to sclerosis and joint narrowing. - Pain makes walking difficult and affec ts overall mobility. Diabetes Management: - A1c level noted at 8.4%, with previous levels at a similar state. - Current treatment includes oral hypogl ycemics and insulin therapy. Iron-Deficiency Anemia: - Attributed to blood loss, currently st able. Chronic Kidney Disease: - GFR noted at 43 with creatinine at 1.5 7. - Regular follow-up with financial administrative assistant Dr Diomedes Tracey Patient has a anemia of chronic disease and thrombocytopenia, last platelet count was 124 in November of this year Lipid disorder: patient is on gemfibrozil 600 mg b.i.d. Thyroid medication is levothyroxine 50 mcg Chronic GERD: Continue PPI cervicalgia and headache. Management through neurology Medications - Alprazolam for anxiety management - Atorvastatin for cholesterol managemen t - Fenofibrate for hyperlipidemia - Iron supplement for anemia - Glipizide 10 mg for diabetes managemen t - Insulin 80 units long-acting, 14 units short-acting as per sliding scale for diabetes management - Levothyroxine 50 mcg for hypothyroidis m - Lisinopril 2.5 mg likely for hypertens ion - Omeprazole 40 mg for gastric acid rela papito concerns - Quetiapine (Seroquel) through psychiat elo care - Sertraline through psychiatric care - Trazodone through psychiatric care Problem List - Chronic Kidney Disease, Stage III - Colon Cancer history - Hip Pain, likely due to Severe Arthrit is - Mental Health Management - Diabetes Mellitus uncontrolled [place] of Care - Healthcare proxy is the , Guy youssef. Document not on file. - Nephrology consultations with Dr. Keegan iraheta - Psychiatric care under Dr. Starkey Patient Instructions - Monitor abdominal and hip pain; consid er Tylenol for pain management. - Adhere to diabetes medications; aim to reduce A1c to target levels. - Ensure use of Omeprazole to manage aci d reflux and adjust bed elevation. - Maintaining an updated healthcare prox y on file is imperative. - referral placed to General surgery [facility] for evaluation of lower abdominal pain Patient declined to see Dr. Garcia again, his previous surgeon Review of Systems General: No fever no chills neurological: No headaches no dizziness ear nose throat: No sore throat no hearing difficulty no ear pain cardiovascular: No syncope, no chest pain, no palpitations gastrointestinal: No nausea vomiting or diarrhea endocrine: no polydipsia no heat intolerance genitourinary: No dysuria skin: No new complaints Physical Exam general: No acute distress HEENT: No acute findings neck: Supple respiratory system: Able to talk in full sentences, no audible wheeze, no stridor, cough present cardiovascular: S1-S2 gastrointestinal: Pain present, lower abdominal with palpation in the middle extremities: Severe arthritis in hip, pain in right side [employer]: Alert awake oriented x3 motor sensory intact skin: Normal turgor HPI Comments History of Present Illness Details AWV Medical/social history reviewed Past medical history reviewed [place] of care / care team list updated Surgical/ hospitalization history reviewed Current medications including OTC and supplements reviewed Family history reviewed Tobacco controlled form updated Alcohol use form updated Illicit drug use in social history reviewed Current diagnosis of depression ?screening updated Appropriate PHQ 2/PHQ-9 completed . Vital signs reviewed Alcohol tobacco drug use reviewed and discussed . MMSE completed . ? Fall risk: ?Assessed Fall history: ?None Have you had any falls with injury in the past year?? No Have you had 2 or more falls in the past year?? No Fall risk assessment completed Home safety discussed with the patient Functional ability assessed and discussed and documented Activities of daily living reviewed and appropriate actions taken . HRA filled out by the patient and reviewed by provider and scanned . Appropriate written screening schedule established . Any health advise needed provided . Advance care planning discussed with the patient , necessary paperwork filled Examination IPPE/AWE: Balance failed Romberg failed Tandem walk failed walk-in turn failed rise from sit to stand failed . ?Hearing ?whisper test failed . Medication list reviewed, patient is stable on medications All other providers patient is seeing discussed and noted . [facility] Medical History Depression Chronic renal insufficiency Diabetes Restrictive lung disease Dyspnea on exertion COPD (chronic obstructive pulmonary disease) Restless legs syndrome (RLS) Sleep apnea Gallbladder abscess Surgical History H/O colectomy H/O colonoscopy Hx of cholecystectomy Family History Brother Substance use disorder Sister Mental health disorder Diabetes Breast cancer Sister Mental health disorder Sister Mental health disorder Sister Mental health disorder Mother Mental health disorder Social History Housing: Condominium Alcohol intake: current Alcohol intake frequency: former alcohol drinker Patient Tobacco Use Status: Never used Tobacco e-Cigarette/Vaping Use: Never Used Second Hand Smoke Exposure: No service: No Current occupational status: employed and disabled Current occupation: disabled - [employer] Cognitive needs: No Hearing needs: No Vision needs: Yes Questionnaire Medicare Wellness Checkup What [age] What gender do you identify with?: male During the past 4 weeks, how much have you been bothered by emotional problems such as feeling anxious, depressed, irritable, sad or downhearted, and blue?: moderately During the past 4 weeks, has your physical & emotional health limited your social activities with family, friends, neighbors, or groups?: moderately During the past 4 weeks, how much bodily pain have you generally had?: severe pain During the past 4 weeks, was someone available to help you if you needed & wanted help?: yes, as much as I wanted During the past 4 weeks, what was the hardest physical activity you could do for at least 2 minutes?: moderate Can you get to places out of walking distance without help? (For eg., can you travel alone on buses, taxis or drive your car?): Yes Can you go shopping for groceries or clothes without someone's help?: Yes Can you prepare your own meals?: Yes Can you do your housework without help?: Yes Because of any health problems, do you need the help of another person with your personal care needs such as eating, bathing, dressing or getting around the house?: No Can you handle your own money without help?: Yes During the past 4 weeks, how would you rate your health in general?: fair During the past 4 weeks how have things been going for you?: good & bad parts about equal Are you having difficulties driving your car?: no Do you always fasten your seat belt when you are in a car?: yes, usually During past 4 weeks, have you been bothered by the following: never: Trouble eating well? and Problems using the telephone?, seldom: Falling or dizzy when standing up, often: Teeth or denture problems? and always: Sexual problems? and Tiredness or fatigue? Have you fallen 2 or more times in the past year?: No Are you afraid of falling?: No Are you a smoker?: no During the past 4 weeks, how many drinks of wine, beer, or other alcoholic beverages did you have?: no alcohol at all Do you exercise for about 20 minutes 3 or more times a week?: no, I usually do not exercise this much Have you been given information to help with the following?: yes: Keeping track of your medications? and no: Hazards in your house that might hurt you? How often do you have trouble taking medicines the way you have been told to take them?: I always take medicine as prescribed How confident are you that you can control & manage most of your health pr oblems?: very confident What is your race?: White Mini Mental State Exam (MMSE) Orientation What is the (year) (season) (date) (day) (month)?: year, season, date, day and month Where are we (state) (county) (town or city) (hospital) (floor)?: state, county, town or city, hospital/clinic and floor Score Score: 10 Activity of Daily Living Bathing - sponge bath, tub bath or shower: receives no assistance (gets in/out by self, if usual bathing means Dressing - getting clothes from closets & drawers, including inner/outer garments & fasteners.: gets clothes & gets completely dressed without help Toileting - going to the 'toilet room' for urine/bowel elimination & cleaning self/arranging clothes: goes to toilet room, cleans self, arranges clothes without help Transfer: moves in & out of bed and chair without help (may use support object) Continence: controls urination/bowel movements completely by self Feeding: feeds self without help Total Score: 0 Information obtained from: patient Using telephone: independent Traveling: independent Shopping: independent Preparing meals: dependent Housework: needs assistance Taking medicine: independent Managing money: independent PHQ-9 Over the last 2 weeks, how often have you been bothered by any of the following problems? 1. Little interest or pleasure in doing things: not at all 2. Feeling down, depressed, or hopeless: not at all 3. Trouble falling or staying asleep, or sleeping too much: nearly every day 4. Feeling tired or having little energy: nearly every day 5. Poor appetite or overeating: not at all 6. Feeling bad about yourself - or that you are a failure or have let yourself or your family down: not at all 7. Trouble concentrating on things, such as reading the newspaper or watching television: not at all 8. Moving or speaking so slowly that other people could have noticed. Or the opposite - being so fidgety or restless that you have been moving around a lot more than usual: nearly every day 9. Thoughts that you would be better off or of hurting yourself in some way: not at all Total score: 9 Depression Screening Interpretation: Positive Depression Screening Follow-up: Existing condition and In treatment Depression Screening Done: Yes 54956 - PHQ-9 Billing: Yes Source: Developed by Drs. Bakari Canales, Petty Quiroz, Anjel Queen and colleagues, with an educational melina from [employer]. Physical Exam Vital Signs: Last Vital Signs Pulse 81 12/18/24 14:19 BP 124/72 12/18/24 14:19 Pulse Ox 99 12/18/24 14:19 BMI result Body Mass Index 22.1 Results AMB Hemoglobin A1c AMB Hemoglobin A1c 8.4 % Last Edit by Shyam Osei CMA on 12/18/24 14: 34 Results Reviewed Results Reviewed: Laboratory Last Values Hgb A1c (Clinic) 8.4 % (4.0-6.0) H 12/18/24 14:34 Assessment & Plan Assessment & Plan (1) Medicare annual wellness visit, subsequent: Code(s): Z00.00 - Encounter for general adult medical examination without abnormal findings (2) Diabetes mellitus type 2, insulin dependent: Code(s): E11.9 - Type 2 diabetes mellitus without complications; Z79.4 - technician terminal and repeater (current) use of insulin (3) Major depression, recurrent: Code(s): F33.9 - Major depressive disorder, recurrent, unspecified Qualifiers: Active/Remission status: in partial remission Qualified Code(s): F33.41 - Major depressive disorder, recurrent, in partial remission (4) Other specified hypothyroidism: Code(s): E03.8 - Other specified hypothyroidism (5) Diabetic neuropathy: Code(s): E11.40 - Type 2 diabetes mellitus with diabetic neuropathy, unspecified Qualifiers: Diabetes mellitus complication detail: diabetic autonomic neuropathy Diabetes mellitus type: type 1 Qualified Code(s): E10.43 - Type 1 diabetes mellitus with diabetic autonomic (poly)neuropathy (6) Cervicalgia: Code(s): M54.2 - Cervicalgia (7) Migraine with aura, intractable, without status migrainosus: Code(s): G43.119 - Migraine with aura, intractable, without status migrainosus (8) Diabetic kidney disease: Code(s): E11.21 - Type 2 diabetes mellitus with diabetic nephropathy Qualifiers: Diabetes mellitus type: type 2 Qualified Code(s): E11.21 - Type 2 diabetes mellitus with diabetic nephropathy (9) Hypertension, essential: Code(s): I10 - Essential (primary) hypertension (10) Lipid disorder: Code(s): E78.9 - Disorder of lipoprotein metabolism, unspecified (11) H/O colectomy: Code(s): Z90.49 - Acquired absence of other specified parts of digestive tract (12) Lower abdominal pain: Code(s): R10.30 - Lower abdominal pain, unspecified Plan Patient is a 74-year-old gentleman came in today for Medicare wellness visit and also for regular follow-up presenting with pain management concerns. Abdominal Pain: - Onset since surgery on June 21, 2023, for colon cancer at [facility] by Dr. Grady. - Pain is localized in the lower right hemiabdomen. - Possible overlapping of sutures causing discomfort, seen on recent x-ray - Previous colonoscopy in August of this year showed no abnormalities. Hip Pain: - X-ray revealed osteoarthrosis in both hips, leading to sclerosis and joint narrowing. - Pain makes walking difficult and affects overall mobility. Diabetes Management: - A1c level noted at 8.4%, with previous levels at a similar state. - Current treatment includes oral hypoglycemics and insulin therapy. Iron-Deficiency Anemia: - Attributed to blood loss, currently stable. Chronic Kidney Disease: - GFR noted at 43 with creatinine at 1.57. - Regular follow-up with financial administrative assistant Dr. Tracey Patient has a anemia of chronic disease and thrombocytopenia, last platelet count was 124 in November of this year Lipid disorder: patient is on gemfibrozil 600 mg b.i.d. Thyroid medication is levothyroxine 50 mcg Chronic GERD: Continue PPI cervicalgia and headache. Management through neurology Medications - Alprazolam for anxiety management - Atorvastatin for cholesterol management - Fenofibrate for hyperlipidemia - Iron supplement for anemia - Glipizide 10 mg for diabetes management - Insulin 80 units long-acting, 14 units short-acting as per sliding scale for diabetes management - Levothyroxine 50 mcg for hypothyroidism - Lisinopril 2.5 mg likely for hypertension - Omeprazole 40 mg for gastric acid related concerns - Quetiapine (Seroquel) through psychiatric care - Sertraline through psychiatric care - Trazodone through psychiatric care Problem List - Chronic Kidney Disease, Stage III - Colon Cancer history - Hip Pain, likely due to Severe Arthritis - Mental Health Management - Diabetes Mellitus uncontrolled [place] of Care - Healthcare proxy is the , Polina. Document not on file. - Nephrology consultations with Dr. Tracey - Psychiatric care under Dr. Starkey Patient Instructions - Monitor abdominal and hip pain; consider Tylenol for pain management. - Adhere to diabetes medications; aim to reduce A1c to target levels. - Ensure use of Omeprazole to manage acid reflux and adjust bed elevation. - Maintaining an updated healthcare proxy on file is imperative. - referral placed to General surgery [facility] for evaluation of lower abdominal pain Patient declined to see Dr. Garcia again, his previous surgeon Orders: Orders AMB Hemoglobin A1c Today Z13.9 - Encounter for screening, unspecified Referrals Colon & Rectal Referral R10.30 - Lower abdominal pain, unspecified, Z90.49 - Acquired absence of other specified parts of digestive tract Medications: New omeprazole 40 mg PO DAILY 90 caps 0RF Quality Reporting (2019) Depression/Bipolar (159/160/161/177) PHQ-9: Total score: 9 Coding Level of Care Code Medicare Subsequent (G0439) Est Pt Level 4 (42870) Diagnoses Medicare annual wellness visit, subsequent Z00.00 Diabetes mellitus type 2, insulin dependent E11.9; Z79.4 Recurrent major depressive disorder, in partial remission F33.41 Active/Remission status: in partial remission Other specified hypothyroidism E03.8 Diabetic autonomic neuropathy associated with type 1 diabetes mellitus E10.43 Diabetes mellitus complication detail: diabetic autonomic neuropathy Diabetes mellitus type: type 1 Cervicalgia M54.2 Migraine with aura, intractable, without status migrainosus G43.119 Diabetic nephropathy associated with type 2 diabetes mellitus E11.21 Diabetes mellitus type: type 2 Hypertension, essential I10 Lipid disorder E78.9 H/O colectomy Z90.49 Lower abdominal pain R10.30 CPT Codes Advance Care Planning - Time spent: 1-15 minutes, not on file ([id number]) Additional Codes PHQ-9 - 17238 - PHQ-9 Billing: Yes ([id number]) Advance Care Planning Advance Care Planning discussion: Completed/Scanned Forms completed: MOLST Time spent: 1-15 minutes, not on file Actual minutes spent: 10
--- OUTSIDE RECORDS SUMMARY | 2024-12-18 15:11 | XMS_ITS | Clinical Summary ---
Author Organization [facility] Address [address] [place] [address] Care Team Providers Care Sample Grader Name Role Phone Kaye Barreto MD Primary [...] 98 11/24/2017 10:44 AM EDT Temperature 36.9 C (98.5 F) 11/24/2017 10:44 AM EDT Respiratory Rate - - Oxygen Saturation - [...] (2 - Td or Tdap) 08/15/2022 08/15/2012 RSV Adult > 60+ Yrs or (1 - 1-dose 75+ series) 2024 Influenza Vaccine (#1) 2024 8, 01/30/2016 Hepatitis B Vaccines Aged Out No long er eligible based on patient's age to complete this topic RSV Ped < 20 months Aged Out No longe r eligible based on patient's age to complete this topic Care Teams Sample Grader Relationship Specialty Start Date End Date Kaye Barreto MD PCP - General Internal Medicine 11/15/17
--- OUTSIDE RECORDS SUMMARY | 2024-12-18 15:11 | XMS_ITS ---
Author Name [facility] Organization Unknown Care Team Organization Name Specialty Phone Email Start Date End Da te [facility] Termed, PROVIDER Primary Care 03/08/202211/29
--- OUTSIDE RECORDS SUMMARY | 2024-12-18 15:11 | XMS_ITS | Clinical Summary ---
Author Organization [facility] Address [address] [place] [address] Phone Care Team Providers Care Ice Cream Chef Name Role Phone Gt Akins MD Primary Care Provider [phone] Allergies Active Allergy Reactions Criticality Noted Date [...] diabetes mellitus wit h peripheral artery disease ([facility] V24, [facility] V28) 11/22/2018 Type 2 diabetes mellitus wit h cataract ([facility] V24, [facility] V28) 02/14/2018 Type 2 diabetes mellitus wit h renal manifestations ([facility] V24, [facility] V28) 02/14/2018 Hyperlipidemia 11/27/2017 Overview [...] current regimen. Major depression in partial remission ([facility] V 24) 11/27/2017 Fibromyalgia 10/27/2016 Type 2 diabetes mellitus wit h neurological manifestations ([facility] [place], [facility] V28) 10/27/2016 Chronic insomnia 10/20/2016 GERD (gastroesophageal reflux disease) 7 Hypothyroidism 10/20/2016 Cataract 03/02/2016 CKD (chronic kidney disease) stage 3, GFR 30-59 ml/min ([facility] V24, [facility] V28) 01/14/2016 Insomnia 01/14/2016 Panic [...] Type 2 diabetes mellitus wit h cataract ([facility] [place]24, [facility] V28) 02/14/2018 DX:Type 2 diabetes mellitus with cataract ([facility]) Type 2 diabetes mellitus wit h renal manifestations ([facility] V24, [facility] V28) 02/14/2018 DX:Type 2 diabetes mellitus with renal manifestations ([facility]) Cataract 03/02/2016 DX:Cataract Chronic insomnia 10/20/2016 DX:Chronic inso mnia CKD (chronic kidney disease) stage 3, GFR 30-59 ml/min ([facility] [place]24, [facility] V28) 01/14/2016 DX:CKD (chronic kidney disea se) stage 3, GFR 30-59 ml/min ([facility]) DDD (degenerative disc disea se), lumbar 11/20/2015 DX:DDD (degenerative disc di sease), lumbar; COMMENT: Cervical and thoracic as well Fibromyalgia 10/27/2016 DX:Fibromyalgia GERD (gastroesophageal reflu x disease) 10/20/2016 DX:GERD (gastroesophageal re flux disease) Hyperlipidemia 11/27/2017 DX:Hyperlipidemi a Hypertension 11/27/2017 DX:Hypertension Hypothyroidism 10/20/2016 DX:Hypothyroidis m Insomnia 01/14/2016 DX:Insomnia Major depression in partial remission ([facility] V24) 11/27/2017 DX:Major depression in parti al remission ([facility]) Migraine headache 07/02/2013 DX:Migraine he adache Panic disorder 01/14/2016 DX:Panic disorde r Psoriasis 01/14/2016 DX:Psoriasis Type 2 diabetes mellitus wit h neurological manifestations ([facility] V24, [facility] V28) 10/27/2016 DX:Type 2 diabetes mellitus with neurological manifestations ([facility]) Vitamin B 12 deficiency 01/14/2016 DX:Vitam in B 12 deficiency CAD (coronary artery disease) 02/14/2018 DX :CAD (coronary artery disease) Iron deficiency anemia 11/22/2018 DX:Iron d eficiency anemia; COMMENT: Unclear etiology, new pt to practice 10/2018 on iron supplement since 2017 ED (erectile dysfunction) 11/22/2018 DX:ED (erectile dysfunction) Type 2 diabetes mellitus wit h peripheral artery disease ([facility] V24, [facility] V28) 11/22/2018 DX:Type 2 diabetes [...] 12/19/1960 Diabetes: Annual Retina Eye Exam 12[birth year]19/1960 Abdominal Aortic Aneurysm (AAA) Screen 04/03/2022 Falls Risk Assessment 04/03/2022 Medicare Annual Wellness Visit 04/03/2022 Social Influencers of Health Screening 04/03/2022 Diabetes: Annual Urine Albumin-Creatinine Ratio (uACR) 04/15/2022 01/27/2020 DTaP,Tdap,and Td Vaccines (2 - Td or Tdap) 08/15/2022 08/15/2012 Diabetes: Blood Sugar Control Test (HGBA1C) 11/29/2023 05/31/2023, 08/29/2022 Depression Screening 05/01/2024 COVID-19 Vaccine (8 - Pfizer risk season) 2024 01/12/2024, 02/06/2023, 02/04/2022, Additional history exists Influenza Vaccine (#1) 2024 , 02/04/2022, 02/15/2021, Additional history exists Cholesterol Screening (Lipid Panel) 01/26/2025 01/27/2020 Diabetes: Annual GFR (Glomerular Filtration Rate) 08/29/2025 08/29/2024, 01/27/2020 Hypertension/CHF/CAD Annual BMP Blood Test 08/29/2025 08/29/2024, 01/27/2020 Colorectal Cancer Screening: Colonoscopy 05/18/2033 05/18/2023 Hepatitis C Screening Completed 08/31/2020 Pneumococcal Vaccine: 50+ Years Completed 07/24/2022, 10/20/2016, 02/24/2015, Additional history exists Zoster Vaccines Completed 07/24/2022, 12/28/2018 RSV Immunization Adult Patients Completed 02/16/2023 HIB Vaccines Aged Out No longer eligi [...] Procedure Name Priority Date/Time Associated Diagnosis Comments COMPREHENSIVE METABOLIC PANEL Routine 08/29/2024 12:05 PM EDT Adenocarcinoma of colon ([facility] V24, [facility] V28) HEMOGLOBIN A1C Routine 05/31/2023 HM COLONOSCOPY Routine 05/18/2023 HM HEPATITIS C SCREENING Routine 08/31/2020 HM URINE ALBUMIN CREATININE RATIO Routine 01/27/2020 LIPID PANEL Routine 01/27/2020 from Last 3 Months or Most Recently Relevant to Health Maintenance Results * (ABNORMAL) Comprehensive metabolic panel (08/29/2024 12:05 PM EDT) Sodium 140 133 - 145 mmol/L LAB CHEMISTRY METHOD 08/29/2024 1:44 PM [facility] Potassium 3.5 3.5 - 5.5 mmol/L LAB CHEMISTRY METHOD 08/29/2024 1:44 PM [facility] Chloride 103 96 - 110 mmol/L LAB CHEMISTRY METHOD 08/29/2024 1:44 PM [facility] CO2 26 21 - 32 mmol/L LAB CHEMISTRY METHOD 08/29/2024 1:44 PM [facility] Anion Gap 11 3 - 11 LAB CHEMISTRY METHOD 08/29/2024 1:44 PM [facility] Glucose 130(H) 70 - 100 mg/dL LAB CHEMISTRY METHOD 08/29/2024 1:44 PM [facility] BUN 38(H) 5 - 25 mg/dL LAB CHEMISTRY METHOD 08/29/2024 1:44 PM [facility] Creatinine 1.62(H) 0.70 - 1.30 mg/dL LAB CHEMISTRY METHOD 08/29/2024 1:44 PM [facility] eGFR 44(L) >=60 mL/min/1. 73m2 LAB CHEMISTRY METHOD 08/29/2024 1:44 PM [facility] Comment:Calculation based on the Chronic Kidney Disease Epidemiology Collaboration (CKD-EPI) equation refit without adjustment for race. BUN/Creatinine Ratio 23.5 LAB CHEMISTRY METHOD 08/29/2024 1:44 PM EDT [facility] Calcium 9.7 8.5 - 10.5 mg/dL LAB CHEMISTRY METHOD 08/29/2024 1:44 PM T [facility] AST (SGOT) 21 10 - 42 unit/L LAB CHEMISTRY METHOD 08/29/2024 1:44 PM T [facility] ALT (SGPT) 27 10 - 60 unit/L LAB CHEMISTRY METHOD 08/29/2024 1:44 PM [facility] Alkaline Phosphatase 87 42 - 121 unit/L LAB CHEMISTRY METHOD 08/29/2024 1:44 PM [facility] Total Protein 7.8 6.0 - 8.0 g/dL LAB CHEMISTRY METHOD 08/29/2024 1:44 PM [facility] Albumin 4.6 3.2 - 5.0 g/dL LAB CHEMISTRY METHOD 08/29/2024 1:44 PM [facility] Total Bilirubin 0.5 0.0 - 1.4 mg/dL LAB CHEMISTRY METHOD 08/29/2024 1:44 PM [facility] Blood Venous blood specimen / Unknown Venipuncture / Unknown 08/29/2024 12:05 PM EDT 08/29/2024 12:29 PM EDT us Jim Larsen DO LAB BLOOD ORDERABLES Final Res ult [facility] [address] [place] [address], * Hemoglobin A1c (05/31/2023) Hemoglobin A1C 5.8 <=6.5 % Blood Venous blood specimen / Unknown Historical Provider LAB BLOOD ORDERABLES Maria E l Result * Hm Colonoscopy (05/18/2023) Colonoscopy No interpretation , Abstracted Anatomical Region Laterality Modality Other [facility] Provider HEALTH MAINTENANCE Final Result * Hepatitis C Screening (08/31/2020) Pathologist [facility] Hepatitis C Screening Abstracted [facility] Provider HEALTH MAINTENANCE Final Result * Urine Albumin Creatinine Ratio (01/27/2020) Pathologist [facility] Urine Albumin Creatinine Ratio Abstracted [facility] Provider [facility] Final Result * (ABNORMAL) Lipid panel (01/27/2020) [facility] LDL/HDL Ratio 8(A) 0 - 4 Triglycerides 561(A) 0 - 150 mg/dL Comment:Triglyceride value i s >= 500. Calculated LDL is not meaningful. Direct LDL has been added. Cholesterol 268(A) 0 - 200 mg/dL HDL 33(A) >=40 mg/dL LDL Cholesterol 153(A) 0 - 100 mg/dL Blood Venous blood specimen / Unknown [facility] Provider LAB BLOOD ORDERABLES Maria E l Result from Last 3 Months or Most Recently Relevant to Health Maintenance Insurance MEDICARE [facility] Care Teams Ice Cream Chef Relationship Specialty Start Date End Date Gt Akins MD [address] [place] [address] PCP - General 05/18/23
--- OUTSIDE RECORDS SUMMARY | 2024-12-18 15:11 | XMS_ITS | Clinical Summary ---
Author Organization [facility] Address [address] [facility] [address] [place] [address] Phone Care Team Providers Care Filtering Machine Tender Helper Name Role Phone Gt Akins MD Primary Care Provider [phone] Allergies Active Allergy Reactions Criticality Noted Date [...] (06/13/2022): Cervical and thoracic as well Immunizations Immunization Administration Dates Next Due Influenza [...] A1C 08/29/2023 024, 08/29/2022 Influenza Vaccine (#1) 2024 0, 02/12/2018, 01/30/2016 Pneumococcal Vaccine: Peds ( 0 [...] discussed with health care provider. DIAGNOSTIC USE: The [place] [employer] (ADA) and the World Health [...] 1 Testing performed or reported by [facility], a Service of [facility], [address] [place] [address] Danae Holliday MD, Software Configuration Analyst [facility]# [id number] 08/29/2022 2:16 PM EDT 08/29/2022 2:24 PM EDT us Fernanda Escalante MD LAB BLOOD ORDERABLES Final Resu lt [facility] from Last 3 Months or Most Recently Relevant to Health Maintenance Insurance Medicare [facility] Medicare [facility] Care Teams Filtering Machine Tender Helper Relationship Specialty Start Date End Date Gt Akins MD [address] [place], [place] [id number] PCP - General Internal Medicine 04/06/22
== END 2024-12-18 14:41 | disposition home or self-care (01) ==
LOC: HO.HMCC 14:13
PROVIDERS: PCP Internal Medicine; Visit Provider Internal Medicine
DX: Z00.00 Encounter for general adult medical examination without abnormal findings (principal); E11.43 Type 2 diabetes mellitus with diabetic autonomic (poly)neuropathy; Z79.4 Long term (current) use of insulin; E11.21 Type 2 diabetes mellitus with diabetic nephropathy; F33.41 Major depressive disorder, recurrent, in partial remission; E03.8 Other specified hypothyroidism; M54.2 Cervicalgia; G43.119 Migraine with aura, intractable, without status migrainosus; I10 Essential (primary) hypertension; E78.9 Disorder of lipoprotein metabolism, unspecified; Z90.49 Acquired absence of other specified parts of digestive tract; R10.30 Lower abdominal pain, unspecified

== ENCOUNTER → 2024-12-18 14:12 | Outpatient (BNVA) | payer MEDICARE, SELFPAY | PROVIDERS: PCP Internal Medicine; Visit Provider Internal Medicine | DX: Z00.00 Encounter for general adult medical examination without abnormal findings (principal); Z79.4 Long term (current) use of insulin; F33.41 Major depressive disorder, recurrent, in partial remission; E03.8 Other specified hypothyroidism; E10.43 Type 1 diabetes mellitus with diabetic autonomic (poly)neuropathy; M54.2 Cervicalgia; G43.119 Migraine with aura, intractable, without status migrainosus; E78.9 Disorder of lipoprotein metabolism, unspecified; I10 Essential (primary) hypertension; R10.30 Lower abdominal pain, unspecified; E10.21 Type 1 diabetes mellitus with diabetic nephropathy; Z90.49 Acquired absence of other specified parts of digestive tract | CPT/HCPCS: 83036; 96127; 99212 ==

== ENCOUNTER 2024-12-24 14:19 | Outpatient (AMB) | payer MEDICARE, SELFPAY ==
--- NOTE | 2024-12-24 15:11 | HO.NEPHOV ---
Vital Signs 12/24/24 15:15 Height 5 ft 10 in Weight 156 lb BMI 22.4 BP 104/64 Blood Pressure Location Rt brachial Position Sitting Pulse 75 Pulse Source Pulse Oximeter Pulse Oximetry (%) 98 Oxygen Delivery Method Room Air Intake Visit Reasons: 3mon [id number] Recreation Specialist Required: No Accompanied by: Self / Same As Patient Allergies hydrochlorothiazide Allergy (Intermediate, Verified 12/24/24 15:15) Unknown lamotrigine (From LAMICTAL) Allergy (Intermediate, Verified 12/24/24 15:15) RASH Penicillins (PENICILLINS) Allergy (Intermediate, Verified 12/24/24 15:15) ITCHY Tetracyclines (TETRACYCLINES) Allergy (Intermediate, Verified 12/24/24 15:15) ITCHY tramadol Allergy (Unknown, Verified 12/24/24 15:15) Unknown onabotulinumtoxinA (From Botox) Allergy (Verified 12/24/24 15:15) swallowing gabapentin (From NEURONTIN) Adverse Reaction (Intermediate, Verified 12/24/24 15:15) ACID REFLUX amitriptyline (From ELAVIL) Adverse Reaction (Mild, Verified 12/24/24 15:15) THIRST HPI Comments Details: Maurilio was seen in follow up for CKD. He is 74 years of age who has long standing diabetes. His diabetes is better controlled now. He has diabetic neuropathy. He has seen chemical packager in [facility]. 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 He has dyslipidemia as well as anemia of chronic disease. He has GERD and is on PPI. He has OA but denies taking excess NSAID's but is on it. He was on ACEI before . His recent serum creatinine is stable [facility] Medical History Depression Chronic renal insufficiency Diabetes Restrictive lung disease Dyspnea on exertion COPD (chronic obstructive pulmonary disease) Restless legs syndrome (RLS) Sleep apnea Gallbladder abscess Surgical History H/O colectomy H/O colonoscopy Hx of cholecystectomy Family History Brother Substance use disorder Sister Mental health disorder Diabetes Breast cancer Sister Mental health disorder Sister Mental health disorder Sister Mental health disorder Mother Mental health disorder Social [facility] Alcohol intake: current Alcohol intake frequency: former alcohol drinker Patient Tobacco Use Status: Never used Tobacco e-Cigarette/Vaping Use: Never Used Second Hand Smoke Exposure: No service: No Current occupational status: employed and disabled Current occupation: disabled - [employer] Cognitive needs: No Hearing needs: No Vision needs: Yes Review of Systems Const All systems reviewed & are unremarkable except as noted in HPI and below Physical Exam Vital Signs: Last Vital Signs Pulse 75 12/24/24 15:15 BP 104/64 12/24/24 15:15 Pulse Ox 98 12/24/24 15:15 Oxygen Delivery Method Room Air 12/24/24 15:15 BMI result Body Mass Index 22.4 Const General: comfortable and no acute distress Orientation/consciousness: patient oriented x3 HEENT Head: Yes normocephalic Mouth: Normal oral and palatal mucosa present Eyes EOM: EOMs intact bilaterally Neck Neck: Yes supple Resp Auscultation: clear to auscultation bilaterally Cardio Jugular venous distension: no JVD Rate: regular rate GI Palpation (GI): Soft to palpation Auscultation: normal bowel sounds General: Yes no CVA tenderness Back/Spine/Pelvis Back: no CVA tenderness Skin General skin exam: no rashes or lesions noted Neuro General: patient oriented x3 and moves all extremities Extrem General: Yes no pedal edema Results Reviewed Nephrology Results: Hgb, (14.0-18.0) 12.2 g/dl L 09/12/24 WBC, (4.8-10.8) 5.0 X10*3/uL 09/12/24 Plt Count, (160-400) 180 X10*3/uL Δ 09/12/24 Sodium, (135-145) 140 mmol/L 09/12/24 Potassium, (3.3-5.1) 4.3 mmol/L 09/12/24 Chloride, (96-108) 103 mmol/L 09/12/24 Carbon Dioxide, (22-29) 26 mmol/L 09/12/24 BUN, (9-16) 31 mg/dL H 09/12/24 Creatinine, (0.5-1.4) 1.57 mg/dL H 09/12/24 Calcium, (8.4-10.2) 10.1 mg/dL 09/12/24 Phosphorus, (2.7-4.5) 3.6 mg/dL 09/12/24 PTH Intact, (8.7-77.1) 63.2 pg/mL 09/12/24 Urine Creatinine 72.70 mg/dL 09/12/24 Protein/Creatinin Ratio TNP 09/12/24 Renal US 09/27/24 Assessment & Plan Assessment & Plan (1) Hypertension, essential: Code(s): I10 - Essential (primary) hypertension Category: Medical (2) CKD stage 3a, GFR 45-59 ml/min: Code(s): N18.31 - Chronic kidney disease, stage 3a Category: Medical Plan Maurilio has diabetic nephropathy with resultant CKD. He was on ACEI. He tries to maintain good hydration and was asked to avoid NSAID's. I increased his Jardiance to 25 mg daily. I shall consider doing a renal biopsy if his serum creatinine continues to rise. All these were explained in detail. Answered all questions. F/U appointment given. Orders: Orders TSH reflex Free T4 Today I10 - Essential (primary) hypertension Hemoglobin A1c 3 Months I10 - Essential (primary) hypertension, N18.31 - Chronic kidney disease, stage 3a Creatinine 3 Months I10 - Essential (primary) hypertension, N18.31 - Chronic kidney disease, stage 3a Electrolytes 3 Months I10 - Essential (primary) hypertension, N18.31 - Chronic kidney disease, stage 3a Blood Urea Nitrogen 3 Months I10 - Essential (primary) hypertension, N18.31 - Chronic kidney disease, stage 3a Protein Creatinine Ratio, Ur 3 Months I10 - Essential (primary) hypertension, N18.31 - Chronic kidney disease, stage 3a Medications: Changed From empagliflozin (Jardiance) 10 mg PO DAILY 30 tabs 10RF To empagliflozin 25 mg PO DAILY 30 tabs 10RF 30 days Coding Level of Care Code Est Pt Level 4 (83605) Diagnoses Hypertension, essential I10 CKD stage 3a, GFR 45-59 ml/min N18.31
[2024-12-24 15:15] VITALS: BP 104/64; PULSE 75; O2SAT 98; BMI 22.4
--- OUTSIDE RECORDS SUMMARY | 2024-12-24 15:18 | XMS_ITS | Clinical Summary ---
Author Organization [facility] Address [address] [place] [address] Care Team Providers Care Master Scheduler Name Role Phone Kaye Barreto MD Primary [...] Comments Hypertension Mother Millie Cancer Paternal Aunt nAnie Diabetes Sister Kathleen Relation Name Status Comments [...] age to complete this topic Care Teams Master Scheduler Relationship Specialty Start Date End Date Kaye Barreto MD PCP - General Internal Medicine 11/15/17
--- OUTSIDE RECORDS SUMMARY | 2024-12-24 15:19 | XMS_ITS | Clinical Summary ---
Author Organization [facility] Address [address] [place] [address] Phone Care Team Providers Care Auditor Medical Claims Name Role Phone Gt Akins MD Primary Care Provider [phone] Allergies Active Allergy Reactions Criticality Noted Date [...] diabetes mellitus wit h peripheral artery disease ([facility] V24, [facility] V28) 11/22/2018 Type 2 diabetes mellitus wit h cataract ([facility] V24, [facility] V28) 02/14/2018 Type 2 diabetes mellitus wit h renal manifestations ([facility] V24, [facility] V28) 02/14/2018 Hyperlipidemia 11/27/2017 Overview (04/08/2024): Last [...] current regimen. Major depression in partial remission ([facility] V 24) 11/27/2017 Fibromyalgia 10/27/2016 Type 2 diabetes mellitus wit h neurological manifestations ([facility] V24, [facility] V28) 10/27/2016 Chronic insomnia 10/20/2016 GERD (gastroesophageal reflux disease) 7 Hypothyroidism 10/20/2016 Cataract 03/02/2016 CKD (chronic kidney disease) stage 3, GFR 30-59 ml/min ([facility] V24, [facility] V28) 01/14/2016 Insomnia 01/14/2016 Panic disorder 01/14/2016 [...] Type 2 diabetes mellitus wit h cataract ([facility] V24, [facility] V28) 02/14/2018 DX:Type 2 diabetes mellitus with cataract ([facility]) Type 2 diabetes mellitus wit h renal manifestations ([facility] V24, [facility] V28) 02/14/2018 DX:Type 2 diabetes mellitus with renal manifestations ([facility]) Cataract 03/02/2016 DX:Cataract Chronic insomnia 10/20/2016 DX:Chronic inso mnia CKD (chronic kidney disease) stage 3, GFR 30-59 ml/min ([facility] V24, [facility] V28) 01/14/2016 DX:CKD (chronic kidney disea se) stage 3, GFR 30-59 ml/min ([facility]) DDD (degenerative disc disea se), lumbar 11/20/2015 DX:DDD (degenerative disc di sease), lumbar; COMMENT: Cervical and thoracic as well Fibromyalgia 10/27/2016 DX:Fibromyalgia GERD (gastroesophageal reflu x disease) 10/20/2016 DX:GERD (gastroesophageal re flux disease) Hyperlipidemia 11/27/2017 DX:Hyperlipidemi a Hypertension 11/27/2017 DX:Hypertension Hypothyroidism 10/20/2016 DX:Hypothyroidis m Insomnia 01/14/2016 DX:Insomnia Major depression in partial remission ([facility] V24) 11/27/2017 DX:Major depression in parti al remission ([facility]) Migraine headache 07/02/2013 DX:Migraine he adache Panic disorder 01/14/2016 DX:Panic disorde r Psoriasis 01/14/2016 DX:Psoriasis Type 2 diabetes mellitus wit h neurological manifestations ([facility] V24, [facility] V28) 10/27/2016 DX:Type 2 diabetes mellitus with neurological manifestations ([facility]) Vitamin B 12 deficiency 01/14/2016 DX:Vitam in B 12 deficiency CAD (coronary artery disease) 02/14/2018 DX :CAD (coronary artery disease) Iron deficiency anemia 11/22/2018 DX:Iron d eficiency anemia; COMMENT: Unclear etiology, new pt to practice 10/2018 on iron supplement since 2017 ED (erectile dysfunction) 11/22/2018 DX:ED (erectile dysfunction) Type 2 diabetes mellitus wit h peripheral artery disease ([facility] V24, [facility] V28) 11/22/2018 DX:Type 2 diabetes mellitus with [...] 08/29/2024 12:05 PM EDT Adenocarcinoma of colon ([facility] V24, [facility] V28) HEMOGLOBIN A1C Routine 05/31/2023 HM COLONOSCOPY Routine 05/18/2023 HM HEPATITIS C SCREENING Routine 08/31/2020 HM URINE ALBUMIN CREATININE RATIO Routine 01/27/2020 LIPID PANEL Routine 01/27/2020 from Last 3 Months or Most Recently Relevant to Health Maintenance Results * (ABNORMAL) Comprehensive metabolic panel (08/29/2024 12:05 PM EDT) Sodium 140 133 - 145 mmol/L LAB CHEMISTRY METHOD 08/29/2024 1:44 PM [facility] Potassium 3.5 3.5 - 5.5 mmol/L LAB CHEMISTRY METHOD 08/29/2024 1:44 PM [facility] Chloride 103 96 - 110 mmol/L LAB CHEMISTRY METHOD 08/29/2024 1:44 PM [facility] CO2 26 21 - 32 mmol/L LAB CHEMISTRY METHOD 08/29/2024 1:44 PM [facility] Anion Gap 11 3 - 11 LAB CHEMISTRY METHOD 08/29/2024 1:44 PM [facility] Glucose 130(H) 70 - 100 mg/dL LAB CHEMISTRY METHOD 08/29/2024 1:44 PM [facility] BUN 38(H) 5 - 25 mg/dL LAB CHEMISTRY METHOD 08/29/2024 1:44 PM [facility] Creatinine 1.62(H) 0.70 - 1.30 mg/dL LAB CHEMISTRY METHOD 08/29/2024 1:44 PM [facility] eGFR 44(L) >=60 mL/min/1. 73m2 LAB CHEMISTRY METHOD 08/29/2024 1:44 PM [facility] Comment:Calculation based on the Chronic Kidney Disease Epidemiology Collaboration (CKD-EPI) equation refit without adjustment for race. BUN/Creatinine Ratio 23.5 LAB CHEMISTRY METHOD 08/29/2024 1:44 PM EDT [facility] Calcium 9.7 8.5 - 10.5 mg/dL LAB CHEMISTRY METHOD 08/29/2024 1:44 PM T [facility] AST (SGOT) 21 10 - 42 unit/L LAB CHEMISTRY METHOD 08/29/2024 1:44 PM T [facility] ALT (SGPT) 27 10 - 60 unit/L LAB CHEMISTRY METHOD 08/29/2024 1:44 PM [facility] Alkaline Phosphatase 87 42 - 121 unit/L LAB CHEMISTRY METHOD 08/29/2024 1:44 PM [facility] Total Protein 7.8 6.0 - 8.0 g/dL LAB CHEMISTRY METHOD 08/29/2024 1:44 PM [facility] Albumin 4.6 3.2 - 5.0 g/dL LAB CHEMISTRY METHOD 08/29/2024 1:44 PM [facility] Total Bilirubin 0.5 0.0 - 1.4 mg/dL LAB CHEMISTRY METHOD 08/29/2024 1:44 PM [facility] Blood Venous blood specimen / Unknown Venipuncture / Unknown 08/29/2024 12:05 PM EDT 08/29/2024 12:29 PM EDT us Jim Larsen DO LAB BLOOD ORDERABLES Final Res ult [facility] [address] [place] [address], * Hemoglobin A1c (05/31/2023) Hemoglobin A1C 5.8 <=6.5 % Blood Venous blood specimen / Unknown Historical Provider LAB BLOOD ORDERABLES Maria E l Result * Hm Colonoscopy (05/18/2023) Colonoscopy No interpretation , Abstracted Anatomical Region Laterality Modality Other [facility] Provider HEALTH MAINTENANCE Final Result * Hepatitis C Screening (08/31/2020) Pathologist [facility] Hepatitis C Screening Abstracted [facility] Provider HEALTH MAINTENANCE Final Result * Urine Albumin Creatinine Ratio (01/27/2020) Pathologist [facility] Urine Albumin Creatinine Ratio Abstracted [facility] Provider [facility] Final Result * (ABNORMAL) Lipid panel (01/27/2020) [facility] LDL/HDL Ratio 8(A) 0 - 4 Triglycerides 561(A) 0 - 150 mg/dL Comment:Triglyceride value i s >= 500. Calculated LDL is not meaningful. Direct LDL has been added. Cholesterol 268(A) 0 - 200 mg/dL HDL 33(A) >=40 mg/dL LDL Cholesterol 153(A) 0 - 100 mg/dL Blood Venous blood specimen / Unknown [facility] Provider LAB BLOOD ORDERABLES Maria E l Result from Last 3 Months or Most Recently Relevant to Health Maintenance Insurance MEDICARE [facility] Care Teams Auditor Medical Claims Relationship Specialty Start Date End Date Gt Akins MD [address] [place] [address] PCP - General 05/18/23
--- OUTSIDE RECORDS SUMMARY | 2024-12-24 15:19 | XMS_ITS | Clinical Summary ---
Author Organization [facility] Address [address] [facility] [address] [place] [address] Phone Care Team Providers Care Manager Housekeeping Name Role Phone Gt Akins MD Primary Care Provider [phone] Allergies Active Allergy Reactions Criticality Noted Date [...] with health care provider. DIAGNOSTIC USE: The [place] Diabetes Association (ADA) and the World Health [...] Supplement 1 Testing performed or reported by [facility], a Service of [facility], [address] [place] [address] Danae Holliday MD, Clinic Director [facility]# [id number] 08/29/2022 2:16 PM EDT 08/29/2022 2:24 PM EDT us Fernanda Escalante MD LAB BLOOD ORDERABLES Final Resu lt [facility] from Last 3 Months or Most Recently Relevant to Health Maintenance Insurance Medicare [facility] Medicare [facility] Care Teams Manager Housekeeping Relationship Specialty Start Date End Date Gt Akins MD [address] [place], [place] [id number] PCP - General Internal Medicine 04/06/22
== END 2024-12-24 15:27 | disposition home or self-care (01) ==
LOC: HO.HKAS 14:20
PROVIDERS: PCP Internal Medicine; Visit Provider Internal Medicine Nephrology
DX: I10 Essential (primary) hypertension (principal); N18.31 Chronic kidney disease, stage 3a
CPT/HCPCS: 99214

== ENCOUNTER 2024-12-24 14:19 | Outpatient (REF) | payer MEDICARE, SELFPAY | END 2024-12-24 14:20 | disposition home or self-care (01) | LOC: HO.HKASLDS 14:19 | PROVIDERS: PCP Internal Medicine; Visit Provider Internal Medicine Nephrology | DX: I12.9 Hypertensive chronic kidney disease with stage 1 through stage 4 chronic kidney disease, or unspecified chronic kidney disease (principal); E11.22 Type 2 diabetes mellitus with diabetic chronic kidney disease; N18.31 Chronic kidney disease, stage 3a; E11.40 Type 2 diabetes mellitus with diabetic neuropathy, unspecified | CPT/HCPCS: 36415; 84443; 99212 ==

== ENCOUNTER 2025-01-27 13:12 | Outpatient (AMB) | payer MEDICARE, SELFPAY ==
--- NOTE | 2025-01-27 13:23 | MHC.OFFVIS ---
Vital Signs 01/27/25 13:35 Height 5 ft 10 in Weight 161 lb BMI 23.1 BP 113/55 L Blood Pressure Location Lt brachial Position Sitting Pulse 100 Intake Visit Reasons: Lower abdominal pain Intake Note: Patient is seen in office for evaluation of a lower abdominal pain. Pt c/o: had surgery for colon cancer at [facility] with Dr Grady, pain since post surgery, had imaging done and was told has sutures that are over lapping Application Development Consultant Required: No Accompanied by: Self / Same As Patient Allergies hydrochlorothiazide Allergy (Intermediate, Verified 01/27/25 13:37) Unknown lamotrigine (From LAMICTAL) Allergy (Intermediate, Verified 01/27/25 13:37) RASH Penicillins (PENICILLINS) Allergy (Intermediate, Verified 01/27/25 13:37) ITCHY Tetracyclines (TETRACYCLINES) Allergy (Intermediate, Verified 01/27/25 13:37) ITCHY tramadol Allergy (Unknown, Verified 01/27/25 13:37) Unknown onabotulinumtoxinA (From Botox) Allergy (Verified 01/27/25 13:37) swallowing gabapentin (From NEURONTIN) Adverse Reaction (Intermediate, Verified 01/27/25 13:37) ACID REFLUX amitriptyline (From ELAVIL) Adverse Reaction (Mild, Verified 01/27/25 13:37) THIRST Medication List - Last Reconciled 01/27/25 by Thanh Purvis MD alprazolam 0.5 mg PO DAILY PRN apremilast (Otezla) 30 mg PO BID atorvastatin 20 mg PO DAILY empagliflozin 25 mg PO DAILY 30 days fenofibrate 160 mg PO DAILY ferrous sulfate 325 mg PO DAILY glipizide ER 10 mg PO DAILY insulin aspart U-100 (Novolog FlexPen U-100 Insulin aspart) 14 units subcut TID insulin degludec (Tresiba FlexTouch U-100 insulin) 80 units subcut DAILY levothyroxine 50 mcg PO DAILY omeprazole 40 mg PO DAILY pen needle, diabetic (Easy Touch) As directed quetiapine 200 mg PO BEDTIME sertraline 200 mg PO DAILY trazodone 200 mg PO BEDTIME PRN HPI Comments Details: 74-year-old male patient presenting for evaluation of lower abdominal pain. He has a prior history of right colon cancer in his status post laparoscopic right colectomy with ileocecal anastomosis on 06/21/[address] Zackery Grady at [facility]. Ever since then he has had persistent pain in the lower abdomen including both the right lower quadrant and left lower quadrant adjacent to his transverse low abdominal incision. He also reports pain in the back and hips which is chronic. His past history is significant for diabetes, iron deficiency anemia, chronic kidney disease, hyperlipidemia, anemia and thrombocytopenia, and GERD. Colonoscopy was performed by Dr. Lira last year with several polyps being identified. Repeat colonoscopy was recommended in 3 years. He feels the pain on either side of his abdominal incision but denies any definite lumps in this region. [facility] Medical History Depression Chronic renal insufficiency Diabetes Restrictive lung disease Dyspnea on exertion COPD (chronic obstructive pulmonary disease) Restless legs syndrome (RLS) Sleep apnea Gallbladder abscess Surgical History H/O colectomy H/O colonoscopy Hx of cholecystectomy Family History Brother Substance use disorder Sister Mental health disorder Diabetes Breast cancer Sister Mental health disorder Sister Mental health disorder Sister Mental health disorder Mother Mental health disorder Social History Housing: Condominium Alcohol intake: current Alcohol intake frequency: former alcohol drinker Patient Tobacco Use Status: Never used Tobacco e-Cigarette/Vaping Use: Never Used Second Hand Smoke Exposure: No service: No Current occupational status: employed and disabled Current occupation: disabled - [employer] Cognitive needs: No Hearing needs: No Vision needs: Yes Review of Systems Const All systems reviewed & are unremarkable except as noted in HPI and below Physical Exam Const General: cooperative and no acute distress Nutritional Appearance: well nourished Orientation/consciousness: patient oriented x3 Limitations: no limitations HEENT Head: Yes normocephalic and Yes atraumatic Ears: hearing grossly normal bilaterally Resp Effort & Inspection: normal respiratory effort, no audible wheezes, no cough and no respiratory distress Cardio Jugular venous distension: no JVD GI Other: Soft, nondistended, tender in the lower abdomen left and right equally. Lower transverse incision as well as several upper abdominal trocar incisions were all which are healed well. No definite hernias palpable although tenderness is elicited with palpation of the lateral portions of the transverse incision. No changes noted with Valsalva maneuvers. Inspection: Yes normal to inspection Palpation (GI): Soft to palpation Abdomen image:  1. Transverse incision following right colectomy Skin Other: Warm, dry, no rash Neuro General: patient oriented x3 Extrem General: Yes no clubbing, cyanosis or edema Assessment & Plan Assessment & Plan (1) History of colon cancer: Code(s): Z85.038 - Personal history of other malignant neoplasm of large intestine Category: Medical Plan 74-year-old male patient presenting with complaints of abdominal pain in the lower abdomen adjacent to his surgical incision bilaterally which has been persistent since his surgery in 2023. Examination today elicits tenderness at the lower transverse incision however no definite hernias palpable to my examination. I recommended further evaluation with a CT abdomen and pelvis to examined the abdominal wall for hernias or other abdominal wall changes. He will return following the study to review the results and discuss treatment options. Orders: Orders CT abdomen pelvis wo IV con Today K43.2 - Incisional hernia without obstruction or gangrene, Z85.038 - Personal history of other malignant neoplasm of large intestine Coding Level of Care Code New Pt Level 4 (19136) Diagnoses History of colon cancer Z85.038
[2025-01-27 13:35] VITALS: BP 113/55; PULSE 100; BMI 23.1
== END 2025-01-27 13:38 | disposition home or self-care (01) ==
PROVIDERS: PCP Internal Medicine; Visit Provider Surgery
DX: Z85.038 Personal history of other malignant neoplasm of large intestine (principal)
CPT/HCPCS: 99204

== ENCOUNTER → 2025-01-27 13:12 | Outpatient (BNVA) | payer MEDICARE, SELFPAY | PROVIDERS: PCP Internal Medicine; Visit Provider Surgery | DX: R10.32 Left lower quadrant pain (principal); R10.31 Right lower quadrant pain; Z85.038 Personal history of other malignant neoplasm of large intestine; K43.2 Incisional hernia without obstruction or gangrene | CPT/HCPCS: 99202 ==

== ENCOUNTER 2025-03-20 08:25 | Outpatient (AMB) | payer MEDICARE, SELFPAY ==
--- OUTSIDE RECORDS SUMMARY | 2025-03-20 09:08 | XMS_ITS | Clinical Summary ---
Author Organization [facility] Address [address] [place] [address] Care Team Providers Care [facility] Name Role Phone Kaye Barreto MD Primary [...] age to complete this topic Care Teams [facility] Relationship Specialty Start Date End Date Kaye Barreto MD PCP - General Internal Medicine 11/15/17
--- OUTSIDE RECORDS SUMMARY | 2025-03-20 09:09 | XMS_ITS | Clinical Summary ---
Author Organization [facility] Address [address] [facility] [address] [place] [address] Phone Care Team Providers Care Project Manager Process Development Name Role Phone Gt Akins MD Primary Care Provider [phone] Allergies Active Allergy Reactions Criticality Noted Date [...] PM EDT) Hemoglobin A1C 6.8(H) (4.0-5.6) % [facility] Comment: MONITORING: In known diabetic patients, hemoglobin A1c targets should be discussed with health care provider. DIAGNOSTIC USE: The [place] Diabetes Association (ADA) and the World Health [...] Supplement 1 Testing performed or reported by [facility], a Service of [facility], [address] [place] [address] Danae Holliday MD, Internist [facility]# [id number] 08/29/2022 2:16 PM EDT 08/29/2022 2:24 PM EDT us Fernanda Escalante MD LAB BLOOD ORDERABLES Final Resu lt [facility] from Last 3 Months or Most Recently Relevant to Health Maintenance Insurance Medicare [facility] Medicare [facility] Care Teams Project Manager Process Development Relationship Specialty Start Date End Date Gt Akins MD [address] [place] [address] PCP - General Internal Medicine 04/06/22
--- NOTE | 2025-03-20 10:19 | A.OFFPC_ITS ---
Intake Visit Reasons: follow up Allergies hydrochlorothiazide Allergy (Intermediate, Verified 01/27/25 13:37) Unknown lamotrigine (From LAMICTAL) Allergy (Intermediate, Verified 01/27/25 13:37) RASH Penicillins (PENICILLINS) Allergy (Intermediate, Verified 01/27/25 13:37) ITCHY Tetracyclines (TETRACYCLINES) Allergy (Intermediate, Verified 01/27/25 13:37) ITCHY tramadol Allergy (Unknown, Verified 01/27/25 13:37) Unknown onabotulinumtoxinA (From Botox) Allergy (Verified 01/27/25 13:37) swallowing gabapentin (From NEURONTIN) Adverse Reaction (Intermediate, Verified 01/27/25 13:37) ACID REFLUX amitriptyline (From ELAVIL) Adverse Reaction (Mild, Verified 01/27/25 13:37) THIRST Medication List - Last Reconciled 03/20/25 by Gt Akins MD alprazolam 0.5 mg PO DAILY PRN apremilast (Otezla) 30 mg PO BID atorvastatin 20 mg PO DAILY empagliflozin 25 mg PO DAILY 30 days fenofibrate 160 mg PO DAILY ferrous sulfate 325 mg PO DAILY glipizide ER 10 mg PO DAILY insulin aspart U-100 (Novolog FlexPen U-100 Insulin aspart) 14 units subcut TID insulin degludec (Tresiba FlexTouch U-100 insulin) 80 units subcut DAILY levothyroxine 50 mcg PO DAILY omeprazole 40 mg PO DAILY pen needle, diabetic (Easy Touch) As directed quetiapine 200 mg PO BEDTIME sertraline 200 mg PO DAILY trazodone 200 mg PO BEDTIME PRN Tobacco use date assessed: 07/30/24 Dental Screening Dental Screen Date: 07/30/24 HPI HPI Comments History of Present Illness Details History of Present Illness The patient is a 74-year-old individual presenting for a telephone visit due to a missed appointment and to discuss concerns about a recurrence of colon cancer. Concern for colon cancer recurrence: - The patient expressed concern about marcos ving colon cancer again, reporting very thin, squirrely bowel movements and pain in two locations in the abdomen. - A recent [facility] at [facility] showed that stitches are overlapping the patient's colon. - A CT scan is scheduled for April 09 to further evaluate this finding. - The patient had a colonoscopy in August o this year which did not find any cancer, and the next one is scheduled in three years. Diabetes Mellitus: - The patient is unable to self-monitor blood glucose levels due to hand tremors that prevent getting blood onto the test strip. - The patient's medications include Glip izide 10 mg, Tresiba 80 units daily, and NovoLog 14 units three times a day. - The patient's last blood test was in A ugust. Hypothyroidism: - The patient reports taking levothyroxi ne regularly. Lipid Disorder: - The patient takes atorvastatin 20 mg a nd fenofibrate 160 mg for a lipid disorder. Anemia: - The patient has anemia and is on an ir on supplement. Chronic GERD: - The patient takes omeprazole 40 mg for a history of chronic GERD. Psychiatric Conditions: - The patient's psychiatric needs are ma naged by a separate prescriber and medications include Seroquel 200 mg, sertraline 200 mg, trazodone 200 mg, and alprazolam 0.5 mg. Medical History: - History of colon cancer - Diabetes mellitus - Hypothyroidism - Lipid disorder - Anemia - Chronic GERD - Psychiatric conditions managed by a se roa prescriber Surgical History: - History of colon surgery with stitches , as noted on a recent hip x-ray Social History: - Functional Status: The patient has ragsdale d tremors that are significant enough to prevent the ability to check blood sugar at home. - Residence: Lives in [facility] 5 miles from the clinic. Diagnostic Results: - Colonoscopy (August of this year): Pathol ogy did not show any cancer. - Hip X-ray (recent): Showed stitches ar e overlapping the colon. - Blood test: Last performed in November. [facility] Medical History Depression Chronic renal insufficiency Diabetes Restrictive lung disease Dyspnea on exertion COPD (chronic obstructive pulmonary disease) Restless legs syndrome (RLS) Sleep apnea Gallbladder abscess Surgical History H/O colectomy H/O colonoscopy Hx of cholecystectomy Family History Brother Substance use disorder Sister Mental health disorder Diabetes Breast cancer Sister Mental health disorder Sister Mental health disorder Sister Mental health disorder Mother Mental health disorder Social History Housing: Condominium Alcohol intake: current Alcohol intake frequency: former alcohol drinker Patient Tobacco Use Status: Never used Tobacco e-Cigarette/Vaping Use: Never Used Second Hand Smoke Exposure: No service: No Current occupational status: employed and disabled Current occupation: disabled - [employer] Cognitive needs: No Hearing needs: No Vision needs: Yes Questionnaire Thrive Questionnaire Date Thrive assessed: 07/27/24 I am a: Patient What is your living situation today?: I have a steady place to live Within the past 12 months, did the food you bought not last and you didn't have the money to get more?: Never true Within the past 12 months, did you worry whether your food would run out before you got money to buy more?: Never true Do you have trouble paying for medicines?: No Do you have trouble getting transportation to medical appointments?: No Do you have trouble paying your heating and electricity bill?: Yes Do you have trouble taking care of your child, family member or friend?: No Do you have trouble with day-to-day activities such as bathing, preparing meals, shopping, managing finances, etc.?: Yes Are you currently unemployed and looking for a job?: No Are you interested in more education?: No Currently or been in a relationship where the following occur: No concerns reported THRIVE Score: 1 EVY-7 AMB Questionnaire EVY-7 Date EVY - 7 assessed: 07/30/24 Source: Developed by Drs. Bakari Canales, Petty Quiroz, Anjel Queen and colleagues, with an educational melina from [employer]. Review of Systems Narrative Review of Systems - General: No fever no chills - Neurological: No headaches no dizziness - Ear nose throat: No sore throat no hearing difficulty no ear pain - Cardiovascular: No syncope, no chest pain, no palpitations - Gastrointestinal: No nausea vomiting or diarrhea Physical exam (Primary Care) Tobacco/Smoking Status: Tobacco use Status Tobacco use date assessed 07/30/24 07/30/24 14:17 Patient Tobacco Use Status Never used Tobacco 09/03/24 08:30 e-Cigarette/Vaping Use Never Used 07/30/24 13:28 Thrive Assessment: Date of Thrive Assessment Date Thrive assessed 07/27/24 08/06/24 15:07 Currently or been in a relationship where the following occur: No concerns reported Narrative Telehealth Telehealth Telehealth Platform: [facility] Location of provider rendering services: practice address Location of patient: address on file Patient Identification confirmed using: Name, : Yes Telehealth method: voice only Patient verbally consented to treatment: Yes Patient verbally consented to billing insurance company: Yes Patient informed of any privacy concerns related to visit: Yes Minutes spent on Phone/Video with Pt.: 14 Coding Level of Care Code Tele Est Pt Level 3 (93309) Diagnoses Diabetes mellitus type 2, insulin dependent E11.9; Z79.4 Lipid disorder E78.9 Psychiatric illness F99 Hypertension, essential I10 Iron deficiency anemia due to chronic blood loss D50.0 Anemia type: iron deficiency Iron deficiency anemia type: chronic blood loss Other specified hypothyroidism E03.8 CKD stage 3b, GFR 30-44 ml/min N18.32 Assessment & Plan Assessment & Plan (1) Diabetes mellitus type 2, insulin dependent: Code(s): E11.9 - Type 2 diabetes mellitus without complications; Z79.4 - intermediate project manager (current) use of insulin Category: Medical (2) Lipid disorder: Code(s): E78.9 - Disorder of lipoprotein metabolism, unspecified Category: Medical (3) Psychiatric illness: Comment: Patient have psych med prescriber Code(s): F99 - Mental disorder, not otherwise specified Category: Medical (4) Hypertension, essential: Code(s): I10 - Essential (primary) hypertension Category: Medical (5) Anemia: Comment: Patient is taking iron through Nephrology Code(s): D64.9 - Anemia, unspecified Category: Medical Qualifiers: Anemia type: iron deficiency Iron deficiency anemia type: chronic blood loss Qualified Code(s): D50.0 - Iron deficiency anemia secondary to blood loss (chronic) (6) Other specified hypothyroidism: Code(s): E03.8 - Other specified hypothyroidism Category: Medical (7) CKD stage 3b, GFR 30-44 ml/min: Code(s): N18.32 - Chronic kidney disease, stage 3b Category: Medical Plan Problem List - History of colon cancer - Diabetes Mellitus - Hypothyroidism - Lipid disorder - Anemia - Chronic Gastroesophageal Reflux Disease (GERD) - Psychiatric conditions - Preventative care: Colon cancer screening Plan - The patient was reassured that the colonoscopy from August of this year was negative for cancer. - An order for a blood test will be placed to recheck the patient's blood sugar levels. - The patient is scheduled for a CT scan on April 09 to evaluate the incidental finding of stitches overlapping the colon. - The patient will continue current medications with no new refills needed at this time. - A follow-up appointment is scheduled in three months. - The next routine colonoscopy is due in three years. Orders: Orders Complete Blood Count Auto Diff Today D50.0 - Iron deficiency anemia secondary to blood loss (chronic), E03.8 - Other specified hypothyroidism, E11.9 - Type 2 diabetes mellitus without complications, E78.9 - Disorder of lipoprotein metabolism, unspecified, F99 - Mental disorder, not otherwise specified, I10 - Essential (primary) hypertension, N18.32 - Chronic kidney disease, stage 3b, Z79.4 - detention (current) use of insulin Comprehensive Met. Panel Today D50.0 - Iron deficiency anemia secondary to blood loss (chronic), E03.8 - Other specified hypothyroidism, E11.9 - Type 2 diabetes mellitus without complications, E78.9 - Disorder of lipoprotein metabolism, unspecified, F99 - Mental disorder, not otherwise specified, I10 - Essential (primary) hypertension, N18.32 - Chronic kidney disease, stage 3b, Z79.4 - intermediate project manager (current) use of insulin Ferritin Today D50.0 - Iron deficiency anemia secondary to blood loss (chronic), E03.8 - Other specified hypothyroidism, E11.9 - Type 2 diabetes mellitus without complications, E78.9 - Disorder of lipoprotein metabolism, unspecified, F99 - Mental disorder, not otherwise specified, I10 - Essential (primary) hypertension, N18.32 - Chronic kidney disease, stage 3b, Z79.4 - intermediate project manager (current) use of insulin Hemoglobin A1c Today D50.0 - Iron deficiency anemia secondary to blood loss (chronic), E03.8 - Other specified hypothyroidism, E11.9 - Type 2 diabetes mellitus without complications, E78.9 - Disorder of lipoprotein metabolism, unspecified, F99 - Mental disorder, not otherwise specified, I10 - Essential (primary) hypertension, N18.32 - Chronic kidney disease, stage 3b, Z79.4 - detention (current) use of insulin Microalbumin, Random (w Creat) Today D50.0 - Iron deficiency anemia secondary to blood loss (chronic), E03.8 - Other specified hypothyroidism, E11.9 - Type 2 diabetes mellitus without complications, E78.9 - Disorder of lipoprotein metabolism, unspecified, F99 - Mental disorder, not otherwise specified, I10 - Essential (primary) hypertension, N18.32 - Chronic kidney disease, stage 3b, Z79.4 - intermediate project manager (current) use of insulin TSH reflex Free T4 Today D50.0 - Iron deficiency anemia secondary to blood loss (chronic), E03.8 - Other specified hypothyroidism, E11.9 - Type 2 diabetes mellitus without complications, E78.9 - Disorder of lipoprotein metabolism, unspecified, F99 - Mental disorder, not otherwise specified, I10 - Essential (primary) hypertension, N18.32 - Chronic kidney disease, stage 3b, Z79.4 - intermediate project manager (current) use of insulin LDL Cholesterol Direct Today D50.0 - Iron deficiency anemia secondary to blood loss (chronic), E03.8 - Other specified hypothyroidism, E11.9 - Type 2 diabetes mellitus without complications, E78.9 - Disorder of lipoprotein metabolism, unspecified, F99 - Mental disorder, not otherwise specified, I10 - Essential (primary) hypertension, N18.32 - Chronic kidney disease, stage 3b, Z79.4 - intermediate project manager (current) use of insulin
== END 2025-03-20 14:12 | disposition home or self-care (01) ==
LOC: HO.HMCC 08:26
PROVIDERS: PCP Internal Medicine; Visit Provider Internal Medicine
DX: E11.9 Type 2 diabetes mellitus without complications (principal); I12.9 Hypertensive chronic kidney disease with stage 1 through stage 4 chronic kidney disease, or unspecified chronic kidney disease; Z79.4 Long term (current) use of insulin; N18.32 Chronic kidney disease, stage 3b; E78.9 Disorder of lipoprotein metabolism, unspecified; F99 Mental disorder, not otherwise specified; D50.0 Iron deficiency anemia secondary to blood loss (chronic); E03.8 Other specified hypothyroidism

== ENCOUNTER 2025-03-31 13:10 | Outpatient (REF) | payer MEDICARE, SELFPAY ==
--- OUTSIDE RECORDS SUMMARY | 2025-03-31 16:51 | XMS_ITS | Clinical Summary ---
Author Organization [facility] Address [address] [place] [address] Phone Care Team Providers Care Car Builder Name Role Phone Gt Akins MD Primary Care Provider [phone] Allergies Active Allergy Reactions Criticality Noted Date [...] diabetes mellitus wit h peripheral artery disease ([facility] V24, [facility] V28) 11/22/2018 Type 2 diabetes mellitus wit h cataract ([facility] V24, [facility] V28) 02/14/2018 Type 2 diabetes mellitus wit h renal manifestations ([facility] V24, [facility] V28) 02/14/2018 Hyperlipidemia 11/27/2017 Overview (04/08/2024): [...] current regimen. Major depression in partial remission ([facility] V 24) 11/27/2017 Fibromyalgia 10/27/2016 Type 2 diabetes mellitus wit h neurological manifestations ([facility] [place], [facility] V28) 10/27/2016 Chronic insomnia 10/20/2016 GERD (gastroesophageal reflux disease) 7 Hypothyroidism 10/20/2016 Cataract 03/02/2016 CKD (chronic kidney disease) stage 3, GFR 30-59 ml/min ([facility] V24, [facility] V28) 01/14/2016 Insomnia 01/14/2016 Panic disorder 01/14/2016 Psoriasis 01/14/2016 Vitamin B 12 deficiency 01/14/2016 DDD (degenerative disc disease), lumbar 11/20/19 16 Overview (04/08/2024): Cervical and thoracic as well Chronic fatigue syndrome 11/13/2015 Migraine headache 07/02/2013 Immunizations Immunization Administration Dates Next Due Influenza, Unspecified 12/13/2019 [...] Type 2 diabetes mellitus wit h cataract ([facility] [place]24, [facility] V28) 02/14/2018 DX:Type 2 diabetes mellitus with cataract ([facility]) Type 2 diabetes mellitus wit h renal manifestations ([facility] V24, [facility] V28) 02/14/2018 DX:Type 2 diabetes mellitus with renal manifestations ([facility]) Cataract 03/02/2016 DX:Cataract Chronic insomnia 10/20/2016 DX:Chronic inso mnia CKD (chronic kidney disease) stage 3, GFR 30-59 ml/min ([facility] V24, [facility] V28) 01/14/2016 DX:CKD (chronic kidney disea se) stage 3, GFR 30-59 ml/min ([facility]) DDD (degenerative disc disea se), lumbar 11/20/2015 DX:DDD (degenerative disc di sease), lumbar; COMMENT: Cervical and thoracic as well Fibromyalgia 10/27/2016 DX:Fibromyalgia GERD (gastroesophageal reflu x disease) 10/20/2016 DX:GERD (gastroesophageal re flux disease) Hyperlipidemia 11/27/2017 DX:Hyperlipidemi a Hypertension 11/27/2017 DX:Hypertension Hypothyroidism 10/20/2016 DX:Hypothyroidis m Insomnia 01/14/2016 DX:Insomnia Major depression in partial remission ([facility] V24) 11/27/2017 DX:Major depression in parti al remission ([facility]) Migraine headache 07/02/2013 DX:Migraine he adache Panic disorder 01/14/2016 DX:Panic disorde r Psoriasis 01/14/2016 DX:Psoriasis Type 2 diabetes mellitus wit h neurological manifestations ([facility] V24, [facility] V28) 10/27/2016 DX:Type 2 diabetes mellitus with neurological manifestations ([facility]) Vitamin B 12 deficiency 01/14/2016 DX:Vitam in B 12 deficiency CAD (coronary artery disease) 02/14/2018 DX :CAD (coronary artery disease) Iron deficiency anemia 11/22/2018 DX:Iron d eficiency anemia; COMMENT: Unclear etiology, new pt to practice 10/2018 on iron supplement since 2017 ED (erectile dysfunction) 11/22/2018 DX:ED (erectile dysfunction) Type 2 diabetes mellitus wit h peripheral artery disease ([facility] V24, [facility] V28) 11/22/2018 DX:Type 2 diabetes mellitus [...] 05/31/2023, 08/29/2022 Depression Screening 05/01/2024 COVID-19 Vaccine ( season) 2024 01/12/2024, 02/06/2023, 02/04/2022, Additional history [...] Comprehensive metabolic panel (08/29/2024 12:05 PM EDT) [facility] Sodium 140 133 - 145 mmol/L LAB CHEMISTRY METHOD 08/29/2024 1:44 PM [facility] Potassium 3.5 3.5 - 5.5 mmol/L LAB CHEMISTRY METHOD 08/29/2024 1:44 PM [facility] Chloride 103 96 - 110 mmol/L LAB CHEMISTRY METHOD 08/29/2024 1:44 PM [facility] CO2 26 21 - 32 mmol/L LAB CHEMISTRY METHOD 08/29/2024 1:44 PM [facility] Anion Gap 11 3 - 11 LAB CHEMISTRY METHOD 08/29/2024 1:44 PM [facility] Glucose 130(H) 70 - 100 mg/dL LAB CHEMISTRY METHOD 08/29/2024 1:44 PM [facility] BUN 38(H) 5 - 25 mg/dL LAB CHEMISTRY METHOD 08/29/2024 1:44 PM [facility] Creatinine 1.62(H) 0.70 - 1.30 mg/dL LAB CHEMISTRY METHOD 08/29/2024 1:44 PM [facility] eGFR 44(L) >=60 mL/min/1. 73m2 LAB CHEMISTRY METHOD 08/29/2024 1:44 PM [facility] Comment:Calculation based on the Chronic Kidney Disease Epidemiology Collaboration (CKD-EPI) equation refit without adjustment for race. BUN/Creatinine Ratio 23.5 LAB CHEMISTRY METHOD 08/29/2024 1:44 PM EDT [facility] Calcium 9.7 8.5 - 10.5 mg/dL LAB CHEMISTRY METHOD 08/29/2024 1:44 PM [facility] AST (SGOT) 21 10 - 42 unit/L LAB CHEMISTRY METHOD 08/29/2024 1:44 PM T [facility] ALT (SGPT) 27 10 - 60 unit/L LAB CHEMISTRY METHOD 08/29/2024 1:44 PM [facility] Alkaline Phosphatase 87 42 - 121 unit/L LAB CHEMISTRY METHOD 08/29/2024 1:44 PM [facility] Total Protein 7.8 6.0 - 8.0 g/dL LAB CHEMISTRY METHOD [facility] Albumin 4.6 3.2 - 5.0 g/dL LAB CHEMISTRY METHOD 08/29/2024 1:44 PM EDT [facility] Total Bilirubin 0.5 0.0 - 1.4 mg/dL LAB CHEMISTRY METHOD [facility]24 [facility] Blood Venous blood specimen / Unknown Venipuncture / Unknown 08/29/2024 12:05 PM EDT 08/29/2024 12:29 PM EDT us Jim Larsen DO LAB BLOOD ORDERABLES Final Res ult [facility] [address] [place] [address], * Hemoglobin A1c (05/31/2023) Hemoglobin A1C 5.8 <=6.5 % Blood Venous blood specimen / Unknown us Historical Provider LAB BLOOD ORDERABLES Maria E l Result * Hm Colonoscopy (05/18/2023) Pathologist [facility] Colonoscopy No interpretation , Abstracted Anatomical Region Laterality Modality Other [facility] Provider HEALTH MAINTENANCE Final Result * Hepatitis C Screening (08/31/2020) Pathologist [facility] Hepatitis C Screening Abstracted [facility] Provider HEALTH MAINTENANCE Final Result * Urine Albumin Creatinine Ratio (01/27/2020) Pathologist [facility] Urine Albumin Creatinine Ratio Abstracted [facility] Provider [facility] Final Result * (ABNORMAL) Lipid panel (01/27/2020) [facility] LDL/HDL Ratio 8(A) 0 - 4 Triglycerides 561(A) 0 - 150 mg/dL Comment:Triglyceride value i s >= 500. Calculated LDL is not meaningful. Direct LDL has been added. Cholesterol 268(A) 0 - 200 mg/dL HDL 33(A) >=40 mg/dL LDL Cholesterol 153(A) 0 - 100 mg/dL Blood Venous blood specimen / Unknown Result [facility] Provider LAB BLOOD ORDERABLES Maria E l Result from Last 3 Months or Most Recently Relevant to Health Maintenance Insurance MEDICARE [facility] Care Teams Car Builder Relationship Specialty Start Date End Date Gt Akins MD [address] [place] [phone] PCP - General 05/18/23
--- OUTSIDE RECORDS SUMMARY | 2025-03-31 16:51 | XMS_ITS | Clinical Summary ---
Author Organization [facility] Address [address] [place] [address] Care Team Providers Care Transport Tank Technician Name Role Phone Kaye Barreto MD Primary [...] age to complete this topic Care Teams Transport Tank Technician Relationship Specialty Start Date End Date Kaye Barreto MD PCP - General Internal Medicine 11/15/17
--- OUTSIDE RECORDS SUMMARY | 2025-03-31 16:52 | XMS_ITS | Clinical Summary ---
Author Organization [facility] Address [address] [facility] [address] [place] [address] Phone Care Team Providers Care Lead Qa Analyst Name Role Phone Gt Akins MD Primary Care Provider [phone] Allergies Active Allergy Reactions Criticality Noted Date [...] PM EDT) Hemoglobin A1C 6.8(H) (4.0-5.6) % [facility] Comment: MONITORING: In known diabetic patients, hemoglobin A1c targets should be discussed with health care provider. DIAGNOSTIC USE: The [place] [employer] (ADA) and the World Health [...] Supplement 1 Testing performed or reported by [facility], a Service of [facility], [address] [place] [address] Danae Holliday MD, Small Arms Artillery Repairer [facility]# [id number] 08/29/2022 2:16 PM EDT 08/29/2022 2:24 PM EDT us Fernanda Escalante MD LAB BLOOD ORDERABLES Final Resu lt [facility] from Last 3 Months or Most Recently Relevant to Health Maintenance Insurance Medicare [facility] Medicare [facility] Care Teams Lead Qa Analyst Relationship Specialty Start Date End Date Gt Akins MD [address] [place] [address] PCP - General Internal Medicine 04/06/22
[2025-03-31 19:49] LABS: Total Protein Urine Random < 7 mg/dL (<12)
[2025-03-31 19:54] LABS: Anion Gap 18 (12-20); Blood Urea Nitrogen 31 mg/dL (9-16); Carbon Dioxide 21 mmol/L (22-29); Chloride 97 mmol/L (96-108); Estimated Glomerular Filt Rate 47; Potassium 4.2 mmol/L (3.3-5.1); Sodium 132 mmol/L (135-145)
[2025-04-01 07:16] LABS: Hemoglobin A1C 148.8353 umol/L; Total Hemoglobin (HGBA1C) 2242.4657 umol/L
== END 2025-03-31 13:11 | disposition home or self-care (01) ==
LOC: HO.HKASLDS 13:10
PROVIDERS: PCP Internal Medicine; Visit Provider Internal Medicine Nephrology
DX: I12.9 Hypertensive chronic kidney disease with stage 1 through stage 4 chronic kidney disease, or unspecified chronic kidney disease (principal); N18.31 Chronic kidney disease, stage 3a; Z13.1 Encounter for screening for diabetes mellitus
CPT/HCPCS: 36415; 80051; 82565; 82570; 83036; 84156; 84520

== ENCOUNTER 2025-04-03 14:01 | Outpatient (AMB) | payer MEDICARE, SELFPAY ==
--- NOTE | 2025-04-03 14:28 | HO.NEPHOV_ITS ---
Vital Signs 04/03/25 14:30 Height 5 ft 10 in Weight 151 lb 6 oz BMI 21.7 BP 130/70 Blood Pressure Location Lt brachial Position Sitting Pulse 110 H Pulse Source Pulse Oximeter Pulse Oximetry (%) 98 Oxygen Delivery Method Room Air Intake Visit Reasons: 3mon f/u w/labs-Conf Patent Searcher Required: No Accompanied by: Self / Same As Patient Allergies hydrochlorothiazide Allergy (Intermediate, Verified 04/03/25 14:30) Unknown lamotrigine (From LAMICTAL) Allergy (Intermediate, Verified 04/03/25 14:30) RASH Penicillins (PENICILLINS) Allergy (Intermediate, Verified 04/03/25 14:30) ITCHY Tetracyclines (TETRACYCLINES) Allergy (Intermediate, Verified 04/03/25 14:30) ITCHY tramadol Allergy (Unknown, Verified 04/03/25 14:30) Unknown onabotulinumtoxinA (From Botox) Allergy (Verified 04/03/25 14:30) swallowing gabapentin (From NEURONTIN) Adverse Reaction (Intermediate, Verified 04/03/25 14:30) ACID REFLUX amitriptyline (From ELAVIL) Adverse Reaction (Mild, Verified 04/03/25 14:30) THIRST HPI Comments Details: Maurilio was seen in follow up for CKD. He is 74 years of age who has long standing diabetes. His diabetes is better controlled now. He has diabetic neuropathy. He has seen gum di[place] [facility] 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 He has dyslipidemia as well as anemia of chronic disease. He has GERD and is on PPI. He has OA but denies taking excess NSAID's but is on it. He was on ACEI before . His recent serum creatinine is stable [facility] Medical History Depression Chronic renal insufficiency Diabetes Restrictive lung disease Dyspnea on exertion COPD (chronic obstructive pulmonary disease) Restless legs syndrome (RLS) Sleep apnea Gallbladder abscess Surgical History H/O colectomy H/O colonoscopy Hx of cholecystectomy Family History Brother Substance use disorder Sister Mental health disorder Diabetes Breast cancer Sister Mental health disorder Sister Mental health disorder Sister Mental health disorder Mother Mental health disorder Social History Housing: Condominium Alcohol intake: current Alcohol intake frequency: former alcohol drinker Patient Tobacco Use Status: Never used Tobacco e-Cigarette/Vaping Use: Never Used Second Hand Smoke Exposure: No service: No Current occupational status: employed and disabled Current occupation: disabled - [employer] Cognitive needs: No Hearing needs: No Vision needs: Yes Review of Systems Const All systems reviewed & are unremarkable except as noted in HPI and below Physical Exam Vital Signs: Last Vital Signs Pulse 110 H 04/03/25 14:30 BP 130/70 04/03/25 14:30 Pulse Ox 98 04/03/25 14:30 Oxygen Delivery Method Room Air 04/03/25 14:30 BMI result Body Mass Index 21.7 Const General: comfortable and no acute distress Orientation/consciousness: patient oriented x3 HEENT Head: Yes normocephalic Mouth: Normal oral and palatal mucosa present Eyes EOM: EOMs intact bilaterally Neck Neck: Yes supple Resp Auscultation: clear to auscultation bilaterally Cardio Jugular venous distension: no JVD Rate: regular rate GI Palpation (GI): Soft to palpation Auscultation: normal bowel sounds General: Yes no CVA tenderness Back/Spine/Pelvis Back: no CVA tenderness Skin General skin exam: no rashes or lesions noted Neuro General: patient oriented x3 and moves all extremities Extrem General: Yes no pedal edema Results Reviewed Nephrology Results: Sodium, (135-145) 132 mmol/L L 03/31/25 Potassium, (3.3-5.1) 4.2 mmol/L 03/31/25 Chloride, (96-108) 97 mmol/L 03/31/25 Carbon Dioxide, (22-29) 21 mmol/L L 03/31/25 BUN, (9-16) 31 mg/dL H 03/31/25 Creatinine, (0.5-1.4) 1.45 mg/dL H 03/31/25 Urine Creatinine 43.30 mg/dL 03/31/25 Protein/Creatinin Ratio TNP 03/31/25 Renal US 09/27/24 Assessment & Plan Assessment & Plan (1) Hypertension, essential: Code(s): I10 - Essential (primary) hypertension Category: Medical (2) CKD stage 3b, GFR 30-44 ml/min: Code(s): N18.32 - Chronic kidney disease, stage 3b Category: Medical (3) Diabetic kidney disease: Code(s): E11.21 - Type 2 diabetes mellitus with diabetic nephropathy Category: Medical Qualifiers: Diabetes mellitus type: type 2 Qualified Code(s): E11.21 - Type 2 diabetes mellitus with diabetic nephropathy Ruben Thorpe has diabetic nephropathy with resultant CKD. He was on ACEI. He tries to maintain good hydration and was asked to avoid NSAID's. He should continue Jardiance 25 mg daily. I shall consider doing a renal biopsy if his serum creatinine continues to rise. All these were explained in detail. Answered all questions. F/U appointment given. Orders: Orders Creatinine 3 Months E11.21 - Type 2 diabetes mellitus with diabetic nephropathy, I10 - Essential (primary) hypertension, N18.32 - Chronic kidney dis ease, stage 3b Blood Urea Nitrogen 3 Months E11.21 - Type 2 diabetes mellitus with diabetic nephropathy, I10 - Essential (primary) hypertension, N18.32 - Chronic kidney disease, stage 3b Electrolytes 3 Months E11.21 - Type 2 diabetes mellitus with diabetic nephropathy, I10 - Essential (primary) hypertension, N18.32 - Chronic kidney disease, stage 3b Hemoglobin A1c 3 Months E11.21 - Type 2 diabetes mellitus with diabetic nephropathy, I10 - Essential (primary) hypertension, N18.32 - Chronic kidney disease, stage 3b Coding Level of Care Code Est Pt Level 4 (70066) Diagnoses Hypertension, essential I10 CKD stage 3b, GFR 30-44 ml/min N18.32 Diabetic nephropathy associated with type 2 diabetes mellitus E11. Diabetes mellitus type: type 2
[2025-04-03 14:30] VITALS: BP 130/70; PULSE 110; O2SAT 98; BMI 21.7
--- OUTSIDE RECORDS SUMMARY | 2025-04-03 19:16 | XMS_ITS | Clinical Summary ---
Author Organization [facility] Address [address] [place] [address] Phone Care Team Providers Care Ammonia Worker Name Role Phone Gt Akins MD Primary Care Provider [phone] Allergies Active Allergy Reactions Criticality Noted Date [...] diabetes mellitus wit h peripheral artery disease ([facility] V24, [facility] V28) 11/22/2018 Type 2 diabetes mellitus wit h cataract ([facility] V24, [facility] V28) 02/14/2018 Type 2 diabetes mellitus wit h renal manifestations ([facility] V24, [facility] V28) 02/14/2018 Hyperlipidemia 11/27/2017 Overview (04/08/2024): Last [...] current regimen. Major depression in partial remission ([facility] V 24) 11/27/2017 Fibromyalgia 10/27/2016 Type 2 diabetes mellitus wit h neurological manifestations ([facility] V24, [facility] V28) 10/27/2016 Chronic insomnia 10/20/2016 GERD (gastroesophageal reflux disease) 7 Hypothyroidism 10/20/2016 Cataract 03/02/2016 CKD (chronic kidney disease) stage 3, GFR 30-59 ml/min ([facility] V24, [facility] V28) 01/14/2016 Insomnia 01/14/2016 Panic disorder 01/14/2016 [...] Type 2 diabetes mellitus wit h cataract ([facility] V24, [facility] V28) 02/14/2018 DX:Type 2 diabetes mellitus with cataract ([facility]) Type 2 diabetes mellitus wit h renal manifestations ([facility] V24, [facility] V28) 02/14/2018 DX:Type 2 diabetes mellitus with renal manifestations ([facility]) Cataract 03/02/2016 DX:Cataract Chronic insomnia 10/20/2016 DX:Chronic inso mnia CKD (chronic kidney disease) stage 3, GFR 30-59 ml/min ([facility] V24, [facility] V28) 01/14/2016 DX:CKD (chronic kidney disea se) stage 3, GFR 30-59 ml/min ([facility]) DDD (degenerative disc disea se), lumbar 11/20/2015 DX:DDD (degenerative disc di sease), lumbar; COMMENT: Cervical and thoracic as well Fibromyalgia 10/27/2016 DX:Fibromyalgia GERD (gastroesophageal reflu x disease) 10/20/2016 DX:GERD (gastroesophageal re flux disease) Hyperlipidemia 11/27/2017 DX:Hyperlipidemi a Hypertension 11/27/2017 DX:Hypertension Hypothyroidism 10/20/2016 DX:Hypothyroidis m Insomnia 01/14/2016 DX:Insomnia Major depression in partial remission ([facility] V24) 11/27/2017 DX:Major depression in parti al remission ([facility]) Migraine headache 07/02/2013 DX:Migraine he adache Panic disorder 01/14/2016 DX:Panic disorde r Psoriasis 01/14/2016 DX:Psoriasis Type 2 diabetes mellitus wit h neurological manifestations ([facility] V24, [facility] V28) 10/27/2016 DX:Type 2 diabetes mellitus with neurological manifestations ([facility]) Vitamin B 12 deficiency 01/14/2016 DX:Vitam in B 12 deficiency CAD (coronary artery disease) 02/14/2018 DX :CAD (coronary artery disease) Iron deficiency anemia 11/22/2018 DX:Iron d eficiency anemia; COMMENT: Unclear etiology, new pt to practice 10/2018 on iron supplement since 2017 ED (erectile dysfunction) 11/22/2018 DX:ED (erectile dysfunction) Type 2 diabetes mellitus wit h peripheral artery disease ([facility] V24, [facility] V28) 11/22/2018 DX:Type 2 diabetes mellitus with [...] Comprehensive metabolic panel (08/29/2024 12:05 PM EDT) [facility] Sodium 140 133 - 145 mmol/L [...] LAB CHEMISTRY METHOD 08/29/2024 1:44 PM EDT [facility] Calcium 9.7 8.5 - 10.5 mg/dL LAB CHEMISTRY METHOD 08/29/2024 1:44 PM [facility] AST (SGOT) 21 10 - 42 unit/L LAB CHEMISTRY METHOD 08/29/2024 1:44 PM T [facility] ALT (SGPT) 27 10 - 60 unit/L LAB CHEMISTRY METHOD 08/29/2024 1:44 PM [facility] Alkaline Phosphatase 87 42 - 121 unit/L LAB CHEMISTRY METHOD 08/29/2024 1:44 PM [facility] Total Protein 7.8 6.0 - 8.0 g/dL LAB CHEMISTRY METHOD [facility] Albumin 4.6 3.2 - 5.0 g/dL LAB CHEMISTRY METHOD 08/29/2024 1:44 PM EDT [facility] Total Bilirubin 0.5 0.0 - 1.4 mg/dL LAB CHEMISTRY METHOD 08/29[facility]2024 [facility] Blood Venous blood specimen / Unknown Venipuncture / Unknown 08/29/2024 12:05 PM EDT 08/29/2024 12:29 PM EDT us Jim Larsen DO LAB BLOOD ORDERABLES Final Res ult [facility] [address] [place] [address], * Hemoglobin A1c (05/31/2023) Hemoglobin A1C 5.8 <=6.5 % Blood Venous blood specimen / Unknown us Historical Provider LAB BLOOD ORDERABLES Maria E l Result * Hm Colonoscopy (05/18/2023) Pathologist [facility] Colonoscopy No interpretation , Abstracted Anatomical Region Laterality Modality Other [facility] Provider HEALTH MAINTENANCE Final Result * Hepatitis C Screening (08/31/2020) Pathologist [facility] Hepatitis C Screening Abstracted [facility] Provider HEALTH MAINTENANCE Final Result * Urine Albumin Creatinine Ratio (01/27/2020) Pathologist [facility] Urine Albumin Creatinine Ratio Abstracted [facility] Provider [facility] Final Result * (ABNORMAL) Lipid panel (01/27/2020) [facility] LDL/HDL Ratio 8(A) 0 - 4 Triglycerides 561(A) 0 - 150 mg/dL Comment:Triglyceride value i s >= 500. Calculated LDL is not meaningful. Direct LDL has been added. Cholesterol 268(A) 0 - 200 mg/dL HDL 33(A) >=40 mg/dL LDL Cholesterol 153(A) 0 - 100 mg/dL Blood Venous blood specimen / Unknown Result [facility] Provider LAB BLOOD ORDERABLES Maria E l Result from Last 3 Months or Most Recently Relevant to Health Maintenance Insurance MEDICARE [facility] Care Teams Ammonia Worker Relationship Specialty Start Date End Date Gt Akins MD [address] [place] [address] PCP - General 05/18/23
--- OUTSIDE RECORDS SUMMARY | 2025-04-03 19:16 | XMS_ITS | Clinical Summary ---
Author Organization [facility] Prior to 09/28/[address] [place] [address] Care Team Providers Care Pathology Laboratory Aides Teacher Name Role Phone Kaye Barreto MD Primary [...] age to complete this topic Care Teams Pathology Laboratory Aides Teacher Relationship Specialty Start Date End Date Kaye Barreto MD PCP - General Internal Medicine 11/15/17
--- OUTSIDE RECORDS SUMMARY | 2025-04-03 19:17 | XMS_ITS | Clinical Summary ---
Author Organization [facility] Address [address] [facility] [address] [place] [address] Phone Care Team Providers Care Nursing Officer Name Role Phone Gt Akins MD Primary Care Provider [phone] Allergies Active Allergy Reactions Criticality Noted Date [...] PM EDT) Hemoglobin A1C 6.8(H) (4.0-5.6) % [facility] Comment: MONITORING: In known diabetic patients, hemoglobin A1c targets should be discussed with health care provider. DIAGNOSTIC USE: The [place] Diabetes Association (ADA) and the World Health [...] Supplement 1 Testing performed or reported by [facility], a Service of [facility], [address] [place] [address] Danae Holliday MD, Mime Artist [facility]# [id number] 08/29/2022 2:16 PM EDT 08/29/2022 2:24 PM EDT us Fernanda Escalante MD LAB BLOOD ORDERABLES Final Resu lt [facility] from Last 3 Months or Most Recently Relevant to Health Maintenance Insurance Medicare [facility] Medicare [facility] Care Teams Nursing Officer Relationship Specialty Start Date End Date Gt Akins MD [address] [place] [address] PCP - General Internal Medicine 04/06/22
== END 2025-04-03 14:45 | disposition home or self-care (01) ==
LOC: HO.HKAS 14:02
PROVIDERS: PCP Internal Medicine; Visit Provider Internal Medicine Nephrology
DX: I10 Essential (primary) hypertension (principal); N18.32 Chronic kidney disease, stage 3b; E11.21 Type 2 diabetes mellitus with diabetic nephropathy
CPT/HCPCS: 99214

== ENCOUNTER → 2025-04-03 14:01 | Outpatient (BNVA) | payer MEDICARE, SELFPAY | PROVIDERS: PCP Internal Medicine; Visit Provider Internal Medicine Nephrology | DX: I10 Essential (primary) hypertension (principal); E11.21 Type 2 diabetes mellitus with diabetic nephropathy; N18.32 Chronic kidney disease, stage 3b | CPT/HCPCS: 99212 ==

== ENCOUNTER 2025-04-09 14:25 | Outpatient (REF) | payer MEDICARE, SELFPAY ==
--- NOTE | ~2025-04-09 | CT_ITS ---
EXAMINATION: CT ABDOMEN AND PELVIS WITHOUT CONTRAST CLINICAL INFORMATION: Z85.038 - Personal history of other malignant neoplasm of large intestine COMPARISON: October 18, 2016 TECHNIQUE: Multidetector volumetric imaging was performed from the superior aspect of the liver through the pubic symphysis. Sagittal and coronal reformatted images were obtained on the technologist's workstation. Oral contrast was consumed. This CT examination was performed using dose optimization techniques as appropriate, variously including the following: *Automated exposure control *Adjustment of mA and/or kV according to patient size (this includes techniques or standardized protocols for targeted exams where dose is matched to indication/reason for exam; i.e. extremities or head) *Use of iterative reconstruction technique FINDINGS: LUNG BASES: The visualized lung bases are unremarkable. LIVER, GALLBLADDER, AND BILIARY TREE: The liver is normal in size, shape, and attenuation. No focal hepatic lesion or biliary ductal dilatation is present. The gallbladder surgically absent. There are clips in the gallbladder fossa. PANCREAS: Unremarkable. SPLEEN: Unremarkable. ADRENAL GLANDS: There is a left adrenal gland nodule measuring -29 Hounsfield units measuring 9 x 11 mm, previously 7 x 9 mm, consistent with a lipid rich adrenal adenoma. Right adrenal gland is unremarkable. KIDNEYS AND URETERS: The kidneys are normal in size, shape, and attenuation. No hydronephrosis, hydroureter, or calculi seen. No perinephric stranding. BLADDER: Unremarkable. GASTROINTESTINAL TRACT: Postoperative changes are present related to right hemicolectomy. There is a 4 cm segment in the proximal transverse colon that demonstrates wall thickening and narrowing of the lumen. There is a 2.6 cm diverticulum protruding anteriorly from the horizontal or third portion of the duodenum. ABDOMINAL WALL: No significant hernia is appreciated. LYMPH NODES: Normal. VASCULAR: Unremarkable. PELVIC VISCERA: Unremarkable. OSSEOUS STRUCTURES: Mild multilevel degenerative disc disease is evident in the imaged spine. There are mild changes of osteoarthritis in right hip joint with marginal osteophytes involving acetabulum and the femoral head. CT/CT abdomen pelvis wo IV con IMPRESSION: There is a 4 cm segment of the transverse colon right of midline that appears thick walled with narrowing of the lumen. While this could be related to peristalsis, differential considerations include neoplasm, inflammatory bowel disease, infection, and ischemia. Right hemicolectomy. 2.6 cm diverticulum involving the third part of the duodenum. Benign lipid rich adrenal adenoma is present on the left. Fleischner guidelines were followed. Electronically signed by: Julio Narayanan MD 04/09/2025 05:13 PM [facility]
[2025-04-09] MEDS: Barium Sulfate Oral (Vanilla) 450 ML ORAL.SUSP 900 ML PO (16:52)
--- OUTSIDE RECORDS SUMMARY | 2025-04-09 22:38 | XMS_ITS | Clinical Summary ---
Author Organization [facility] Address [address] [facility] [address] [place] [address] Phone Care Team Providers Care Wind Projects Supervisor Name Role Phone Gt Akins MD Primary Care Provider [phone] Allergies Active Allergy Reactions Criticality Noted Date [...] PM EDT) Hemoglobin A1C 6.8(H) (4.0-5.6) % [facility] Comment: MONITORING: In known diabetic patients, hemoglobin A1c targets should be discussed with health care provider. DIAGNOSTIC USE: The [place] Diabetes Association (ADA) and the World Health [...] Supplement 1 Testing performed or reported by [facility], a Service of [facility], [address] [place] [address] Danae Holliday MD, Property Maintenance Supervisor [facility]# [id number] 08/29/2022 2:16 PM EDT 08/29/2022 2:24 PM EDT us Fernanda Escalante MD LAB BLOOD ORDERABLES Final Resu lt [facility] from Last 3 Months or Most Recently Relevant to Health Maintenance Insurance Medicare [facility] Medicare [facility] Care Teams Wind Projects Supervisor Relationship Specialty Start Date End Date Gt Akins MD [address] [place] [address] PCP - General Internal Medicine 04/06/22
--- OUTSIDE RECORDS SUMMARY | 2025-04-09 22:38 | XMS_ITS | Clinical Summary ---
Author Organization [facility] Prior to 09/28/[address] [place] [address] Care Team Providers Care Machine Sizer Name Role Phone Kaye Barreto MD Primary [...] age to complete this topic Care Teams Machine Sizer Relationship Specialty Start Date End Date Kaye Barreto MD PCP - General Internal Medicine 11/15/17
--- OUTSIDE RECORDS SUMMARY | 2025-04-09 22:38 | XMS_ITS | Clinical Summary ---
Author Organization [facility] Address [address] [place] [address] Phone Care Team Providers Care Bottom Worker Name Role Phone Gt Akins MD Primary Care Provider Allergies Active Allergy Reactions Criticality Noted Date [...] Type 2 diabetes mellitus wit h cataract ([facility] V24, [facility] V28) 02/14/2018 DX:Type 2 diabetes mellitus with cataract (HCC) Type 2 diabetes mellitus wit h renal manifestations ([facility] V24, [facility] V28) 02/14/2018 DX:Type 2 diabetes mellitus with renal manifestations (HCC) Cataract 03/02/2016 DX:Cataract Chronic insomnia 10/20/2016 DX:Chronic inso mnia CKD (chronic kidney disease) stage 3, GFR 30-59 ml/min ([facility] V24, [facility] V28) 01/14/2016 DX:CKD (chronic kidney disea se) stage 3, GFR 30-59 ml/min ([facility]) DDD (degenerative disc disea se), lumbar 11/20/2015 DX:DDD (degenerative disc di sease), lumbar; COMMENT: Cervical and thoracic as well Fibromyalgia 10/27/2016 DX:Fibromyalgia GERD (gastroesophageal reflu x disease) 10/20/2016 DX:GERD (gastroesophageal re flux disease) Hyperlipidemia 11/27/2017 DX:Hyperlipidemi a Hypertension 11/27/2017 DX:Hypertension Hypothyroidism 10/20/2016 DX:Hypothyroidis m Insomnia 01/14/2016 DX:Insomnia Major depression in partial remission ([facility] V24) 11/27/2017 DX:Major depression in parti al remission ([facility]) Migraine headache 07/02/2013 DX:Migraine he adache Panic disorder 01/14/2016 DX:Panic disorde r Psoriasis 01/14/2016 DX:Psoriasis Type 2 diabetes mellitus wit h neurological manifestations ([facility] V24, [facility] V28) 10/27/2016 DX:Type 2 diabetes mellitus with neurological manifestations ([facility]) Vitamin B 12 deficiency 01/14/2016 DX:Vitam in B 12 deficiency CAD (coronary artery disease) 02/14/2018 DX :CAD (coronary artery disease) Iron deficiency anemia 11/22/2018 DX:Iron d eficiency anemia; COMMENT: Unclear etiology, new pt to practice 10/2018 on iron supplement since 2017 ED (erectile dysfunction) 11/22/2018 DX:ED (erectile dysfunction) Type 2 diabetes mellitus wit h peripheral artery disease ([facility] V24, [facility] V28) 11/22/2018 DX:Type 2 diabetes mellitus with [...] Orientation Straight 07/18/2024 2: 57 PM EDT Last Filed Vital Signs Vital Sign Reading [...] V24, CMS/HCC V28) HEMOGLOBIN A1C Routine 05/31/2023 COLONOSCOPY Routine 05/18/2023 HEPATITIS C SCREENING Routine 08/31/2020 URINE ALBUMIN CREATININE RATIO Routine 01/27/2020 LIPID PANEL Routine 01/27/2020 from Last 3 Months or Most Recently Relevant to Health Maintenance Results * (ABNORMAL) Comprehensive metabolic panel (08/29/2024 12:05 PM EDT) Sodium 140 133 - 145 mmol/L LAB CHEMISTRY METHOD 08/29/2024 1:44 PM [facility] Potassium 3.5 3.5 - 5.5 mmol/L LAB CHEMISTRY METHOD 08/29/2024 1:44 PM [facility] Chloride 103 96 - 110 mmol/L LAB CHEMISTRY METHOD 08/29/2024 1:44 PM [facility] CO2 26 21 - 32 mmol/L LAB CHEMISTRY METHOD 08/29/2024 1:44 PM [facility] Anion Gap 11 3 - 11 LAB CHEMISTRY METHOD 08/29/2024 1:44 PM [facility] Glucose 130(H) 70 - 100 mg/dL LAB CHEMISTRY METHOD 08/29/2024 1:44 PM [facility] BUN 38(H) 5 - 25 mg/dL LAB CHEMISTRY METHOD 08/29/2024 1:44 PM [facility] Creatinine 1.62(H) 0.70 - 1.30 mg/dL LAB CHEMISTRY METHOD 08/29/2024 1:44 PM [facility] eGFR 44(L) >=60 mL/min/1. 73m2 LAB CHEMISTRY METHOD 08/29/2024 1:44 PM [facility] Comment:Calculation based on the Chronic Kidney Disease Epidemiology Collaboration (CKD-EPI) equation refit without adjustment for race. BUN/Creatinine Ratio 23.5 LAB CHEMISTRY METHOD 08/29/2024 1:44 PM [facility] Calcium 9.7 8.5 - 10.5 mg/dL LAB CHEMISTRY METHOD 08/29/2024 1:44 PM [facility] AST (SGOT) 21 10 - 42 unit/L LAB CHEMISTRY METHOD 08/29/2024 1:44 PM EDT [facility] ALT (SGPT) 27 10 - 60 unit/L LAB CHEMISTRY METHOD 08/29/2024 1:44 PM EDT [facility] Alkaline Phosphatase 87 42 - 121 unit/L LAB CHEMISTRY METHOD 08/29/2024 1:44 PM EDT [facility] Total Protein 7.8 6.0 - 8.0 g/dL LAB CHEMISTRY METHOD 08/29/2024 1:44 PM EDT [facility] Albumin 4.6 3.2 - 5.0 g/dL LAB CHEMISTRY METHOD 08/29/2024 1:44 PM EDT [facility] Total Bilirubin 0.5 0.0 - 1.4 mg/dL LAB CHEMISTRY METHOD 08/29/2024 1:44 PM EDT [facility] Blood Venous blood specimen / Unknown Venipuncture / Unknown 08/29/2024 12:05 PM EDT 08/29/2024 12:29 PM EDT Jim Larsen DO LAB BLOOD ORDERABLES Final Res ult [facility] [address] [place] [address], * Hemoglobin A1c (05/31/2023) [facility] Hemoglobin A1C 5.8 <=6.5 % Blood Venous blood specimen / Unknown Historical Provider LAB BLOOD ORDERABLES Maria E l Result * Colonoscopy (05/18/2023) [facility] Colonoscopy No interpretation , Abstracted Anatomical Region Laterality Modality Other Historical Provider HEALTH MAINTENANCE Final Result * Hepatitis C Screening (08/31/2020) [facility] Hepatitis C Screening Abstracted Historical Provider HEALTH MAINTENANCE Final Result * HM Urine Albumin Creatinine Ratio (01/27/2020) [facility] Urine Albumin Creatinine Ratio Abstracted Historical Provider HEALTH MAINTENANCE Final Result * (ABNORMAL) Lipid panel (01/27/2020) LDL/HDL Ratio 8(A) 0 - 4 Triglycerides 561(A) 0 - 150 mg/dL Comment:Triglyceride value i s >= 500. Calculated LDL is not meaningful. Direct LDL has been added. Cholesterol 268(A) 0 - 200 mg/dL HDL 33(A) >=40 mg/dL LDL Cholesterol 153(A) 0 - 100 mg/dL Blood Venous blood specimen / Unknown Historical Provider LAB BLOOD ORDERABLES Maria E l Result from Last 3 Months or Most Recently Relevant to Health Maintenance Insurance MEDICARE [facility] Care Teams Bottom Worker Relationship Specialty Start Date End Date Gt Akins MD [address] [place] [address] [facility] - General 05/18/23
== END 2025-04-09 14:26 | disposition home or self-care (01) ==
LOC: HO.CT 14:25
PROVIDERS: Absent Provider Internal Medicine; PCP Internal Medicine; Visit Provider Surgery
DX: K43.2 Incisional hernia without obstruction or gangrene (principal); Z85.038 Personal history of other malignant neoplasm of large intestine
CPT/HCPCS: 74176

== ENCOUNTER → 2025-04-09 14:27 | Outpatient (BNV) | payer MEDICARE, SELFPAY | PROVIDERS: Absent Provider Internal Medicine; PCP Internal Medicine; Visit Provider Radiology Diagnostic Radiology | DX: K57.10 Diverticulosis of small intestine without perforation or abscess without bleeding (principal); D35.02 Benign neoplasm of left adrenal gland; Z85.038 Personal history of other malignant neoplasm of large intestine | CPT/HCPCS: 74176 ==

== ENCOUNTER 2025-04-22 14:26 | Outpatient (AMB) | payer MEDICARE, SELFPAY ==
--- NOTE | 2025-04-22 14:25 | A.OFFVIS_ITS ---
Vital Signs 04/22/25 14:32 Height 5 ft 10 in Weight 149 lb 14.629 oz BMI 21.5 Intake Visit Reasons: ct results Intake Note: Patient is seen in office for CT scan results, following for possible hernia. Pt c/o: increase pain since last visit CT:04/09/25 Insurance Claims Analyst Required: No Accompanied by: Self / Same As Patient Allergies hydrochlorothiazide Allergy (Intermediate, Verified 04/22/25 14:32) Unknown lamotrigine (From LAMICTAL) Allergy (Intermediate, Verified 04/22/25 14:32) RASH Penicillins (PENICILLINS) Allergy (Intermediate, Verified 04/22/25 14:32) ITCHY Tetracyclines (TETRACYCLINES) Allergy (Intermediate, Verified 04/22/25 14:32) ITCHY tramadol Allergy (Unknown, Verified 04/22/25 14:32) Unknown onabotulinumtoxinA (From Botox) Allergy (Verified 04/22/25 14:32) swallowing gabapentin (From NEURONTIN) Adverse Reaction (Intermediate, Verified 04/22/25 14:32) ACID REFLUX amitriptyline (From ELAVIL) Adverse Reaction (Mild, Verified 04/22/25 14:32) THIRST Medication List - Last Reconciled 04/22/25 by Thanh Purvis MD alprazolam 0.5 mg PO DAILY PRN apremilast (Otezla) 30 mg PO BID atorvastatin 20 mg PO DAILY empagliflozin 25 mg PO DAILY 30 days fenofibrate 160 mg PO DAILY ferrous sulfate 325 mg PO DAILY glipizide ER 10 mg PO DAILY insulin aspart U-100 (Novolog FlexPen U-100 Insulin aspart) 14 units subcut TID insulin degludec (Tresiba FlexTouch U-100 insulin) 80 units subcut DAILY levothyroxine 50 mcg PO DAILY omeprazole 40 mg PO DAILY pen needle, diabetic (Easy Touch) As directed quetiapine 200 mg PO BEDTIME sertraline 200 mg PO DAILY trazodone 200 mg PO BEDTIME PRN HPI Comments Details: 74-year-old male patient returning to review his recent CT abdomen and pelvis performed for his lower abdominal pain. As previously noted he has a prior history of right colon cancer in his status post laparoscopic right colectomy with ileocecal anastomosis performed at [facility] on 06/21/2023. He reports persistent pain following this procedure in the lower abdomen right greater than left around the transverse incision. He also has chronic pain in both the back and hips and recently underwent a colonoscopy by Dr. Alexander. CT abdomen and pelvis revealed a 4 cm segment of transverse colon right of midline that appeared thick-walled with narrowing of the lumen. As the patient recently underwent colonoscopy, this appears more to be peristalsis rather than neoplasm. Also noted were a 2.6 cm diverticulum in the duodenum and a benign lipid rich adrenal adenoma on the left side. No abdominal wall hernias could be identified. [facility] Medical History Depression Chronic renal insufficiency Diabetes Restrictive lung disease Dyspnea on exertion COPD (chronic obstructive pulmonary disease) Restless legs syndrome (RLS) Sleep apnea Gallbladder abscess Surgical History H/O colectomy H/O colonoscopy Hx of cholecystectomy Family History Brother Substance use disorder Sister Mental health disorder Diabetes Breast cancer Sister Mental health disorder Sister Mental health disorder Sister Mental health disorder Mother Mental health disorder Social History Housing: Condominium Alcohol intake: current Alcohol intake frequency: former alcohol drinker Patient Tobacco Use Status: Never used Tobacco e-Cigarette/Vaping Use: Never Used Second Hand Smoke Exposure: No service: No Current occupational status: employed and disabled Current occupation: disabled - [employer] Cognitive needs: No Hearing needs: No Vision needs: Yes Review of Systems Const All systems reviewed & are unremarkable except as noted in HPI and below Physical Exam Vital Signs: BMI result Body Mass Index 21.5 Const General: cooperative and no acute distress Nutritional Appearance: well nourished Orientation/consciousness: patient oriented x3 Limitations: no limitations HEENT Head: Yes normocephalic and Yes atraumatic Ears: hearing grossly normal bilaterally Resp Effort & Inspection: normal respiratory effort, no audible wheezes, no cough and no respiratory distress Cardio Jugular venous distension: no JVD GI Other: Soft, nondistended, tender in the lower abdomen left and right equally. Lower transverse incision as well as several upper abdominal trocar incisions were all which are healed well. No definite hernias palpable although tenderness is elicited with palpation of the lateral portions of the transverse incision. No changes noted with Valsalva maneuvers. Inspection: Yes normal to inspection Palpation (GI): Soft to palpation Skin Other: Warm, dry, no rash Neuro General: patient oriented x3 Extrem General: Yes no clubbing, cyanosis or edema Assessment & Plan Assessment & Plan (1) History of colon cancer: Code(s): Z85.038 - Personal history of other malignant neoplasm of large intestine Category: Medical Plan 74-year-old male patient with multiple medical problems presenting with compl aints of abdominal pain in the lower abdomen adjacent to his surgical incision bilaterally which has been persistent since his surgery in 2023. Examination today again elicits tenderness at the lower transverse incision however no definite hernias palpable to my examination. Evaluation of a recent CT abdomen and pelvis also reveals no occult hernias to explain the patient's abdominal pain. An area of transverse colon appears to be caught in the active peristalsis rather than an area of neoplasm given the patient's recent colonoscopy. A copy of the report was provided to the patient for his records. No surgical intervention is recommended at this time. He should follow up as needed. Coding Level of Care Code Est Pt Level 3 (89451) Diagnoses History of colon cancer Z85.038
[2025-04-22 14:32] VITALS: BMI 21.5
--- OUTSIDE RECORDS SUMMARY | 2025-04-22 15:43 | XMS_ITS | Clinical Summary ---
Author Organization [facility] Prior to 09/28/[address] [place] [address] Care Team Providers Care Compliance Assistant Name Role Phone Kaye Barreto MD Primary [...] age to complete this topic Care Teams Compliance Assistant Relationship Specialty Start Date End Date Kaye Barreto MD PCP - General Internal Medicine 11/15/17
--- OUTSIDE RECORDS SUMMARY | 2025-04-22 15:43 | XMS_ITS | Clinical Summary ---
Author Organization [facility] Address [address] [place] [address] Phone Care Team Providers Care Securities Lending Trader Name Role Phone Gt Akins MD Primary Care Provider [phone] Allergies Active Allergy Reactions Criticality Noted Date [...] Type 2 diabetes mellitus wit h cataract ([facility], [facility] V28) 02/14/2018 DX:Type 2 diabetes mellitus with cataract (HCC) Type 2 diabetes mellitus wit h renal manifestations ([facility] V24, [facility] V28) 02/14/2018 DX:Type 2 diabetes mellitus with renal manifestations (HCC) Cataract 03/02/2016 DX:Cataract Chronic insomnia 10/20/2016 DX:Chronic inso mnia CKD (chronic kidney disease) stage 3, GFR 30-59 ml/min ([facility] V24, [facility] V28) 01/14/2016 DX:CKD (chronic kidney disea se) stage 3, GFR 30-59 ml/min ([facility]) DDD (degenerative disc disea se), lumbar 11/20/2015 DX:DDD (degenerative disc di sease), lumbar; COMMENT: Cervical and thoracic as well Fibromyalgia 10/27/2016 DX:Fibromyalgia GERD (gastroesophageal reflu x disease) 10/20/2016 DX:GERD (gastroesophageal re flux disease) Hyperlipidemia 11/27/2017 DX:Hyperlipidemi a Hypertension 11/27/2017 DX:Hypertension Hypothyroidism 10/20/2016 DX:Hypothyroidis m Insomnia 01/14/2016 DX:Insomnia Major depression in partial remission ([facility] V24) 11/27/2017 DX:Major depression in parti al remission ([facility]) Migraine headache 07/02/2013 DX:Migraine he adache Panic disorder 01/14/2016 DX:Panic disorde r Psoriasis 01/14/2016 DX:Psoriasis Type 2 diabetes mellitus wit h neurological manifestations ([facility] V24, [facility] V28) 10/27/2016 DX:Type 2 diabetes mellitus with neurological manifestations ([facility]) Vitamin B 12 deficiency 01/14/2016 DX:Vitam in B 12 deficiency CAD (coronary artery disease) 02/14/2018 DX :CAD (coronary artery disease) Iron deficiency anemia 11/22/2018 DX:Iron d eficiency anemia; COMMENT: Unclear etiology, new pt to practice 10/2018 on iron supplement since 2017 ED (erectile dysfunction) 11/22/2018 DX:ED (erectile dysfunction) Type 2 diabetes mellitus wit h peripheral artery disease ([facility] V24, [facility] V28) 11/22/2018 DX:Type 2 diabetes mellitus with [...] Health Maintenance Due Date Last Done Comments Drug Screen 1950 Non-Opioid Controlled Substance Agreement 1950 Diabetes: Annual Foot Exam 12/19/1959 Diabetes: Annual [...] mmol/L LAB CHEMISTRY METHOD 08/29/2024 1:44 PM [facility] Potassium 3.5 3.5 - 5.5 mmol/L LAB CHEMISTRY METHOD 08/29/2024 1:44 PM [facility] Chloride 103 96 - 110 mmol/L LAB CHEMISTRY METHOD 08/29/2024 1:44 PM [facility] CO2 26 21 - 32 mmol/L LAB CHEMISTRY METHOD 08/29/2024 1:44 PM [facility] Anion Gap 11 3 - 11 LAB CHEMISTRY METHOD 08/29/2024 1:44 PM [facility] Glucose 130(H) 70 - 100 mg/dL LAB CHEMISTRY METHOD 08/29/2024 1:44 PM [facility] BUN 38(H) 5 - 25 mg/dL LAB CHEMISTRY METHOD 08/29/2024 1:44 PM [facility] Creatinine 1.62(H) 0.70 - 1.30 mg/dL LAB CHEMISTRY METHOD 08/29/2024 1:44 PM [facility] eGFR 44(L) >=60 mL/min/1. 73m2 LAB CHEMISTRY METHOD 08/29/2024 1:44 PM [facility] Comment:Calculation based on the Chronic Kidney Disease Epidemiology Collaboration (CKD-EPI) equation refit without adjustment for race. BUN/Creatinine Ratio 23.5 LAB CHEMISTRY METHOD 08/29/2024 1:44 PM [facility] Calcium 9.7 8.5 - 10.5 mg/dL LAB CHEMISTRY METHOD 08/29/2024 1:44 PM [facility] AST (SGOT) 21 10 - 42 unit/L LAB CHEMISTRY METHOD 08/29/2024 1:44 PM EDT [facility] ALT (SGPT) 27 10 - 60 unit/L LAB CHEMISTRY METHOD 08/29/2024 1:44 PM EDT [facility] Alkaline Phosphatase 87 42 - 121 unit/L LAB CHEMISTRY METHOD 08/29/2024 1:44 PM EDT [facility] Total Protein 7.8 6.0 - 8.0 g/dL LAB CHEMISTRY METHOD 08/29/2024 1:44 PM EDT [facility] Albumin 4.6 3.2 - 5.0 g/dL LAB CHEMISTRY METHOD 08/29/2024 1:44 PM EDT [facility] Total Bilirubin 0.5 0.0 - 1.4 mg/dL LAB CHEMISTRY METHOD 08/29/2024 1:44 PM EDT [facility] Blood Venous blood specimen / Unknown Venipuncture / Unknown 08/29/2024 12:05 PM EDT 08/29/2024 12:29 PM EDT Jim Larsen DO LAB BLOOD ORDERABLES Final Res ult [facility] [address] [place] [address], * Hemoglobin A1c (05/31/2023) Pathologist [facility] Hemoglobin A1C 5.8 <=6.5 % Blood Venous blood specimen / Unknown Historical Provider LAB BLOOD ORDERABLES Maria E l Result * Colonoscopy (05/18/2023) Pathologist [facility] Colonoscopy No interpretation , Abstracted Anatomical Region Laterality Modality Other Historical Provider HEALTH MAINTENANCE Final Result * Hepatitis C Screening (08/31/2020) Pathologist [facility] Hepatitis C Screening Abstracted Historical Provider HEALTH MAINTENANCE Final Result * Urine Albumin Creatinine Ratio (01/27/2020) Pathologist [facility] Urine Albumin Creatinine Ratio Abstracted Historical Provider HEALTH MAINTENANCE Final Result * (ABNORMAL) Lipid panel (01/27/2020) Pathologist [facility] LDL/HDL Ratio 8(A) 0 - 4 [...] Recently Relevant to Health Maintenance Insurance MEDICARE [facility] Care Teams Securities Lending Trader Relationship Specialty Start Date End Date Gt Akins MD [address] [place] [address] PCP - General 05/18/23
--- OUTSIDE RECORDS SUMMARY | 2025-04-22 15:43 | XMS_ITS | Clinical Summary ---
Author Organization [facility] Address [address] [facility] [address] [place] [address] Phone Care Team Providers Care Environmental Health Technician Name Role Phone Gt Akins MD Primary Care Provider [phone] Allergies Active Allergy Reactions Criticality Noted Date [...] PM EDT) Hemoglobin A1C 6.8(H) (4.0-5.6) % [facility] Comment: MONITORING: In known diabetic patients, hemoglobin A1c targets should be discussed with health care provider. DIAGNOSTIC USE: The [place] [employer] (ADA) and the World Health [...] Supplement 1 Testing performed or reported by [facility], a Service of [facility], [address] [place] [address] Danae Holliday MD, Network Operations Lead [facility]# [id number] 08/29/2022 2:16 PM EDT 08/29/2022 2:24 PM EDT us Fernanda Escalante MD LAB BLOOD ORDERABLES Final Resu lt [facility] from Last 3 Months or Most Recently Relevant to Health Maintenance Insurance Medicare [facility] Medicare [facility] Care Teams Environmental Health Technician Relationship Specialty Start Date End Date Gt Akins MD [address] [place] [address] PCP - General Internal Medicine 04/06/22
== END 2025-04-22 14:41 | disposition home or self-care (01) ==
LOC: HO.HGS 14:26
PROVIDERS: PCP Internal Medicine; Visit Provider Surgery
DX: Z85.038 Personal history of other malignant neoplasm of large intestine (principal)
CPT/HCPCS: 99213

== ENCOUNTER → 2025-04-22 14:26 | Outpatient (BNVA) | payer MEDICARE, SELFPAY | PROVIDERS: PCP Internal Medicine; Visit Provider Surgery | DX: Z85.038 Personal history of other malignant neoplasm of large intestine (principal) | CPT/HCPCS: 99212 ==